=== PATIENT | female | born 1950 | race Caucasian/White ===

== ENCOUNTER 2017-02-20 12:45 | Inpatient (IN) | payer MEDICARE, MEDICAID ==
--- NOTE | 2017-02-20 12:58 | ED Physician Chart ---
ED Chief Complaint/HPI - Patient Information Date Seen:: 02/20/17 Time Seen:: 12:45 Chief Complaint:: Lethargy History of Present Illness:: onset x one day of lethargy, ALOC, AMS, and weakness; no report of trauma, H/As , S/T, neck pain, C/P, SOB, Abd. Pain, A/N/V/D/C, fever, chills, or urinary s/s Historian:: Patient, EMS Review:: Nurse's Note Reviewed, Old Chart Reviewed, EMS run form Reviewed ED Review of Systems - Review of Systems General/Constitutional: No fever, No chills, No weight loss, No weakness, No diaphoresis, No edema, No loss of appetite Skin: No skin lesions, No rash, No bruising Head: No headache, No light-headedness Eyes: No loss of vision, No pain, No diplopia ENT: No earache, No nasal drainage, No sore throat, No tinnitus Neck: No neck pain, No swelling, No thyromegaly, No stiffness, No mass noted Cardio Vascular: No chest pain, No palpitations, No PND, No orthopnea, No edema Pulmonary: No SOB, No cough, No sputum, No wheezing GI: No nausea, No vomiting, No diarrhea, No pain, No melena, No hematochezia, No constipation, No hematemesis G/U: No dysuria, No frequency, No hematuria, No nacturia Community Advocate: No vaginal discharge, No abnormal vaginal bleed, No contraction Musculoskeletal: No bone or joint pain, No back pain, No muscle pain Endocrine: No polyuria, No polydipsia Psychiatric: No prior psych history, No depression, No anxiety, No suicidal ideation, No homicidal ideation, No auditory hallucination, No visual hallucination Hematopoietic: No bruising, No lymphadenopathy Allergic/Immuno: No urticaria, No angioedema Neurological: No syncope, No focal symptoms, Weakness, No paresthesia, No headache, No seizure, No dizziness, Confusion, No vertigo ED Past Medical History - Past Medical History Obtainable: Yes Past Medical History: HTN, Dementia Family History: Diabetes Melitus, HTN Social History: Non Smoker, No Alcohol, No Drug Use, Single, Care Facility Surgical History: None Psychiatricy History: Dementia Medication: Reviewed ED Physical Exam - Physical Examination General/Constitutional: Awake, Well-developed, well-nourished, Alert, No distress, GCS 15, Non-toxic appearing, Ambulatory Head: Atraumatic Eyes: Lids, conjuctiva normal, PERRL, EOMI Skin: Nl inspection, No rash, No skin lesions, No ecchymosis, Well hydrated, No lymphadenopathy ENMT: External ears, nose nl, TM canals nl, Nasal exam nl, Lips, teeth, gums nl , Oropharynx nl, Tonsils nl Neck: Nontender, Full ROM w/o pain, No JVD, No nuchal rigidity, No bruit, No mass, No stridor Respiratory: Nl effort/Exclusion, Clear to Auscultation, No Wheeze/Rhonchi/Rales Cardio Vascular: RRR, No murmur, gallop, rubs, NL S1 S2, Carotid/Femoral/Distal pulses equal bilaterally GI: No tenderness/rebounding/guarding, No organomegaly, No hernia, Normal BS's, Nondistended, No mass/bruits, No McBurney tenderness : No CVA tenderness Extremities: No tenderness or effusion, Full ROM, normal strength in all extremities, No edema, Normal digits & nails Neuro/Psych: DTR's symmetric, Normal sensory exam, Normal motor strength, Judgement/insight normal, Mood normal, Normal gait, No focal deficits Other Neuro/Psych comments:: Disoriented and Confused Misc: Normal back, No paraspinal tenderness ED Labs/Radiology/EKG Results - Lab Results Comments:: WBC: 4.0; H/H: 11.5/34.9 - Radiology Results Comments:: NAD - EKG Interpretations EKG Time:: 15:13 Rate & Rhythm: 54; SB Comments:: old ASMI; [address]-T Elevation in Inferior Leads; T-Wave Inversion in V1 and V2 ED Septic Shock - . Is Septic Shock (SBP<90, OR Lactate>4 mmol\L) present?: No ED Reassessment (Disposition) - Reassessment Reassessment Condition:: Improved - Diagnosis Diagnosis:: Dx: Leukopenia; Anemia; ALOC; Sepsis; Myocardial Ischemia; R/O RI; Hypothermia - Aftercare/Follow up Instructions Aftercare/Follow-Up Instructions:: Counseled pt regarding lab results/diagnosis & need follow up, Counseled pt & family regarding lab results/diagnosis & need follow up - Patient Disposition Discharge/Transfer:: Acute Care w/in this hosp Accepting Physician:: Dr. Knight Time Called:: 1420 Time Responded:: 14:20 Admitted to:: ICU Spoke to:: Dr. Knight Admitting Medical Physician:: Dr. Knight Condition at Disposition:: Critical, Improved
[2017-02-20 13:33] LABS: URINE MICROSCOPIC INDICATED? YES; URINE SOURCE MIDSTREAM
[2017-02-20 13:35] LABS: % BASOPHILS 0.2 % (0.0-2.0); % EOSINOPHILS 0.8 % (0.0-5.0); % LYMPHOCYTES 25.2 % (20.0-50.0); % MONOCYTES 6.9 % (2.0-10.0); % NEUTROPHILS 66.9 % (40.0-80.0); HEMATOCRIT 34.9 % (41.0-60); HEMOGLOBIN 11.5 gm/dL (12-16); MEAN CELL VOLUME 91.1 fl (81-100); MEAN CORPUSCULAR HGB CONC 32.9 pg (28.0-36.0); MEAN PLATELET VOLUME 7.8 fl; MONOCYTE ABSOLUTE 0.3 Th/cmm (0.3-1.0); NEUTROPHILE ABSOLUTE 2.7 Th/cmm (1.8-8.0); PLATELET COUNT 202 Th/cmm (150-400); RED BLOOD COUNT 3.83 Mil/cmm (3.80-5.20); RED CELL DISTRIBUTION WIDTH 14.7 % (11.5-20.0)
[2017-02-20 13:42] LABS: URINE BILIRUBIN NEGATIVE (NEGATIVE); URINE BLOOD NEGATIVE (NEGATIVE); URINE GLUCOSE (UA) NEGATIVE (NEGATIVE); URINE KETONE NEGATIVE (NEGATIVE); URINE LEUKOCYTE ESTERASE NEGATIVE (NEGATIVE); URINE NITRATE NEGATIVE (NEGATIVE); URINE PROTEIN TRACE mg/dL (NEGATIVE); URINE UROBILINOGEN 0.2 E.U./dL (0.2 - 1.0)
[2017-02-20 13:45] VITALS: BP 102/61
[2017-02-20 13:47] LABS: URINE CLARITY HAZY (CLEAR); URINE COLOR YELLOW
[2017-02-20 13:47] LABS: ALB/GLOB RATIO 1.2 (1.0-1.8); ALBUMIN 3.4 gm/dL (3.7-5.3); ALKALINE PHOSPHATASE 318 U/L (34-104); ANION GAP 6.7 (7.0-16.0); BILIRUBIN,TOTAL 0.3 mg/dL (0.3-1.0); BUN - UREA NITROGEN 24 mg/dL (7-25); CALCIUM SERUM 9.4 mg/dL (8.6-10.3); CARBON DIOXIDE 32.1 mEq/L (21.0-31.0); CHLORIDE 105 mEq/L (98-107); CHOLESTEROL 216 mg/dL (<200); CREATININE - SERUM 0.7 mg/dL (0.6-1.2); CREATININE KINASE 249 U/L (30-223); GFR AFRICAN-AMERICAN > 60.0 ml/min (>90); GFR NON AFRICAN-AMERICAN > 60.0 ml/min; GLUCOSE 96 mg/dL (70-105); HDL -HIGH DENSITY LIPOPROTEIN 122 mg/dL (23-92); POTASSIUM SERUM 3.8 mEq/L (3.5-5.1); SGOT 117 U/L (13-39); SGPT/ALT 159 U/L (7-52); SODIUM SERUM 140 mEq/L (136-145); TOTAL PROTEIN,SERUM 6.3 gm/dL (6.0-8.3); TRIGLYCERIDES 74 mg/dL (<150)
[2017-02-20 13:57] LABS: PROTHROMBIN TIME (TEST) 10.4 SECONDS (9.5-11.5)
[2017-02-20 13:59] LABS: URINE BACTERIA OCCASIONAL /hpf (NONE SEEN); URINE EPITHELIAL CELLS FEW /lpf (FEW); URINE RBC 0-2 /hpf (0-5)
--- NOTE | 2017-02-20 14:01 | Diagnostic Imaging Report ---
CT scan of the brain without intravenous contrast HISTORY: Stroke, CVA Total DLP equals 775 CTDI equals 40.9 Axial sections were obtained from the base of the skull to the vertex. There is enlargement of the ventricular system along with enlargement of cerebral sulci and subarachnoid cisterns reflecting atrophy. No acute parenchymal abnormalities. No intracerebral hemorrhage. No mass effect or shift of midline structures. No extra-axial masses or abnormal fluid collections. IMPRESSION: 1. No acute abnormalities 2. Cerebral atrophy
--- NOTE | 2017-02-20 14:12 | Diagnostic Imaging Report ---
Portable chest x-ray HISTORY: Pain The overall heart size is difficult to assess with portable technique and a poor inspiration. Atherosclerotic calcification seen in the aorta. No acute focal pulmonary processes. Degenerative changes noted within the spine. IMPRESSION: 1. No acute abnormalities 2. Atherosclerotic vascular changes
[2017-02-20] MEDS ORDERED: Sodium Chloride 0.9% 500 ML IV ONE ×2 (14:40→16:12)
[2017-02-20] MEDS ORDERED: Piperacillin Sodium/Tazobact 3.375 gm Vial IV ONE ×2 (15:09→21:35)
[2017-02-20] MEDS ORDERED: Sodium Chloride 0.9% 1,000 ML IV ONE (16:12)
[2017-02-20] MEDS ORDERED: DOPamine 400 MG/250 ML BAG IV ONE (16:45)
[2017-02-20] MEDS ORDERED: DOPamine 400 MG/250 ML BAG IV PRN (21:20)
[2017-02-20] MEDS: Sodium Chloride 0.9% 1,000 ML IV SCH (21:22)
--- NOTE | 2017-02-21 03:59 | Consultation ---
DATE OF CONSULTATION: 02/20/2017 INFECTIOUS DISEASE CONSULTATION REFERRING PHYSICIAN: Cynthia Martinez MD. REASON FOR CONSULTATION: Sepsis. HISTORY OF PRESENT ILLNESS: The patient is a 66-year-old female with a past medical history of hypertension, dementia, brought in from the nursing facility for lethargy and altered mental status associated with weakness. On initial evaluation, the patient's temperature was 88 degrees Fahrenheit and WBC count was 4000. The patient was hypotensive on presentation with blood pressure of 102/61, it dropped to 70/39. Sepsis was suspected. Lactic acid was within normal limits. The patient was started on vancomycin and Zosyn. Infectious Disease consultation was called for further antibiotic management. PAST MEDICAL HISTORY: Include dementia and hypertension. ALLERGIES: NKDA. MEDICATIONS: See medication reconciliation sheet. Antibiotic rothman, the patient is receiving vancomycin IV in the ER and Zosyn. SOCIAL HISTORY: The patient lives in a nursing facility. FAMILY HISTORY: Not available. REVIEW OF SYSTEMS: The patient is not communicating at this time, unable to obtain any history from the patient, history is taken from the chart. The patient is hypothermic and hypotensive at the presentation. PHYSICAL EXAMINATION: VITAL SIGNS: Current vital signs shows temperature is 97.7 degrees Fahrenheit, pulse 91, respirations 22, and blood pressure 119/51. GENERAL: The patient is comfortable, lying in the bed, not in acute distress. HEENT: Head is normocephalic and atraumatic. Oral cavity moist, pink tongue. Eyes: Pallor is present, no icterus. Pupils are PERRLA, EOMI. NECK: Supple. No JVD. Trachea is midline. CHEST: Bilateral breath sounds. No crackles or wheezing. HEART: S1, S2 within normal limits. Regular rhythm. No murmur. No gallop. ABDOMEN: Soft, nontender, and nondistended. Bowel sounds present. EXTREMITIES: No cyanosis, no clubbing, and no edema. NEUROLOGIC: Unresponsive. Barely opens her eyes. LABORATORY DATA: Current lab shows WBC count is 4000, hemoglobin 11.5, hematocrit 34.9, platelets are 202,000, and neutrophils 67%. INR 1.0. Sodium is 140, potassium 3.8, chloride 105, bicarbonate is 32, BUN is 24, creatinine 0.7, and glucose is 96. AST 170, ALT is 159, and alkaline phosphatase is 318. CPK is 249. CPK-MB 40.8. BNP 81. Urinalysis shows negative nitrite and negative leukoesterase. DIAGNOSTIC DATA: CT scan of the head showed cerebral atrophy; otherwise, not in acute. Chest x-ray revealed no acute abnormality. IMPRESSION: 1. Hypothermia, hypotension, WBC count is 4000, sepsis or systemic inflammatory response syndrome. 2. Dementia. 3. Hypertension. 4. Elevated liver enzymes, rule out hepatitis. RECOMMENDATIONS: Meanwhile, we will do the ultrasound of the abdomen and pelvis Continue vanco MARINA and Perla. Thank you, Dr. Knight, for involving me in taking care of this patient. JOB# [id number] DERRICK
[2017-02-21] MEDS ORDERED: Piperacillin Sodium/Tazobact 3.375 gm Vial IV ONE (04:37)
[2017-02-21 06:26] LABS: % BASOPHILS 0.3 % (0.0-2.0); % EOSINOPHILS 0.4 % (0.0-5.0); % LYMPHOCYTES 14.9 % (20.0-50.0); % MONOCYTES 7.4 % (2.0-10.0); HEMATOCRIT 34.7 % (41.0-60); HEMOGLOBIN 11.7 gm/dL (12-16); LYMPHOCYTE ABSOLUTE 0.9 Th/cmm (1.5-3.0); MEAN CELL VOLUME 90.2 fl (81-100); MEAN CORPUSCULAR HEMOGLOBIN 30.5 pg (27.0-31.0); MEAN CORPUSCULAR HGB CONC 33.8 pg (28.0-36.0); MEAN PLATELET VOLUME 7.8 fl; MONOCYTE ABSOLUTE 0.4 Th/cmm (0.3-1.0); NEUTROPHILE ABSOLUTE 4.7 Th/cmm (1.8-8.0); PLATELET COUNT 205 Th/cmm (150-400); RED BLOOD COUNT 3.85 Mil/cmm (3.80-5.20); RED CELL DISTRIBUTION WIDTH 14.4 % (11.5-20.0)
[2017-02-21 06:50] LABS: ALBUMIN 3.1 gm/dL (3.7-5.3); ALKALINE PHOSPHATASE 308 U/L (34-104); BILIRUBIN,TOTAL 0.4 mg/dL (0.3-1.0); BUN - UREA NITROGEN 13 mg/dL (7-25); CALCIUM SERUM 7.9 mg/dL (8.6-10.3); CARBON DIOXIDE 27.2 mEq/L (21.0-31.0); CHLORIDE 111 mEq/L (98-107); CREATININE - SERUM 0.9 mg/dL (0.6-1.2); GFR AFRICAN-AMERICAN > 60.0 ml/min (>90); GFR NON AFRICAN-AMERICAN > 60.0 ml/min; GLUCOSE 92 mg/dL (70-105); POTASSIUM SERUM 4.2 mEq/L (3.5-5.1); SGOT 92 U/L (13-39); SGPT/ALT 138 U/L (7-52); SODIUM SERUM 141 mEq/L (136-145); TOTAL PROTEIN,SERUM 6.1 gm/dL (6.0-8.3)
[2017-02-21] MEDS ORDERED: Albuterol/Ipratropium Neb 3 ML AERS HHN PRN (08:35)
[2017-02-21] MEDS ORDERED: Guaifenesin DM 10 ML UDC PO PRN (08:35)
[2017-02-21] MEDS ORDERED: AMLODIPINE PO SCH (09:00)
[2017-02-21] MEDS ORDERED: ATORVASTATIN PO SCH (09:00)
[2017-02-21] MEDS ORDERED: Atorvastatin Calcium 10 MG TAB PO SCH (09:05)
--- NOTE | 2017-02-21 10:41 | History & Physical ---
ADMIT DATE: CHIEF COMPLAINT: AMS, lethargy, hypotension and hypothermia as well as bradycardia. HISTORY OF PRESENT ILLNESS: A 66-year-old female with history of hypertension, dementia, who presented to the ER with 1 day history of lethargy, altered mental status, generalized weakness, but no mention of chest pain, nausea, vomiting, fever, chills or urinary symptomatology. At the ER, pertinent findings include a temperature of 88.2, a pulse of 49, a blood pressure of 70/39 as far as labs transaminitis with and elevated CPK at 249. The patient underwent a CT of the head showing generalized atrophy, but no acute events and a chest x-ray was essentially within normal limits per radiologist's reading. The patient has been admitted to the ICU for further management and care. At this time, the patient is asleep and unable to provide me any significant history. As noted above, she does have a history of dementia. PAST MEDICAL HISTORY: Hypertension and dementia with psych overtones. PAST SURGICAL HISTORY: None listed. SOCIAL HISTORY: No tobacco, ETOH or illicit drug usage. She lives at care facility. OUTPATIENT MEDICATIONS: Tylenol 325 q.4 p.r.n. for fever or pain, alprazolam 0.5 t.i.d., amlodipine with atorvastatin 2.5/10 every day, vitamin C 500 mg daily, aspirin 81 daily, vitamin D 3000 international units every day, diphenhydramine 25 every day, Aricept 5 at bedtime, Tussin 10 mL q.6 hours p.r.n., DuoNeb q.6 hours p.r.n. for shortness of breath, magnesium 250 every day, and Risperdal is 0.5 at bedtime. REVIEW OF SYSTEMS: A good review of systems was not able to be done given patient's condition, but per ER notes, no fever or chills noted. No abdominal pain. There is no report of chest pain or shortness of breath. There are no reports of syncopal episodes. ALLERGIES: NKDA. PHYSICAL EXAMINATION: VITAL SIGNS: Current temperature is 97.6, pulse 68-73, blood pressure 116/56, respirations 18, satting 96% on 4 liters nasal cannula. GENERAL: She is a well-developed, well-nourished female, currently lying in bed, in no distress. HEENT: There is no evidence of trauma, although she does have some ecchymosis around her right forehead. NECK: There is no JVD or LAD. CARDIOVASCULAR: Regular rate and rhythm with distant sounds. LUNGS: Decreased at the bases. ABDOMEN: Soft, supple, nontender, nondistended, normoactive bowel sounds. EXTREMITIES: Lower extremity, there is no edema. NEUROLOGIC: Cannot be eval given current patient's condition. LABORATORY DATA: White count 4.0, H and H 11/34 with a platelet count of 202. INR 1.0, CO2 of 32, anion gap 6.7. Otherwise, chemistry was essentially within normal limits. Lactic acid 1.3, AST 117, ALT 159, alkaline phosphatase 318. CPK 249. BNP 80, LDL 80, HDL 122, general cholesterol 216. UA was essentially within normal limits. DIAGNOSTICS: As per to the HPI. IMPRESSION: 1. Altered mental status/lethargy. 2. Hypothermia, rule out sepsis. 3. Hypotension. Again, be concern is for sepsis vs. cardiogenic shock. 4. Bradycardia. 5. Transaminitis. 6. Elevated CPK level consistent with mild rhabdomyolysis. 7. History of essential hypertension. 8. History of dementia. PLAN: The patient has been admitted to the ICU yin where she has been placed on warm blankets and has been started on IV antibiotics namely vancomycin and Zosyn and also has dopamine drip. She will be kept on her other medications schedule. She also has been kept on IV fluids, which she received in the ER. She is currently on NS at 100 mL per hour. We will continue to follow cultures and sensitivities. CPK levels and will ask for hep serologies. A cardiac as well as an ID consults have been asked for management and care. JOB# [id number] DERRICK
[2017-02-21] MEDS: Aspirin 81mg Chewable Tab PO SCH (11:39)
[2017-02-21] MEDS: Sodium Chloride 0.9% 1,000 ML IV SCH ×2 (11:41→20:47)
--- NOTE | 2017-02-21 12:26 | Diagnostic Imaging Report ---
Ultrasound abdomen HISTORY: Elevated liver function tests COMPARISON: None Technique: Sonography of the abdomen was performed in multiple planes. FINDINGS: Exam is limited due to patient's medical condition and bowel gas. The visualized portions of the abdominal aorta within normal limits in size. The liver demonstrates normal echogenicity. The liver margins were not well-defined however no evidence of focal lesions. The liver measures 14.7 cm. The gallbladder is mildly distended. No discrete gallstones identified. The gallbladder wall measures 2 mm. The common bile duct measures 5 mm. Evaluation of the pancreas is limited due to bowel gas. The right kidney measures 9.7 x 4.4 cm. The left kidney measures 9.6 x 4.4 cm. The renal margins were not well-defined however no obvious focal lesions or evidence of hydronephrosis. The spleen was not well-visualized. IMPRESSION: Markedly limited exam due to bowel gas and body habitus. No evidence of hepatomegaly or other focal liver abnormalities. Mildly distended gallbladder. Note discrete gallstones identified. The common bile duct within normal limits in size measuring 5 mm The spleen was not visualized.
--- NOTE | 2017-02-21 20:46 | Consultation ---
DATE OF CONSULTATION: 02/21/[address] Knight. HISTORY AND PHYSICAL: This is a 66-year-old oriental female patient who was at the care home. The patient became weak, lethargic, altered level at this time. The patient was brought to the Emergency Room where the patient was hypotensive with bradycardia. The patient was admitted to ICU and cardiac consult is requested. The patient on dopamine. PAST MEDICAL HISTORY: Dementia, rhabdomyolysis, iron-deficiency anemia, osteoporosis, mild dementia. FAMILY HISTORY: Unremarkable. SOCIAL HISTORY: No history of smoking, alcohol abuse. ALLERGIES: No known allergies. PHYSICAL EXAMINATION: VITAL SIGNS: Blood pressure 90 systolic, on dopamine. Respirations 28. HEAD: Normocephalic. No lumps or bumps. EYES: Pupils equal, reactive to light. Fundi show AV nicking, sclerae white, conjunctivae pink. NECK: Carotid 2+. Normal upstroke. JVD flat. Thyroid not palpable. Lymph nodes not palpable. CHEST: Shows increased AP diameter. No kyphosis, scoliosis. LUNGS: Bilateral bronchovesicular breath sounds. HEART: PMI fifth intercostal space with lateral to midclavicular line. S1, S2. No S3, S4, soft systolic murmur. ABDOMEN: Soft. Liver, spleen not palpable. No organomegaly. Bowel sounds active. NEUROLOGIC: Unremarkable. EXTREMITIES: Peripheral pulses 2+. No pedal edema. CLINICAL IMPRESSION: Hypotension, etiology unknown, on dopamine; severe bradycardia, resolved with dopamine; history of hypertension; dementia. The patient was hypothermic with a temperature of 88 on admission; rhabdomyolysis, stating hepatitis, iron-deficiency anemia. PLAN: The patient to stop statin in view of hepatitis. Stop ____ in view of hypotension. The patient to continue on IV antibiotics and dopamine and monitor the patient closely and try to wean off dopamine and also get an echocardiogram for left ventricular function. [facility]# [id number]
[2017-02-21] MEDS: D5-0.45NS 1,000 ML IV SCH (21:10)
[2017-02-22 09:17] LABS: % BASOPHILS 0.6 % (0.0-2.0); % EOSINOPHILS 0.7 % (0.0-5.0); % LYMPHOCYTES 21.3 % (20.0-50.0); % MONOCYTES 12.5 % (2.0-10.0); % NEUTROPHILS 64.9 % (40.0-80.0); HEMOGLOBIN 10.4 gm/dL (12-16); LYMPHOCYTE ABSOLUTE 1.1 Th/cmm (1.5-3.0); MEAN CELL VOLUME 91.1 fl (81-100); MEAN CORPUSCULAR HEMOGLOBIN 29.5 pg (27.0-31.0); MEAN CORPUSCULAR HGB CONC 32.4 pg (28.0-36.0); MEAN PLATELET VOLUME 8.4 fl; MONOCYTE ABSOLUTE 0.6 Th/cmm (0.3-1.0); NEUTROPHILE ABSOLUTE 3.4 Th/cmm (1.8-8.0); RED BLOOD COUNT 3.52 Mil/cmm (3.80-5.20); RED CELL DISTRIBUTION WIDTH 14.4 % (11.5-20.0); WHITE BLOOD COUNT 5.1 Th/cmm (4.8-10.8)
[2017-02-22 09:18] LABS: PLATELET COUNT 163 Th/cmm (150-400)
[2017-02-22 09:35] LABS: ANION GAP 5.9 (7.0-16.0); CALCIUM SERUM 7.9 mg/dL (8.6-10.3); CARBON DIOXIDE 27.8 mEq/L (21.0-31.0); CREATININE - SERUM 1.2 mg/dL (0.6-1.2); GFR AFRICAN-AMERICAN 57.6 ml/min (>90); GFR NON AFRICAN-AMERICAN 47.6 ml/min; POTASSIUM SERUM 3.7 mEq/L (3.5-5.1)
[2017-02-22] MEDS: Aspirin 81mg Chewable Tab PO SCH (10:25)
[2017-02-22] MEDS: D5-0.45NS 1,000 ML IV SCH (13:02)
[2017-02-22 13:14] LABS: HEP A AB IGM Negative (Negative); HEP B CORE IGM Negative (Negative); HEP B SURFACE AG QL Negative (Negative); HEP C ANTIBODY 0.2 s/co ratio (0.0-0.9)
[2017-02-22 13:40] LABS: INF A SCREEN NEG FOR INF A; INF B SCREEN NEG FOR INF B
--- NOTE | 2017-02-22 16:14 | Cardiology ---
02/21/2017 PATIENT OF: Dr. Knight. M-MODE ECHOCARDIOGRAM: Mitral valve, anterior leaflet of mitral valve shows normal excursion, EF velocity. Posterior leaflet of mitral valve shows normal excursion. Left ventricular posterior wall shows increased thickness, normal excursion. Interventricular septum shows increased thickness, normal excursion, hypertrophy of the left ventricle, ejection fraction 55%. Left atrium normal. Aortic root shows normal dimension, normal excursion of aortic leaflets. CONCLUSION: Hypertrophy of the left ventricle, ejection fraction 55%. 2D ECHO: Long axis view showed normal sized left ventricle with hypertrophy of the left ventricle. Left atrium normal. Aortic root shows normal dimension, normal excursion of aortic leaflets. Short axis view of mitral valve normal. Short axis view of aortic valve normal. Apical four chamber view showed normal sized left ventricle with hypertrophy of the left ventricle. Left atrium, normal. Right ventricular cavity, right atrium normal, no pericardial effusion. CONCLUSION: Hypertrophy of the left ventricle, ejection fraction 55%. Doppler study shows mild to moderate mitral regurgitation, [id number] tricuspid regurgitation, [id number] aortic regurgitation. Right ventricular systolic pressure of 27 mmHg. JOB# [id number]
--- NOTE | 2017-02-22 23:52 | Infectious Disease Prog Note ---
Infectious Disease Subjective - Review of Systems Service Date: 02/22/17 Subjective: No fever. Infectious Disease Objective - Results Result Diagrams: 02/22/17 08:50 02/23/17 08:00 Recent Labs: Laboratory Last Values WBC 5.1 Th/cmm (4.8-10.8) 02/22/17 08:50 RBC 3.52 Mil/cmm (3.80-5.20) L 02/22/17 08:50 Hgb 10.4 gm/dL (12-16) L 02/22/17 08:50 Hct 32.0 % (41.0-60) L 02/22/17 08:50 MCV 91.1 fl (81-100) 02/22/17 08:50 MCH 29.5 pg (27.0-31.0) 02/22/17 08:50 MCHC Differential 32.4 pg (28.0-36.0) 02/22/17 08:50 RDW 14.4 % (11.5-20.0) 02/22/17 08:50 Plt Count 163 Th/cmm (150-400) D 02/22/17 08:50 MPV 8.4 fl 02/22/17 08:50 Neutrophils % 64.9 % (40.0-80.0) 02/22/17 08:50 Lymphocytes % 21.3 % (20.0-50.0) 02/22/17 08:50 Monocytes % 12.5 % (2.0-10.0) H 02/22/17 08:50 Eosinophils % 0.7 % (0.0-5.0) 02/22/17 08:50 Basophils % 0.6 % (0.0-2.0) 02/22/17 08:50 PT 10.4 SECONDS (9.5-11.5) 02/20/17 13:18 INR 1.00 (0.5-1.4) 02/20/17 13:18 PTT (Actin FS) 27.6 SECONDS (26.0-38.0) 02/20/17 13:18 Sodium 142 mEq/L (136-145) 02/22/17 08:50 Potassium 3.7 mEq/L (3.5-5.1) 02/22/17 08:50 Chloride 112 mEq/L (98-107) H 02/22/17 08:50 Carbon Dioxide 27.8 mEq/L (21.0-31.0) 02/22/17 08:50 Anion Gap 5.9 (7.0-16.0) L 02/22/17 08:50 BUN 17 mg/dL (7-25) 02/22/17 08:50 Creatinine 1.2 mg/dL (0.6-1.2) 02/22/17 08:50 Est GFR ( Amer) 57.6 ml/min (>90) 02/22/17 08:50 Est GFR (Non-Af Amer) 47.6 ml/min 02/22/17 08:50 BUN/Creatinine Ratio 14.2 02/22/17 08:50 Glucose 112 mg/dL (70-105) H 02/22/17 08:50 POC Glucose 98 MG/DL (70 - 105) 02/20/17 12:57 Whole Bld Lactic Acid 1.32 mmol/L (0.60-1.99) 02/20/17 13:18 Calcium 7.9 mg/dL (8.6-10.3) L 02/22/17 08:50 Magnesium 2.0 mg/dL (1.9-2.7) 02/21/17 06:10 Total Bilirubin 0.4 mg/dL (0.3-1.0) 02/21/17 06:10 AST 92 U/L (13-39) H 02/21/17 06:10 ALT 138 U/L (7-52) H 02/21/17 06:10 Alkaline Phosphatase 308 U/L (34-104) H 02/21/17 06:10 Ammonia 75 umol/L (16-53) H 02/22/17 08:50 Creatine Kinase 246 U/L (30-223) H 02/22/17 08:50 CK-MB (CK-2) 9.3 ng/mL (0.6-6.3) H 02/22/17 08:50 Troponin I 0.02 ng/mL (0.01-0.05) 02/20/17 21:38 B-Natriuretic Peptide 263.0 pg/mL (5.0-100.0) H 02/22/17 08:50 Total Protein 6.1 gm/dL (6.0-8.3) 02/21/17 06:10 Albumin 3.1 gm/dL (3.7-5.3) L 02/21/17 06:10 Globulin 3.0 gm/dL 02/21/17 06:10 Albumin/Globulin Ratio 1.0 (1.0-1.8) 02/21/17 06:10 Triglycerides 74 mg/dL (<150) 02/20/17 13:18 Cholesterol 216 mg/dL (<200) H 02/20/17 13:18 LDL Cholesterol Direct 80 mg/dL (75-193) 02/20/17 13:18 HDL Cholesterol 122 mg/dL (23-92) H 02/20/17 13:18 Urine Source MIDSTREAM 02/20/17 13:00 Urine Color YELLOW 02/20/17 13:00 Urine Clarity HAZY (CLEAR) 02/20/17 13:00 Urine pH 6.0 (4.6 - 8.0) 02/20/17 13:00 Ur Specific [place] 1.025 (1.005-1.030) 02/20/17 13:00 Urine Protein TRACE mg/dL (NEGATIVE) 02/20/17 13:00 Urine Glucose (UA) NEGATIVE mg/dL (NEGATIVE) 02/20/17 13:00 Urine Ketones NEGATIVE mg/dL (NEGATIVE) 02/20/17 13:00 Urine Blood NEGATIVE (NEGATIVE) 02/20/17 13:00 Urine Nitrate NEGATIVE (NEGATIVE) 02/20/17 13:00 Urine Bilirubin NEGATIVE (NEGATIVE) 02/20/17 13:00 Urine Urobilinogen 0.2 E.U./dL (0.2 - 1.0) 02/20/17 13:00 Ur Leukocyte Esterase NEGATIVE (NEGATIVE) 02/20/17 13:00 Urine RBC 0-2 /hpf (0-5) 02/20/17 13:00 Urine WBC 2-5 /hpf (0-5) 02/20/17 13:00 Ur Epithelial Cells FEW /lpf (FEW) 02/20/17 13:00 Urine Bacteria OCCASIONAL /hpf (NONE SEEN) 02/20/17 13:00 Hepatitis A IgM Ab Negative (Negative) 02/21/17 06:10 Hep Bs Antigen Negative (Negative) 02/21/17 06:10 Hep B Core IgM Ab Negative (Negative) 02/21/17 06:10 Hepatitis C Antibody 0.2 s/co ratio (0.0-0.9) 02/21/17 06:10 Influenza A (Rapid) NEG FOR INF A 02/22/17 12:20 Influenza B (Rapid) NEG FOR INF B 02/22/17 12:20 - Physical Exam Vitals and I&O: Vital Signs Temp 96.4 F 02/22/17 16:00 Pulse 66 02/22/17 19:31 Resp 18 02/22/17 19:31 BP 135/88 02/22/17 18:00 Pulse Ox 98 02/22/17 22:00 Intake & Output 02/22/17 02/22/17 02/23/17 06:59 18:59 06:59 Intake Total 1922.5 387.5 Output Total 500 Balance 1422.5 387.5 Weight (lbs) 58.513 kg Intake: Intake, IV Amount 1922.5 387.5 D5-0.45NS 1,000 ml @ 75 662.5 337.5 mls/hr IV .[id number] [facility] Rx #:[id number] Piperacillin Sodium/ 100 50 Tazobact 3.375 gm In Sodium Chloride 0.9% 50 ml @ 100 mls/hr IV Q8HR [facility] Rx#:[id number] Sodium Chloride 0.9% 1, 910 000 ml @ 100 mls/hr IV . Q10H [facility] Rx#:[id number] Vancomycin HCl 1 gm In 250 Sodium Chloride 0.9% 250 ml @ 165 mls/hr IV Q24HR@ 0900 [facility] Rx#:[id number] Oral 0 Output: Urine 500 Other: # Bowel Movements 0 Stool Characteristics Soft Liquid Brown Active Medications: Current Medications Acetaminophen (Tylenol) 650 mg PO Q4H PRN PRN Reason: fever/pain Stop: 04/22/17 08:34 Albuterol/Ipratropium (Duoneb Neb) 3 ml HHN Q6HRT PRN PRN Reason: Shortness of Breath Stop: 04/22/17 08:34 Alprazolam (Xanax) 0.5 mg PO TID PRN; Protocol PRN Reason: Agitation Stop: 04/22/17 08:34 Amlodipine Besylate (Norvasc) 2.5 mg PO DAILY [facility] Stop: 04/22/17 09:04 Last Admin: 02/22/17 10:25 Dose: Not Given Ascorbic Acid (Vitamin C) 500 mg PO DAILY [facility] Stop: 04/22/17 08:59 Last Admin: 02/22/17 10:25 Dose: Not Given Aspirin (Aspirin Chewable) 81 mg PO DAILY [facility] Stop: 04/22/17 08:59 Last Admin: 02/22/17 10:25 Dose: Not Given Cholecalciferol (Vitamin D3) 1,000 iu PO DAILY [facility] Stop: 04/22/17 09:04 Last Admin: 02/22/17 10:25 Dose: Not Given Diphenhydramine HCl (Benadryl) 25 mg PO DAILY PRN PRN Reason: Itching Donepezil HCl (Aricept) 5 mg PO HS [facility] Stop: 04/22/17 20:59 Last Admin: 02/22/17 22:22 Dose: 5 mg Guaifenesin/Dextromethorphan (Robitussin Dm) 10 ml PO Q6H PRN PRN Reason: Cough Stop: 04/22/17 08:34 Piperacillin Sod/Tazobactam (Sod 3.375 gm/ Sodium Chloride) 50 mls @ 100 mls/ hr IV Q8HR [facility] Stop: 04/21/17 20:59 Last Admin: 02/22/17 22:22 Dose: 100 mls/hr Dopamine HCl/Dextrose (Dopamine) 400 mg in 250 mls @ 11.056 mls/hr IV TITR PRN ; Protocol; 5 MCG/KG/MIN PRN Reason: BP MAINTENANCE (PER PROTOCOL) Stop: 04/21/17 21:19 Last Titration: 02/21/17 09:00 Dose: 0 mcg/kg/min, 0 mls/hr Dextrose/Sodium Chloride (D5-0.45ns) 1,000 mls @ 75 mls/hr IV .[id number] [facility] Stop: 04/22/17 21:14 Last Admin: 02/22/17 13:02 Dose: 75 mls/hr Levothyroxine Sodium (Synthroid) 0.1 mg PO QDAC [facility] Stop: 04/24/17 07:29 Magnesium Oxide (Mag-Oxide) 400 mg PO DAILY [facility] Stop: 04/22/17 09:59 Last Admin: 02/22/17 10:25 Dose: Not Given General: no acute distress, well developed, well nourished HEENT: atraumatic, normocephalic, PERRLA, EOMI Neck: supple, no thyromegaly, no lymphadenopathy Cardiovascular: S1S2, regular Lungs: clear to auscultation bilaterally, clear to percussion Abdomen: soft, no tender, no distended Extremities: no cyanosis, no clubbing, no edema Neurological: awake, alert Skin: intact Infectious Disease Assmt/Plan - Assessment Assessment: IMPRESSION: 1. Hypothermia, hypotension, WBC count is 4000, sepsis or systemic inflammatory response syndrome. 2. Dementia. 3. Hypertension. 4. Elevated liver enzymes, rule out hepatitis. RECOMMENDATIONS: Continue Zosyn. DC vanco IV. Nutritional Asmnt/Malnutr-PDOC - Dietary Evaluation Malnutrition Findings (Please click <Entered> for more info): Nutritional Asmnt/Malnutrition Start: 02/21/17 14: 45 Text: Status: Complete Freq: Document 02/21/17 14:45 HEN (Rec: 02/21/17 14:57 LCHENG [email or web address]) Nutritional Asmnt/Malnutrition Patient General Information Nutritional Screening High Risk Consult Diagnosis hypotension, rule out sepsis vs acute cornary Pertinent Medical Hx/Surgical Hx HTN, dementia Subjective Information Consult received for Nasir William . Pt seen resting in bed at the time of visit, on [employer] machine. Per notes, pt had swallow eval today and failed. ST recommended strict NPO. Current Diet Order/ Nutrition Support NPO status Pertinent Medications vitamin c, vitamin D3, dopamine, mg, piperacillin, nacl 0.9% Pertinent Labs 02/21 Na 141, K 4.2, Cl 111, BUN 13, Cr 0.9, Ca 7.9, AST 92, ALT 138, Alb 3.1 Nutritional Hx/Data Height 1.55 m Height (Calculated Centimeters) 154.9 Current Weight (lbs) 58.695 kg Weight (Calculated Kilograms) 58.7 Weight (Calculated Grams) 69054.9 [place] Body Weight 105 % [place] Body Weight 123 Body Mass Index (BMI) 24.4 Weight Status Approriate GI Symptoms GI Symptoms None Skin Integrity/Comment: nasir William, dry, elastic Estimated Nutritional Goals BEE in Kcals: Using Current wt Calories/Kcals/Kg 25-30 Kcals Calculated 3634-3517 Protein: Using Current wt Protein g/k-1.2 Protein Calculated 59-71 Fluid: ml 1770ml (30ml/kg) Nutritional Problem 1. Problem Problem swallow difficulty Etiology mental status Signs/Symptoms: pt failed swallow eval and need for alternative nutrition route Malnutrition Alert Protein-Calorie Malnutrition N/A Is there a minimum of two criteria No selected? Query Text:Check all the applicable criteria. A minimum of two criteria are recommended for diagnosis of either severe or non-severe malnutrition. Intervention/Recommendation Comments 1. Monitor NPO status 2. If nutrition support needed , recommend start tube feeding Fibersource HN at 20ml/hr continuous, increase 10ml/hr q6hr to goal rate of 50ml/hr continuous. This will provide 1440kcal, 65g protein, 972ml water. 3. Monitor wt, labs and skin integrity. 4. F/U as high risk in 2-3 days, 1/5-1/6 Expected Outcomes/Goals Expected Outcomes/Goals 1. Pt to meet at least 75% of nutritional needs via alternative nutrition route in 2-3 days. 2. Wt stability, skin to remain intact, labs to approach WNL.
[2017-02-23] MEDS: D5-0.45NS 1,000 ML IV SCH ×2 (03:49→21:27)
--- NOTE | 2017-02-23 08:05 | Diagnostic Imaging Report ---
CHEST X-RAY: AP view INDICATION: Shortness of breath, sepsis COMPARISON: 02/20/2017 FINDINGS: Increased interstitial lung markings are noted. No focal consolidation identified. There may be a small right effusion. Heart size is normal. Atherosclerosis is noted. IMPRESSION: Increased interstitial lung markings. Underlying faint interstitial infiltrates or a marginal degree of congestion cannot be excluded. No focal consolidation identified. Atherosclerotic vascular disease.
[2017-02-23] MEDS: Levothyroxine 0.1 Mg Tab PO SCH (08:21)
[2017-02-23 10:06] LABS: ALBUMIN 2.9 gm/dL (3.7-5.3); ALKALINE PHOSPHATASE 424 U/L (34-104); ANION GAP 8.5 (7.0-16.0); BILIRUBIN,TOTAL 0.7 mg/dL (0.3-1.0); BUN - UREA NITROGEN 12 mg/dL (7-25); CALCIUM SERUM 8.4 mg/dL (8.6-10.3); CARBON DIOXIDE 28.8 mEq/L (21.0-31.0); CHLORIDE 108 mEq/L (98-107); CREATININE - SERUM 1.1 mg/dL (0.6-1.2); GFR AFRICAN-AMERICAN > 60.0 ml/min (>90); GFR NON AFRICAN-AMERICAN 52.7 ml/min; GLUCOSE 107 mg/dL (70-105); POTASSIUM SERUM 3.3 mEq/L (3.5-5.1); SGOT 158 U/L (13-39); SGPT/ALT 151 U/L (7-52); SODIUM SERUM 142 mEq/L (136-145); TOTAL PROTEIN,SERUM 5.8 gm/dL (6.0-8.3)
[2017-02-23] MEDS: Aspirin 81mg Chewable Tab PO SCH (10:36)
[2017-02-23] MEDS ORDERED: Potassium Chloride 20 mEq ER Tab PO ONE ×2 (12:00→13:00)
[2017-02-23] MEDS: Lactulose 10 Gm/15 mL 30mL UDC PO SCH ×3 (12:07→21:29)
--- NOTE | 2017-02-23 14:59 | Infectious Disease Prog Note ---
Infectious Disease Subjective - Review of Systems Service Date: 02/23/17 Subjective: No fever. Infectious Disease Objective - Results Result Diagrams: 02/22/17 08:50 02/23/17 08:00 Recent Labs: Laboratory Last Values WBC 5.1 Th/cmm (4.8-10.8) 02/22/17 08:50 RBC 3.52 Mil/cmm (3.80-5.20) L 02/22/17 08:50 Hgb 10.4 gm/dL (12-16) L 02/22/17 08:50 Hct 32.0 % (41.0-60) L 02/22/17 08:50 MCV 91.1 fl (81-100) 02/22/17 08:50 MCH 29.5 pg (27.0-31.0) 02/22/17 08:50 MCHC Differential 32.4 pg (28.0-36.0) 02/22/17 08:50 RDW 14.4 % (11.5-20.0) 02/22/17 08:50 Plt Count 163 Th/cmm (150-400) D 02/22/17 08:50 MPV 8.4 fl 02/22/17 08:50 Neutrophils % 64.9 % (40.0-80.0) 02/22/17 08:50 Lymphocytes % 21.3 % (20.0-50.0) 02/22/17 08:50 Monocytes % 12.5 % (2.0-10.0) H 02/22/17 08:50 Eosinophils % 0.7 % (0.0-5.0) 02/22/17 08:50 Basophils % 0.6 % (0.0-2.0) 02/22/17 08:50 PT 10.4 SECONDS (9.5-11.5) 02/20/17 13:18 INR 1.00 (0.5-1.4) 02/20/17 13:18 PTT (Actin FS) 27.6 SECONDS (26.0-38.0) 02/20/17 13:18 Sodium 142 mEq/L (136-145) 02/23/17 08:00 Potassium 3.3 mEq/L (3.5-5.1) L 02/23/17 08:00 Chloride 108 mEq/L (98-107) H 02/23/17 08:00 Carbon Dioxide 28.8 mEq/L (21.0-31.0) 02/23/17 08:00 Anion Gap 8.5 (7.0-16.0) 02/23/17 08:00 BUN 12 mg/dL (7-25) 02/23/17 08:00 Creatinine 1.1 mg/dL (0.6-1.2) 02/23/17 08:00 Est GFR ( Amer) > 60.0 ml/min (>90) 02/23/17 08:00 Est GFR (Non-Af Amer) 52.7 ml/min 02/23/17 08:00 BUN/Creatinine Ratio 10.9 02/23/17 08:00 Glucose 107 mg/dL (70-105) H 02/23/17 08:00 POC Glucose 98 MG/DL (70 - 105) 02/20/17 12:57 Whole Bld Lactic Acid 1.32 mmol/L (0.60-1.99) 02/20/17 13:18 Calcium 8.4 mg/dL (8.6-10.3) L 02/23/17 08:00 Magnesium 1.9 mg/dL (1.9-2.7) 02/23/17 08:00 Total Bilirubin 0.7 mg/dL (0.3-1.0) 02/23/17 08:00 AST 158 U/L (13-39) H 02/23/17 08:00 ALT 151 U/L (7-52) H 02/23/17 08:00 Alkaline Phosphatase 424 U/L (34-104) H 02/23/17 08:00 Ammonia 75 umol/L (16-53) H 02/22/17 08:50 Creatine Kinase 246 U/L (30-223) H 02/22/17 08:50 CK-MB (CK-2) 9.3 ng/mL (0.6-6.3) H 02/22/17 08:50 Troponin I 0.02 ng/mL (0.01-0.05) 02/20/17 21:38 B-Natriuretic Peptide 263.0 pg/mL (5.0-100.0) H 02/22/17 08:50 Total Protein 5.8 gm/dL (6.0-8.3) L 02/23/17 08:00 Albumin 2.9 gm/dL (3.7-5.3) L 02/23/17 08:00 Globulin 2.9 gm/dL 02/23/17 08:00 Albumin/Globulin Ratio 1.0 (1.0-1.8) 02/23/17 08:00 Triglycerides 74 mg/dL (<150) 02/20/17 13:18 Cholesterol 216 mg/dL (<200) H 02/20/17 13:18 LDL Cholesterol Direct 80 mg/dL (75-193) 02/20/17 13:18 HDL Cholesterol 122 mg/dL (23-92) H 02/20/17 13:18 Urine Source MIDSTREAM 02/20/17 13:00 Urine Color YELLOW 02/20/17 13:00 Urine Clarity HAZY (CLEAR) 02/20/17 13:00 Urine pH 6.0 (4.6 - 8.0) 02/20/17 13:00 Ur Specific [place] 1.025 (1.005-1.030) 02/20/17 13:00 Urine Protein TRACE mg/dL (NEGATIVE) 02/20/17 13:00 Urine Glucose (UA) NEGATIVE mg/dL (NEGATIVE) 02/20/17 13:00 Urine Ketones NEGATIVE mg/dL (NEGATIVE) 02/20/17 13:00 Urine Blood NEGATIVE (NEGATIVE) 02/20/17 13:00 Urine Nitrate NEGATIVE (NEGATIVE) 02/20/17 13:00 Urine Bilirubin NEGATIVE (NEGATIVE) 02/20/17 13:00 Urine Urobilinogen 0.2 E.U./dL (0.2 - 1.0) 02/20/17 13:00 Ur Leukocyte Esterase NEGATIVE (NEGATIVE) 02/20/17 13:00 Urine RBC 0-2 /hpf (0-5) 02/20/17 13:00 Urine WBC 2-5 /hpf (0-5) 02/20/17 13:00 Ur Epithelial Cells FEW /lpf (FEW) 02/20/17 13:00 Urine Bacteria OCCASIONAL /hpf (NONE SEEN) 02/20/17 13:00 Vancomycin Trough 9.3 ug/mL (10-20) L 02/23/17 08:10 Hepatitis A IgM Ab Negative (Negative) 02/21/17 06:10 Hep Bs Antigen Negative (Negative) 02/21/17 06:10 Hep B Core IgM Ab Negative (Negative) 02/21/17 06:10 Hepatitis C Antibody 0.2 s/co ratio (0.0-0.9) 02/21/17 06:10 Influenza A (Rapid) NEG FOR INF A 02/22/17 12:20 Influenza B (Rapid) NEG FOR INF B 02/22/17 12:20 - Physical Exam Vitals and I&O: Vital Signs Temp 97.2 F 02/23/17 12:00 Pulse 53 02/23/17 12:00 Resp 16 02/23/17 12:00 BP 131/61 02/23/17 12:00 Pulse Ox 95 02/23/17 14:00 Intake & Output 02/22/17 02/23/17 02/23/17 18:59 06:59 18:59 Intake Total 387.5 1220 50 Output Total 800 Balance 387.5 420 50 Weight (lbs) 58.513 kg Intake: Intake, IV Amount 387.5 1100 50 D5-0.45NS 1,000 ml @ 75 337.5 1000 mls/hr IV .[id number] [facility] Rx #:[id number] Piperacillin Sodium/ 50 100 50 Tazobact 3.375 gm In Sodium Chloride 0.9% 50 ml @ 100 mls/hr IV Q8HR [facility] Rx#:[id number] Oral 120 Output: Urine 800 Other: # Bowel Movements 3 Stool Characteristics Soft Soft Liquid Liquid Brown Brown Active Medications: Current Medications Acetaminophen (Tylenol) 650 mg PO Q4H PRN PRN Reason: fever/pain Stop: 04/22/17 08:34 Albuterol/Ipratropium (Duoneb Neb) 3 ml HHN Q6HRT PRN PRN Reason: Shortness of Breath Stop: 04/22/17 08:34 Alprazolam (Xanax) 0.5 mg PO TID PRN; Protocol PRN Reason: Agitation Stop: 04/22/17 08:34 Amlodipine Besylate (Norvasc) 2.5 mg PO DAILY [facility] Stop: 04/22/17 09:04 Last Admin: 02/23/17 10:36 Dose: Not Given Ascorbic Acid (Vitamin C) 500 mg PO DAILY [facility] Stop: 04/22/17 08:59 Last Admin: 02/23/17 10:35 Dose: 500 mg Aspirin (Aspirin Chewable) 81 mg PO DAILY [facility] Stop: 04/22/17 08:59 Last Admin: 02/23/17 10:36 Dose: 81 mg Cholecalciferol (Vitamin D3) 1,000 iu PO DAILY [facility] Stop: 04/22/17 09:04 Last Admin: 02/23/17 10:36 Dose: 1,000 iu Diphenhydramine HCl (Benadryl) 25 mg PO DAILY PRN PRN Reason: Itching Donepezil HCl (Aricept) 5 mg PO HS [facility] Stop: 04/22/17 20:59 Last Admin: 02/22/17 22:22 Dose: 5 mg Guaifenesin/Dextromethorphan (Robitussin Dm) 10 ml PO Q6H PRN PRN Reason: Cough Stop: 04/22/17 08:34 Piperacillin Sod/Tazobactam (Sod 3.375 gm/ Sodium Chloride) 50 mls @ 100 mls/ hr IV Q8HR [facility] Stop: 04/21/17 20:59 Last Infusion: 02/23/17 13:00 Dose: Infused Dopamine HCl/Dextrose (Dopamine) 400 mg in 250 mls @ 11.056 mls/hr IV TITR PRN ; Protocol; 5 MCG/KG/MIN PRN Reason: BP MAINTENANCE (PER PROTOCOL) Stop: 04/21/17 21:19 Last Titration: 02/21/17 09:00 Dose: 0 mcg/kg/min, 0 mls/hr Dextrose/Sodium Chloride (D5-0.45ns) 1,000 mls @ 75 mls/hr IV .[id number] [facility] Stop: 04/22/17 21:14 Last Admin: 02/23/17 03:49 Dose: 75 mls/hr Lactulose (Cephulac) 30 gm PO TID [facility] Stop: 04/24/17 09:59 Last Admin: 02/23/17 12:07 Dose: 30 gm Levothyroxine Sodium (Synthroid) 0.1 mg PO QDAC [facility] Stop: 04/24/17 07:29 Last Admin: 02/23/17 08:21 Dose: Not Given Magnesium Oxide (Mag-Oxide) 400 mg PO DAILY [facility] Stop: 04/22/17 09:59 Last Admin: 02/23/17 10:36 Dose: 400 mg General: no acute distress, well developed, well nourished HEENT: atraumatic, normocephalic, PERRLA, EOMI, moist mucous membrane Neck: supple, no thyromegaly Cardiovascular: S1S2, regular Lungs: clear to auscultation bilaterally, clear to percussion Abdomen: soft, no tender, no distended Extremities: no cyanosis, no clubbing, no edema Neurological: awake, alert Infectious Disease Assmt/Plan - Assessment Assessment: IMPRESSION: 1. Hypothermia, hypotension, WBC count is 4000, sepsis or systemic inflammatory response syndrome. 2. Pneumonia. 3. Hypertension. 4. Elevated liver enzymes, rule out hepatitis. 5. Dementia. RECOMMENDATIONS: Continue Zosyn. Nutritional Asmnt/Malnutr-PDOC - Dietary Evaluation Malnutrition Findings (Please click <Entered> for more info): Nutritional Asmnt/Malnutrition Start: 02/21/17 14: 45 Text: Status: Complete Freq: Document 02/21/17 14:45 [facility] (Rec: 02/21/17 14:57 LCHEN [email or web address]) Nutritional Asmnt/Malnutrition Patient General Information Nutritional Screening High Risk Consult Diagnosis hypotension, rule out sepsis vs acute cornary Pertinent Medical Hx/Surgical Hx HTN, dementia Subjective Information Consult received for Nasir William . Pt seen resting in bed at the time of visit, on [employer] machine. Per notes, pt had swallow eval today and failed. ST recommended strict NPO. Current Diet Order/ Nutrition Support NPO status Pertinent Medications vitamin c, vitamin D3, dopamine, mg, piperacillin, nacl 0.9% Pertinent Labs 02/21 Na 141, K 4.2, Cl 111, BUN 13, Cr 0.9, Ca 7.9, AST 92, ALT 138, Alb 3.1 Nutritional Hx/Data Height 1.55 m Height (Calculated Centimeters) 154.9 Current Weight (lbs) 58.695 kg Weight (Calculated Kilograms) 58.7 Weight (Calculated Grams) 17012.9 [place] Body Weight 105 % [place] Body Weight 123 Body Mass Index (BMI) 24.4 Weight Status Approriate GI Symptoms GI Symptoms None Skin Integrity/Comment: nasir William, dry, elastic Estimated Nutritional Goals BEE in Kcals: Using Current wt Calories/Kcals/Kg 25-30 Kcals Calculated 9785-7751 Protein: Using Current wt Protein g/k-1.2 Protein Calculated 59-71 Fluid: ml 1770ml (30ml/kg) Nutritional Problem 1. Problem Problem swallow difficulty Etiology mental status Signs/Symptoms: pt failed swallow eval and need for alternative nutrition route Malnutrition Alert Protein-Calorie Malnutrition N/A Is there a minimum of two criteria No selected? Query Text:Check all the applicable criteria. A minimum of two criteria are recommended for diagnosis of either severe or non-severe malnutrition. Intervention/Recommendation Comments 1. Monitor NPO status 2. If nutrition support needed , recommend start tube feeding Fibersource HN at 20ml/hr continuous, increase 10ml/hr q6hr to goal rate of 50ml/hr continuous. This will provide 1440kcal, 65g protein, 972ml water. 3. Monitor wt, labs and skin integrity. 4. F/U as high risk in 2-3 days, 1/5-1/6 Expected Outcomes/Goals Expected Outcomes/Goals 1. Pt to meet at least 75% of nutritional needs via alternative nutrition route in 2-3 days. 2. Wt stability, skin to remain intact, labs to approach WNL.
[2017-02-24 06:16] LABS: % BASOPHILS 0.4 % (0.0-2.0); % EOSINOPHILS 2.3 % (0.0-5.0); % LYMPHOCYTES 24.7 % (20.0-50.0); % MONOCYTES 12.7 % (2.0-10.0); % NEUTROPHILS 59.9 % (40.0-80.0); EOSINOPHILE ABSOLUTE 0.1 Th/cmm (0.1-0.4); HEMATOCRIT 31.8 % (41.0-60); HEMOGLOBIN 10.6 gm/dL (12-16); LYMPHOCYTE ABSOLUTE 1.3 Th/cmm (1.5-3.0); MEAN CELL VOLUME 91.5 fl (81-100); MEAN CORPUSCULAR HEMOGLOBIN 30.6 pg (27.0-31.0); MEAN CORPUSCULAR HGB CONC 33.4 pg (28.0-36.0); MEAN PLATELET VOLUME 8.4 fl; MONOCYTE ABSOLUTE 0.7 Th/cmm (0.3-1.0); NEUTROPHILE ABSOLUTE 3.2 Th/cmm (1.8-8.0); PLATELET COUNT 150 Th/cmm (150-400); RED BLOOD COUNT 3.48 Mil/cmm (3.80-5.20); RED CELL DISTRIBUTION WIDTH 14.2 % (11.5-20.0); WHITE BLOOD COUNT 5.3 Th/cmm (4.8-10.8)
[2017-02-24 06:48] LABS: ANION GAP 8.6 (7.0-16.0); BUN - UREA NITROGEN 11 mg/dL (7-25); CALCIUM SERUM 8.5 mg/dL (8.6-10.3); CHLORIDE 109 mEq/L (98-107); CREATININE - SERUM 1.1 mg/dL (0.6-1.2); GFR AFRICAN-AMERICAN > 60.0 ml/min (>90); GFR NON AFRICAN-AMERICAN 52.7 ml/min; GLUCOSE 94 mg/dL (70-105); POTASSIUM SERUM 3.6 mEq/L (3.5-5.1); SODIUM SERUM 144 mEq/L (136-145)
[2017-02-24] MEDS: Levothyroxine 0.1 Mg Tab PO SCH (06:49)
[2017-02-24] MEDS: Aspirin 81mg Chewable Tab PO SCH (09:43)
[2017-02-24] MEDS: Lactulose 10 Gm/15 mL 30mL UDC PO SCH ×3 (09:44→21:01)
[2017-02-24] MEDS: D5-0.45NS 1,000 ML IV SCH (13:38)
--- NOTE | 2017-02-24 17:20 | Infectious Disease Prog Note ---
Infectious Disease Subjective - Review of Systems Service Date: 02/24/17 Subjective: No fever. Infectious Disease Objective - Results Result Diagrams: 02/24/17 05:56 02/24/17 05:56 Recent Labs: Laboratory Last Values WBC 5.3 Th/cmm (4.8-10.8) 02/24/17 05:56 RBC 3.48 Mil/cmm (3.80-5.20) L 02/24/17 05:56 Hgb 10.6 gm/dL (12-16) L 02/24/17 05:56 Hct 31.8 % (41.0-60) L 02/24/17 05:56 MCV 91.5 fl (81-100) 02/24/17 05:56 MCH 30.6 pg (27.0-31.0) 02/24/17 05:56 MCHC Differential 33.4 pg (28.0-36.0) 02/24/17 05:56 RDW 14.2 % (11.5-20.0) 02/24/17 05:56 Plt Count 150 Th/cmm (150-400) 02/24/17 05:56 MPV 8.4 fl 02/24/17 05:56 Neutrophils % 59.9 % (40.0-80.0) 02/24/17 05:56 Lymphocytes % 24.7 % (20.0-50.0) 02/24/17 05:56 Monocytes % 12.7 % (2.0-10.0) H 02/24/17 05:56 Eosinophils % 2.3 % (0.0-5.0) 02/24/17 05:56 Basophils % 0.4 % (0.0-2.0) 02/24/17 05:56 PT 10.4 SECONDS (9.5-11.5) 02/20/17 13:18 INR 1.00 (0.5-1.4) 02/20/17 13:18 PTT (Actin FS) 27.6 SECONDS (26.0-38.0) 02/20/17 13:18 Sodium 144 mEq/L (136-145) 02/24/17 05:56 Potassium 3.6 mEq/L (3.5-5.1) 02/24/17 05:56 Chloride 109 mEq/L (98-107) H 02/24/17 05:56 Carbon Dioxide 30.0 mEq/L (21.0-31.0) 02/24/17 05:56 Anion Gap 8.6 (7.0-16.0) 02/24/17 05:56 BUN 11 mg/dL (7-25) 02/24/17 05:56 Creatinine 1.1 mg/dL (0.6-1.2) 02/24/17 05:56 Est GFR ( Amer) > 60.0 ml/min (>90) 02/24/17 05:56 Est GFR (Non-Af Amer) 52.7 ml/min 02/24/17 05:56 BUN/Creatinine Ratio 10.0 02/24/17 05:56 Glucose 94 mg/dL (70-105) 02/24/17 05:56 POC Glucose 98 MG/DL (70 - 105) 02/20/17 12:57 Whole Bld Lactic Acid 1.32 mmol/L (0.60-1.99) 02/20/17 13:18 Calcium 8.5 mg/dL (8.6-10.3) L 02/24/17 05:56 Magnesium 2.0 mg/dL (1.9-2.7) 02/24/17 05:56 Total Bilirubin 0.7 mg/dL (0.3-1.0) 02/23/17 08:00 AST 158 U/L (13-39) H 02/23/17 08:00 ALT 151 U/L (7-52) H 02/23/17 08:00 Alkaline Phosphatase 424 U/L (34-104) H 02/23/17 08:00 Ammonia 56 umol/L (16-53) H 02/24/17 05:56 Creatine Kinase 246 U/L (30-223) H 02/22/17 08:50 CK-MB (CK-2) 9.3 ng/mL (0.6-6.3) H 02/22/17 08:50 Troponin I 0.02 ng/mL (0.01-0.05) 02/20/17 21:38 B-Natriuretic Peptide 263.0 pg/mL (5.0-100.0) H 02/22/17 08:50 Total Protein 5.8 gm/dL (6.0-8.3) L 02/23/17 08:00 Albumin 2.9 gm/dL (3.7-5.3) L 02/23/17 08:00 Globulin 2.9 gm/dL 02/23/17 08:00 Albumin/Globulin Ratio 1.0 (1.0-1.8) 02/23/17 08:00 Triglycerides 74 mg/dL (<150) 02/20/17 13:18 Cholesterol 216 mg/dL (<200) H 02/20/17 13:18 LDL Cholesterol Direct 80 mg/dL (75-193) 02/20/17 13:18 HDL Cholesterol 122 mg/dL (23-92) H 02/20/17 13:18 Urine Source MIDSTREAM 02/20/17 13:00 Urine Color YELLOW 02/20/17 13:00 Urine Clarity HAZY (CLEAR) 02/20/17 13:00 Urine pH 6.0 (4.6 - 8.0) 02/20/17 13:00 Ur Specific [place] 1.025 (1.005-1.030) 02/20/17 13:00 Urine Protein TRACE mg/dL (NEGATIVE) 02/20/17 13:00 Urine Glucose (UA) NEGATIVE mg/dL (NEGATIVE) 02/20/17 13:00 Urine Ketones NEGATIVE mg/dL (NEGATIVE) 02/20/17 13:00 Urine Blood NEGATIVE (NEGATIVE) 02/20/17 13:00 Urine Nitrate NEGATIVE (NEGATIVE) 02/20/17 13:00 Urine Bilirubin NEGATIVE (NEGATIVE) 02/20/17 13:00 Urine Urobilinogen 0.2 E.U./dL (0.2 - 1.0) 02/20/17 13:00 Ur Leukocyte Esterase NEGATIVE (NEGATIVE) 02/20/17 13:00 Urine RBC 0-2 /hpf (0-5) 02/20/17 13:00 Urine WBC 2-5 /hpf (0-5) 02/20/17 13:00 Ur Epithelial Cells FEW /lpf (FEW) 02/20/17 13:00 Urine Bacteria OCCASIONAL /hpf (NONE SEEN) 02/20/17 13:00 Vancomycin Trough 9.3 ug/mL (10-20) L 02/23/17 08:10 Hepatitis A IgM Ab Negative (Negative) 02/21/17 06:10 Hep Bs Antigen Negative (Negative) 02/21/17 06:10 Hep B Core IgM Ab Negative (Negative) 02/21/17 06:10 Hepatitis C Antibody 0.2 s/co ratio (0.0-0.9) 02/21/17 06:10 Influenza A (Rapid) NEG FOR INF A 02/22/17 12:20 Influenza B (Rapid) NEG FOR INF B 02/22/17 12:20 - Physical Exam Vitals and I&O: Vital Signs Temp 98.2 F 02/24/17 15:50 Pulse 57 02/24/17 15:50 Resp 18 02/24/17 15:50 BP 152/81 02/24/17 15:50 Pulse Ox 95 02/24/17 15:50 Intake & Output 02/23/17 02/24/17 02/24/17 18:59 06:59 18:59 Intake Total 2443 908 4088 Output Total 1200 1000 Balance 50 -900 1050 Weight (lbs) 58.513 kg 58.967 kg Intake: Intake, IV Amount 9669 482 1619 D5-0.45NS 1,000 ml @ 75 1000 1000 mls/hr IV .[id number] [facility] Rx #:[id number] Piperacillin Sodium/ 50 100 50 Tazobact 3.375 gm In Sodium Chloride 0.9% 50 ml @ 100 mls/hr IV Q8HR [facility] Rx#:[id number] Oral 200 Output: Urine 1200 1000 Other: # Bowel Movements 0 1 Active Medications: Current Medications Acetaminophen (Tylenol) 650 mg PO Q4H PRN PRN Reason: fever/pain Stop: 04/22/17 08:34 Albuterol/Ipratropium (Duoneb Neb) 3 ml HHN Q6HRT PRN PRN Reason: Shortness of Breath Stop: 04/22/17 08:34 Alprazolam (Xanax) 0.5 mg PO TID PRN; Protocol PRN Reason: Agitation Stop: 04/22/17 08:34 Amlodipine Besylate (Norvasc) 2.5 mg PO DAILY [facility] Stop: 04/22/17 09:04 Last Admin: 02/24/17 09:44 Dose: 2.5 mg Ascorbic Acid (Vitamin C) 500 mg PO DAILY [facility] Stop: 04/22/17 08:59 Last Admin: 02/24/17 09:44 Dose: 500 mg Aspirin (Aspirin Chewable) 81 mg PO DAILY [facility] Stop: 04/22/17 08:59 Last Admin: 02/24/17 09:43 Dose: 81 mg Cholecalciferol (Vitamin D3) 1,000 iu PO DAILY [facility] Stop: 04/22/17 09:04 Last Admin: 02/24/17 09:44 Dose: 1,000 iu Diphenhydramine HCl (Benadryl) 25 mg PO DAILY PRN PRN Reason: Itching Donepezil HCl (Aricept) 5 mg PO HS [facility] Stop: 04/22/17 20:59 Last Admin: 02/23/17 21:29 Dose: 5 mg Guaifenesin/Dextromethorphan (Robitussin Dm) 10 ml PO Q6H PRN PRN Reason: Cough Stop: 04/22/17 08:34 Piperacillin Sod/Tazobactam (Sod 3.375 gm/ Sodium Chloride) 50 mls @ 100 mls/ hr IV Q8HR [facility] Stop: 04/21/17 20:59 Last Infusion: 02/24/17 14:29 Dose: Infused Dopamine HCl/Dextrose (Dopamine) 400 mg in 250 mls @ 11.056 mls/hr IV TITR PRN ; Protocol; 5 MCG/KG/MIN PRN Reason: BP MAINTENANCE (PER PROTOCOL) Stop: 04/21/17 21:19 Last Titration: 02/21/17 09:00 Dose: 0 mcg/kg/min, 0 mls/hr Dextrose/Sodium Chloride (D5-0.45ns) 1,000 mls @ 75 mls/hr IV .[id number] [facility] Stop: 04/22/17 21:14 Last Admin: 02/24/17 13:38 Dose: 75 mls/hr Lactulose (Cephulac) 30 gm PO TID [facility] Stop: 04/24/17 09:59 Last Admin: 02/24/17 14:28 Dose: 30 gm Levothyroxine Sodium (Synthroid) 0.1 mg PO QDAC [facility] Stop: 04/24/17 07:29 Last Admin: 02/24/17 06:49 Dose: 0.1 mg Magnesium Oxide (Mag-Oxide) 400 mg PO DAILY [facility] Stop: 04/22/17 09:59 Last Admin: 02/24/17 09:43 Dose: 400 mg General: no acute distress, well developed, well nourished HEENT: atraumatic, normocephalic, EOMI Neck: supple, no thyromegaly, no lymphadenopathy Cardiovascular: S1S2, regular Lungs: clear to auscultation bilaterally, clear to percussion Abdomen: soft, no tender, no distended, no hepatomegaly Extremities: no cyanosis, no clubbing, no edema Neurological: awake, alert, oriented Skin: intact Infectious Disease Assmt/Plan - Assessment Assessment: IMPRESSION: 1. Hypothermia, hypotension, WBC count is 4000, sepsis or systemic inflammatory response syndrome. Improved. 2. Pneumonia. 3. Hypertension. 4. Elevated liver enzymes, rule out hepatitis. 5. Dementia. RECOMMENDATIONS: Continue Zosyn. Nutritional Asmnt/Malnutr-PDOC - Dietary Evaluation Malnutrition Findings (Please click <Entered> for more info): Nutritional Asmnt/Malnutrition Start: 02/21/17 14: 45 Text: Status: Complete Freq: Document 02/21/17 14:45 [facility] (Rec: 02/21/17 14:57 [facility] Nutritional Asmnt/Malnutrition Patient General Information Nutritional Screening High Risk Consult Diagnosis hypotension, rule out sepsis vs acute cornary Pertinent Medical Hx/Surgical Hx HTN, dementia Subjective Information Consult received for Nasir William . Pt seen resting in bed at the time of visit, on bear [employer] machine. Per notes, pt had swallow eval today and failed. ST recommended strict NPO. Current Diet Order/ Nutrition Support NPO status Pertinent Medications vitamin c, vitamin D3, dopamine, mg, piperacillin, nacl 0.9% Pertinent Labs 02/21 Na 141, K 4.2, Cl 111, BUN 13, Cr 0.9, Ca 7.9, AST 92, ALT 138, Alb 3.1 Nutritional Hx/Data Height 1.55 m Height (Calculated Centimeters) 154.9 Current Weight (lbs) 58.695 kg Weight (Calculated Kilograms) 58.7 Weight (Calculated Grams) 22870.9 [place] Body Weight 105 % [place] Body Weight 123 Body Mass Index (BMI) 24.4 Weight Status Approriate GI Symptoms GI Symptoms None Skin Integrity/Comment: nasir William, dry, elastic Estimated Nutritional Goals BEE in Kcals: Using Current wt Calories/Kcals/Kg 25-30 Kcals Calculated 2695-7851 Protein: Using Current wt Protein g/k-1.2 Protein Calculated 59-71 Fluid: ml 1770ml (30ml/kg) Nutritional Problem 1. Problem Problem swallow difficulty Etiology mental status Signs/Symptoms: pt failed swallow eval and need for alternative nutrition route Malnutrition Alert Protein-Calorie Malnutrition N/A Is there a minimum of two criteria No selected? Query Text:Check all the applicable criteria. A minimum of two criteria are recommended for diagnosis of either severe or non-severe malnutrition. Intervention/Recommendation Comments 1. Monitor NPO status 2. If nutrition support needed , recommend start tube feeding Fibersource HN at 20ml/hr continuous, increase 10ml/hr q6hr to goal rate of 50ml/hr continuous. This will provide 1440kcal, 65g protein, 972ml water. 3. Monitor wt, labs and skin integrity. 4. F/U as high risk in 2-3 days, /5-/ Expected Outcomes/Goals Expected Outcomes/Goals 1. Pt to meet at least 75% of nutritional needs via alternative nutrition route in 2-3 days. 2. Wt stability, skin to remain intact, labs to approach WNL.
[2017-02-25] MEDS: D5-0.45NS 1,000 ML IV SCH ×2 (05:53→23:20)
[2017-02-25 06:14] LABS: % BASOPHILS 0.3 % (0.0-2.0); % EOSINOPHILS 1.9 % (0.0-5.0); % LYMPHOCYTES 21.8 % (20.0-50.0); % MONOCYTES 9.9 % (2.0-10.0); % NEUTROPHILS 66.1 % (40.0-80.0); EOSINOPHILE ABSOLUTE 0.1 Th/cmm (0.1-0.4); HEMATOCRIT 32.7 % (41.0-60); LYMPHOCYTE ABSOLUTE 1.4 Th/cmm (1.5-3.0); MEAN CELL VOLUME 90.3 fl (81-100); MEAN CORPUSCULAR HEMOGLOBIN 30.3 pg (27.0-31.0); MEAN CORPUSCULAR HGB CONC 33.6 pg (28.0-36.0); MEAN PLATELET VOLUME 8.2 fl; MONOCYTE ABSOLUTE 0.6 Th/cmm (0.3-1.0); NEUTROPHILE ABSOLUTE 4.2 Th/cmm (1.8-8.0); PLATELET COUNT 158 Th/cmm (150-400); RED BLOOD COUNT 3.63 Mil/cmm (3.80-5.20); RED CELL DISTRIBUTION WIDTH 14.1 % (11.5-20.0); WHITE BLOOD COUNT 6.3 Th/cmm (4.8-10.8)
[2017-02-25 06:54] LABS: MAGNESIUM 2.1 mg/dL (1.9-2.7)
[2017-02-25] MEDS: Levothyroxine 0.1 Mg Tab PO SCH (07:12)
[2017-02-25] MEDS: Lactulose 10 Gm/15 mL 30mL UDC PO SCH ×4 (10:11→20:32)
[2017-02-25] MEDS: Aspirin 81mg Chewable Tab PO SCH (10:12)
[2017-02-26 06:01] LABS: % BASOPHILS 0.1 % (0.0-2.0); % EOSINOPHILS 3.4 % (0.0-5.0); % MONOCYTES 12.5 % (2.0-10.0); EOSINOPHILE ABSOLUTE 0.1 Th/cmm (0.1-0.4); HEMATOCRIT 31.7 % (41.0-60); HEMOGLOBIN 10.5 gm/dL (12-16); LYMPHOCYTE ABSOLUTE 0.8 Th/cmm (1.5-3.0); MEAN CELL VOLUME 90.5 fl (81-100); MEAN CORPUSCULAR HEMOGLOBIN 29.9 pg (27.0-31.0); MEAN PLATELET VOLUME 8.4 fl; MONOCYTE ABSOLUTE 0.5 Th/cmm (0.3-1.0); NEUTROPHILE ABSOLUTE 2.9 Th/cmm (1.8-8.0); PLATELET COUNT 185 Th/cmm (150-400); RED CELL DISTRIBUTION WIDTH 14.5 % (11.5-20.0)
[2017-02-26 06:02] LABS: WHITE BLOOD COUNT 4.3 Th/cmm (4.8-10.8)
[2017-02-26 06:14] LABS: ANION GAP 8.9 (7.0-16.0); BUN - UREA NITROGEN 10 mg/dL (7-25); CALCIUM SERUM 8.3 mg/dL (8.6-10.3); CARBON DIOXIDE 29.9 mEq/L (21.0-31.0); CHLORIDE 107 mEq/L (98-107); GFR AFRICAN-AMERICAN > 60.0 ml/min (>90); GFR NON AFRICAN-AMERICAN 58.8 ml/min; GLUCOSE 103 mg/dL (70-105); MAGNESIUM 2.1 mg/dL (1.9-2.7); SODIUM SERUM 143 mEq/L (136-145)
[2017-02-26 06:18] LABS: POTASSIUM SERUM 2.8 mEq/L (3.5-5.1)
[2017-02-26] MEDS: Levothyroxine 0.1 Mg Tab PO SCH (07:00)
[2017-02-26] MEDS ORDERED: Potassium Chloride 20 mEq ER Tab PO ONE (07:59)
--- NOTE | 2017-02-26 08:32 | Diagnostic Imaging Report ---
Portable chest x-ray HISTORY: Cough Heart size difficult to assess with portable technique in a poor inspiration. Atherosclerotic calcination seen within the aortic arch. No acute focal pulmonary processes. IMPRESSION: 1. No acute focal pulmonary processes
[2017-02-26] MEDS ORDERED: Potassium Chloride 40 MEQ, Lidocaine 1% 20mL Vial 25 MG in Sodium Chloride 0.9% 250 ML IV ONE (09:00)
[2017-02-26] MEDS: Lactulose 10 Gm/15 mL 30mL UDC PO SCH ×4 (09:37→21:35)
[2017-02-26] MEDS: Aspirin 81mg Chewable Tab PO SCH (09:37)
--- NOTE | 2017-02-26 11:29 | Infectious Disease Prog Note ---
Infectious Disease Subjective - Review of Systems Service Date: 02/26/17 Subjective: No fever. Infectious Disease Objective - Results Result Diagrams: 02/26/17 05:35 02/26/17 05:35 Recent Labs: Laboratory Last Values WBC 4.3 Th/cmm (4.8-10.8) L D 02/26/17 05:35 RBC 3.50 Mil/cmm (3.80-5.20) L 02/26/17 05:35 Hgb 10.5 gm/dL (12-16) L 02/26/17 05:35 Hct 31.7 % (41.0-60) L 02/26/17 05:35 MCV 90.5 fl (81-100) 02/26/17 05:35 MCH 29.9 pg (27.0-31.0) 02/26/17 05:35 MCHC Differential 33.0 pg (28.0-36.0) 02/26/17 05:35 RDW 14.5 % (11.5-20.0) 02/26/17 05:35 Plt Count 185 Th/cmm (150-400) 02/26/17 05:35 MPV 8.4 fl 02/26/17 05:35 Neutrophils % 66.0 % (40.0-80.0) 02/26/17 05:35 Lymphocytes % 18.0 % (20.0-50.0) L 02/26/17 05:35 Monocytes % 12.5 % (2.0-10.0) H 02/26/17 05:35 Eosinophils % 3.4 % (0.0-5.0) 02/26/17 05:35 Basophils % 0.1 % (0.0-2.0) 02/26/17 05:35 PT 10.4 SECONDS (9.5-11.5) 02/20/17 13:18 INR 1.00 (0.5-1.4) 02/20/17 13:18 PTT (Actin FS) 27.6 SECONDS (26.0-38.0) 02/20/17 13:18 Sodium 143 mEq/L (136-145) 02/26/17 05:35 Potassium 2.8 mEq/L (3.5-5.1) L* 02/26/17 05:35 Chloride 107 mEq/L (98-107) 02/26/17 05:35 Carbon Dioxide 29.9 mEq/L (21.0-31.0) 02/26/17 05:35 Anion Gap 8.9 (7.0-16.0) 02/26/17 05:35 BUN 10 mg/dL (7-25) 02/26/17 05:35 Creatinine 1.0 mg/dL (0.6-1.2) 02/26/17 05:35 Est GFR ( Amer) > 60.0 ml/min (>90) 02/26/17 05:35 Est GFR (Non-Af Amer) 58.8 ml/min 02/26/17 05:35 BUN/Creatinine Ratio 10.0 02/26/17 05:35 Glucose 103 mg/dL (70-105) 02/26/17 05:35 POC Glucose 98 MG/DL (70 - 105) 02/20/17 12:57 Whole Bld Lactic Acid 1.32 mmol/L (0.60-1.99) 02/20/17 13:18 Calcium 8.3 mg/dL (8.6-10.3) L 02/26/17 05:35 Magnesium 2.1 mg/dL (1.9-2.7) 02/26/17 05:35 Total Bilirubin 0.7 mg/dL (0.3-1.0) 02/23/17 08:00 AST 158 U/L (13-39) H 02/23/17 08:00 ALT 151 U/L (7-52) H 02/23/17 08:00 Alkaline Phosphatase 424 U/L (34-104) H 02/23/17 08:00 Ammonia 69 umol/L (16-53) H 02/26/17 05:35 Creatine Kinase 104 U/L (30-223) 02/25/17 05:10 CK-MB (CK-2) 9.3 ng/mL (0.6-6.3) H 02/22/17 08:50 Troponin I 0.02 ng/mL (0.01-0.05) 02/20/17 21:38 B-Natriuretic Peptide 263.0 pg/mL (5.0-100.0) H 02/22/17 08:50 Total Protein 5.8 gm/dL (6.0-8.3) L 02/23/17 08:00 Albumin 2.9 gm/dL (3.7-5.3) L 02/23/17 08:00 Globulin 2.9 gm/dL 02/23/17 08:00 Albumin/Globulin Ratio 1.0 (1.0-1.8) 02/23/17 08:00 Triglycerides 74 mg/dL (<150) 02/20/17 13:18 Cholesterol 216 mg/dL (<200) H 02/20/17 13:18 LDL Cholesterol Direct 80 mg/dL (75-193) 02/20/17 13:18 HDL Cholesterol 122 mg/dL (23-92) H 02/20/17 13:18 TSH 1.29 uIU/ml (0.34-5.60) 02/26/17 05:35 Urine Source MIDSTREAM 02/20/17 13:00 Urine Color YELLOW 02/20/17 13:00 Urine Clarity HAZY (CLEAR) 02/20/17 13:00 Urine pH 6.0 (4.6 - 8.0) 02/20/17 13:00 Ur Specific [place] 1.025 (1.005-1.030) 02/20/17 13:00 Urine Protein TRACE mg/dL (NEGATIVE) 02/20/17 13:00 Urine Glucose (UA) NEGATIVE mg/dL (NEGATIVE) 02/20/17 13:00 Urine Ketones NEGATIVE mg/dL (NEGATIVE) 02/20/17 13:00 Urine Blood NEGATIVE (NEGATIVE) 02/20/17 13:00 Urine Nitrate NEGATIVE (NEGATIVE) 02/20/17 13:00 Urine Bilirubin NEGATIVE (NEGATIVE) 02/20/17 13:00 Urine Urobilinogen 0.2 E.U./dL (0.2 - 1.0) 02/20/17 13:00 Ur Leukocyte Esterase NEGATIVE (NEGATIVE) 02/20/17 13:00 Urine RBC 0-2 /hpf (0-5) 02/20/17 13:00 Urine WBC 2-5 /hpf (0-5) 02/20/17 13:00 Ur Epithelial Cells FEW /lpf (FEW) 02/20/17 13:00 Urine Bacteria OCCASIONAL /hpf (NONE SEEN) 02/20/17 13:00 Vancomycin Trough 9.3 ug/mL (10-20) L 02/23/17 08:10 Hepatitis A IgM Ab Negative (Negative) 02/21/17 06:10 Hep Bs Antigen Negative (Negative) 02/21/17 06:10 Hep B Core IgM Ab Negative (Negative) 02/21/17 06:10 Hepatitis C Antibody 0.2 s/co ratio (0.0-0.9) 02/21/17 06:10 Influenza A (Rapid) NEG FOR INF A 02/22/17 12:20 Influenza B (Rapid) NEG FOR INF B 02/22/17 12:20 - Physical Exam Vitals and I&O: Vital Signs Temp 97.2 F 02/26/17 04:00 Pulse 46 02/26/17 09:38 Resp 19 02/26/17 04:00 BP 108/40 02/26/17 09:38 Pulse Ox 97 02/26/17 04:00 Intake & Output 02/25/17 02/26/17 02/26/17 18:59 06:59 18:59 Intake Total 1070 1050 150 Output Total 400 Balance 1070 650 150 Weight (lbs) 58.967 kg 61.008 kg 61.008 kg Intake: Intake, IV Amount 50 1050 50 D5-0.45NS 1,000 ml @ 75 1000 mls/hr IV .[id number] [facility] Rx #:[id number] Piperacillin Sodium/ 50 50 50 Tazobact 3.375 gm In Sodium Chloride 0.9% 50 ml @ 100 mls/hr IV Q8HR [facility] Rx#:[id number] Oral 1020 100 Output: Urine 400 Other: # Voids 3 # Bowel Movements 2 2 Active Medications: Current Medications Acetaminophen (Tylenol) 650 mg PO Q4H PRN PRN Reason: fever/pain Stop: 04/22/17 08:34 Albuterol/Ipratropium (Duoneb Neb) 3 ml HHN Q6HRT PRN PRN Reason: Shortness of Breath Stop: 04/22/17 08:34 Alprazolam (Xanax) 0.5 mg PO TID PRN; Protocol PRN Reason: Agitation Stop: 04/22/17 08:34 Last Admin: 02/25/17 20:32 Dose: 0.5 mg Amlodipine Besylate (Norvasc) 2.5 mg PO DAILY [facility] Stop: 04/22/17 09:04 Last Admin: 02/26/17 09:38 Dose: Not Given Ascorbic Acid (Vitamin C) 500 mg PO DAILY [facility] Stop: 04/22/17 08:59 Last Admin: 02/26/17 09:38 Dose: 500 mg Aspirin (Aspirin Chewable) 81 mg PO DAILY [facility] Stop: 04/22/17 08:59 Last Admin: 02/26/17 09:37 Dose: 81 mg Cholecalciferol (Vitamin D3) 1,000 iu PO DAILY [facility] Stop: 04/22/17 09:04 Last Admin: 02/26/17 09:38 Dose: 1,000 iu Diphenhydramine HCl (Benadryl) 25 mg PO DAILY PRN PRN Reason: Itching Donepezil HCl (Aricept) 5 mg PO HS [facility] Stop: 04/22/17 20:59 Last Admin: 02/25/17 20:32 Dose: 5 mg Guaifenesin/Dextromethorphan (Robitussin Dm) 10 ml PO Q6H PRN PRN Reason: Cough Stop: 04/22/17 08:34 Piperacillin Sod/Tazobactam (Sod 3.375 gm/ Sodium Chloride) 50 mls @ 100 mls/ hr IV Q8HR [facility] Stop: 04/21/17 20:59 Last Infusion: 02/26/17 09:39 Dose: Infused Dopamine HCl/Dextrose (Dopamine) 400 mg in 250 mls @ 11.056 mls/hr IV TITR PRN ; Protocol; 5 MCG/KG/MIN PRN Reason: BP MAINTENANCE (PER PROTOCOL) Stop: 04/21/17 21:19 Last Titration: 02/21/17 09:00 Dose: 0 mcg/kg/min, 0 mls/hr Potassium Chloride 40 meq/Lidocaine HCl 25 mg/ Sodium Chloride 272.5 mls @ 68 mls/hr IV X1 ONE Stop: 02/26/17 13:00 Last Admin: 02/26/17 09:36 Dose: 68 mls/hr Lactulose (Cephulac) 30 gm PO QID [facility] Stop: 04/26/17 12:59 Last Admin: 02/26/17 09:37 Dose: 30 gm Levothyroxine Sodium (Synthroid) 0.1 mg PO QDAC [facility] Stop: 04/24/17 07:29 Last Admin: 02/26/17 07:00 Dose: 0.1 mg Magnesium Oxide (Mag-Oxide) 400 mg PO DAILY [facility] Stop: 04/22/17 09:59 Last Admin: 02/26/17 09:39 Dose: 400 mg General: no acute distress, well developed, well nourished HEENT: atraumatic, normocephalic Neck: supple, no thyromegaly Cardiovascular: S1S2, regular Lungs: clear to auscultation bilaterally, clear to percussion Abdomen: soft, no tender, no distended, no mass Extremities: no cyanosis, no clubbing, no edema Neurological: awake Skin: intact Infectious Disease Assmt/Plan - Assessment Assessment: IMPRESSION: 1. Hypothermia, hypotension, WBC count is 4000, sepsis or systemic inflammatory response syndrome. Improved. 2. Pneumonia. 3. Hypertension. 4. Elevated liver enzymes, rule out hepatitis. 5. Dementia. RECOMMENDATIONS: DC Zosyn as there is sepsis w/u came negative. Nutritional Asmnt/Malnutr-PDOC - Dietary Evaluation Malnutrition Findings (Please click <Entered> for more info): Nutritional Asmnt/Malnutrition Start: 02/21/17 14: 45 Text: Status: Complete Freq: Document 02/21/17 14:45 [facility] (Rec: 02/21/17 14:57 [email or web address]) Nutritional Asmnt/Malnutrition Patient General Information Nutritional Screening High Risk Consult Diagnosis hypotension, rule out sepsis vs acute cornary Pertinent Medical Hx/Surgical Hx HTN, dementia Subjective Information Consult received for Nasir William . Pt seen resting in bed at the time of visit, on bear [employer] machine. Per notes, pt had swallow eval today and failed. ST recommended strict NPO. Current Diet Order/ Nutrition Support NPO status Pertinent Medications vitamin c, vitamin D3, dopamine, mg, piperacillin, nacl 0.9% Pertinent Labs 02/21 Na 141, K 4.2, Cl 111, BUN 13, Cr 0.9, Ca 7.9, AST 92, ALT 138, Alb 3.1 Nutritional Hx/Data Height 1.55 m Height (Calculated Centimeters) 154.9 Current Weight (lbs) 58.695 kg Weight (Calculated Kilograms) 58.7 Weight (Calculated Grams) 34639.9 [place] Body Weight 105 % [place] Body Weight 123 Body Mass Index (BMI) 24.4 Weight Status Approriate GI Symptoms GI Symptoms None Skin Integrity/Comment: nasir 12, dry, elastic Estimated Nutritional Goals BEE in Kcals: Using Current wt Calories/Kcals/Kg 25-30 Kcals Calculated 1879-3001 Protein: Using Current wt Protein g/k-1.2 Protein Calculated 59-71 Fluid: ml 1770ml (30ml/kg) Nutritional Problem 1. Problem Problem swallow difficulty Etiology mental status Signs/Symptoms: pt failed swallow eval and need for alternative nutrition route Malnutrition Alert Protein-Calorie Malnutrition N/A Is there a minimum of two criteria No selected? Query Text:Check all the applicable criteria. A minimum of two criteria are recommended for diagnosis of either severe or non-severe malnutrition. Intervention/Recommendation Comments 1. Monitor NPO status 2. If nutrition support needed , recommend start tube feeding Fibersource HN at 20ml/hr continuous, increase 10ml/hr q6hr to goal rate of 50ml/hr continuous. This will provide 1440kcal, 65g protein, 972ml water. 3. Monitor wt, labs and skin integrity. 4. F/U as high risk in 2-3 days, /5-1/ Expected Outcomes/Goals Expected Outcomes/Goals 1. Pt to meet at least 75% of nutritional needs via alternative nutrition route in 2-3 days. 2. Wt stability, skin to remain intact, labs to approach WNL.
--- NOTE | 2017-02-26 13:13 | General Progress Note ---
Subjective - Review of Systems Service Date: 02/26/17 Events since last encounter: heart rate in 30s seen by Sourcing Analyst, wants pacemaker inserted talked to brother who agrees to procedure Objective - Results Result Diagrams: 02/26/17 05:35 02/26/17 05:35 Recent Labs: Laboratory Last Values WBC 4.3 Th/cmm (4.8-10.8) L D 02/26/17 05:35 RBC 3.50 Mil/cmm (3.80-5.20) L 02/26/17 05:35 Hgb 10.5 gm/dL (12-16) L 02/26/17 05:35 Hct 31.7 % (41.0-60) L 02/26/17 05:35 MCV 90.5 fl (81-100) 02/26/17 05:35 MCH 29.9 pg (27.0-31.0) 02/26/17 05:35 MCHC Differential 33.0 pg (28.0-36.0) 02/26/17 05:35 RDW 14.5 % (11.5-20.0) 02/26/17 05:35 Plt Count 185 Th/cmm (150-400) 02/26/17 05:35 MPV 8.4 fl 02/26/17 05:35 Neutrophils % 66.0 % (40.0-80.0) 02/26/17 05:35 Lymphocytes % 18.0 % (20.0-50.0) L 02/26/17 05:35 Monocytes % 12.5 % (2.0-10.0) H 02/26/17 05:35 Eosinophils % 3.4 % (0.0-5.0) 02/26/17 05:35 Basophils % 0.1 % (0.0-2.0) 02/26/17 05:35 PT 10.4 SECONDS (9.5-11.5) 02/20/17 13:18 INR 1.00 (0.5-1.4) 02/20/17 13:18 PTT (Actin FS) 27.6 SECONDS (26.0-38.0) 02/20/17 13:18 Sodium 143 mEq/L (136-145) 02/26/17 05:35 Potassium 2.8 mEq/L (3.5-5.1) L* 02/26/17 05:35 Chloride 107 mEq/L (98-107) 02/26/17 05:35 Carbon Dioxide 29.9 mEq/L (21.0-31.0) 02/26/17 05:35 Anion Gap 8.9 (7.0-16.0) 02/26/17 05:35 BUN 10 mg/dL (7-25) 02/26/17 05:35 Creatinine 1.0 mg/dL (0.6-1.2) 02/26/17 05:35 Est GFR ( Amer) > 60.0 ml/min (>90) 02/26/17 05:35 Est GFR (Non-Af Amer) 58.8 ml/min 02/26/17 05:35 BUN/Creatinine Ratio 10.0 02/26/17 05:35 Glucose 103 mg/dL (70-105) 02/26/17 05:35 POC Glucose 98 MG/DL (70 - 105) 02/20/17 12:57 Whole Bld Lactic Acid 1.32 mmol/L (0.60-1.99) 02/20/17 13:18 Calcium 8.3 mg/dL (8.6-10.3) L 02/26/17 05:35 Magnesium 2.1 mg/dL (1.9-2.7) 02/26/17 05:35 Total Bilirubin 0.7 mg/dL (0.3-1.0) 02/23/17 08:00 AST 158 U/L (13-39) H 02/23/17 08:00 ALT 151 U/L (7-52) H 02/23/17 08:00 Alkaline Phosphatase 424 U/L (34-104) H 02/23/17 08:00 Ammonia 69 umol/L (16-53) H 02/26/17 05:35 Creatine Kinase 104 U/L (30-223) 02/25/17 05:10 CK-MB (CK-2) 9.3 ng/mL (0.6-6.3) H 02/22/17 08:50 Troponin I 0.02 ng/mL (0.01-0.05) 02/20/17 21:38 B-Natriuretic Peptide 263.0 pg/mL (5.0-100.0) H 02/22/17 08:50 Total Protein 5.8 gm/dL (6.0-8.3) L 02/23/17 08:00 Albumin 2.9 gm/dL (3.7-5.3) L 02/23/17 08:00 Globulin 2.9 gm/dL 02/23/17 08:00 Albumin/Globulin Ratio 1.0 (1.0-1.8) 02/23/17 08:00 Triglycerides 74 mg/dL (<150) 02/20/17 13:18 Cholesterol 216 mg/dL (<200) H 02/20/17 13:18 LDL Cholesterol Direct 80 mg/dL (75-193) 02/20/17 13:18 HDL Cholesterol 122 mg/dL (23-92) H 02/20/17 13:18 TSH 1.29 uIU/ml (0.34-5.60) 02/26/17 05:35 Urine Source MIDSTREAM 02/20/17 13:00 Urine Color YELLOW 02/20/17 13:00 Urine Clarity HAZY (CLEAR) 02/20/17 13:00 Urine pH 6.0 (4.6 - 8.0) 02/20/17 13:00 Ur Specific [place] 1.025 (1.005-1.030) 02/20/17 13:00 Urine Protein TRACE mg/dL (NEGATIVE) 02/20/17 13:00 Urine Glucose (UA) NEGATIVE mg/dL (NEGATIVE) 02/20/17 13:00 Urine Ketones NEGATIVE mg/dL (NEGATIVE) 02/20/17 13:00 Urine Blood NEGATIVE (NEGATIVE) 02/20/17 13:00 Urine Nitrate NEGATIVE (NEGATIVE) 02/20/17 13:00 Urine Bilirubin NEGATIVE (NEGATIVE) 02/20/17 13:00 Urine Urobilinogen 0.2 E.U./dL (0.2 - 1.0) 02/20/17 13:00 Ur Leukocyte Esterase NEGATIVE (NEGATIVE) 02/20/17 13:00 Urine RBC 0-2 /hpf (0-5) 02/20/17 13:00 Urine WBC 2-5 /hpf (0-5) 02/20/17 13:00 Ur Epithelial Cells FEW /lpf (FEW) 02/20/17 13:00 Urine Bacteria OCCASIONAL /hpf (NONE SEEN) 02/20/17 13:00 Vancomycin Trough 9.3 ug/mL (10-20) L 02/23/17 08:10 Hepatitis A IgM Ab Negative (Negative) 02/21/17 06:10 Hep Bs Antigen Negative (Negative) 02/21/17 06:10 Hep B Core IgM Ab Negative (Negative) 02/21/17 06:10 Hepatitis C Antibody 0.2 s/co ratio (0.0-0.9) 02/21/17 06:10 Influenza A (Rapid) NEG FOR INF A 02/22/17 12:20 Influenza B (Rapid) NEG FOR INF B 02/22/17 12:20 - Physical Exam Vitals and I&O: Vital Signs Temp 97.2 F 02/26/17 04:00 Pulse 46 02/26/17 09:38 Resp 18 02/26/17 08:00 BP 108/40 02/26/17 09:38 Pulse Ox 97 02/26/17 04:00 Intake & Output 02/25/17 02/26/17 02/26/17 18:59 06:59 18:59 Intake Total 1070 1050 150 Output Total 400 Balance 1070 650 150 Weight (lbs) 58.967 kg 61.008 kg 61.008 kg Intake: Intake, IV Amount 50 1050 50 D5-0.45NS 1,000 ml @ 75 1000 mls/hr IV .[id number] [facility] Rx #:[id number] Piperacillin Sodium/ 50 50 50 Tazobact 3.375 gm In Sodium Chloride 0.9% 50 ml @ 100 mls/hr IV Q8HR [facility] Rx#:[id number] Oral 1020 100 Output: Urine 400 Other: # Voids 3 # Bowel Movements 2 2 Active Medications: Current Medications Acetaminophen (Tylenol) 650 mg PO Q4H PRN PRN Reason: fever/pain Stop: 04/22/17 08:34 Albuterol/Ipratropium (Duoneb Neb) 3 ml HHN Q6HRT PRN PRN Reason: Shortness of Breath Stop: 04/22/17 08:34 Alprazolam (Xanax) 0.5 mg PO TID PRN; Protocol PRN Reason: Agitation Stop: 04/22/17 08:34 Last Admin: 02/25/17 20:32 Dose: 0.5 mg Amlodipine Besylate (Norvasc) 2.5 mg PO DAILY [facility] Stop: 04/22/17 09:04 Last Admin: 02/26/17 09:38 Dose: Not Given Ascorbic Acid (Vitamin C) 500 mg PO DAILY [facility] Stop: 04/22/17 08:59 Last Admin: 02/26/17 09:38 Dose: 500 mg Aspirin (Aspirin Chewable) 81 mg PO DAILY [facility] Stop: 04/22/17 08:59 Last Admin: 02/26/17 09:37 Dose: 81 mg Cholecalciferol (Vitamin D3) 1,000 iu PO DAILY [facility] Stop: 04/22/17 09:04 Last Admin: 02/26/17 09:38 Dose: 1,000 iu Diphenhydramine HCl (Benadryl) 25 mg PO DAILY PRN PRN Reason: Itching Donepezil HCl (Aricept) 5 mg PO HS [facility] Stop: 04/22/17 20:59 Last Admin: 02/25/17 20:32 Dose: 5 mg Guaifenesin/Dextromethorphan (Robitussin Dm) 10 ml PO Q6H PRN PRN Reason: Cough Stop: 04/22/17 08:34 Dopamine HCl/Dextrose (Dopamine) 400 mg in 250 mls @ 11.056 mls/hr IV TITR PRN ; Protocol; 5 MCG/KG/MIN PRN Reason: BP MAINTENANCE (PER PROTOCOL) Stop: 04/21/17 21:19 Last Titration: 02/21/17 09:00 Dose: 0 mcg/kg/min, 0 mls/hr Lactulose (Cephulac) 30 gm PO QID [facility] Stop: 04/26/17 12:59 Last Admin: 02/26/17 09:37 Dose: 30 gm Levothyroxine Sodium (Synthroid) 0.1 mg PO QDAC [facility] Stop: 04/24/17 07:29 Last Admin: 02/26/17 07:00 Dose: 0.1 mg Magnesium Oxide (Mag-Oxide) 400 mg PO DAILY [facility] Stop: 04/22/17 09:59 Last Admin: 02/26/17 09:39 Dose: 400 mg Nutritional Asmnt/Malnutr-PDOC - Dietary Evaluation Malnutrition Findings (Please click <Entered> for more info): Nutritional Asmnt/Malnutrition Start: 02/21/17 14: 45 Text: Status: Complete Freq: Document 02/21/17 14:45 [facility] (Rec: 02/21/17 14:57 [facility] [id number]) Nutritional Asmnt/Malnutrition Patient General Information Nutritional Screening High Risk Consult Diagnosis hypotension, rule out sepsis vs acute cornary Pertinent Medical Hx/Surgical Hx HTN, dementia Subjective Information Consult received for Nasir William . Pt seen resting in bed at the time of visit, on [employer] machine. Per notes, pt had swallow eval today and failed. ST recommended strict NPO. Current Diet Order/ Nutrition Support NPO status Pertinent Medications vitamin c, vitamin D3, dopamine, mg, piperacillin, nacl 0.9% Pertinent Labs 02/21 Na 141, K 4.2, Cl 111, BUN 13, Cr 0.9, Ca 7.9, AST 92, ALT 138, Alb 3.1 Nutritional Hx/Data Height 1.55 m Height (Calculated Centimeters) 154.9 Current Weight (lbs) 58.695 kg Weight (Calculated Kilograms) 58.7 Weight (Calculated Grams) 11781.9 [place] Body Weight 105 % [place] Body Weight 123 Body Mass Index (BMI) 24.4 Weight Status Approriate GI Symptoms GI Symptoms None Skin Integrity/Comment: nasir William, dry, elastic Estimated Nutritional Goals BEE in Kcals: Using Current wt Calories/Kcals/Kg 25-30 Kcals Calculated 1325-1841 Protein: Using Current wt Protein g/k-1.2 Protein Calculated 59-71 Fluid: ml 1770ml (30ml/kg) Nutritional Problem 1. Problem Problem swallow difficulty Etiology mental status Signs/Symptoms: pt failed swallow eval and need for alternative nutrition route Malnutrition Alert Protein-Calorie Malnutrition N/A Is there a minimum of two criteria No selected? Query Text:Check all the applicable criteria. A minimum of two criteria are recommended for diagnosis of either severe or non-severe malnutrition. Intervention/Recommendation Comments 1. Monitor NPO status 2. If nutrition support needed , recommend start tube feeding Fibersource HN at 20ml/hr continuous, increase 10ml/hr q6hr to goal rate of 50ml/hr continuous. This will provide 1440kcal, 65g protein, 972ml water. 3. Monitor wt, labs and skin integrity. 4. F/U as high risk in 2-3 days, 1/5-1/6 Expected Outcomes/Goals Expected Outcomes/Goals 1. Pt to meet at least 75% of nutritional needs via alternative nutrition route in 2-3 days. 2. Wt stability, skin to remain intact, labs to approach WNL.
[2017-02-27 06:35] LABS: % BASOPHILS 0.3 % (0.0-2.0); % EOSINOPHILS 1.7 % (0.0-5.0); % LYMPHOCYTES 11.9 % (20.0-50.0); % MONOCYTES 8.7 % (2.0-10.0); % NEUTROPHILS 77.4 % (40.0-80.0); EOSINOPHILE ABSOLUTE 0.1 Th/cmm (0.1-0.4); HEMOGLOBIN 11.9 gm/dL (12-16); LYMPHOCYTE ABSOLUTE 0.8 Th/cmm (1.5-3.0); MEAN CORPUSCULAR HEMOGLOBIN 30.1 pg (27.0-31.0); MEAN CORPUSCULAR HGB CONC 33.1 pg (28.0-36.0); MEAN PLATELET VOLUME 8.7 fl; MONOCYTE ABSOLUTE 0.6 Th/cmm (0.3-1.0); NEUTROPHILE ABSOLUTE 5.5 Th/cmm (1.8-8.0); RED BLOOD COUNT 3.94 Mil/cmm (3.80-5.20); RED CELL DISTRIBUTION WIDTH 14.3 % (11.5-20.0)
[2017-02-27] MEDS: Levothyroxine 0.1 Mg Tab PO SCH (06:36)
[2017-02-27 06:38] LABS: HEMATOCRIT 35.8 % (41.0-60); PLATELET COUNT 229 Th/cmm (150-400)
[2017-02-27 06:46] LABS: INR 0.91 (0.5-1.4); PROTHROMBIN TIME (TEST) 9.5 SECONDS (9.5-11.5)
[2017-02-27 06:59] LABS: ANION GAP 9.7 (7.0-16.0); BUN - UREA NITROGEN 10 mg/dL (7-25); CALCIUM SERUM 9.3 mg/dL (8.6-10.3); CARBON DIOXIDE 28.9 mEq/L (21.0-31.0); CHLORIDE 113 mEq/L (98-107); CREATININE - SERUM 0.9 mg/dL (0.6-1.2); GFR AFRICAN-AMERICAN > 60.0 ml/min (>90); GFR NON AFRICAN-AMERICAN > 60.0 ml/min; GLUCOSE 83 mg/dL (70-105); MAGNESIUM 2.3 mg/dL (1.9-2.7); POTASSIUM SERUM 3.6 mEq/L (3.5-5.1); SODIUM SERUM 148 mEq/L (136-145)
[2017-02-27] MEDS: Lactulose 10 Gm/15 mL 30mL UDC PO SCH ×4 (09:11→23:40)
[2017-02-27] MEDS: Aspirin 81mg Chewable Tab PO SCH (09:11)
--- NOTE | 2017-02-27 12:06 | Consultation ---
DATE OF CONSULTATION: 02/26/2017 REFERRING PHYSICIAN: Dr. Dominic Justice/Dr. Knight. REASON FOR CONSULTATION: Bradycardia. Thank you for referring this patient to me. HISTORY OF PRESENT ILLNESS: This 66-year-old female admitted through ER because of altered level of consciousness. She underwent head CT scan, which did not show any acute abnormality. In the telemetry unit, the patient was observed to have heart rates in the 30s and Cardiology evaluation was done by Dr. Grisel Justice who requested placement of permanent pacemaker. LABORATORY STUDIES: The CBC is normal. Glucose was 107, BUN and creatinine are normal, potassium slightly low at 2.8. This is being replaced. PHYSICAL EXAMINATION: The patient unable to give consent because of poor mentation and dementia. The brother was called over the phone and informed him about the need for placement of a pacemaker in view of the slow heart rate. He is on his way to see the patient and has agreed to proceed with a pacemaker placement tomorrow understanding the possible complications. PSYCH[facility]ATRIC# [id number]
--- NOTE | 2017-02-27 13:17 | Diagnostic Imaging Report ---
Fluoroscopy was utilized for facilitation of pacemaker insertion. Please refer to procedural report for complete details. The total fluoroscopic time the exam was 2 minutes and 26 seconds.
--- NOTE | 2017-02-27 14:04 | Diagnostic Imaging Report ---
CHEST X-RAY: AP view INDICATION: Pacemaker placement COMPARISON: Chest x-ray on 02/26/2017 FINDINGS: New left chest wall pacer is in place with tip in the right atrium and right ventricle. Bibasal atelectatic changes are seen with no focal consolidation identified. No evidence of pneumothorax. Heart size is borderline prominent. IMPRESSION: Interval left chest wall pacemaker apparatus with leads in the region of the right atrium and right ventricle. No focal consolidation identified. Bibasal atelectatic changes. No evidence of pneumothorax.
[2017-02-28 05:06] LABS: % EOSINOPHILS 0.2 % (0.0-5.0); RED CELL DISTRIBUTION WIDTH 14.3 % (11.5-20.0)
[2017-02-28 05:08] LABS: % BASOPHILS 0.2 % (0.0-2.0); % MONOCYTES 8.3 % (2.0-10.0); % NEUTROPHILS 79.3 % (40.0-80.0); HEMATOCRIT 34.7 % (41.0-60); HEMOGLOBIN 11.9 gm/dL (12-16); LYMPHOCYTE ABSOLUTE 0.9 Th/cmm (1.5-3.0); MEAN CELL VOLUME 89.5 fl (81-100); MEAN CORPUSCULAR HEMOGLOBIN 30.7 pg (27.0-31.0); MEAN CORPUSCULAR HGB CONC 34.3 pg (28.0-36.0); MEAN PLATELET VOLUME 7.9 fl; MONOCYTE ABSOLUTE 0.6 Th/cmm (0.3-1.0); NEUTROPHILE ABSOLUTE 5.9 Th/cmm (1.8-8.0); PLATELET COUNT 273 Th/cmm (150-400); RED BLOOD COUNT 3.88 Mil/cmm (3.80-5.20); WHITE BLOOD COUNT 7.4 Th/cmm (4.8-10.8)
[2017-02-28 05:26] LABS: ANION GAP 10.9 (7.0-16.0); BUN - UREA NITROGEN 17 mg/dL (7-25); CALCIUM SERUM 9.7 mg/dL (8.6-10.3); CARBON DIOXIDE 29.3 mEq/L (21.0-31.0); CHLORIDE 115 mEq/L (98-107); CREATININE - SERUM 1.1 mg/dL (0.6-1.2); GFR AFRICAN-AMERICAN > 60.0 ml/min (>90); GFR NON AFRICAN-AMERICAN 52.7 ml/min; GLUCOSE 112 mg/dL (70-105); POTASSIUM SERUM 4.2 mEq/L (3.5-5.1); SODIUM SERUM 151 mEq/L (136-145)
[2017-02-28] MEDS: Levothyroxine 0.1 Mg Tab PO SCH (06:43)
--- NOTE | 2017-02-28 09:23 | Diagnostic Imaging Report ---
CHEST X-RAY: AP view INDICATION: Pacemaker placement COMPARISON: 02/27/2017 FINDINGS: Left chest wall pacemaker is stable. No focal consolidation or effusions. No pneumothorax. Heart size is within normal limits. Atherosclerosis is noted. IMPRESSION: No focal airspace consolidation identified. Stable pacemaker with leads in the region of the right atrium and right ventricle. No evidence of pneumothorax.
[2017-02-28] MEDS: Aspirin 81mg Chewable Tab PO SCH (09:47)
[2017-02-28] MEDS: Lactulose 10 Gm/15 mL 30mL UDC PO SCH ×3 (09:48→14:53)
--- NOTE | 2017-02-28 14:26 | General Progress Note ---
Subjective - Review of Systems Service Date: 02/28/17 Events since last encounter: not pacing much, sinus rhythm incision clean Objective - Results Result Diagrams: 02/28/17 04:55 02/28/17 04:55 Recent Labs: Laboratory Last Values WBC 7.4 Th/cmm (4.8-10.8) 02/28/17 04:55 RBC 3.88 Mil/cmm (3.80-5.20) 02/28/17 04:55 Hgb 11.9 gm/dL (12-16) L 02/28/17 04:55 Hct 34.7 % (41.0-60) L 02/28/17 04:55 MCV 89.5 fl (81-100) 02/28/17 04:55 MCH 30.7 pg (27.0-31.0) 02/28/17 04:55 MCHC Differential 34.3 pg (28.0-36.0) 02/28/17 04:55 RDW 14.3 % (11.5-20.0) 02/28/17 04:55 Plt Count 273 Th/cmm (150-400) 02/28/17 04:55 MPV 7.9 fl 02/28/17 04:55 Neutrophils % 79.3 % (40.0-80.0) 02/28/17 04:55 Lymphocytes % 12.0 % (20.0-50.0) L 02/28/17 04:55 Monocytes % 8.3 % (2.0-10.0) 02/28/17 04:55 Eosinophils % 0.2 % (0.0-5.0) 02/28/17 04:55 Basophils % 0.2 % (0.0-2.0) 02/28/17 04:55 PT 9.5 SECONDS (9.5-11.5) 02/27/17 05:35 INR 0.91 (0.5-1.4) 02/27/17 05:35 PTT (Actin FS) 25.5 SECONDS (26.0-38.0) L 02/27/17 05:35 Sodium 151 mEq/L (136-145) H 02/28/17 04:55 Potassium 4.2 mEq/L (3.5-5.1) 02/28/17 04:55 Chloride 115 mEq/L (98-107) H 02/28/17 04:55 Carbon Dioxide 29.3 mEq/L (21.0-31.0) 02/28/17 04:55 Anion Gap 10.9 (7.0-16.0) 02/28/17 04:55 BUN 17 mg/dL (7-25) 02/28/17 04:55 Creatinine 1.1 mg/dL (0.6-1.2) 02/28/17 04:55 Est GFR ( Amer) > 60.0 ml/min (>90) 02/28/17 04:55 Est GFR (Non-Af Amer) 52.7 ml/min 02/28/17 04:55 BUN/Creatinine Ratio 15.5 02/28/17 04:55 Glucose 112 mg/dL (70-105) H 02/28/17 04:55 POC Glucose 98 MG/DL (70 - 105) 02/20/17 12:57 Whole Bld Lactic Acid 1.32 mmol/L (0.60-1.99) 02/20/17 13:18 Calcium 9.7 mg/dL (8.6-10.3) 02/28/17 04:55 Magnesium 2.4 mg/dL (1.9-2.7) 02/28/17 04:55 Total Bilirubin 0.7 mg/dL (0.3-1.0) 02/23/17 08:00 AST 158 U/L (13-39) H 02/23/17 08:00 ALT 151 U/L (7-52) H 02/23/17 08:00 Alkaline Phosphatase 424 U/L (34-104) H 02/23/17 08:00 Ammonia 45 umol/L (16-53) 02/28/17 04:55 Creatine Kinase 104 U/L (30-223) 02/25/17 05:10 CK-MB (CK-2) 9.3 ng/mL (0.6-6.3) H 02/22/17 08:50 Troponin I 0.02 ng/mL (0.01-0.05) 02/20/17 21:38 B-Natriuretic Peptide 263.0 pg/mL (5.0-100.0) H 02/22/17 08:50 Total Protein 5.8 gm/dL (6.0-8.3) L 02/23/17 08:00 Albumin 2.9 gm/dL (3.7-5.3) L 02/23/17 08:00 Globulin 2.9 gm/dL 02/23/17 08:00 Albumin/Globulin Ratio 1.0 (1.0-1.8) 02/23/17 08:00 Triglycerides 74 mg/dL (<150) 02/20/17 13:18 Cholesterol 216 mg/dL (<200) H 02/20/17 13:18 LDL Cholesterol Direct 80 mg/dL (75-193) 02/20/17 13:18 HDL Cholesterol 122 mg/dL (23-92) H 02/20/17 13:18 Thyroxine (T4) 12.1 ug/dL (4.5-12.0) H 02/26/17 05:35 TSH 1.29 uIU/ml (0.34-5.60) 02/26/17 05:35 Urine Source MIDSTREAM 02/20/17 13:00 Urine Color YELLOW 02/20/17 13:00 Urine Clarity HAZY (CLEAR) 02/20/17 13:00 Urine pH 6.0 (4.6 - 8.0) 02/20/17 13:00 Ur Specific [place] 1.025 (1.005-1.030) 02/20/17 13:00 Urine Protein TRACE mg/dL (NEGATIVE) 02/20/17 13:00 Urine Glucose (UA) NEGATIVE mg/dL (NEGATIVE) 02/20/17 13:00 Urine Ketones NEGATIVE mg/dL (NEGATIVE) 02/20/17 13:00 Urine Blood NEGATIVE (NEGATIVE) 02/20/17 13:00 Urine Nitrate NEGATIVE (NEGATIVE) 02/20/17 13:00 Urine Bilirubin NEGATIVE (NEGATIVE) 02/20/17 13:00 Urine Urobilinogen 0.2 E.U./dL (0.2 - 1.0) 02/20/17 13:00 Ur Leukocyte Esterase NEGATIVE (NEGATIVE) 02/20/17 13:00 Urine RBC 0-2 /hpf (0-5) 02/20/17 13:00 Urine WBC 2-5 /hpf (0-5) 02/20/17 13:00 Ur Epithelial Cells FEW /lpf (FEW) 02/20/17 13:00 Urine Bacteria OCCASIONAL /hpf (NONE SEEN) 02/20/17 13:00 Vancomycin Trough 9.3 ug/mL (10-20) L 02/23/17 08:10 Hepatitis A IgM Ab Negative (Negative) 02/21/17 06:10 Hep Bs Antigen Negative (Negative) 02/21/17 06:10 Hep B Core IgM Ab Negative (Negative) 02/21/17 06:10 Hepatitis C Antibody 0.2 s/co ratio (0.0-0.9) 02/21/17 06:10 Influenza A (Rapid) NEG FOR INF A 02/22/17 12:20 Influenza B (Rapid) NEG FOR INF B 02/22/17 12:20 - Physical Exam Vitals and I&O: Vital Signs Temp 98.2 F 02/28/17 13:56 Pulse 72 02/28/17 13:56 Resp 17 02/28/17 13:56 BP 123/52 02/28/17 13:56 Pulse Ox 94 02/28/17 13:56 Intake & Output 02/27/17 02/28/17 02/28/17 18:59 06:59 18:59 Intake Total 200 250 150 Output Total 300 500 Balance -100 -250 150 Weight (lbs) 72.03 kg 58.967 kg 58.967 kg Intake: Oral 200 250 150 Output: Urine 300 500 Other: # Bowel Movements 0 Stool Characteristics Liquid Soft Brown Liquid Active Medications: Current Medications Acetaminophen (Tylenol) 650 mg PO Q4H PRN PRN Reason: fever/pain Stop: 04/22/17 08:34 Albuterol/Ipratropium (Duoneb Neb) 3 ml HHN Q6HRT PRN PRN Reason: Shortness of Breath Stop: 04/22/17 08:34 Alprazolam (Xanax) 0.5 mg PO TID PRN; Protocol PRN Reason: Agitation Stop: 04/22/17 08:34 Last Admin: 02/26/17 13:31 Dose: 0.5 mg Amlodipine Besylate (Norvasc) 2.5 mg PO DAILY [facility] Stop: 04/22/17 09:04 Last Admin: 02/28/17 09:46 Dose: 2.5 mg Ascorbic Acid (Vitamin C) 500 mg PO DAILY [facility] Stop: 04/22/17 08:59 Last Admin: 02/28/17 09:47 Dose: 500 mg Aspirin (Aspirin Chewable) 81 mg PO DAILY [facility] Stop: 04/22/17 08:59 Last Admin: 02/28/17 09:47 Dose: 81 mg Cholecalciferol (Vitamin D3) 1,000 iu PO DAILY [facility] Stop: 04/22/17 09:04 Last Admin: 02/28/17 09:47 Dose: 1,000 iu Diphenhydramine HCl (Benadryl) 25 mg PO DAILY PRN PRN Reason: Itching Donepezil HCl (Aricept) 5 mg PO HS [facility] Stop: 04/22/17 20:59 Last Admin: 02/27/17 23:39 Dose: 5 mg Guaifenesin/Dextromethorphan (Robitussin Dm) 10 ml PO Q6H PRN PRN Reason: Cough Stop: 04/22/17 08:34 Dopamine HCl/Dextrose (Dopamine) 400 mg in 250 mls @ 11.056 mls/hr IV TITR PRN ; Protocol; 5 MCG/KG/MIN PRN Reason: BP MAINTENANCE (PER PROTOCOL) Stop: 04/21/17 21:19 Last Titration: 02/21/17 09:00 Dose: 0 mcg/kg/min, 0 mls/hr Lactulose (Cephulac) 30 gm PO QID [facility] Stop: 04/26/17 12:59 Last Admin: 02/28/17 14:23 Dose: Not Given Levothyroxine Sodium (Synthroid) 0.1 mg PO QDAC [facility] Stop: 04/24/17 07:29 Last Admin: 02/28/17 06:43 Dose: 0.1 mg Magnesium Oxide (Mag-Oxide) 400 mg PO DAILY [facility] Stop: 04/22/17 09:59 Last Admin: 02/28/17 09:47 Dose: 400 mg Nutritional Asmnt/Malnutr-PDOC - Dietary Evaluation Malnutrition Findings (Please click <Entered> for more info): Nutritional Asmnt/Malnutrition Start: 02/21/17 14: 45 Text: Status: Complete Freq: Document 02/21/17 14:45 [facility] (Rec: 02/21/17 14:57 [facility] [email or web address]) Nutritional Asmnt/Malnutrition Patient General Information Nutritional Screening High Risk Consult Diagnosis hypotension, rule out sepsis vs acute cornary Pertinent Medical Hx/Surgical Hx HTN, dementia Subjective Information Consult received for Lai William . Pt seen resting in bed at the time of visit, on [employer] machine. Per notes, pt had swallow eval today and failed. ST recommended strict NPO. Current Diet Order/ Nutrition Support NPO status Pertinent Medications vitamin c, vitamin D3, dopamine, mg, piperacillin, nacl 0.9% Pertinent Labs 02/21 Na 141, K 4.2, Cl 111, BUN 13, Cr 0.9, Ca 7.9, AST 92, ALT 138, Alb 3.1 Nutritional Hx/Data Height 1.55 m Height (Calculated Centimeters) 154.9 Current Weight (lbs) 58.695 kg Weight (Calculated Kilograms) 58.7 Weight (Calculated Grams) 91433.9 [place] Body Weight 105 % [place] Body Weight 123 Body Mass Index (BMI) 24.4 Weight Status Approriate GI Symptoms GI Symptoms None Skin Integrity/Comment: lai 12, dry, elastic Estimated Nutritional Goals BEE in Kcals: Using Current wt Calories/Kcals/Kg 25-30 Kcals Calculated 9481-8090 Protein: Using Current wt Protein g/k-1.2 Protein Calculated 59-71 Fluid: ml 1770ml (30ml/kg) Nutritional Problem 1. Problem Problem swallow difficulty Etiology mental status Signs/Symptoms: pt failed swallow eval and need for alternative nutrition route Malnutrition Alert Protein-Calorie Malnutrition N/A Is there a minimum of two criteria No selected? Query Text:Check all the applicable criteria. A minimum of two criteria are recommended for diagnosis of either severe or non-severe malnutrition. Intervention/Recommendation Comments 1. Monitor NPO status 2. If nutrition support needed , recommend start tube feeding Fibersource HN at 20ml/hr continuous, increase 10ml/hr q6hr to goal rate of 50ml/hr continuous. This will provide 1440kcal, 65g protein, 972ml water. 3. Monitor wt, labs and skin integrity. 4. F/U as high risk in 2-3 days, 1/5-1/6 Expected Outcomes/Goals Expected Outcomes/Goals 1. Pt to meet at least 75% of nutritional needs via alternative nutrition route in 2-3 days. 2. Wt stability, skin to remain intact, labs to approach WNL.
--- NOTE | 2017-02-28 14:56 | Operative Report ---
DATE OF SURGERY: 02/27/2017 PREOPERATIVE DIAGNOSES: 1. Severe bradycardia. 2. Hypertension. 3. Dementia. POSTOPERATIVE DIAGNOSES: 1. Severe bradycardia. 2. Hypertension. 3. Dementia. OPERATION DONE: Insertion of DDD pacemaker. SURGEON: Dr. Diamond Roman. ANESTHESIA: MAC. ANESTHESIOLOGIST: Dr. Barber. ESTIMATED BLOOD LOSS: 10 mL. OPERATIVE FINDINGS: The following values were obtained. DICTATION ENDS HERE. [facility]# [id number]
--- NOTE | 2017-02-28 15:05 | Operative Report ---
DATE OF SURGERY: 02/27/2017 PREOPERATIVE DIAGNOSES: 1. Severe bradycardia. 2. Hypertension. 3. Question of cerebrovascular accident. POSTOPERATIVE DIAGNOSES: 1. Severe bradycardia. 2. Hypertension. 3. Question of cerebrovascular accident. OPERATION DONE: Insertion of DDD pacemaker. SURGEON: Jessie Fields M.D. ANESTHESIA: MAC. ANESTHESIOLOGIST: Dr. Barber. INDICATIONS FOR SURGERY: Heart rate in the 20s and 30s and licensing director has determine the patient will need a pacemaker. The following thresholds were obtained. The right ventricular threshold is at 0.4 milliseconds. The R-wave at 8.6 and the impedance 721 ohms. Right atrial lead threshold of 1.6 volts at 0.4 milliseconds. The resistance is a 760 ohms. A Biotronik lead Solia S45 for atrial serial #[id number]. The ventricular lead, 53 cm, serial #[id number] and the pacemaker generator is an Eluna 8 DR-T, serial #[id number]. ESTIMATED BLOOD LOSS: 10 mL. PROCEDURE: The patient was given IV sedation. The left chest was prepped with ChloraPrep and draped in appropriate manner. Ultrasound was used to locate the subclavian vessels. Several attempts were made on the left subclavian and the right subclavian until finally on the left subclavian the guidewire finally went into the superior vena cava. This was under fluoroscopy. This was done with a direct stick as the cephalic vein was too small. The ventricular lead was introduced. Following placement of the introducer over the guidewire and the lead tip was placed in suitable location in the right ventricular apex. Measurements were satisfactory and the screw was deployed. The retained guidewire was used for the introduction of the atrial sheath and through this the atrial lead was introduced under fluoroscopy. A suitable location was found and the screw was deployed. Both leads were sutured to the chest wall utilizing 2-0 silk. Leads were connected to the generator and placed in the subcutaneous pocket. The incision was closed with running suture of 3-0 Vicryl subcutaneously and the skin was closed with subcuticular suture of 4-0 Vicryl. The patient tolerated the procedure well. JOB# [id number]
--- NOTE | 2017-03-02 12:41 | Operative Report ---
DATE OF SURGERY: 02/20/2017 PREOPERATIVE DIAGNOSIS: Sick sinus syndrome. POSTOPERATIVE DIAGNOSIS: Sick sinus syndrome. OPERATION DONE: Insertion of DDD pacemaker under ultrasound and fluoroscopy. SURGEON: Jessie Fields M.D. ANESTHESIA: MAC. ANESTHESIOLOGIST: Dr. Barber. ESTIMATED BLOOD LOSS: 10 mL. OPERATIVE FINDINGS: The thresholds on the atrial sensing at 4.1 millivolts, threshold is 0.6 at 0.4 milliseconds, impedance 702. The ventricular lead threshold is 10.3 millivolts at threshold of 0.4 volts, pulse width of 0.4 milliseconds, impedance 663 ohms. Biotronik leads were used. The atrial lead 45 cm Solia S45, serial #[id number]. The ventricular lead Solia S53, serial #[id number]. The pacemaker generator is Eluna 8DR-T, serial #[id number]. DESCRIPTION OF PROCEDURE: The patient was given general anesthesia. The chest was prepped with ChloraPrep and draped in appropriate manner. An incision was made in the left deltopectoral groove and a search for suitable cephalic vein was done, none was found that was large enough to accommodate the lead insertion. Under ultrasound, a direct stick was made into the subclavian vein and under fluoroscopy, the guidewire was inserted into the superior vena cava to the inferior vena cava. The introducer was placed over the guidewire and the ventricular lead was inserted. The tip was located in the right ventricular apex and following satisfactory threshold measurements the screw was deployed. The retained guidewire was used to insert the atrial lead under fluoroscopy, a suitable location in the atrium was found with good thresholds and the screw was deployed. The leads were then sutured to the chest wall to prevent dislodgement. Generator was connected to the leads and placed in a subcutaneous pocket. The incision was closed with 3-0 Vicryl subcutaneously and the skin was closed with subcuticular suture of 4-0 Vicryl. The patient tolerated the procedure well and will be sent to ICU for further monitoring. JOB# [id number]
== END 2017-02-28 16:37 | DRG 871 ==
LOC: ER 12:45 → ICU 19:44 → TELE 02-23 14:00
PROVIDERS: ADMIT Internal Medicine; ATTEND Internal Medicine
PROC: 0JH606Z Insertion of Pacemaker, Dual Chamber into Chest Subcutaneous Tissue and Fascia, Open Approach (ICD-10-PCS; principal; 2017-02-27)
PROC: 02H63JZ Insertion of Pacemaker Lead into Right Atrium, Percutaneous Approach (ICD-10-PCS; 2017-02-27)
PROC: 02HK3JZ Insertion of Pacemaker Lead into Right Ventricle, Percutaneous Approach (ICD-10-PCS; 2017-02-27)
PROC: B2151ZZ Fluoroscopy of Left Heart using Low Osmolar Contrast (ICD-10-PCS; 2017-02-27)
DX: A41.9 Sepsis, unspecified organism (principal); J18.9 Pneumonia, unspecified organism; R65.21 Severe sepsis with septic shock; I95.9 Hypotension, unspecified; T68.XXXA Hypothermia, initial encounter; I49.5 Sick sinus syndrome; M62.82 Rhabdomyolysis; F03.90 Unspecified dementia, unspecified severity, without behavioral disturbance, psychotic disturbance, mood disturbance, and anxiety; K72.90 Hepatic failure, unspecified without coma; K75.9 Inflammatory liver disease, unspecified; I10 Essential (primary) hypertension; D50.9 Iron deficiency anemia, unspecified; M81.0 Age-related osteoporosis without current pathological fracture; Z83.3 Family history of diabetes mellitus; Z82.49 Family history of ischemic heart disease and other diseases of the circulatory system
CPT/HCPCS: 36415-UA; 70450-TC; 71010-TC; 76000-TC; 76700-TC; 80048-TC; 80053-TC; 80061-TC; 80074-90; 80202-TC; 81001-TC; 82140-TC; 82550-TC; 82553; 82948-90; 83605; 83735-TC; 83880-TC; 84436-90; 84443-TC; 84484-TC; 85025-TC; 85610-TC; 85730-TC; 87804-TC; 93005; 93307-TC; 94760; 97530; J1265; J2001; J2543; J3370; J3480; J7030; J7040; V2790; X3401; X3904; X4304; Z7610

== ENCOUNTER 2017-03-07 18:36 | Emergency (ER) | payer MEDICARE, MEDICAID ==
--- NOTE | 2017-03-07 19:31 | ED Physician Chart ---
ED Chief Complaint/HPI - Patient Information Date Seen:: 03/07/17 Time Seen:: 18:50 Chief Complaint:: Facial Abrasion History of Present Illness:: pt developed a facial abrasion after a witnessed accidental fall one hour [employer] at her SNF; no report of LOC, ALOC, AMS, syncope, near-syncope, N/V, decreased activity, visual or gait changes, neck pain, H/As, parresthesias, weakness, dizziness, vertigo, C/P, SOB, Abd. Pain, A/N/V/d/c, fever, chills, pelvic/hip pain, flank/back pain, or urinary s/s; pt's last tetanus shot: > 5 years Allergies:: Allergies Allergy/AdvReac Type Severity Reaction Status Date / Time No Known Allergies Allergy Verified 02/20/17 13:51 Vitals:: Vital Signs - 8 hr 03/07/17 18:50 Temp 97.7 F HR 86 RR 16 BP 102/67 Historian:: Patient, EMS Review:: Nurse's Note Reviewed, EMS run form Reviewed ED Review of Systems - Review of Systems General/Constitutional: No fever, No chills, No weight loss, No weakness, No diaphoresis, No edema, No loss of appetite Skin: No skin lesions, No rash, No bruising Head: No headache, No light-headedness Eyes: No loss of vision, No pain, No diplopia ENT: No earache, No nasal drainage, No sore throat, No tinnitus Neck: No neck pain, No swelling, No thyromegaly, No stiffness, No mass noted Cardio Vascular: No chest pain, No palpitations, No PND, No orthopnea, No edema Pulmonary: No SOB, No cough, No sputum, No wheezing GI: No nausea, No vomiting, No diarrhea, No pain, No melena, No hematochezia, No constipation, No hematemesis G/U: No dysuria, No frequency, No hematuria, No nacturia Talent Sourcing Specialist: No vaginal discharge, No abnormal vaginal bleed, No contraction Musculoskeletal: No bone or joint pain, No back pain, No muscle pain Endocrine: No polyuria, No polydipsia Psychiatric: No prior psych history, No depression, No anxiety, No suicidal ideation, No homicidal ideation, No auditory hallucination, No visual hallucination Hematopoietic: No bruising, No lymphadenopathy Allergic/Immuno: No urticaria, No angioedema Neurological: No syncope, No focal symptoms, No weakness, No paresthesia, No headache, No seizure, No dizziness, Confusion, No vertigo ED Past Medical History - Past Medical History Obtainable: Yes Past Medical History: HTN, Dyslipidemia, Arthritis, Dementia Family History: HTN Social History: Non Smoker, No Alcohol, No Drug Use, Single, Care Facility Surgical History: None Psychiatricy History: Dementia Medication: Reviewed Family Medical History - Family Member Mother History Unknown: Yes ED Physical Exam - Physical Examination General/Constitutional: Awake, Well-developed, well-nourished, Alert, No distress, GCS 15, Non-toxic appearing, Ambulatory Other Head comments:: Superficial right lower eyelid abrasion/wound; no cellulitis; no s/s of infection; no FBs; good motor and sensory functions; good NV functions Eyes: Lids, conjuctiva normal, PERRL, EOMI Other Eyes comments:: PERRLA; Fundi: benign; EOMs: WNL; LLL: WNL Skin: Nl inspection, No rash, No skin lesions, No ecchymosis, Well hydrated, No lymphadenopathy ENMT: External ears, nose nl, TM canals nl, Nasal exam nl, Lips, teeth, gums nl , Oropharynx nl, Tonsils nl Neck: Nontender, Full ROM w/o pain, No JVD, No nuchal rigidity, No bruit, No mass, No stridor Other Neck comments:: Supple; no meningeal signs; no cervical tenderness; no bruits Respiratory: Nl effort/Exclusion, Clear to Auscultation, No Wheeze/Rhonchi/Rales Cardio Vascular: RRR, No murmur, gallop, rubs, NL S1 S2, Carotid/Femoral/Distal pulses equal bilaterally GI: No tenderness/rebounding/guarding, No organomegaly, No hernia, Normal BS's, Nondistended, No mass/bruits, No McBurney tenderness Other GI comments:: no pulsatile masses : No CVA tenderness Extremities: No tenderness or effusion, Full ROM, normal strength in all extremities, No edema, Normal digits & nails Neuro/Psych: Alert/oriented, DTR's symmetric, Normal sensory exam, Normal motor strength, Judgement/insight normal, Mood normal, Normal gait, No focal deficits Misc: Normal back, No paraspinal tenderness ED Labs/Radiology/EKG Results - Radiology Results Comments:: No FXs/Dislocations; NAD ED Septic Shock - . Is Septic Shock (SBP<90, OR Lactate>4 mmol\L) present?: No - <6hrs of presentation: Vital Signs: Vital Signs - 8 hr 03/07/17 18:50 Temp 97.7 F HR 86 RR 16 BP 102/67 ED Reassessment (Disposition) - Reassessment Reassessment:: pt is asymptomatic upon discharge Reassessment Condition:: Improved - Diagnosis Diagnosis:: S/P Fall; Head Injury; Closed Head Injury; Facial Abrasion/Wound; Sprains and Strains; Contusions and Abrasions - Aftercare/Follow up Instructions Aftercare/Follow-Up Instructions:: Counseled pt regarding lab results/diagnosis & need follow up, Refer to Discharge Instructions, Counseled pt & family regarding lab results/diagnosis & need follow up - Patient Disposition Discharge/Transfer:: [facility] - SNF Condition at Disposition:: Stable, Improved (RTER prn if existing s/s reoccur and/or get worse and/or any other new s/s occur; X-Rays Instructions; Head Injury Care Instructions; ACIs given for all above Dx; Refer to Neurologist/ Drawing Checker/Crane Helper SERGIO; F/U with PMD in one day or prn; RTER prn if concerned)
--- NOTE | 2017-03-08 08:05 | Diagnostic Imaging Report ---
CT scan cervical spine History: Trauma Total DLP equals 422 CTDI equals 21.7 Axial sections were obtained through the cervical spine region. Additional sagittal and coronal reformatted images are provided. No focal bony lesions are seen. Specifically, no fractures are identified. There is limited visualization of the margins of the cervical spinal cord. No obvious extradural soft tissue abnormalities are seen. The prevertebral soft tissues appear normal. Degenerative osteophytic spurring and mild narrowing of the intravertebral disc space appreciated in lower cervical spine. No prevertebral soft tissue swelling is noted. There is no evidence of spondylolysis or spondylolisthesis. Facet joint arthropathy is noted in the lower cervical spine Impression: Degenerative or osteoarthritic changes otherwise unremarkable examination of the cervical spine.
--- NOTE | 2017-03-08 08:09 | Diagnostic Imaging Report ---
CT scan of the brain without intravenous contrast HISTORY: Trauma Total DLP equals 618 CTDI equals 33.5 Axial sections were obtained from the base of the skull to the vertex. There is prominence/enlargement of the ventricular system size. Associated enlargement of cerebral sulci and subarachnoid cisterns. Findings are consistent with changes of generalized cerebral atrophy. No acute parenchymal abnormalities. No acute cerebral hemorrhage. Hypodensity is seen within the supratentorial white matter regions without mass effect. The findings may be associated with chronic small vessel ischemic disease. No extra-axial masses or abnormal fluid collections. IMPRESSION: 1. No acute abnormalities.. 2. Cerebral atrophy 3. Supratentorial white matter changes that may reflect chronic small vessel ischemic disease
--- NOTE | 2017-03-08 08:09 | Diagnostic Imaging Report ---
Exam: CT Scan of the Facial Bones was performed. TECHNIQUE: Computerized coronal imaging through the facial bones was obtained at 3 mm intervals of 3 mm thickness. Total DLP equals 424 CTDI equals 19.4 FINDINGS: No fractures or other osseus abnormalities are noted. Nasal septum is in the midline. Nasal turbinates are normal in size. Ethmoid and sphenoid sinuses are normally area aerated. The right maxillary sinus is normally aerated. The frontal sinuses are intact. The zygomatic arches are normal. Bony structures demonstrate no evidence for lytic or blastic lesions. There is evidence of for left maxillary sinus mucous retention cyst versus a polyp. Small amount of air-fluid levels noted. CONCLUSION: 1. Negative examination of the facial bones. 2. Left maxillary sinus mucous retention cyst versus a polyp.
== END 2017-03-07 22:34 ==
LOC: ER 18:36
DX: S00.211A Abrasion of right eyelid and periocular area, initial encounter (principal); I10 Essential (primary) hypertension; E78.5 Hyperlipidemia, unspecified; G31.89 Other specified degenerative diseases of nervous system; W19.XXXA Unspecified fall, initial encounter; Y93.89 Activity, other specified; Y92.89 Other specified places as the place of occurrence of the external cause; Y99.8 Other external cause status
CPT/HCPCS: 70450-TC; 70486-TC; 72125-TC; Z7502

== ENCOUNTER 2017-05-17 12:11 | Inpatient (IN) | payer MEDICARE, MEDICAID ==
--- NOTE | 2017-05-17 12:37 | ED Physician Chart ---
ED Chief Complaint/HPI - Patient Information Date Seen:: 05/17/17 Time Seen:: 12:20 Chief Complaint:: increased agitation History of Present Illness:: Patient brought here from [facility] for increased agitation and confusion. She has reportedly been verbally abusive and had hallucinations. Allergies:: Allergies Allergy/AdvReac Type Severity Reaction Status Date / Time No Known Allergies Allergy Verified 02/20/17 13:51 Historian:: Patient, EMS Review:: Nurse's Note Reviewed, Transfer documents Reviewed ED Review of Systems - Review of Systems General/Constitutional: No fever, No chills, No weight loss, No weakness, No diaphoresis, No edema, No loss of appetite Skin: No skin lesions, No rash, No bruising Head: No headache, No light-headedness Eyes: No loss of vision, No pain, No diplopia ENT: No earache, No nasal drainage, No sore throat, No tinnitus Neck: No neck pain, No swelling, No thyromegaly, No stiffness, No mass noted Cardio Vascular: No chest pain, No palpitations, No PND, No orthopnea, No edema Pulmonary: No SOB, No cough, No sputum, No wheezing GI: No nausea, No vomiting, No diarrhea, No pain, No melena, No hematochezia, No constipation, No hematemesis G/U: No dysuria, No frequency, No hematuria Musculoskeletal: No bone or joint pain, No back pain, No muscle pain Endocrine: No polyuria, No polydipsia Psychiatric: Prior psych history Hematopoietic: No bruising, No lymphadenopathy Allergic/Immuno: No urticaria, No angioedema Neurological: No syncope, No focal symptoms, No weakness, No paresthesia, No headache, No seizure, No dizziness, No confusion, No vertigo ED Past Medical History - Past Medical History Past Medical History: Dementia, Other (status post urinary tract infection; legally blind; psychosis) Family History: Other (unavailable) Social History: Non Smoker, No Alcohol Surgical History: PEG/GTube Psychiatricy History: Dementia, Other (psychosis) Family Medical History - Family Member Mother History Unknown: Yes ED Physical Exam - Physical Examination General/Constitutional: Well-developed, well-nourished, Alert, No distress Other Gen/Cons comments:: Tremors of both upper extremities; confused; does not know the year Head: Atraumatic Eyes: Lids, conjuctiva normal, PERRL Other Eyes comments:: Arcus senilis Skin: Nl inspection, No rash ENMT: External ears, nose nl Other ENMT comments:: Edentulous Neck: No nuchal rigidity Respiratory: Nl effort/Exclusion Cardio Vascular: RRR, No murmur, gallop, rubs, NL S1 S2 GI: No tenderness/rebounding/guarding : No CVA tenderness Extremities: Normal digits & nails Neuro/Psych: No focal deficits ED Labs/Radiology/EKG Results - Lab Results Results: Laboratory Results - last 24 hr 05/17/17 05/17/17 05/17/17 12:46 12:46 12:46 WBC 6.1 RBC 3.41 L Hgb 10.8 L Hct 32.5 L MCV 95.5 MCH 31.6 H MCHC Differential 33.1 RDW 13.0 Plt Count 354 MPV 7.2 Neutrophils % 36.1 L Lymphocytes % 46.8 Monocytes % 10.1 H Eosinophils % 6.3 H Basophils % 0.7 Sodium 138 Potassium 4.2 Chloride 104 Carbon Dioxide 27.0 Anion Gap 11.2 BUN 20 Creatinine 0.9 Est GFR ( Amer) > 60.0 Est GFR (Non-Af Amer) > 60.0 BUN/Creatinine Ratio 22.2 Glucose 104 Calcium 9.5 Total Bilirubin 0.3 AST 36 ALT 33 Alkaline Phosphatase 192 H Total Protein 6.9 Albumin 3.5 L Globulin 3.4 Albumin/Globulin Ratio 1.0 Triglycerides 145 Cholesterol 170 LDL Cholesterol Direct 99 HDL Cholesterol 53 TSH 0.05 L - EKG Interpretations Rate & Rhythm: normal sinus rhythm with a rate is 72 [place]: normal Intervals: normal Comments:: Normal EKG ED Septic Shock - . Is Septic Shock (SBP<90, OR Lactate>4 mmol\L) present?: No ED Reassessment (Disposition) - Reassessment Reassessment Condition:: Unchanged - Diagnosis Diagnosis:: Dementia; psychosis; aggressive behavior; anemia - Patient Disposition Admitted to:: [facility] Admitting Medical Physician:: Hank Michele Admitting Psych Physician:: Robert Sepulveda Condition at Disposition:: Stable, Unchanged
[2017-05-17 12:56] LABS: % BASOPHILS 0.7 % (0.0-2.0); % EOSINOPHILS 6.3 % (0.0-5.0); % LYMPHOCYTES 46.8 % (20.0-50.0); % MONOCYTES 10.1 % (2.0-10.0); % NEUTROPHILS 36.1 % (40.0-80.0); EOSINOPHILE ABSOLUTE 0.4 Th/cmm (0.1-0.4); HEMATOCRIT 32.5 % (41.0-60); HEMOGLOBIN 10.8 gm/dL (12-16); LYMPHOCYTE ABSOLUTE 2.9 Th/cmm (1.5-3.0); MEAN CELL VOLUME 95.5 fl (81-100); MEAN CORPUSCULAR HEMOGLOBIN 31.6 pg (27.0-31.0); MEAN CORPUSCULAR HGB CONC 33.1 pg (28.0-36.0); MEAN PLATELET VOLUME 7.2 fl; MONOCYTE ABSOLUTE 0.6 Th/cmm (0.3-1.0); NEUTROPHILE ABSOLUTE 2.2 Th/cmm (1.8-8.0); PLATELET COUNT 354 Th/cmm (150-400); RED BLOOD COUNT 3.41 Mil/cmm (3.80-5.20); WHITE BLOOD COUNT 6.1 Th/cmm (4.8-10.8)
[2017-05-17 13:10] LABS: ALBUMIN 3.5 gm/dL (3.7-5.3); ALKALINE PHOSPHATASE 192 U/L (34-104); ANION GAP 11.2 (7.0-16.0); BILIRUBIN,TOTAL 0.3 mg/dL (0.3-1.0); BUN - UREA NITROGEN 20 mg/dL (7-25); CALCIUM SERUM 9.5 mg/dL (8.6-10.3); CHLORIDE 104 mEq/L (98-107); CHOLESTEROL 170 mg/dL (<200); CREATININE - SERUM 0.9 mg/dL (0.6-1.2); GFR AFRICAN-AMERICAN > 60.0 ml/min (>90); GFR NON AFRICAN-AMERICAN > 60.0 ml/min; GLUCOSE 104 mg/dL (70-105); HDL -HIGH DENSITY LIPOPROTEIN 53 mg/dL (23-92); POTASSIUM SERUM 4.2 mEq/L (3.5-5.1); SGOT 36 U/L (13-39); SGPT/ALT 33 U/L (7-52); SODIUM SERUM 138 mEq/L (136-145); TOTAL PROTEIN,SERUM 6.9 gm/dL (6.0-8.3); TRIGLYCERIDES 145 mg/dL (<150)
[2017-05-17 16:06] VITALS: BP 133/76
[2017-05-17] MEDS ORDERED: Magnesium Hydroxide (MOM) 30 mL UDC PO PRN (16:13)
[2017-05-17] MEDS ORDERED: Maalox 30 mL Cup PO PRN (16:13)
[2017-05-18] MEDS ORDERED: Albuterol/Ipratropium Neb 3 ML AERS HHN PRN (08:32)
--- NOTE | 2017-05-18 09:18 | History & Physical ---
ADMIT DATE: 05/17/2017 HISTORY AND PHYSICAL AND MEDICINE CONSULTATION CHIEF COMPLAINT: Worsening agitation, confusion and hallucinations. HISTORY OF PRESENT ILLNESS: The patient is a confused, 66-year-old female. She presents from [facility] for increased agitation and confusion. She was being verbally abusive to the staff and had hallucinations as well. She was also more altered than usual. PAST MEDICAL HISTORY: Significant for Alzheimer's dementia and asthma and anemia. SOCIAL HISTORY: No documented history of alcohol, tobacco, or drug abuse. FAMILY HISTORY: Noncontributory. ALLERGIES: No known drug allergies. SURGICAL HISTORY: Positive for history of a G-tube. MEDICATIONS: All medications reviewed and reconciled. REVIEW OF SYSTEMS: GENERAL: Positive recent fatigue and worsening confusion and decreased appetite and overall worsening lethargy. HEENT: No recent head trauma or change in hearing or smell. She does have history of decreased vision. NECK: No recent tracheal deviation. ABDOMEN: No recent pain or distension. SKIN: No recent rashes. RESPIRATORY: She has history of asthma. NEUROLOGIC: She has history of Alzheimer dementia. PSYCHIATRIC: Positive for worsening psychosis or hallucinations. EXTREMITIES: No recent edema. PHYSICAL EXAMINATION: VITAL SIGNS: Temperature 97 degrees, heart rate is 72, respiration is 18, blood pressure 121/74. Currently, no pain. GENERAL: No acute distress. She is awake, alert to name only. She is very confused. HEENT: She has a lateral gaze in the left eye. She has decreased vision. NECK: Trachea is midline. No JVD. CARDIOVASCULAR: Regular rate and rhythm. SKIN: No rashes. PSYCHIATRIC: She has labile mood. She is easily agitated. NEUROLOGIC: She has dementia and also she has a resting tremor, worse with intention of the upper extremities bilaterally. EXTREMITIES: No edema. SKIN: Poor turgor. MUSCULOSKELETAL: Decreased muscle strength in lower extremities. She also has decreased range of motion with degenerative changes of the joints in hands and feet as well. GENITOURINARY: No hematuria is noted. LABORATORY DATA: RPR is negative. White count is 6.1; hemoglobin is 10.8; platelet count is 354,000. Sodium is 138, potassium 4.2, chloride 104, bicarbonate 27, BUN 20, creatinine 0.9, alkaline phosphatase 192. TSH is 0.05. UA and chest x-ray are pending. ASSESSMENT AND PLAN: 1. Anemia of chronic illness. 2. Degenerative joint disease of the hands and hips. 3. Mild malnutrition. 4. Dementia, Alzheimer's type with exacerbation. 5. Asthma. 6. Parkinson disease. 7. Unsteady gait. PLAN: I have ordered a magnesium level and hemoglobin A1c as well. Follow up on the UA. She is on a pureed diet. Consider changing it to a regular consistency if she can tolerate it, I have started the patient on Sinemet. The patient will be started on low dose Sinemet. I will monitor closely for any changes. Monitor for any side effects, continue fall precautions. She will benefit from inpatient rehabilitation. Dr. Sepulveda is the psychiatrist on the case. JOB# [id number]
[2017-05-18] MEDS: Multivitamin Tab PO SCH (10:00)
[2017-05-18] MEDS: Aspirin 81mg Chewable Tab PO SCH (11:02)
[2017-05-18] MEDS: Carbidopa/Levodopa 10/100 mg Tab PO SCH ×2 (11:03→17:50)
--- NOTE | 2017-05-19 01:07 | Psychosocial Evaluation ---
DATE OF SERVICE: JUSTIFICATION FOR HOSPITALIZATION: Increased agitation, escalation of behaviors, trying to hit staff, also with hallucinations. CHIEF COMPLAINT: "I am at school right now." HISTORY OF PRESENT ILLNESS: A 66-year-old female, confused, disoriented, believing that she is at school, does not know the year, does not know the month, does not know the day of the week, has no idea where she is or what is going on, stating "I forget when I asked her most questions." She was apparently agitated at her alf facility, confused, combative, trying to hit staff. PAST PSYCHIATRIC HISTORY: The patient appears to be quite confused, likely diagnosis of dementia, although this needs to be further confirmed. SOCIAL HISTORY: The patient is residing in a alf facility. It is unclear how much family support she has. Apparently there is a brother involved. FAMILY HISTORY: Noncontributory, I am really not able to assess. MEDICATIONS: Noted. MENTAL STATUS EXAMINATION: Stated age. Some eye contact. Awake, alert, but disoriented, confused, no SI, no HI. No overt psychosis. The patient with poor impulse control. poor insight, poor understanding of her disease process, poor judgment, very poor memory, poorly oriented. PROVISIONAL DIAGNOSES: Dementia with behaviors; psychosis, unspecified; mood, unspecified; anxiety, unspecified. Medical: Please see full H and P. ESTIMATED LENGTH OF STAY: 7-10 days. ASSESSMENT: The patient requiring inpatient hospitalization, combative, agitated, and also with psychotic symptoms. PLAN: We will initiate Aricept as well as Namenda. TREATMENT PLAN: Includes group as well as milieu therapy. CONDITIONS FOR DISCHARGE: Improved mood. Improved affect. Better control of any psychotic symptoms and better control of any agitation. JOB# [id number]
--- NOTE | 2017-05-19 09:27 | General Progress Note ---
Subjective - Review of Systems Service Date: 05/19/17 Subjective: Pt seen and eval. Confused. Has been on Sinemet now. No fevers or chills. No cough. Reviewed labs. No side effects to Sinemet noted. Objective - Results Result Diagrams: 05/17/17 12:46 05/17/17 12:46 Recent Labs: Laboratory Last Values WBC 6.1 Th/cmm (4.8-10.8) 05/17/17 12:46 RBC 3.41 Mil/cmm (3.80-5.20) L 05/17/17 12:46 Hgb 10.8 gm/dL (12-16) L 05/17/17 12:46 Hct 32.5 % (41.0-60) L 05/17/17 12:46 MCV 95.5 fl (81-100) 05/17/17 12:46 MCH 31.6 pg (27.0-31.0) H 05/17/17 12:46 MCHC Differential 33.1 pg (28.0-36.0) 05/17/17 12:46 RDW 13.0 % (11.5-20.0) 05/17/17 12:46 Plt Count 354 Th/cmm (150-400) 05/17/17 12:46 MPV 7.2 fl 05/17/17 12:46 Neutrophils % 36.1 % (40.0-80.0) L 05/17/17 12:46 Lymphocytes % 46.8 % (20.0-50.0) 05/17/17 12:46 Monocytes % 10.1 % (2.0-10.0) H 05/17/17 12:46 Eosinophils % 6.3 % (0.0-5.0) H 05/17/17 12:46 Basophils % 0.7 % (0.0-2.0) 05/17/17 12:46 Sodium 138 mEq/L (136-145) 05/17/17 12:46 Potassium 4.2 mEq/L (3.5-5.1) 05/17/17 12:46 Chloride 104 mEq/L (98-107) 05/17/17 12:46 Carbon Dioxide 27.0 mEq/L (21.0-31.0) 05/17/17 12:46 Anion Gap 11.2 (7.0-16.0) 05/17/17 12:46 BUN 20 mg/dL (7-25) 05/17/17 12:46 Creatinine 0.9 mg/dL (0.6-1.2) 05/17/17 12:46 Est GFR ( Amer) > 60.0 ml/min (>90) 05/17/17 12:46 Est GFR (Non-Af Amer) > 60.0 ml/min 05/17/17 12:46 BUN/Creatinine Ratio 22.2 05/17/17 12:46 Glucose 104 mg/dL (70-105) 05/17/17 12:46 Hemoglobin A1c % 6.0 % (4.0-6.0) 05/17/17 12:46 Calcium 9.5 mg/dL (8.6-10.3) 05/17/17 12:46 Magnesium 2.5 mg/dL (1.9-2.7) 05/18/17 09:10 Total Bilirubin 0.3 mg/dL (0.3-1.0) 05/17/17 12:46 AST 36 U/L (13-39) 05/17/17 12:46 ALT 33 U/L (7-52) 05/17/17 12:46 Alkaline Phosphatase 192 U/L (34-104) H 05/17/17 12:46 Total Protein 6.9 gm/dL (6.0-8.3) 05/17/17 12:46 Albumin 3.5 gm/dL (3.7-5.3) L 05/17/17 12:46 Globulin 3.4 gm/dL 05/17/17 12:46 Albumin/Globulin Ratio 1.0 (1.0-1.8) 05/17/17 12:46 Triglycerides 145 mg/dL (<150) 05/17/17 12:46 Cholesterol 170 mg/dL (<200) 05/17/17 12:46 LDL Cholesterol Direct 99 mg/dL (75-193) 05/17/17 12:46 HDL Cholesterol 53 mg/dL (23-92) 05/17/17 12:46 TSH 0.05 uIU/ml (0.34-5.60) L 05/17/17 12:46 RPR NONREACTIVE (NONREACTIVE) 05/17/17 12:46 - Physical Exam Vitals and I&O: Vital Signs Temp 97.4 F 05/19/17 06:43 Pulse 77 05/19/17 06:43 Resp 18 05/19/17 06:43 BP 113/73 05/19/17 06:43 Pulse Ox 99 05/19/17 06:41 Intake & Output 05/18/17 05/19/17 05/19/17 18:59 06:59 18:59 Intake Total 900 Balance 900 Intake: Oral 900 Other: # Voids 3 # Bowel Movements 1 Active Medications: Current Medications Acetaminophen (Tylenol) 650 mg PO Q4HR PRN PRN Reason: Mild Pain / Temp above 100 Stop: 07/16/17 16:12 Al Hydrox/Mg Hydrox/Simethicone (Maalox) 30 ml PO Q4HR PRN PRN Reason: GI DISTRESS Stop: 07/16/17 16:12 Albuterol/Ipratropium (Duoneb Neb) 3 ml HHN Q6H PRN PRN Reason: Shortness of Breath Stop: 07/17/17 08:31 Aspirin (Aspirin Chewable) 81 mg PO DAILY NANDA Stop: 07/17/17 08:59 Last Admin: 05/18/17 11:02 Dose: Not Given Carbidopa/Levodopa (Sinemet 10 Mg-100 Mg) 1 tab PO BID NANDA Stop: 07/17/17 08:59 Last Admin: 05/18/17 17:50 Dose: 1 tab Donepezil HCl (Aricept) 5 mg PO HS NANDA Stop: 07/17/17 20:59 Last Admin: 05/18/17 21:43 Dose: 5 mg Lorazepam (Ativan) 0.5 mg PO Q4HR PRN; Protocol PRN Reason: Anxiety Stop: 06/16/17 16:12 Magnesium Hydroxide (Milk Of Magnesia) 30 ml PO HS PRN PRN Reason: Constipation Memantine (Namenda) 5 mg PO DAILY NANDA Stop: 07/18/17 08:59 Multivitamins/Vitamin C (Theragran) 1 tab PO DAILY NANDA Stop: 07/17/17 08:59 Last Admin: 05/18/17 10:00 Dose: 1 tab Zolpidem Tartrate (Ambien) 5 mg PO HS PRN PRN Reason: Insomnia Stop: 07/16/17 16:12 Last Admin: 05/18/17 21:43 Dose: 5 mg General: Cooperative HEENT: Atraumatic, PERRLA, EOMI Neck: Supple, no JVD, no Thyromegaly Cardiovascular: Regular rate, Normal S1 Lungs: Clear to auscultation - Procedures Procedures: Procedures Procedure Code Date FLUOROSCOPY OF LEFT HEART USING LOW OSMOLAR CONTRAST [id number] 02/20/17 INSERT PACE. DUAL LAKHWINDER IN CHEST SUBCU/FASCIA, OPEN [id number] 02/20/17 INSERTION OF PACEMAKER LEAD INTO R VENTRICLE, PERC APPROACH [id number] 02/20/17 INSERTION OF PACEMAKER LEAD INTO RIGHT ATRIUM, PERC APPROACH [id number] 02/20/17 INSRT HEART PM ATRIAL & VENT [id number] 02/20/17 Assessment/Plan - Assessment Assessment: Hyperthyroidism Parkinson's disease - Plan Plan: Pt is now on Sinemet. Did a check to ensure she's tolerating it ok Ordered T4, T3, and repeat TSH as TSH is o.05
[2017-05-19] MEDS: Aspirin 81mg Chewable Tab PO SCH (10:00)
[2017-05-19] MEDS: Carbidopa/Levodopa 10/100 mg Tab PO SCH ×2 (10:00→17:15)
[2017-05-19] MEDS: Multivitamin Tab PO SCH (10:00)
--- NOTE | 2017-05-20 01:29 | Progress Notes ---
DATE: 05/19/2017 SUBJECTIVE: This is a 66-year-old female, confused, disoriented, still believes as she is at school, does not know where she is or why she is here or why she is in the hospital. She is confused on exam, remains impulsive, unpredictable, sleeping with prompting. 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 ASSESSMENT: The patient is confused, disoriented, still unruly, impulsive, unpredictable, still in a Rupal chair, high risk for falls given her impulsivity. PLAN: We will continue to monitor. We will adjust and titrate medications. The patient is not safe for a lower level of care at this time. JOB# [id number]
[2017-05-20] MEDS: Aspirin 81mg Chewable Tab PO SCH (08:22)
[2017-05-20] MEDS: Carbidopa/Levodopa 10/100 mg Tab PO SCH ×2 (08:22→16:59)
[2017-05-20] MEDS: Multivitamin Tab PO SCH (08:22)
[2017-05-20 09:10] LABS: T3 FREE 2.7 pg/mL (2.0-4.4); T4 FREE 1.5 ng/dL (0.82-1.77)
--- NOTE | 2017-05-20 17:06 | Progress Notes ---
DATE: 05/20/2017 SUBJECTIVE: The patient was seen today, 05/20/2017. The patient remains fairly confused, disoriented, still needing a lot of supervision, in a Rupal chair, trying to go to the Rupal chair and does not know where she is or what is going on. She is pretty restless on exam, taking her medications. She is eating with prompting. Staff concerned due to ongoing behaviors, insomnia. ASSESSMENT: The patient remains confused, disoriented, highly restless, unruly at times. PLAN: We will continue to monitor. We will stop Ambien and start trazodone as needed. We will continue to make appropriate medication adjustments, given her ongoing symptoms of behaviors. She is not safe for discharge at this time. JOB# [id number]
[2017-05-21] MEDS: Carbidopa/Levodopa 10/100 mg Tab PO SCH ×2 (08:44→16:58)
[2017-05-21] MEDS: Aspirin 81mg Chewable Tab PO SCH (08:44)
[2017-05-21] MEDS: Multivitamin Tab PO SCH (08:44)
--- NOTE | 2017-05-21 20:28 | Progress Notes ---
DATE: The patient is currently in the hospital, symptomatic, unruly, agitated, still needing a lot of supervision, in a Rupal chair, highly impulsive and unpredictable behaviors. Sleeping on exam, it is the afternoon. Concerns for sedation. Staff noting she has been somewhat calm and cooperative today. There have been ongoing concerns also about insomnia. ASSESSMENT: The patient remains confused, disoriented, restless, still impulsive. PLAN: We will continue to monitor. I will decrease trazodone today to 25 mg due to concerns for over sedation. JOB# [id number]
[2017-05-22] MEDS: Multivitamin Tab PO SCH (08:30)
[2017-05-22] MEDS: Aspirin 81mg Chewable Tab PO SCH (08:31)
[2017-05-22] MEDS: Carbidopa/Levodopa 10/100 mg Tab PO SCH ×2 (08:31→16:52)
--- NOTE | 2017-05-22 20:14 | Progress Notes ---
DATE: 05/22/2017 SUBJECTIVE: The patient currently in bed, remains confused, forgetful, needing direction, cannot ambulate but tries to get up, highly impulsive, still a fall risk. The patient not saying much to me this morning. She remains very confused and disoriented. There were some behavioral disturbances at the treatment facility[facility] that is why she is here. The patient also had been screaming and yelling, but seems to be much calmer now, following no rules and directions. She is easily agitated per staff. ASSESSMENT: The patient remains symptomatic, still with agitation, poor impulse control, not safe for a lower level of care, but somewhat calmer. No violent behaviors. PLAN: We will continue to monitor, continue Aricept, continue Namenda, low dose trazodone. The patient is more awake today, seems less sedated. JOB# [id number]
--- NOTE | 2017-05-23 08:51 | Progress Notes ---
DATE: 05/23/2017 The patient seen, chart reviewed, discussed with staff. The patient remains unruly at times, forgetful, needing redirection. Did have concerns about over sedation, so I lowered her medications. She has been overall calmer since admission, but she has very poor impulse control, highly unpredictable behavior, still yelling and screaming at times. Eating fairly well. 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 ASSESSMENT: The patient remains symptomatic, highly confused, very poor impulse control, still with periods where she is unruly. PLAN: We will continue to monitor, continue Aricept, continue Namenda. The patient does seem to be calmer since admission. I am attempting to avoid the initiation of antipsychotic medications. [facility]# [id number]
[2017-05-23] MEDS: Aspirin 81mg Chewable Tab PO SCH (08:56)
[2017-05-23] MEDS: Multivitamin Tab PO SCH (08:56)
[2017-05-23] MEDS: Carbidopa/Levodopa 10/100 mg Tab PO SCH ×2 (08:56→17:15)
[2017-05-24] MEDS: Multivitamin Tab PO SCH (09:06)
[2017-05-24] MEDS: Carbidopa/Levodopa 10/100 mg Tab PO SCH ×2 (09:06→17:14)
[2017-05-24] MEDS: Aspirin 81mg Chewable Tab PO SCH (09:06)
--- NOTE | 2017-05-24 20:29 | Progress Notes ---
DATE: 05/24/2017 SUBJECTIVE: The patient was seen and evaluated. The patient's chart reviewed. Dr. Calvillo Covering for Dr. Sepulveda. IDENTIFYING DATA: She is a 66-year-old female who presented confused, disoriented, believing that she is at school and does not know the year she was in. HOSPITAL COURSE: The patient has been started on Aricept 5 mg a day, Namenda 5 mg a day, trazodone. Today on fwho-wg-crrs evaluation, the patient reported she is 14 years old, presents disorganized, confused, disoriented, neurocognitively impaired. MENTAL STATUS EXAMINATION: Severe neurocognitive impairment, disorganized for her dementia, needs a lot of ADL redirection, still very poor impulse control, highly unpredictable behavior, intermittently yelling and screaming. ASSESSMENT AND PLAN: The patient is a 66-year-old female, severely cognitively impaired, disorganized. We will continue with the recent addition of Namenda and Aricept. We are trying to avoid the use of antipsychotics to reduce the risk of associated with ____. We will continue monitoring very closely, working with her briefcase sewer for safe dispo in the near future. JOB# [id number]
[2017-05-25] MEDS: Multivitamin Tab PO SCH (09:28)
[2017-05-25] MEDS: Carbidopa/Levodopa 10/100 mg Tab PO SCH ×2 (09:29→16:48)
[2017-05-25] MEDS: Aspirin 81mg Chewable Tab PO SCH (09:29)
--- NOTE | 2017-05-25 10:34 | General Progress Note ---
Subjective - Review of Systems Service Date: 05/25/17 Events since last encounter: The patient is undergoing continued psychiatric treatment for her psychosis. She is unable to ambulate at this time and is a fall risk. A PT eval was ordered. Subjective: The patient is sitting comfortably in her chair. She does not appear to be in any pain or distress. Denies fevers or chills. Denies chest pain, sob, abd pain , dysuria or falls. Objective - Results Result Diagrams: 05/17/17 12:46 05/17/17 12:46 Recent Labs: Laboratory Last Values WBC 6.1 Th/cmm (4.8-10.8) 05/17/17 12:46 RBC 3.41 Mil/cmm (3.80-5.20) L 05/17/17 12:46 Hgb 10.8 gm/dL (12-16) L 05/17/17 12:46 Hct 32.5 % (41.0-60) L 05/17/17 12:46 MCV 95.5 fl (81-100) 05/17/17 12:46 MCH 31.6 pg (27.0-31.0) H 05/17/17 12:46 MCHC Differential 33.1 pg (28.0-36.0) 05/17/17 12:46 RDW 13.0 % (11.5-20.0) 05/17/17 12:46 Plt Count 354 Th/cmm (150-400) 05/17/17 12:46 MPV 7.2 fl 05/17/17 12:46 Neutrophils % 36.1 % (40.0-80.0) L 05/17/17 12:46 Lymphocytes % 46.8 % (20.0-50.0) 05/17/17 12:46 Monocytes % 10.1 % (2.0-10.0) H 05/17/17 12:46 Eosinophils % 6.3 % (0.0-5.0) H 05/17/17 12:46 Basophils % 0.7 % (0.0-2.0) 05/17/17 12:46 Sodium 138 mEq/L (136-145) 05/17/17 12:46 Potassium 4.2 mEq/L (3.5-5.1) 05/17/17 12:46 Chloride 104 mEq/L (98-107) 05/17/17 12:46 Carbon Dioxide 27.0 mEq/L (21.0-31.0) 05/17/17 12:46 Anion Gap 11.2 (7.0-16.0) 05/17/17 12:46 BUN 20 mg/dL (7-25) 05/17/17 12:46 Creatinine 0.9 mg/dL (0.6-1.2) 05/17/17 12:46 Est GFR ( Amer) > 60.0 ml/min (>90) 05/17/17 12:46 Est GFR (Non-Af Amer) > 60.0 ml/min 05/17/17 12:46 BUN/Creatinine Ratio 22.2 05/17/17 12:46 Glucose 104 mg/dL (70-105) 05/17/17 12:46 Hemoglobin A1c % 6.0 % (4.0-6.0) 05/17/17 12:46 Calcium 9.5 mg/dL (8.6-10.3) 05/17/17 12:46 Magnesium 2.5 mg/dL (1.9-2.7) 05/18/17 09:10 Total Bilirubin 0.3 mg/dL (0.3-1.0) 05/17/17 12:46 AST 36 U/L (13-39) 05/17/17 12:46 ALT 33 U/L (7-52) 05/17/17 12:46 Alkaline Phosphatase 192 U/L (34-104) H 05/17/17 12:46 Total Protein 6.9 gm/dL (6.0-8.3) 05/17/17 12:46 Albumin 3.5 gm/dL (3.7-5.3) L 05/17/17 12:46 Globulin 3.4 gm/dL 05/17/17 12:46 Albumin/Globulin Ratio 1.0 (1.0-1.8) 05/17/17 12:46 Triglycerides 145 mg/dL (<150) 05/17/17 12:46 Cholesterol 170 mg/dL (<200) 05/17/17 12:46 LDL Cholesterol Direct 99 mg/dL (75-193) 05/17/17 12:46 HDL Cholesterol 53 mg/dL (23-92) 05/17/17 12:46 Free T4 1.50 ng/dL (0.82-1.77) 05/19/17 10:39 Free T3 2.7 pg/mL (2.0-4.4) 05/19/17 10:39 TSH 0.08 uIU/ml (0.34-5.60) L 05/19/17 10:39 RPR NONREACTIVE (NONREACTIVE) 05/17/17 12:46 - Physical Exam Vitals and I&O: Vital Signs Temp 97.0 F 05/24/17 20:00 Pulse 80 05/25/17 08:00 Resp 18 05/25/17 08:00 BP 120/60 05/24/17 20:00 Pulse Ox 97 05/24/17 20:00 Intake & Output 05/24/17 05/25/17 05/25/17 18:59 06:59 18:59 Intake Total 120 Balance 120 Intake: Oral 120 Other: # Voids 2 Active Medications: Current Medications Acetaminophen (Tylenol) 650 mg PO Q4HR PRN PRN Reason: Mild Pain / Temp above 100 Stop: 07/16/17 16:12 Al Hydrox/Mg Hydrox/Simethicone (Maalox) 30 ml PO Q4HR PRN PRN Reason: GI DISTRESS Stop: 07/16/17 16:12 Albuterol/Ipratropium (Duoneb Neb) 3 ml HHN Q6H PRN PRN Reason: Shortness of Breath Stop: 07/17/17 08:31 Aspirin (Aspirin Chewable) 81 mg PO DAILY NANDA Stop: 07/17/17 08:59 Last Admin: 05/25/17 09:29 Dose: 81 mg Carbidopa/Levodopa (Sinemet 10 Mg-100 Mg) 1 tab PO BID NANDA Stop: 07/17/17 08:59 Last Admin: 05/25/17 09:29 Dose: 1 tab Donepezil HCl (Aricept) 5 mg PO HS NANDA Stop: 07/17/17 20:59 Last Admin: 05/24/17 20:15 Dose: 5 mg Lorazepam (Ativan) 0.5 mg PO Q4HR PRN; Protocol PRN Reason: Anxiety Stop: 06/16/17 16:12 Last Admin: 05/23/17 08:56 Dose: 0.5 mg Magnesium Hydroxide (Milk Of Magnesia) 30 ml PO HS PRN PRN Reason: Constipation Memantine (Namenda) 5 mg PO DAILY NANDA Stop: 07/18/17 08:59 Last Admin: 05/25/17 09:29 Dose: 5 mg Multivitamins/Vitamin C (Theragran) 1 tab PO DAILY NANDA Stop: 07/17/17 08:59 Last Admin: 05/25/17 09:28 Dose: 1 tab Trazodone HCl (Desyrel) 25 mg PO HS NANDA PRN Reason: Protocol Stop: 07/20/17 13:50 Last Admin: 05/24/17 20:15 Dose: 25 mg General: Cooperative HEENT: Atraumatic, PERRLA, EOMI Neck: Supple, no JVD, no Thyromegaly Cardiovascular: Regular rate, Normal S1 Lungs: Clear to auscultation Abdomen: Bowel sounds Neurological: Other (ms str 4/5, unsteady gait) Psych/Mental Status: Other (confused) - Procedures Procedures: Procedures Procedure Code Date FLUOROSCOPY OF LEFT HEART USING LOW OSMOLAR CONTRAST [id number] 02/20/17 INSERT PACE. DUAL LAKHWINDER IN CHEST SUBCU/FASCIA, OPEN [id number] 02/20/17 INSERTION OF PACEMAKER LEAD INTO R VENTRICLE, PERC APPROACH [id number] 02/20/17 INSERTION OF PACEMAKER LEAD INTO RIGHT ATRIUM, PERC APPROACH [id number] 02/20/17 INSRT HEART PM ATRIAL & VENT [id number] 02/20/17 Assessment/Plan - Assessment Assessment: Hyperthyroidism Parkinson's disease muscle weakness unsteady gait - Plan Plan: Continue sinemet. Psych is following. PT eval was ordered for muscle weakness and an unsteady gait. Monitor for falls. Fall precautions Nutritional Asmnt/Malnutr-PDOC - Dietary Evaluation Malnutrition Findings (Please click <Entered> for more info): Nutritional Asmnt/Malnutrition Start: 05/22/17 17: 01 Text: Status: Complete Freq: Document 05/22/17 17:01 BABS (Rec: 05/22/17 17:09 LCMADIG [email or web address]) Nutritional Asmnt/Malnutrition Patient General Information Nutritional Screening Moderate Risk Diagnosis psychosis Pertinent Medical Hx/Surgical Hx alzheimer's dementia, asthma, anemia, g-tiube Subjective Information Pt seen lying in bed having lunch at time of visit, very confused. Pt stated she did not like the lunch. Pt needs assistance with feeding noted. Per EMR, PO itnake 50-100%, avg 75%. POULTRY PINNER reported pt only had few bites of breakfast this morning. Current Diet Order/ Nutrition Support pureed Pertinent Medications theragran Pertinent Labs 05/17 alb 3.5 Nutritional Hx/Data Height 1.57 m Height (Calculated Centimeters) 157.5 Current Weight (lbs) 54.431 kg Weight (Calculated Kilograms) 54.4 Weight (Calculated Grams) 62852.1 [place] Body Weight 110 Body Mass Index (BMI) 21.9 Weight Status Approriate GI Symptoms GI Symptoms None Last BM / Difficult in: None Skin Integrity/Comment: rash to left abd, lower back, pressure area to buttocks Current %PO Good (75-100%) Estimated Nutritional Goals BEE in Kcals: Using Current wt Calories/Kcals/Kg 25-30 Kcals Calculated 9053-6487 Protein: Using Current wt Protein g/k Protein Calculated 55 Fluid: ml 1375-1650ml (1ml/kcal) Nutritional Problem 1. Problem Problem N/A Intervention/Recommendation Comments 1. Continue with current diet as ordered. Encourage oral intake. Assit pt with feeding. Pt needs cue to eat. 2. Monitor PO intake, wt, labs and skin integrity 3. F/U as moderate risk in 3-5 days, 05/25-05/27 Expected Outcomes/Goals Expected Outcomes/Goals 1. PO intake to meet at least 75% of nutritional needs. 2. Wt stability, skin to remain intact, labs to approach WNL.
--- NOTE | 2017-05-26 03:27 | Progress Notes ---
DATE: 05/25/2017 The patient was seen and evaluated. The patient's chart reviewed. Covering for Dr. Sepulveda. Today on spou-pv-sloz evaluation, the patient is in the Rupal chair, disorganized, disoriented, neurocognitively impaired, limited historian. MENTAL STATUS EXAMINATION: Severe neurocognitive impairment, continues to be disorganized, needs redirection for ADL with unpredictable and intermittent yelling behavior. ASSESSMENT AND PLAN: A 66-year-old female with severe neurocognitive impairment, disorganized. We will continue with the current medication regimen such as Namenda and Aricept, which are recently initiated to target the patient's severe unstable mood coming from her dementia. Medications continued to build therapeutic range and also concentration. Continue working very closely with mental child welfare caseworker for safe dispo in the near future. JOB# [id number]
[2017-05-26] MEDS: Multivitamin Tab PO SCH (08:56)
[2017-05-26] MEDS: Carbidopa/Levodopa 10/100 mg Tab PO SCH ×2 (08:56→16:41)
[2017-05-26] MEDS: Aspirin 81mg Chewable Tab PO SCH (08:56)
[2017-05-26] MEDS: Nystatin Cream 100,000 u/gm Cream 15 gm TP SCH (09:03)
--- NOTE | 2017-05-26 18:19 | Progress Notes ---
DATE: The patient was seen and evaluated. The patient's chart reviewed. Covering for Dr. Sepulveda. Overnight nursing staff reported the patient continues in a Rupal chair, disorganized, and disoriented. Today on [id number]-ld-ucpm evaluation, minimally interactive, does not engage in conversation. MENTAL STATUS EXAMINATION: Severely cognitively impaired, continues to be disorganized, needing a lot of redirection for simple ADLs and continued to be with unpredictable intermittent behavior. ASSESSMENT AND PLAN: A 66-year-old female with severe neurocognitive impairment. We will continue with the current medication regimen. She continues to be therapeutic stage. JOB# [id number]
[2017-05-27] MEDS: Multivitamin Tab PO SCH (08:58)
[2017-05-27] MEDS: Aspirin 81mg Chewable Tab PO SCH (08:58)
[2017-05-27] MEDS: Carbidopa/Levodopa 10/100 mg Tab PO SCH ×2 (08:58→17:33)
[2017-05-27] MEDS: Nystatin Cream 100,000 u/gm Cream 15 gm TP SCH (08:59)
--- NOTE | 2017-05-27 10:35 | Progress Notes ---
DATE: 05/27/2017 The patient was seen and evaluated. The patient's chart reviewed. Covering for Dr. Sepulveda. On xoil-ko-nhyd evaluation, the patient continues to ruminate, perseverate, needs lot of redirection for simple ADLs. ASSESSMENT AND PLAN: A 66-year-old female with severe neurocognitive and poor impairment with baseline disorganized thought process. We will continue with medication regimen as she starts to build therapeutic dosage and baseline for her dementia. Continue working very closely with mental special education case manager and treatment team. JOB# [id number]
[2017-05-28] MEDS: Multivitamin Tab PO SCH (10:14)
[2017-05-28] MEDS: Nystatin Cream 100,000 u/gm Cream 15 gm TP SCH (10:14)
[2017-05-28] MEDS: Carbidopa/Levodopa 10/100 mg Tab PO SCH ×2 (10:14→17:35)
[2017-05-28] MEDS: Aspirin 81mg Chewable Tab PO SCH (10:14)
--- NOTE | 2017-05-28 12:09 | Progress Notes ---
DATE: 05/28/2017 The patient remains confused, perseverative, ruminative, internally preoccupied, seemingly psychotic, however, she is calmer, agitation seems to be dissipating and decreasing, aggressive symptoms decreasing, a lot less yelling, a lot less screaming. She is still somewhat impulsive and unpredictable. She seems to be tolerating medications well, decreased and over sedation. ASSESSMENT: Improvement noted. She seems to be approaching her baseline per social media sr strategy manager note, she does have a bed hold at [place]. We will monitor for further 24 hours. JOB# [id number]
[2017-05-29] MEDS: Aspirin 81mg Chewable Tab PO SCH (09:32)
[2017-05-29] MEDS: Carbidopa/Levodopa 10/100 mg Tab PO SCH ×2 (09:32→17:34)
[2017-05-29] MEDS: Multivitamin Tab PO SCH (09:32)
--- NOTE | 2017-05-29 12:23 | Progress Notes ---
DATE: 05/29/2017 The patient remains somewhat perseverative and ruminative, but significantly calmer, less yelling episodes, likely approaching her baseline. Tolerant to medications. She remains fairly withdrawn and isolating but no longer combative. ASSESSMENT: Improvement noted, likely approaching her baseline. We will continue to monitor, monitor for further 24 hours to make sure the patient is devoid of any symptoms. [facility]# [id number]
[2017-05-29] MEDS: Nystatin Cream 100,000 u/gm Cream 15 gm TP SCH (17:33)
[2017-05-30] MEDS: Carbidopa/Levodopa 10/100 mg Tab PO SCH ×2 (15:34→16:46)
[2017-05-30] MEDS: Aspirin 81mg Chewable Tab PO SCH (15:34)
[2017-05-30] MEDS: Nystatin Cream 100,000 u/gm Cream 15 gm TP SCH (15:35)
[2017-05-30] MEDS: Multivitamin Tab PO SCH (15:35)
--- NOTE | 2017-05-30 16:55 | Discharge Summary ---
DATE OF DISCHARGE: 05/30/2017 DATE OF DISCHARGE: 05/30/2017. JUSTIFICATION FOR HOSPITALIZATION: Coming in from prison agitation, confusion, trying to hit staff. HISTORY OF PRESENT ILLNESS: A 66-year-old female, confused, disoriented worsening confusion and worsening orientation, trying to hit staff, combative, agitated, poor redirection. PAST PSYCHIATRIC HISTORY: Neurocognitive impairment, likely dementia. FAMILY HISTORY: Noncontributory. SOCIAL HISTORY: The patient requiring higher level of care living in a prison facility. MEDICATIONS: Noted. MENTAL STATUS EXAMINATION: Please see full psych eval for details. PROVISIONAL DIAGNOSIS: Dementia with behaviors. PSYCHIATRIC: Mood, unspecified anxiety, unspecified insomnia, unspecified. MEDICAL: Please see full H and P. HOSPITAL COURSE: After initial assessment, the patient's medications were adjusted, Namenda, Aricept, started on trazodone. Over the course of the hospitalization, she improved. She was less combative, less agitated, calmer, more cooperative, some over sedation noted. Trazodone decreased. Toward the latter end of her hospitalization she was asymptomatic and discharged back to prison. CONDITION UPON DISCHARGE: Improved, better ADLs, allowing ADLs, less agitation, still confused, disoriented, but calm. No SI, no HI, no psychosis. Better impulse control. PROVISIONAL DIAGNOSES: Dementia with behaviors, anxiety, unspecified; mood, unspecified. MEDICAL: Please see full H and P. PROGNOSIS: The patient follows up with outpatient mental services and remains compliant with treatment. Prognosis will improve, otherwise guarded. [facility]# [id number]
== END 2017-05-30 19:15 | DRG 885 ==
LOC: ER 12:11 → GERO 14:25
PROVIDERS: ADMIT Psychiatry & Neurology Psychiatry; ATTEND Psychiatry & Neurology Psychiatry
DX: F29 Unspecified psychosis not due to a substance or known physiological condition (principal); F02.81 Dementia in other diseases classified elsewhere, unspecified severity, with behavioral disturbance; Z93.1 Gastrostomy status; E44.1 Mild protein-calorie malnutrition; F39 Unspecified mood [affective] disorder; F41.9 Anxiety disorder, unspecified; M19.90 Unspecified osteoarthritis, unspecified site; G30.9 Alzheimer's disease, unspecified; J45.909 Unspecified asthma, uncomplicated; G20 Parkinson's disease; R26.81 Unsteadiness on feet; D63.8 Anemia in other chronic diseases classified elsewhere; M19.042 Primary osteoarthritis, left hand; M19.041 Primary osteoarthritis, right hand; M16.0 Bilateral primary osteoarthritis of hip; G47.00 Insomnia, unspecified; Z68.21 Body mass index [BMI] 21.0-21.9, adult
CPT/HCPCS: 36415-UA; 80053-TC; 80061-TC; 83036-90; 83735-TC; 84439-90; 84443-TC; 84479-90; 85025-TC; 86592-TC; 93005; 97530; X3904; Z7610

== ENCOUNTER 2017-08-20 23:30 | Inpatient (IN) | payer MEDICARE, MEDICAID ==
[2017-08-20 23:48] LABS: % BASOPHILS 0.5 % (0.0-2.0); % EOSINOPHILS 1.6 % (0.0-5.0); % MONOCYTES 9.3 % (2.0-10.0); % NEUTROPHILS 56.6 % (40.0-80.0); EOSINOPHILE ABSOLUTE 0.1 Th/cmm (0.1-0.4); HEMOGLOBIN 10.8 gm/dL (12-16); LYMPHOCYTE ABSOLUTE 2.5 Th/cmm (1.5-3.0); MEAN CELL VOLUME 93.4 fl (81-100); MEAN CORPUSCULAR HEMOGLOBIN 30.5 pg (27.0-31.0); MEAN CORPUSCULAR HGB CONC 32.6 pg (28.0-36.0); MEAN PLATELET VOLUME 6.8 fl; MONOCYTE ABSOLUTE 0.7 Th/cmm (0.3-1.0); NEUTROPHILE ABSOLUTE 4.6 Th/cmm (1.8-8.0); PLATELET COUNT 255 Th/cmm (150-400); RED BLOOD COUNT 3.53 Mil/cmm (3.80-5.20); RED CELL DISTRIBUTION WIDTH 12.8 % (11.5-20.0); WHITE BLOOD COUNT 7.9 Th/cmm (4.8-10.8)
[2017-08-21 00:03] LABS: INR 0.92 (0.5-1.4); PROTHROMBIN TIME (TEST) 9.6 SECONDS (9.5-11.5)
[2017-08-21 00:05] LABS: ALB/GLOB RATIO 1.3 (1.0-1.8); ALBUMIN 3.5 gm/dL (3.7-5.3); ALKALINE PHOSPHATASE 192 U/L (34-104); ANION GAP 7.7 (7.0-16.0); BILIRUBIN,TOTAL 0.3 mg/dL (0.3-1.0); BUN - UREA NITROGEN 23 mg/dL (7-25); CALCIUM SERUM 8.7 mg/dL (8.6-10.3); CHLORIDE 104 mEq/L (98-107); GFR AFRICAN-AMERICAN > 60.0 ml/min (>90); GFR NON AFRICAN-AMERICAN 58.6 ml/min; GLUCOSE 130 mg/dL (70-105); POTASSIUM SERUM 3.7 mEq/L (3.5-5.1); SGOT 32 U/L (13-39); SGPT/ALT 6 U/L (7-52); SODIUM SERUM 136 mEq/L (136-145); TOTAL PROTEIN,SERUM 6.3 gm/dL (6.0-8.3)
--- NOTE | 2017-08-21 00:17 | ED Physician Chart ---
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 Allergies:: Allergies Allergy/AdvReac Type Severity Reaction Status Date / Time No Known Allergies Allergy Verified 08/20/17 23:54 Vitals:: Vital Signs - 8 hr 08/20/17 23:55 Temp 98.0 F HR 73 RR 18 BP 126/66 O2 Sat % 97 Historian:: EMS, Medical Records Review:: Nurse's Note Reviewed, Old Chart Reviewed ED Review of Systems - Review of Systems General/Constitutional: No fever, No chills, No weight loss, No weakness, No diaphoresis, No edema, No loss of appetite Skin: No skin lesions, No rash, No bruising, Other (THIS PATIENT IS UNABLE TO GIVE A REVIEW.) Head: No headache, No light-headedness Eyes: No loss of vision, No pain, No diplopia ENT: No earache, No nasal drainage, No sore throat, No tinnitus Neck: No neck pain, No swelling, No thyromegaly, No stiffness, No mass noted Cardio Vascular: No chest pain, No palpitations, No PND, No orthopnea, No edema Pulmonary: No SOB, No cough, No sputum, No wheezing GI: No nausea, No vomiting, No diarrhea, No pain, No melena, No hematochezia, No constipation, No hematemesis G/U: No dysuria, No frequency, No hematuria Musculoskeletal: No bone or joint pain, No back pain, No muscle pain Endocrine: No polyuria, No polydipsia Psychiatric: No prior psych history, No depression, No anxiety, No suicidal ideation Hematopoietic: No bruising, No lymphadenopathy Allergic/Immuno: No urticaria, No angioedema Neurological: No syncope, No focal symptoms, No weakness, No paresthesia, No headache, No seizure, No dizziness, No confusion, No vertigo ED Past Medical History - Past Medical History Obtainable: Yes Past Medical History: CAD, CVA/TIA, Dyslipidemia, Arthritis, Dementia Family History: None Social History: Non Smoker, No Alcohol, No Drug Use, Care Facility Surgical History: Pacemaker, PEG/GTube Family Medical History - Family Member Mother History Unknown: Yes Ethnicity: Non- Living Status: ED Physical Exam - Physical Examination General/Constitutional: Awake, Well-developed, well-nourished, Alert, No distress, GCS 15, Non-toxic appearing, Ambulatory Other Gen/Cons comments:: CONFUSED AND WILL NOT STAY IN BED. Head: Atraumatic Eyes: Lids, conjuctiva normal, PERRL, EOMI Skin: Nl inspection, No rash, No skin lesions, No ecchymosis, Well hydrated, No lymphadenopathy ENMT: External ears, nose nl, Nasal exam nl, Lips, teeth, gums nl Neck: Nontender, Full ROM w/o pain, No JVD, No nuchal rigidity, No bruit, No mass, No stridor Respiratory: Nl effort/Exclusion, Clear to Auscultation, No Wheeze/Rhonchi/Rales Cardio Vascular: RRR, No murmur, gallop, rubs, NL S1 S2 GI: No tenderness/rebounding/guarding, No organomegaly, No hernia, Normal BS's, Nondistended, No mass/bruits, No McBurney tenderness : No CVA tenderness Extremities: No tenderness or effusion, Full ROM, normal strength in all extremities, No edema, Normal digits & nails Neuro/Psych: Alert/oriented, DTR's symmetric, Normal sensory exam, Normal motor strength, Judgement/insight normal, Mood normal, Normal gait, No focal deficits Misc: Normal back, No paraspinal tenderness ED Labs/Radiology/EKG Results - Lab Results Results: Laboratory Tests 08/20/17 08/20/17 08/20/17 23:35 23:35 23:35 WBC 7.9 RBC 3.53 L Hgb 10.8 L Hct 33.0 L MCV 93.4 MCH 30.5 MCHC Differential 32.6 RDW 12.8 Plt Count 255 MPV 6.8 Neutrophils % 56.6 Lymphocytes % 32.0 Monocytes % 9.3 Eosinophils % 1.6 Basophils % 0.5 PT 9.6 INR 0.92 PTT (Actin FS) 22.4 L Sodium 136 Potassium 3.7 Chloride 104 Carbon Dioxide 28.0 Anion Gap 7.7 BUN 23 Creatinine 1.0 Est GFR ( Amer) > 60.0 Est GFR (Non-Af Amer) 58.6 BUN/Creatinine Ratio 23.0 Glucose 130 H Calcium 8.7 Total Bilirubin 0.3 AST 32 ALT 6 L Alkaline Phosphatase 192 H Troponin I Total Protein 6.3 Albumin 3.5 L Globulin 2.8 Albumin/Globulin Ratio 1.3 08/20/17 23:35 WBC RBC Hgb Hct MCV MCH MCHC Differential RDW Plt Count MPV Neutrophils % Lymphocytes % Monocytes % Eosinophils % Basophils % PT INR PTT (Actin FS) Sodium Potassium Chloride Carbon Dioxide Anion Gap BUN Creatinine Est GFR ( Amer) Est GFR (Non-Af Amer) BUN/Creatinine Ratio Glucose Calcium Total Bilirubin AST ALT Alkaline Phosphatase Troponin I 0.01 Total Protein Albumin Globulin Albumin/Globulin Ratio ED Assessment - Assessment General Assessment: PSYCHOTIC ED Septic Shock - . Is Septic Shock (SBP<90, OR Lactate>4 mmol\L) present?: No - <6hrs of presentation: Vital Signs: Vital Signs - 8 hr 08/20/17 23:55 Temp 98.0 F HR 73 RR 18 BP 126/66 O2 Sat % 97 ED Reassessment (Disposition) - Diagnosis Diagnosis:: PSYCHOSIS - Patient Disposition Discharge/Transfer:: Acute Care w/in this hosp Admitting Medical Physician:: Pascual Luke Admitting Psych Physician:: Robert Sepulveda Condition at Disposition:: Unchanged ED Discharge Plan - Patient Disposition Admit/Discharge/Transfer: Acute Care w/in this hosp Condition at Disposition: Unchanged
[2017-08-21] MEDS ORDERED: Maalox 30 mL Cup PO PRN (01:15)
[2017-08-21] MEDS ORDERED: Magnesium Hydroxide (MOM) 30 mL UDC PO PRN (01:15)
[2017-08-21] MEDS ORDERED: Albuterol/Ipratropium Neb 3 ML AERS HHN PRN (01:20)
[2017-08-21] MEDS ORDERED: Guaifenesin DM 10 ML UDC PO PRN (02:21)
[2017-08-21 03:43] VITALS: BP 126/66
[2017-08-21] MEDS ORDERED: AMLODIPINE PO SCH (09:00)
[2017-08-21] MEDS ORDERED: [UNRECOGNIZED DRUG - OTHER] PO SCH (09:00)
[2017-08-21] MEDS ORDERED: ATORVASTATIN PO SCH (09:00)
[2017-08-21] MEDS: Carbidopa/Levodopa 10/100 mg Tab PO SCH ×2 (10:11→17:32)
[2017-08-21] MEDS: Atorvastatin Calcium 10 MG TAB PO SCH (10:11)
[2017-08-21] MEDS: Aspirin 81mg Chewable Tab PO SCH (10:11)
[2017-08-21] MEDS: Multivitamin Tab PO SCH (10:11)
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
[2017-08-22] MEDS: Atorvastatin Calcium 10 MG TAB PO SCH (09:03)
[2017-08-22] MEDS: Aspirin 81mg Chewable Tab PO SCH (09:04)
[2017-08-22] MEDS: Multivitamin Tab PO SCH (09:04)
[2017-08-22] MEDS: Carbidopa/Levodopa 10/100 mg Tab PO SCH ×2 (09:04→17:51)
--- NOTE | 2017-08-22 22:47 | Progress Notes ---
DATE: 08/22/2017 SUBJECTIVE: The patient is currently in the hospital. I saw her yesterday. She remains confused, disoriented in a Rupal chair, sometimes unruly, coming from [facility]. She apparently was psychotic and unruly. She remains confused. She does not know why she is here, what is going on. Staff noting that she has slept fairly well last night, AO to name only, not answering a lot of questions, sometimes trying to hug other patients, childlike behaviors at times, going to other patients' rooms, "looking for my things," generally confused and disoriented. Medications were noted including dosages and frequencies. ASSESSMENT: The patient remains symptomatic, still with behaviors, going into other patients' rooms, trying to hug other patient's, highly impulsive and unpredictable. PLAN: We will continue to monitor. Given her ongoing symptoms, she is not currently safe for a lower level of care. JOB# [id number]
[2017-08-23] MEDS ORDERED: Haloperidol Lactate 5 mg/mL 1mL Vial ONE (09:46)
[2017-08-23] MEDS ORDERED: Haloperidol Lactate 5 mg/mL 1mL Vial IM ONE (10:30)
[2017-08-23] MEDS: Atorvastatin Calcium 10 MG TAB PO SCH (12:54)
[2017-08-23] MEDS: Aspirin 81mg Chewable Tab PO SCH (12:54)
[2017-08-23] MEDS: Carbidopa/Levodopa 10/100 mg Tab PO SCH ×2 (12:54→17:35)
[2017-08-23] MEDS: Nystatin Cream 100,000 u/gm Cream 15 gm TP SCH (12:55)
[2017-08-23] MEDS: Multivitamin Tab PO SCH (12:55)
--- NOTE | 2017-08-23 22:52 | Progress Notes ---
DATE: 08/23/2017 The patient in the hospital, remains confused, disoriented, was trying to kiss others, biting others, spitting at others, hitting others. The patient is currently in the isolation room, unstable, labile, requiring emergency medications this morning. ASSESSMENT: The patient remains symptomatic, impulsive, unpredictable, bizarre, agitated behaviors, requiring emergency medications over the past 24 hours. Specifically, this morning, confused. PLAN: We will continue to monitor. We will adjust and titrate medications. Given her ongoing symptoms, JOB# [id number]
--- NOTE | 2017-08-24 07:59 | Progress Notes ---
DATE: 08/23/2017 IDENTIFICATION: A 67-year-old female. SUBJECTIVE: The patient seen and examined. The patient is extremely agitated. The patient needed to have seclusion. The patient does not provide a meaningful history. PHYSICAL EXAMINATION: VITAL SIGNS: Temperature 97.2, pulse 96, respiratory rate is 18, blood pressure is 150/90. HEENT: No facial asymmetry. Upper and lower dentition noted. NECK: Supple, no JVD. HEART: Regular. CHEST AND LUNGS: Equal in expansion, no expiratory wheezing. ABDOMEN: Soft, no guarding or rigidity. Bowel sounds are present. No palpable mass. EXTREMITIES: No edema. CLINICAL IMPRESSION: 1. Exacerbation of psychotic disorder. 2. Dementia. 3. Parkinson's. 4. Degenerative joint disease. 5. Asthma. 6. High risk for fall. PLAN: 1. Psychotic evaluation and management deferred to psychiatrist. 2. Continue to provide P.r.n. inhalation therapy. Antihypertensive medications. Statin and Sinemet for now. The patient will be followed by us during her stay in the hospital. JOB# [id number]
[2017-08-24] MEDS: Multivitamin Tab PO SCH (08:41)
[2017-08-24] MEDS: Atorvastatin Calcium 10 MG TAB PO SCH (08:41)
[2017-08-24] MEDS: Aspirin 81mg Chewable Tab PO SCH (08:41)
[2017-08-24] MEDS: Carbidopa/Levodopa 10/100 mg Tab PO SCH ×2 (08:41→17:46)
--- NOTE | 2017-08-24 09:33 | Internal Medicine Prog Note ---
Internal Medicine Subjective - Subjective Service Date: 08/24/17 Patient seen and examined:: with staff Patient is:: awake, interactive, agitated Per staff patient has:: no adverse event Internal Medicine Objective - Results Result Diagrams: 08/20/17 23:35 08/20/17 23:35 Recent Labs: Laboratory Last Values WBC 7.9 Th/cmm (4.8-10.8) 08/20/17 23:35 RBC 3.53 Mil/cmm (3.80-5.20) L 08/20/17 23:35 Hgb 10.8 gm/dL (12-16) L 08/20/17 23:35 Hct 33.0 % (41.0-60) L 08/20/17 23:35 MCV 93.4 fl (81-100) 08/20/17 23:35 MCH 30.5 pg (27.0-31.0) 08/20/17 23:35 MCHC Differential 32.6 pg (28.0-36.0) 08/20/17 23:35 RDW 12.8 % (11.5-20.0) 08/20/17 23:35 Plt Count 255 Th/cmm (150-400) 08/20/17 23:35 MPV 6.8 fl 08/20/17 23:35 Neutrophils % 56.6 % (40.0-80.0) 08/20/17 23:35 Lymphocytes % 32.0 % (20.0-50.0) 08/20/17 23:35 Monocytes % 9.3 % (2.0-10.0) 08/20/17 23:35 Eosinophils % 1.6 % (0.0-5.0) 08/20/17 23:35 Basophils % 0.5 % (0.0-2.0) 08/20/17 23:35 PT 9.6 SECONDS (9.5-11.5) 08/20/17 23:35 INR 0.92 (0.5-1.4) 08/20/17 23:35 PTT (Actin FS) 22.4 SECONDS (26.0-38.0) L 08/20/17 23:35 Sodium 136 mEq/L (136-145) 08/20/17 23:35 Potassium 3.7 mEq/L (3.5-5.1) 08/20/17 23:35 Chloride 104 mEq/L (98-107) 08/20/17 23:35 Carbon Dioxide 28.0 mEq/L (21.0-31.0) 08/20/17 23:35 Anion Gap 7.7 (7.0-16.0) 08/20/17 23:35 BUN 23 mg/dL (7-25) 08/20/17 23:35 Creatinine 1.0 mg/dL (0.6-1.2) 08/20/17 23:35 Est GFR ( Amer) > 60.0 ml/min (>90) 08/20/17 23:35 Est GFR (Non-Af Amer) 58.6 ml/min 08/20/17 23:35 BUN/Creatinine Ratio 23.0 08/20/17 23:35 Glucose 130 mg/dL (70-105) H 08/20/17 23:35 Calcium 8.7 mg/dL (8.6-10.3) 08/20/17 23:35 Total Bilirubin 0.3 mg/dL (0.3-1.0) 08/20/17 23:35 AST 32 U/L (13-39) 08/20/17 23:35 ALT 6 U/L (7-52) L 08/20/17 23:35 Alkaline Phosphatase 192 U/L (34-104) H 08/20/17 23:35 Troponin I 0.01 ng/mL (0.01-0.05) 08/20/17 23:35 Total Protein 6.3 gm/dL (6.0-8.3) 08/20/17 23:35 Albumin 3.5 gm/dL (3.7-5.3) L 08/20/17 23:35 Globulin 2.8 gm/dL 08/20/17 23:35 Albumin/Globulin Ratio 1.3 (1.0-1.8) 08/20/17 23:35 - Physical Exam Vitals and I&O: Vital Signs Temp 98.2 F 08/23/17 15:52 Pulse 81 08/24/17 08:41 Resp 18 08/24/17 05:32 BP 131/66 08/24/17 08:41 Pulse Ox 94 08/23/17 19:28 Intake & Output 08/23/17 08/24/17 08/24/17 18:59 06:59 18:59 Intake Total 1200 Balance 1200 Intake: Oral 1200 Other: # Voids 3 Active Medications: Current Medications Acetaminophen (Tylenol) 650 mg PO Q4H PRN PRN Reason: Mild Pain / Temp above 100 Stop: 10/20/17 01:14 Al Hydrox/Mg Hydrox/Simethicone (Maalox) 30 ml PO Q4H PRN PRN Reason: GI DISTRESS Stop: 10/20/17 01:14 Albuterol/Ipratropium (Duoneb Neb) 3 ml HHN Q6HRT PRN PRN Reason: Shortness of Breath Stop: 10/20/17 01:19 Alprazolam (Xanax) 0.5 mg PO TID PRN; Protocol PRN Reason: Agitation/psychosis Stop: 10/20/17 01:19 Last Admin: 08/24/17 08:41 Dose: 0.5 mg Amlodipine Besylate (Norvasc) 2.5 mg PO DAILY NANDA Stop: 10/20/17 08:59 Last Admin: 08/24/17 08:41 Dose: 2.5 mg Ascorbic Acid (Vitamin C) 500 mg PO DAILY NANDA Stop: 10/20/17 08:59 Last Admin: 08/24/17 08:41 Dose: 500 mg Aspirin (Aspirin Chewable) 81 mg PO DAILY NANDA Stop: 10/20/17 08:59 Last Admin: 08/24/17 08:41 Dose: 81 mg Atorvastatin Calcium (Lipitor) 10 mg PO DAILY NANDA Stop: 10/20/17 08:59 Last Admin: 08/24/17 08:41 Dose: 10 mg Carbidopa/Levodopa (Sinemet 10 Mg-100 Mg) 1 tab PO BID NANDA Stop: 10/20/17 08:59 Last Admin: 08/24/17 08:41 Dose: 1 tab Cholecalciferol (Vitamin D3) 1,000 iu PO DAILY NANDA Stop: 10/20/17 08:59 Last Admin: 08/24/17 08:41 Dose: 1,000 iu Diphenhydramine HCl (Benadryl) 25 mg PO DAILY PRN PRN Reason: Itching Stop: 10/20/17 02:18 Donepezil HCl (Aricept) 5 mg PO HS [facility] Stop: 10/20/17 20:59 Last Admin: 08/23/17 21:32 Dose: 5 mg Guaifenesin/Dextromethorphan (Robitussin Dm) 10 ml PO Q6H PRN PRN Reason: Cough Stop: 10/20/17 02:20 Loratadine (Claritin) 10 mg PO DAILY PRN PRN Reason: Allergy Symptoms Stop: 10/20/17 01:19 Lorazepam (Ativan) 0.5 mg PO Q4H PRN; Protocol PRN Reason: Anxiety/agitation Stop: 10/20/17 01:14 Last Admin: 08/22/17 17:51 Dose: 0.5 mg Magnesium Hydroxide (Milk Of Magnesia) 30 ml PO HS PRN PRN Reason: Constipation Magnesium Oxide (Mag-Oxide) 400 mg PO DAILY NANDA Stop: 10/22/17 08:59 Last Admin: 08/24/17 08:41 Dose: 400 mg Memantine (Namenda) 5 mg PO DAILY NANDA Stop: 10/20/17 08:59 Last Admin: 08/24/17 08:41 Dose: 5 mg Multivitamins/Vitamin C (Theragran) 1 tab PO DAILY NANDA Stop: 10/20/17 08:59 Last Admin: 08/24/17 08:41 Dose: 1 tab Nystatin (Mycostatin Cream) 1 appl TP DAILY NANDA Stop: 10/22/17 08:59 Last Admin: 08/23/17 12:55 Dose: Not Given Trazodone HCl (Desyrel) 25 mg PO HS NANDA; Protocol Stop: 10/20/17 20:59 Last Admin: 08/23/17 21:32 Dose: 25 mg Zolpidem Tartrate (Ambien) 5 mg PO HS PRN PRN Reason: Insomnia Stop: 10/20/17 01:14 Last Admin: 08/23/17 21:33 Dose: 5 mg General: alert, demented, thin HEENT: NC/AT, PERRLA, EOMI, other (Absent teeth) Neck: Supple, No JVD Lungs: CTAB Cardiovascular: RRR, Normal S1, with murmur, other (Palpable pacemaker present.) Abdomen: soft, non-tender, positive bowel sound Extremities: clear Neurological: alert, unsteady - Procedures Procedures: Procedures Procedure Code Date FLUOROSCOPY OF LEFT HEART USING LOW OSMOLAR CONTRAST [id number] 02/20/17 INSERT PACE. DUAL LAKHWINDER IN CHEST SUBCU/FASCIA, OPEN [id number] 02/20/17 INSERTION OF PACEMAKER LEAD INTO R VENTRICLE, PERC APPROACH [id number] 02/20/17 INSERTION OF PACEMAKER LEAD INTO RIGHT ATRIUM, PERC APPROACH [id number] 02/20/17 INSRT HEART PM ATRIAL & VENT [id number] 02/20/17 Internal Medicine Assmt/Plan - Assessment Assessment: Parkinson's disease. DJD. Alzheimer's dementia. Osteoporosis. Status post pacemaker placement. High risk for fall. Cardiac arrhythmia. Asthma. - Plan Plan: Psychiatric treatment as per psychiatrist. Monitor vital sign. Nutritional support. General nursing care. Symptoms management. Medication management. We will continue to follow this patient during the stay in the hospital. Fall precautions. Care plan reviewed and discussed with staff.
[2017-08-24] MEDS: Nystatin Cream 100,000 u/gm Cream 15 gm TP SCH (17:51)
--- NOTE | 2017-08-24 21:07 | Progress Notes ---
DATE: 08/24/2017 SUBJECTIVE: The patient seen, chart reviewed, discussed with staff. The patient is currently in the hospital, agitated, becomes unruly. The patient requiring emergency medications over the past 24 hours, ___agitated__, fighting. The patient remains responding to internal stimuli, mumbling to self, mostly isolative, withdrawn, still highly impulsive and unpredictable. Sleeping fairly well ___with__ her medications, remains unruly, can be quite dangerous. ASSESSMENT: The patient remains symptomatic, requiring emergency medications over the past 24 hours for agitation and violent behaviors. PLAN: We will continue to monitor and titrate and adjust medications. Given ongoing symptoms, she is not safe for discharge at this time. [facility]# [id number] DERRICK
[2017-08-25] MEDS: Multivitamin Tab PO SCH (08:16)
[2017-08-25] MEDS: Atorvastatin Calcium 10 MG TAB PO SCH (08:16)
[2017-08-25] MEDS: Carbidopa/Levodopa 10/100 mg Tab PO SCH ×2 (08:17→17:40)
[2017-08-25] MEDS: Aspirin 81mg Chewable Tab PO SCH (08:17)
[2017-08-25] MEDS: Nystatin Cream 100,000 u/gm Cream 15 gm TP SCH (16:54)
--- NOTE | 2017-08-26 04:35 | Progress Notes ---
DATE: 08/25/2017 SUBJECTIVE: The patient is currently in the hospital, noted to be agitated at times, becomes unruly, early childhood assistant awakenings, mumbling to self, pacing back and forth. She is calm at this time, but she is highly impulsive. Trying to hit staff, responding to internal stimuli. The patient has required emergency medications over the past few days, becomes aggressive and angry when redirected. Mood suddenly changes. Physically aggressive with staff at times, trying to hurt other peers at other times, bizarre and odd behaviors. Medications were noted. Eating with prompting. ASSESSMENT: The patient remains symptomatic, ongoing symptoms indicative of instability. PLAN: We will continue to monitor and adjust and titrate medications. JOB# [id number]
--- NOTE | 2017-08-26 07:37 | Progress Notes ---
DATE: 08/26/2017 SUBJECTIVE: The patient slept for about 6 hours, trying to get out of bed, still unruly, at times combative. Staff is noting better sleep. She has been more redirectable over the past 24 hours, but remains confused, mood swings. She will present as nice and then suddenly become hostile, very labile, difficult to predict her behaviors. ASSESSMENT: The patient is confused, highly impulsive, unpredictable. PLAN: We will continue to monitor. I will adjust her medications to try to control her mood swings. The patient may benefit from dosings with Depakote. JOB# [id number]
[2017-08-26] MEDS: Carbidopa/Levodopa 10/100 mg Tab PO SCH ×2 (09:05→18:40)
[2017-08-26] MEDS: Aspirin 81mg Chewable Tab PO SCH (09:06)
[2017-08-26] MEDS: Atorvastatin Calcium 10 MG TAB PO SCH (09:06)
[2017-08-26] MEDS: Multivitamin Tab PO SCH (09:06)
[2017-08-26] MEDS: Nystatin Cream 100,000 u/gm Cream 15 gm TP SCH (09:22)
[2017-08-27] MEDS: Multivitamin Tab PO SCH (08:24)
[2017-08-27] MEDS: Atorvastatin Calcium 10 MG TAB PO SCH (08:25)
[2017-08-27] MEDS: Aspirin 81mg Chewable Tab PO SCH (08:25)
[2017-08-27] MEDS: Carbidopa/Levodopa 10/100 mg Tab PO SCH ×2 (08:25→17:58)
[2017-08-27] MEDS: Nystatin Cream 100,000 u/gm Cream 15 gm TP SCH (08:35)
--- NOTE | 2017-08-27 08:38 | Progress Notes ---
DATE: 08/27/2017 SUBJECTIVE: The patient seen, chart reviewed, discussed with staff. The patient was seen today, 08/27/2017. The patient slept very well last night 9 hours. She is AO to name only. The patient still wandering, still confused, nurses did speak to call her and note that she is quite confused. She is also quite impulsive, unpredictable, will lash out at staff at a moment's notice, pleasant at times, other times gets aggressive, somewhat violent, still mood swings, hostile. I did readjust medications. ASSESSMENT: The patient remains asymptomatic. She remains impulsive, unpredictable recent dose initiation of Depakote. PLAN: We will continue to monitor, titrate and adjust medications. Medications were noted. JOB# [id number]
--- NOTE | 2017-08-27 10:58 | Psychosocial Evaluation ---
DATE OF SERVICE: 08/21/2017 ____ No HI, no active psychotic symptoms, no signs of ___. ASSESSMENT: The patient remains symptomatic, unruly, agitated, fighting with people at the [facility] ____. JOB# [id number]
[2017-08-28] MEDS: Aspirin 81mg Chewable Tab PO SCH (09:14)
[2017-08-28] MEDS: Atorvastatin Calcium 10 MG TAB PO SCH (09:14)
[2017-08-28] MEDS: Carbidopa/Levodopa 10/100 mg Tab PO SCH ×2 (09:14→16:52)
[2017-08-28] MEDS: Multivitamin Tab PO SCH (09:15)
--- NOTE | 2017-08-29 01:14 | Progress Notes ---
DATE: 08/28/2017 SUBJECTIVE: The patient in the hospital, still impulsive, unpredictable. She unfortunately fell yesterday. No fractures, currently in a Rupal chair, highly impulsive, unpredictable. She states her mood is "okay." She does not know where she is. When I ask her questions, she becomes quite tangential. Asked me to discharge her. Still at times, violent, aggressive, highly unpredictable, sometimes will be nice, will suddenly become aggressive, still trying to kiss male patient, angry, still hypersexual at times. Medications were noted. ASSESSMENT: The patient remains symptomatic, status post fall, highly disoriented, bizarre behaviors as noted given her ongoing symptoms, she is not safe for discharge at this time. [facility]# [id number]
[2017-08-29] MEDS: Atorvastatin Calcium 10 MG TAB PO SCH (08:11)
[2017-08-29] MEDS: Aspirin 81mg Chewable Tab PO SCH (08:11)
[2017-08-29] MEDS: Multivitamin Tab PO SCH (08:11)
[2017-08-29] MEDS: Carbidopa/Levodopa 10/100 mg Tab PO SCH ×2 (08:11→16:12)
[2017-08-29] MEDS: Nystatin Cream 100,000 u/gm Cream 15 gm TP SCH (16:11)
--- NOTE | 2017-08-30 05:21 | Progress Notes ---
DATE: 08/29/2017 SUBJECTIVE: The patient in the hospital, poorly oriented, taking medications, needs assistance with ADLs, but eating on her own and wearing diapers. She is pretty confused, not answering any questions, sleeping, but arousable, still highly impulsive, unpredictable. Sometimes calm, other times lashes out, trying to kiss other residents. Medications were noted. ASSESSMENT: The patient remains symptomatic, highly impulsive, confused, unpredictable. Does have history of aggressive behaviors on the unit. PLAN: We will continue to monitor. Given her ongoing symptoms, she is currently not safe for discharge at this time. JOB# [id number]
[2017-08-30] MEDS: Aspirin 81mg Chewable Tab PO SCH (08:26)
[2017-08-30] MEDS: Atorvastatin Calcium 10 MG TAB PO SCH (08:26)
[2017-08-30] MEDS: Multivitamin Tab PO SCH (08:30)
[2017-08-30] MEDS: Carbidopa/Levodopa 10/100 mg Tab PO SCH ×2 (08:30→16:05)
[2017-08-30] MEDS: Nystatin Cream 100,000 u/gm Cream 15 gm TP SCH (08:32)
--- NOTE | 2017-08-30 22:29 | Progress Notes ---
DATE: 08/30/2017 SUBJECTIVE: The patient remains forgetful, confused, not quite sure why she is here. History of outbursts, aggressive behavior, sexually inappropriate behaviors. She did sleep well last night, AO to name only. She does not really know where she is or what is going on, tells me to come back later when she is done eating, in a Rupal chair, highly impulsive, unpredictable behavior. She escalates very quickly. Medications were noted including doses and frequencies. ASSESSMENT: The patient remains symptomatic, impulsive, unpredictable, unruly behaviors at times. PLAN: We will continue to monitor. I will check a Depakote level and adjust the dose appropriately. JOB# [id number]
[2017-08-31] MEDS: Carbidopa/Levodopa 10/100 mg Tab PO SCH ×2 (08:42→16:16)
[2017-08-31] MEDS: Multivitamin Tab PO SCH (08:42)
[2017-08-31] MEDS: Atorvastatin Calcium 10 MG TAB PO SCH (08:42)
[2017-08-31] MEDS: Aspirin 81mg Chewable Tab PO SCH (08:43)
[2017-08-31] MEDS: Nystatin Cream 100,000 u/gm Cream 15 gm TP SCH (08:53)
--- NOTE | 2017-08-31 16:33 | Progress Notes ---
DATE: 08/31/2017 SUBJECTIVE: The patient in the hospital, slept fairly well approximately 6-7 hours, still forgetful, confused, at times agitated, making nonsensical statements, yelling, screaming at times, still gets upset, irritable. I am pending a Depakote level. She seems to be calming down with Depakote, but her behaviors are ongoing, eating with prompting, still in a Rupal chair, restless, unruly, impulsive. ASSESSMENT: The patient remains unruly, still gets agitated, not safe for a lower level of care. PLAN: We will continue to monitor. Given her ongoing symptoms, she is currently not safe for discharge at this time. [facility]# [id number]
[2017-09-01] MEDS: Aspirin 81mg Chewable Tab PO SCH (09:59)
[2017-09-01] MEDS: Multivitamin Tab PO SCH (09:59)
[2017-09-01] MEDS: Nystatin Cream 100,000 u/gm Cream 15 gm TP SCH (10:02)
[2017-09-01] MEDS: Atorvastatin Calcium 10 MG TAB PO SCH (10:02)
[2017-09-01] MEDS: Carbidopa/Levodopa 10/100 mg Tab PO SCH ×2 (10:03→16:44)
[2017-09-02] MEDS: Nystatin Cream 100,000 u/gm Cream 15 gm TP SCH (09:00)
[2017-09-02] MEDS: Multivitamin Tab PO SCH (09:20)
[2017-09-02] MEDS: Carbidopa/Levodopa 10/100 mg Tab PO SCH ×2 (09:20→16:40)
[2017-09-02] MEDS: Atorvastatin Calcium 10 MG TAB PO SCH (09:20)
[2017-09-02] MEDS: Aspirin 81mg Chewable Tab PO SCH (09:21)
[2017-09-03] MEDS: Carbidopa/Levodopa 10/100 mg Tab PO SCH ×2 (09:05→17:58)
[2017-09-03] MEDS: Multivitamin Tab PO SCH (09:06)
[2017-09-03] MEDS: Aspirin 81mg Chewable Tab PO SCH (09:07)
[2017-09-03] MEDS: Atorvastatin Calcium 10 MG TAB PO SCH (09:07)
[2017-09-03] MEDS: Nystatin Cream 100,000 u/gm Cream 15 gm TP SCH (09:13)
--- NOTE | 2017-09-03 20:39 | Progress Notes ---
DATE: 09/03/2017 PATIENT'S ID: A 67-year-old female. SUBJECTIVE: The patient seen and examined. The patient is lying in the bed. No new event. Discussed with nursing staff about the consents. PHYSICAL EXAMINATION:. VITAL SIGNS: Temperature 98, pulse is 64, respiratory rate 18, blood pressure 136/80. HEENT: No facial asymmetry. NECK: Supple, no JVD, lymphadenopathy, or thyromegaly. HEART: Regular. CHEST AND LUNGS: Equal in expansion, no expiratory wheezing. ABDOMEN: Soft, no guarding or rigidity. Bowel sounds are present. No palpable masses. EXTREMITIES: No edema. NEUROLOGIC: Alert, awake, follows commands. CLINICAL IMPRESSION: 1. Psychotic disorder exacerbation. 2. Dementia. 3. Parkinson's. 4. Degenerative joint disease. 5. Asthma. PLAN: 1. Psychotic evaluation and management deferred to psychiatrist. 2. Continue current medicine as prescribed. 3. Fall precautions. 4. General nursing care. 5. We will continue to follow this patient during the stay in the hospital. JOB# [id number]
--- NOTE | 2017-09-03 23:22 | Progress Notes ---
DATE: 09/03/2017 The patient in the hospital, remains forgetful, confused, currently in a Rupal chair. Staff noting she remains confused, sometimes still affectionate toward roommates, aggressive, difficult to redirect, impulsive, unpredictable, no agitation as of late, she has been calm, cooperative, following directions, but is markedly confused. Medications were noted. ASSESSMENT: The patient remains symptomatic, at times unruly, ongoing safety concerns. Labs were noted. Depakote level of 41. We will titrate Depakote level today. JOB# [id number]
[2017-09-04] MEDS: Carbidopa/Levodopa 10/100 mg Tab PO SCH ×2 (08:49→16:50)
[2017-09-04] MEDS: Multivitamin Tab PO SCH (08:49)
[2017-09-04] MEDS: Atorvastatin Calcium 10 MG TAB PO SCH (08:50)
[2017-09-04] MEDS: Aspirin 81mg Chewable Tab PO SCH (08:50)
[2017-09-04] MEDS: Nystatin Cream 100,000 u/gm Cream 15 gm TP SCH (09:42)
--- NOTE | 2017-09-04 18:49 | Progress Notes ---
DATE: 09/04/2017 SUBJECTIVE: The patient in the hospital remains quite forgetful, impulsive, and sometimes affectionate toward other residents. She has been calmer, still on Rupal chair, poorly oriented, minimally oriented, and confused; however, she is cooperative. No agitation, likely approaching her baseline. ASSESSMENT: The patient seems to be calmer, more cooperative, and more redirectable. I did increase her Depakote given low levels. It seems to be making an improvement. Medications were noted. We will monitor and follow up. JOB# [id number]
[2017-09-05] MEDS: Aspirin 81mg Chewable Tab PO SCH (09:38)
[2017-09-05] MEDS: Multivitamin Tab PO SCH (09:38)
[2017-09-05] MEDS: Atorvastatin Calcium 10 MG TAB PO SCH (09:38)
[2017-09-05] MEDS: Nystatin Cream 100,000 u/gm Cream 15 gm TP SCH (09:39)
[2017-09-05] MEDS: Carbidopa/Levodopa 10/100 mg Tab PO SCH ×2 (09:39→16:30)
--- NOTE | 2017-09-05 20:52 | Progress Notes ---
DATE: 09/05/2017 DATE OF SERVICE: 09/05/2017 SUBJECTIVE: The patient slept about 8 hours. She has been calm, more cooperative, smiling, singing during assessment. At times does become more forgetful, impulsive, unpredictable, at times trying to hug or kiss other residents. She is sometimes affectionate toward her roommates, but inappropriately. The patient is sleeping well, eating on her own, currently in a Rupal chair. ASSESSMENT: The patient remains unpredictable. Difficult to gauge her symptoms given that sometimes she is very calm, other times she acts out. She does seem to be approaching her baseline and tolerant of Depakote. I did get a Depakote level and I will recheck the level based on recent dose increase of medications. Medications were reviewed. JOB# [id number]
[2017-09-06] MEDS: Carbidopa/Levodopa 10/100 mg Tab PO SCH (08:55)
[2017-09-06] MEDS: Atorvastatin Calcium 10 MG TAB PO SCH (08:55)
[2017-09-06] MEDS: Multivitamin Tab PO SCH (08:55)
[2017-09-06] MEDS: Aspirin 81mg Chewable Tab PO SCH (08:55)
--- NOTE | 2017-09-06 16:03 | Discharge Summary ---
DATE OF DISCHARGE: 09/06/2017 HISTORY OF PRESENT ILLNESS: A 67-year-old female coming into the hospital unruly, agitated, and inappropriate behaviors, coming from [facility]. Disoriented, going around other patients' rooms, looking for her belongings, but non-exist, childlike behaviors, trying to hug other patients. The patient has been to the [facility] before. SOCIAL HISTORY: The [facility] is living at [facility]. Vitals reviewed. MEDICATIONS: Noted. MENTAL STATUS EXAMINATION: Please see full psych eval for details. PROVISIONAL DIAGNOSIS: Dementia, dementia with behaviors; mood, unspecified; anxiety, unspecified; and psychosis, unspecified. PAST MEDICAL HISTORY: Please see full H and P. HOSPITAL COURSE: After initial assessment, the patient was started on medications. Medications were adjusted and titrated for example, Xanax p.r.n., Depakote, Aricept, Namenda. Over the course of the hospitalization, she did improve, albeit slowly. Her mood improved, her affect improved. She was better oriented, more engaged, AO to specifically name, more socially appropriate. No longer trying to hug others. Mostly in a Rupal chair, better impulse control. No longer trying to get up, for example by 09/06/2017, she was devoid of any symptoms indicative of dangerousness and was stepped down to her [facility]. CONDITION UPON DISCHARGE: Improved, allowing ADLs. Fair eye contact. Awake, alert, AO x1. Mood "okay." Affect constricted. Thought processes were confused. No SI, no HI, no psychosis. Insight and judgment still diminished. Better impulse control. PROVISIONAL DIAGNOSES: Dementia, dementia with behaviors; psychosis, unspecified; and anxiety, unspecified. MEDICAL: Please see full H and P. PROGNOSIS: The patient follows up with outpatient mental health services and remains compliant with treatment. Prognosis will improve, otherwise guarded. [facility]# [id number]
--- NOTE | 2017-09-06 18:55 | Progress Notes ---
DATE: 09/06/2017 DATE OF EVALUATION: 09/06/2017 IDENTIFICATION: This is a 67-year-old female. SUBJECTIVE: The patient seen and examined. The patient lying in the bed. The patient denies any chest pain, shortness of breath, palpitation, dizziness, nausea, or vomiting. PHYSICAL EXAMINATION: On today's exam, VITAL SIGNS: Temperature 98, pulse is 74, respiratory rate 18, blood pressure 136/76. HEENT: No facial asymmetry. Poor dentition noted. NECK: Supple, no JVD, no lymphadenopathy or thyromegaly. HEART: Regular. CHEST: Lungs equal in expansion, no expiratory wheezing. ABDOMEN: Soft. No guarding, rigidity. Bowel sounds are present. No palpable mass. EXTREMITIES: No edema or cyanosis. NEUROLOGIC: Alert, awake, follows commands. Some degree of spasticity noted. CLINICAL IMPRESSION: 1. Psychotic disorder exacerbation. 2. Dementia. 3. Parkinson's disease. 4. Degenerative joint disease. 5. History of asthma. 6. Hypertension. 7. Hyperlipidemia. PLAN: 1. Statin. 2. Sinemet. 3. Norvasc. 4. Aspirin for CVA prophylaxis. 5. Psych medication. 6. Psych followup. 7. Symptoms management. 8. Medication management. 9. General nursing care. 10. Follow lab. 11. Care plan reviewed and discussed with staff. JOB# [id number]
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
== END 2017-09-06 15:15 | DRG 885 ==
LOC: ER 23:30 → GERO 08-21 00:34
PROVIDERS: ADMIT Psychiatry & Neurology Psychiatry; ATTEND Psychiatry & Neurology Psychiatry
DX: F23 Brief psychotic disorder (principal); F02.81 Dementia in other diseases classified elsewhere, unspecified severity, with behavioral disturbance; Z93.1 Gastrostomy status; G20 Parkinson's disease; R13.10 Dysphagia, unspecified; M19.90 Unspecified osteoarthritis, unspecified site; M81.0 Age-related osteoporosis without current pathological fracture; I25.10 Atherosclerotic heart disease of native coronary artery without angina pectoris; E78.5 Hyperlipidemia, unspecified; G30.9 Alzheimer's disease, unspecified; J45.909 Unspecified asthma, uncomplicated; I49.9 Cardiac arrhythmia, unspecified; F41.9 Anxiety disorder, unspecified; F39 Unspecified mood [affective] disorder; Z86.73 Personal history of transient ischemic attack (TIA), and cerebral infarction without residual deficits; Z95.0 Presence of cardiac pacemaker; Z91.81 History of falling
CPT/HCPCS: 36415-UA; 80053-TC; 80164-TC; 84484-TC; 85025-TC; 85610-TC; 85730-TC; 93005; 94760; J1200; J1630; Z7610

== ENCOUNTER 2017-08-27 12:37 | Emergency (ER) | payer MEDICARE, MEDICAID ==
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
[2017-08-27] MEDS ORDERED: cefTRIAXone 1 GM in Sodium Chloride 0.9% 50 ML IV ONE (12:57)
[2017-08-27 13:11] LABS: % BASOPHILS 0.5 % (0.0-2.0); % EOSINOPHILS 3.2 % (0.0-5.0); % LYMPHOCYTES 38.9 % (20.0-50.0); % MONOCYTES 8.4 % (2.0-10.0); EOSINOPHILE ABSOLUTE 0.2 Th/cmm (0.1-0.4); HEMATOCRIT 32.8 % (41.0-60); HEMOGLOBIN 11.1 gm/dL (12-16); LYMPHOCYTE ABSOLUTE 2.7 Th/cmm (1.5-3.0); MEAN CELL VOLUME 93.5 fl (81-100); MEAN CORPUSCULAR HEMOGLOBIN 31.5 pg (27.0-31.0); MEAN CORPUSCULAR HGB CONC 33.7 pg (28.0-36.0); MEAN PLATELET VOLUME 7.3 fl; MONOCYTE ABSOLUTE 0.6 Th/cmm (0.3-1.0); NEUTROPHILE ABSOLUTE 3.4 Th/cmm (1.8-8.0); PLATELET COUNT 245 Th/cmm (150-400); RED BLOOD COUNT 3.51 Mil/cmm (3.80-5.20); RED CELL DISTRIBUTION WIDTH 12.9 % (11.5-20.0); WHITE BLOOD COUNT 6.9 Th/cmm (4.8-10.8)
[2017-08-27 13:25] LABS: INR 0.93 (0.5-1.4); PROTHROMBIN TIME (TEST) 9.7 SECONDS (9.5-11.5)
[2017-08-27 13:29] LABS: ALB/GLOB RATIO 1.1 (1.0-1.8); ALBUMIN 3.5 gm/dL (3.7-5.3); ALKALINE PHOSPHATASE 135 U/L (34-104); ANION GAP 10.6 (7.0-16.0); BILIRUBIN,TOTAL 0.4 mg/dL (0.3-1.0); BUN - UREA NITROGEN 21 mg/dL (7-25); CHLORIDE 102 mEq/L (98-107); CHOLESTEROL 146 mg/dL (<200); CREATININE KINASE 163 U/L (30-223); GFR AFRICAN-AMERICAN > 60.0 ml/min (>90); GFR NON AFRICAN-AMERICAN 58.6 ml/min; GLUCOSE 82 mg/dL (70-105); HDL -HIGH DENSITY LIPOPROTEIN 69 mg/dL (23-92); POTASSIUM SERUM 3.6 mEq/L (3.5-5.1); SGOT 34 U/L (13-39); SGPT/ALT 12 U/L (7-52); SODIUM SERUM 136 mEq/L (136-145); TOTAL PROTEIN,SERUM 6.6 gm/dL (6.0-8.3); TRIGLYCERIDES 85 mg/dL (<150)
--- NOTE | 2017-08-27 14:14 | Diagnostic Imaging Report ---
CHEST X-RAY: AP view INDICATION: pain COMPARISON: None FINDINGS: Left chest wall pacemaker is stable. Increased interstitial lung markings are noted with low lung volumes. No focal consolidation or effusions. Left basal subsegmental atelectasis versus scarring is noted. Heart size is normal. Atherosclerosis is noted. No evidence of a pneumothorax. Degenerative changes of the spine are noted. IMPRESSION: Increased interstitial lung markings suggestive of chronic lung changes. Low lung volumes with left basal subsegmental atelectasis versus scarring. Pacemaker Atherosclerosis.
--- NOTE | 2017-08-27 14:45 | Diagnostic Imaging Report ---
Head CT without intravenous contrast Indication: Trauma Comparison: Head CT 02/25/2017 Technique: Axial images were obtained from the vertex to the skull base without IV contrast. Coronal reconstructions were made. Total DLP: 642, CTDI34 FINDINGS: Images of the brain obtained without contrast demonstrate no evidence of an acute hemorrhage. Atrophy is noted. Mild white matter disease is noted. The ventricles and basal cisterns are patent. No mass effect or midline shift. There is mild soft tissue swelling of the left frontal bone. No skull fracture identified. IMPRESSION: No evidence of acute intracranial hemorrhage. Atrophy. Mild supratentorial white matter disease which is nonspecific and may be due to chronic microvessel ischemia. Mild soft tissue swelling of the left frontal skull.
--- NOTE | 2017-08-27 14:54 | Diagnostic Imaging Report ---
CT facial bones without IV contrast History: Trauma Comparison: CT facial bones on 03/07/2018 Technique: Axial images of the facial bones were obtained without IV contrast. Reconstructions were made. Total DLP 743, CTD I 49 Findings: The bilateral orbital floors are preserved. The globes and intraconal compartments are intact. There is mucosal thickening of the paranasal sinuses. Mucous retention cyst versus polyp of the left maxillary sinus is noted. There is mild rightward deviation of the nasal septum. There are mild to moderate degenerative changes of bilateral TMJ joints. Dental disease is noted. No significant focal soft tissue swelling. IMPRESSION: No evidence of an acute fracture. Mucous retention cyst versus follow up of left maxillary sinus. Diffuse loss of the indentation.
--- NOTE | 2017-08-27 14:58 | Diagnostic Imaging Report ---
CT cervical spine without IV contrast HISTORY: Trauma COMPARISON: Cervical spine CT on 03/07/2017 Technique: Axial images were obtained from the skull base to the upper thoracic spine without IV contrast. Multiplanar reconstructions were made. Total DLP: 406, CTDI21.8 FINDINGS: Images of the cervical spine obtained without contrast demonstrate advanced multilevel degenerative changes greatest in the facet joints. No evidence of an acute fracture. Multilevel marginal osteophytic spurring is also noted. No subluxation. There is straightening of the cervical lordosis. Mildly heterogeneous thyroid gland is noted. Lung apices are clear. No prevertebral soft tissue IMPRESSION: No evidence of an acute fracture or subluxation. Straightening of the cervical lordosis which may be due to positioning versus muscle spasm. Multilevel advanced degenerative changes. Heterogeneous thyroid gland. If indicated ultrasound would further clarify.
== END 2017-08-27 14:57 | disposition short-term general hospital (02) ==
LOC: ER 12:37
DX: S01.112A Laceration without foreign body of left eyelid and periocular area, initial encounter (principal); S09.90XA Unspecified injury of head, initial encounter; R55 Syncope and collapse; I10 Essential (primary) hypertension; I25.10 Atherosclerotic heart disease of native coronary artery without angina pectoris; E78.5 Hyperlipidemia, unspecified; F32.9 Major depressive disorder, single episode, unspecified; Z95.0 Presence of cardiac pacemaker; W19.XXXA Unspecified fall, initial encounter; Y93.89 Activity, other specified; Y92.89 Other specified places as the place of occurrence of the external cause; Y99.8 Other external cause status
CPT/HCPCS: 99285; 96365; 12013; 94760; 93005; 71045; 70450; 70486; 72125; 84484; 83880; 36415; 85025; 85610; 82550; 80053; 80061; 90715; J0696

== ENCOUNTER 2018-01-31 15:25 | Inpatient (IN) | payer MEDICARE, MEDICAID ==
--- NOTE | 2018-01-31 15:43 | ED Physician Chart ---
ED Chief Complaint/HPI - Patient Information Date Seen:: 01/31/18 Time Seen:: 15:30 Chief Complaint:: increasing agitation and combative behavior History of Present Illness:: At her extended care facility patient has been exhibiting increased agitation and combativeness with the staff. Allergies:: Allergies Allergy/AdvReac Type Severity Reaction Status Date / Time No Known Allergies Allergy Verified 08/20/17 23:54 Historian:: Patient Review:: Transfer documents Reviewed ED Review of Systems - Review of Systems General/Constitutional: No fever, No chills, No weight loss, No weakness, No diaphoresis, No edema, No loss of appetite Skin: No skin lesions, No rash, No bruising Head: No headache, No light-headedness Eyes: No loss of vision, No pain, No diplopia ENT: No earache, No nasal drainage, No sore throat, No tinnitus Neck: No neck pain, No swelling, No thyromegaly, No stiffness, No mass noted Cardio Vascular: No chest pain, No palpitations, No PND, No orthopnea, No edema Pulmonary: No SOB, No cough, No sputum, No wheezing GI: No nausea, No vomiting, No diarrhea, No pain, No melena, No hematochezia, No constipation, No hematemesis G/U: No dysuria, No frequency, No hematuria Musculoskeletal: No bone or joint pain, No back pain, No muscle pain Endocrine: No polyuria, No polydipsia Psychiatric: Prior psych history, Depression Hematopoietic: No bruising, No lymphadenopathy Allergic/Immuno: No urticaria, No angioedema Neurological: No syncope, No focal symptoms, No weakness, No paresthesia, No headache, No seizure, No dizziness, No confusion, No vertigo ED Past Medical History - Past Medical History Past Medical History: HTN, Dyslipidemia, Seizures, Arthritis, Dementia, Other ( hyperlipidemia; Parkinson's disease; major depression; ) Family History: Other (although) Social History: Care Facility Surgical History: other Psychiatricy History: Depression, Dementia Medication: Reviewed Family Medical History - Family Member Mother History Unknown: Yes Ethnicity: Non- Living Status: ED Physical Exam - Physical Examination General/Constitutional: Awake, Well-developed, well-nourished, Alert, Non-toxic appearing Other Gen/Cons comments:: Patient is confused; she does not know the correct year Head: Atraumatic Eyes: Lids, conjuctiva normal, PERRL Other Skin comments:: Chronic skin changes ENMT: External ears, nose nl, Nasal exam nl Other ENMT comments:: Edentulous Neck: No nuchal rigidity Respiratory: Nl effort/Exclusion, Clear to Auscultation, No Wheeze/Rhonchi/Rales Cardio Vascular: RRR, No murmur, gallop, rubs GI: No tenderness/rebounding/guarding : No CVA tenderness Extremities: No edema Neuro/Psych: No focal deficits ED Labs/Radiology/EKG Results - Lab Results Results: Abnormal Lab Results 01/31/18 01/31/18 01/31/18 15:45 15:45 15:45 WBC 5.6 RBC 3.84 Hgb 12.0 Hct 36.5 L MCV 94.9 MCH 31.2 H MCHC Differential 32.9 RDW 12.4 Plt Count 234 MPV 7.3 Neutrophils % 44.8 Lymphocytes % 36.0 Monocytes % 12.7 H Eosinophils % 5.8 H Basophils % 0.7 Sodium 139 Potassium 4.2 Chloride 102 Carbon Dioxide 29.0 Anion Gap 12.2 BUN 22 Creatinine 0.9 Est GFR ( Amer) > 60.0 Est GFR (Non-Af Amer) > 60.0 BUN/Creatinine Ratio 24.4 Glucose 108 H Calcium 9.2 Total Bilirubin 0.3 AST 50 H ALT 36 Alkaline Phosphatase 172 H Total Protein 7.4 Albumin 3.7 Globulin 3.7 Albumin/Globulin Ratio 1.0 Triglycerides 117 Cholesterol 170 LDL Cholesterol Direct 63 L HDL Cholesterol 82 Urine Source Urine Color Urine Clarity Urine pH Ur Specific [place] Urine Protein Urine Glucose (UA) Urine Ketones Urine Blood Urine Nitrate Urine Bilirubin Urine Urobilinogen Ur Leukocyte Esterase Urine RBC Urine WBC Ur Epithelial Cells Urine Bacteria Salicylates < 25.0 L Acetaminophen < 10.0 L Valproic Acid 34.2 L Ethyl Alcohol < 10 01/31/18 16:13 WBC RBC Hgb Hct MCV MCH MCHC Differential RDW Plt Count MPV Neutrophils % Lymphocytes % Monocytes % Eosinophils % Basophils % Sodium Potassium Chloride Carbon Dioxide Anion Gap BUN Creatinine Est GFR ( Amer) Est GFR (Non-Af Amer) BUN/Creatinine Ratio Glucose Calcium Total Bilirubin AST ALT Alkaline Phosphatase Total Protein Albumin Globulin Albumin/Globulin Ratio Triglycerides Cholesterol LDL Cholesterol Direct HDL Cholesterol Urine Source CLEAN C Urine Color YELLOW Urine Clarity CLEAR Urine pH 6.5 Ur Specific [place] 1.020 Urine Protein NEGATIVE Urine Glucose (UA) NEGATIVE Urine Ketones NEGATIVE Urine Blood NEGATIVE Urine Nitrate NEGATIVE Urine Bilirubin NEGATIVE Urine Urobilinogen 0.2 Ur Leukocyte Esterase NEGATIVE Urine RBC NONE SEEN Urine WBC 2-5 Ur Epithelial Cells FEW Urine Bacteria OCCASIONAL Salicylates Acetaminophen Valproic Acid Ethyl Alcohol - EKG Interpretations Rate & Rhythm: normal sinus rhythm with a rate of 75 [place]: normal Comments:: Inverted T waves in leads V1 and V2 ED Septic Shock - . Is Septic Shock (SBP<90, OR Lactate>4 mmol\L) present?: No ED Reassessment (Disposition) - Reassessment Reassessment:: Patient became restless in the emergency department trying to get off the gurney and will be given Ativan 2 mg intramuscularly Reassessment Condition:: Unchanged - Diagnosis Diagnosis:: Dementia with agitation; Parkinson's disease - Patient Disposition Admitted to:: [facility] Admitting Medical Physician:: Karma Perez Admitting Psych Physician:: Mich Calvillo Condition at Disposition:: Stable, Unchanged
[2018-01-31 15:56] LABS: % BASOPHILS 0.7 % (0.0-2.0); % EOSINOPHILS 5.8 % (0.0-5.0); % MONOCYTES 12.7 % (2.0-10.0); % NEUTROPHILS 44.8 % (40.0-80.0); EOSINOPHILE ABSOLUTE 0.3 Th/cmm (0.1-0.4); HEMATOCRIT 36.5 % (41.0-60); MEAN CELL VOLUME 94.9 fl (81-100); MEAN CORPUSCULAR HEMOGLOBIN 31.2 pg (27.0-31.0); MEAN CORPUSCULAR HGB CONC 32.9 pg (28.0-36.0); MEAN PLATELET VOLUME 7.3 fl; MONOCYTE ABSOLUTE 0.7 Th/cmm (0.3-1.0); NEUTROPHILE ABSOLUTE 2.6 Th/cmm (1.8-8.0); PLATELET COUNT 234 Th/cmm (150-400); RED BLOOD COUNT 3.84 Mil/cmm (3.80-5.20); RED CELL DISTRIBUTION WIDTH 12.4 % (11.5-20.0); WHITE BLOOD COUNT 5.6 Th/cmm (4.8-10.8)
[2018-01-31 16:13] LABS: ACETAMINOPHEN < 10.0 ug/mL (10.0-30.0); ALBUMIN 3.7 gm/dL (3.7-5.3); ALKALINE PHOSPHATASE 172 U/L (34-104); ANION GAP 12.2 (7.0-16.0); BILIRUBIN,TOTAL 0.3 mg/dL (0.3-1.0); BUN - UREA NITROGEN 22 mg/dL (7-25); CALCIUM SERUM 9.2 mg/dL (8.6-10.3); CHLORIDE 102 mEq/L (98-107); CHOLESTEROL 170 mg/dL (<200); CREATININE - SERUM 0.9 mg/dL (0.6-1.2); GFR AFRICAN-AMERICAN > 60.0 ml/min (>90); GFR NON AFRICAN-AMERICAN > 60.0 ml/min; GLUCOSE 108 mg/dL (70-105); HDL -HIGH DENSITY LIPOPROTEIN 82 mg/dL (23-92); POTASSIUM SERUM 4.2 mEq/L (3.5-5.1); SALICYLATES (ASPIRIN) < 25.0 mg/L (30.0-100.0); SGOT 50 U/L (13-39); SGPT/ALT 36 U/L (7-52); SODIUM SERUM 139 mEq/L (136-145); TOTAL PROTEIN,SERUM 7.4 gm/dL (6.0-8.3); TRIGLYCERIDES 117 mg/dL (<150)
[2018-01-31 16:15] LABS: URINE SOURCE CLEAN C
[2018-01-31 16:19] LABS: URINE BILIRUBIN NEGATIVE (NEGATIVE); URINE BLOOD NEGATIVE (NEGATIVE); URINE GLUCOSE (UA) NEGATIVE (NEGATIVE); URINE KETONE NEGATIVE (NEGATIVE); URINE LEUKOCYTE ESTERASE NEGATIVE (NEGATIVE); URINE NITRATE NEGATIVE (NEGATIVE); URINE PH 6.5 (4.6 - 8.0); URINE PROTEIN NEGATIVE (NEGATIVE); URINE UROBILINOGEN 0.2 E.U./dL (0.2 - 1.0)
[2018-01-31 16:25] LABS: URINE CLARITY CLEAR (CLEAR); URINE COLOR YELLOW; URINE MICROSCOPIC INDICATED? YES
[2018-01-31 16:26] LABS: URINE EPITHELIAL CELLS FEW /lpf (FEW); URINE RBC NONE SEEN /hpf (0-5)
[2018-01-31 16:27] LABS: URINE BACTERIA OCCASIONAL /hpf (NONE SEEN)
[2018-01-31 16:46] LABS: AMPHETAMINE URINE NEGATIVE (NEGATIVE); BARBITURATES URINE NEGATIVE (NEGATIVE); BENZODIAZEPINES QUAL URINE NEGATIVE (NEGATIVE); CANNABINOID THC NEGATIVE (NEGATIVE); COCAINE METABOLITE QUAL URINE NEGATIVE (NEGATIVE); METHADONE URINE NEGATIVE (NEGATIVE); METHAMPHETAMINES QUAL URINE NEGATIVE (NEGATIVE); OPIATES (MORPHINE) QUAL. URINE NEGATIVE (NEGATIVE); PHENCYCLIDINE (PCP) URINE NEGATIVE (NEGATIVE); TRICYCLICS (TCA) QUAL. URINE NEGATIVE (NEGATIVE)
[2018-01-31 18:13] VITALS: BP 146/53
[2018-01-31] MEDS ORDERED: Magnesium Hydroxide (MOM) 30 mL UDC PO PRN ×2 (18:14→18:59)
[2018-01-31] MEDS ORDERED: Maalox 30 mL Cup PO PRN (18:14)
[2018-01-31] MEDS ORDERED: Acetaminophen 500 MG TAB PO PRN (18:59)
[2018-01-31] MEDS: Atorvastatin Calcium 10 MG TAB PO SCH (21:28)
[2018-02-01] MEDS ORDERED: Multivitamin Tab PO SCH (09:00)
[2018-02-01] MEDS: Carbidopa/Levodopa 10/100 mg Tab PO SCH ×2 (10:28→18:19)
[2018-02-01] MEDS: Multivitamin w/ Minerals Tab PO SCH (10:30)
[2018-02-01] MEDS: Aspirin 81mg Chewable Tab PO SCH (10:30)
[2018-02-01] MEDS: Econazole Nitrate 1% Cream 15 gm Tube TP SCH ×2 (13:00→18:19)
[2018-02-01] MEDS: Atorvastatin Calcium 10 MG TAB PO SCH (21:45)
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
--- NOTE | 2018-02-02 05:17 | History & Physical ---
ADMIT DATE: 02/01/2018 CHIEF COMPLAINT: Increased agitation and combative behavior. HISTORY OF PRESENT ILLNESS: The patient is a 67-year-old female with a past medical history of hypertension, dyslipidemia, seizure disorder, arthritis, dementia, hyperlipidemia, Parkinson disease, major depression, brought in from nursing facility for agitation and combative behavior with the staff. On initial evaluation, the patient's vitals were stable. PAST MEDICAL HISTORY: Includes dab, hypertension, dyslipidemia, seizure disorder, arthritis, dementia, Parkinson disease. PAST SURGICAL HISTORY: Major depression. FAMILY HISTORY: Noncontributory. SOCIAL HISTORY: The patient lives in a nursing facility. No history of smoking, alcohol or drug use. ALLERGIES: NKDA. MEDICATIONS: As per medication reconciliation. REVIEW OF SYSTEMS: GENERAL: The patient has no fever, no chills, no jaundice. No generalized weakness. HEENT: No diplopia, no photophobia, no sore throat. RESPIRATORY: No cough, no shortness of breath. CARDIOVASCULAR: No chest pain or palpitation. GASTROINTESTINAL: No nausea, no vomiting, no diarrhea, no constipation. GENITOURINARY: No dysuria, no hematuria. NEUROLOGIC: No headache, no dizziness, no focal weakness. PSYCHIATRIC: The patient had agitation. Blood pressure currently calm. PHYSICAL EXAMINATION: VITAL SIGNS: Shows temperature is 98 degrees Fahrenheit, pulse 98, respirations 19, blood pressure 129/73. GENERAL: The patient is comfortable lying in the bed, not in acute distress. HEENT: Head is normocephalic, atraumatic. Oral cavity moist, pink tongue. NECK: Supple, no JVD, no bruit. Trachea midline. CHEST: Bilateral breath sounds. No crackles or wheezing. HEART: S1, S2 within normal limits. Regular rhythm. No murmur, no gallop. ABDOMEN: Soft, nontender, nondistended. Bowel sounds present. EXTREMITIES: No cyanosis, no clubbing, no edema. NEUROLOGICAL: Alert and awake, but the patient is slow to respond. LABORATORY DATA: Current lab shows WBC count is 5600, hemoglobin 12, hematocrit 36.5, platelets are 234,000, neutrophil is 44.8%. Sodium 139, potassium 4.2, chloride 102, bicarbonate is 29, BUN is 22, creatinine 0.9, glucose 108. Urinalysis negative nitrite or less stable, within normal limit. IMPRESSION: 1. Agitation, increased. 2. Hypertension, increased. 3. Seizure disorder. 4. Dementia. 5. Parkinson's disease. PLAN: Continue home medication. Further care. A psychiatric consultation. JOB# [id number]
[2018-02-02] MEDS: Carbidopa/Levodopa 10/100 mg Tab PO SCH ×2 (09:08→18:04)
[2018-02-02] MEDS: Multivitamin w/ Minerals Tab PO SCH (09:08)
[2018-02-02] MEDS: Aspirin 81mg Chewable Tab PO SCH (09:08)
[2018-02-02] MEDS: Vitamin E 1,000 IU Sgl PO SCH (09:08)
[2018-02-02] MEDS: Econazole Nitrate 1% Cream 15 gm Tube TP SCH ×2 (09:09→18:05)
--- NOTE | 2018-02-02 15:01 | Infectious Disease Prog Note ---
Infectious Disease Subjective - Review of Systems Service Date: 02/02/18 Events since last encounter: None Subjective: Doing well, calm. Infectious Disease Objective - Results Result Diagrams: 01/31/18 15:45 01/31/18 15:45 Recent Labs: Laboratory Last Values WBC 5.6 Th/cmm (4.8-10.8) 01/31/18 15:45 RBC 3.84 Mil/cmm (3.80-5.20) 01/31/18 15:45 Hgb 12.0 gm/dL (12-16) 01/31/18 15:45 Hct 36.5 % (41.0-60) L 01/31/18 15:45 MCV 94.9 fl (81-100) 01/31/18 15:45 MCH 31.2 pg (27.0-31.0) H 01/31/18 15:45 MCHC Differential 32.9 pg (28.0-36.0) 01/31/18 15:45 RDW 12.4 % (11.5-20.0) 01/31/18 15:45 Plt Count 234 Th/cmm (150-400) 01/31/18 15:45 MPV 7.3 fl 01/31/18 15:45 Neutrophils % 44.8 % (40.0-80.0) 01/31/18 15:45 Lymphocytes % 36.0 % (20.0-50.0) 01/31/18 15:45 Monocytes % 12.7 % (2.0-10.0) H 01/31/18 15:45 Eosinophils % 5.8 % (0.0-5.0) H 01/31/18 15:45 Basophils % 0.7 % (0.0-2.0) 01/31/18 15:45 Sodium 139 mEq/L (136-145) 01/31/18 15:45 Potassium 4.2 mEq/L (3.5-5.1) 01/31/18 15:45 Chloride 102 mEq/L (98-107) 01/31/18 15:45 Carbon Dioxide 29.0 mEq/L (21.0-31.0) 01/31/18 15:45 Anion Gap 12.2 (7.0-16.0) 01/31/18 15:45 BUN 22 mg/dL (7-25) 01/31/18 15:45 Creatinine 0.9 mg/dL (0.6-1.2) 01/31/18 15:45 Est GFR ( Amer) > 60.0 ml/min (>90) 01/31/18 15:45 Est GFR (Non-Af Amer) > 60.0 ml/min 01/31/18 15:45 BUN/Creatinine Ratio 24.4 01/31/18 15:45 Glucose 108 mg/dL (70-105) H 01/31/18 15:45 Calcium 9.2 mg/dL (8.6-10.3) 01/31/18 15:45 Total Bilirubin 0.3 mg/dL (0.3-1.0) 01/31/18 15:45 AST 50 U/L (13-39) H 01/31/18 15:45 ALT 36 U/L (7-52) 01/31/18 15:45 Alkaline Phosphatase 172 U/L (34-104) H 01/31/18 15:45 Total Protein 7.4 gm/dL (6.0-8.3) 01/31/18 15:45 Albumin 3.7 gm/dL (3.7-5.3) 01/31/18 15:45 Globulin 3.7 gm/dL 01/31/18 15:45 Albumin/Globulin Ratio 1.0 (1.0-1.8) 01/31/18 15:45 Triglycerides 117 mg/dL (<150) 01/31/18 15:45 Cholesterol 170 mg/dL (<200) 01/31/18 15:45 LDL Cholesterol Direct 63 mg/dL (75-193) L 01/31/18 15:45 HDL Cholesterol 82 mg/dL (23-92) 01/31/18 15:45 TSH 0.56 uIU/ml (0.34-5.60) 01/31/18 15:45 Urine Source CLEAN C 01/31/18 16:13 Urine Color YELLOW 01/31/18 16:13 Urine Clarity CLEAR (CLEAR) 01/31/18 16:13 Urine pH 6.5 (4.6 - 8.0) 01/31/18 16:13 Ur Specific [place] 1.020 (1.005-1.030) 01/31/18 16:13 Urine Protein NEGATIVE mg/dL (NEGATIVE) 01/31/18 16:13 Urine Glucose (UA) NEGATIVE mg/dL (NEGATIVE) 01/31/18 16:13 Urine Ketones NEGATIVE mg/dL (NEGATIVE) 01/31/18 16:13 Urine Blood NEGATIVE (NEGATIVE) 01/31/18 16:13 Urine Nitrate NEGATIVE (NEGATIVE) 01/31/18 16:13 Urine Bilirubin NEGATIVE (NEGATIVE) 01/31/18 16:13 Urine Urobilinogen 0.2 E.U./dL (0.2 - 1.0) 01/31/18 16:13 Ur Leukocyte Esterase NEGATIVE (NEGATIVE) 01/31/18 16:13 Urine RBC NONE SEEN /hpf (0-5) 01/31/18 16:13 Urine WBC 2-5 /hpf (0-5) 01/31/18 16:13 Ur Epithelial Cells FEW /lpf (FEW) 01/31/18 16:13 Urine Bacteria OCCASIONAL /hpf (NONE SEEN) 01/31/18 16:13 Salicylates < 25.0 mg/L (30.0-100.0) L 01/31/18 15:45 Urine Opiates Screen NEGATIVE (NEGATIVE) 01/31/18 16:15 Urine Methadone Screen NEGATIVE (NEGATIVE) 01/31/18 16:15 Acetaminophen < 10.0 ug/mL (10.0-30.0) L 01/31/18 15:45 Ur Barbiturates Screen NEGATIVE (NEGATIVE) 01/31/18 16:15 Valproic Acid 34.2 ug/mL (50.0-100.0) L 01/31/18 15:45 Ur Tricyclics Screen NEGATIVE (NEGATIVE) 01/31/18 16:15 Ur Phencyclidine Scrn NEGATIVE (NEGATIVE) 01/31/18 16:15 Amphetamines Screen NEGATIVE (NEGATIVE) 01/31/18 16:15 U Methamphetamines Scrn NEGATIVE (NEGATIVE) 01/31/18 16:15 U Benzodiazepines Scrn NEGATIVE (NEGATIVE) 01/31/18 16:15 U Cocaine Metab Screen NEGATIVE (NEGATIVE) 01/31/18 16:15 U Cannabinoids Screen NEGATIVE (NEGATIVE) 01/31/18 16:15 Ethyl Alcohol < 10 mg/dL (0-10) 01/31/18 15:45 RPR NONREACTIVE (NONREACTIVE) 01/31/18 15:45 - Physical Exam Vitals and I&O: Vital Signs Temp 97.5 F 02/02/18 06:12 Pulse 79 02/02/18 09:06 Resp 19 02/02/18 06:12 BP 126/71 02/02/18 09:06 Pulse Ox 96 02/02/18 06:12 Intake & Output 02/01/18 02/02/18 02/02/18 18:59 06:59 18:59 Intake Total 1300 240 Balance 1300 240 Weight (lbs) 48.534 kg Intake: Oral 1300 240 Other: # Voids 3 3 # Bowel Movements 0 0 Weight Source Bedscale Active Medications: Current Medications Acetaminophen (Tylenol) 650 mg PO Q4HR PRN PRN Reason: Mild Pain 1-3/ Temp above 100 Stop: 04/01/18 18:13 Acetaminophen (Tylenol Extra Strength) 1,000 mg PO Q4HR PRN PRN Reason: MODERATE PAIN 4-7 Stop: 04/01/18 18:58 Al Hydrox/Mg Hydrox/Simethicone (Maalox) 30 ml PO Q4HR PRN PRN Reason: GI DISTRESS Stop: 04/01/18 18:13 Amlodipine Besylate (Norvasc) 2.5 mg PO DAILY [facility] Stop: 04/02/18 08:59 Last Admin: 02/02/18 09:06 Dose: 2.5 mg Ascorbic Acid (Vitamin C) 500 mg PO BID [facility] Stop: 04/02/18 08:59 Last Admin: 02/02/18 09:08 Dose: 500 mg Aspirin (Aspirin Chewable) 81 mg PO DAILY [facility] Stop: 04/02/18 08:59 Last Admin: 02/02/18 09:08 Dose: 81 mg Atorvastatin Calcium (Lipitor) 10 mg PO HS [facility]; Protocol Stop: 04/01/18 20:59 Last Admin: 02/01/18 21:45 Dose: 10 mg Carbidopa/Levodopa (Sinemet 10 Mg-100 Mg) 1 tab PO BID [facility] Stop: 04/02/18 08:59 Last Admin: 02/02/18 09:08 Dose: 1 tab Cholecalciferol (Vitamin D3) 1,000 iu PO DAILY [facility] Stop: 04/02/18 08:59 Last Admin: 02/02/18 09:08 Dose: 1,000 iu Docusate Sodium (Colace) 100 mg PO DAILY [facility] Stop: 04/02/18 08:59 Last Admin: 02/02/18 09:08 Dose: 100 mg Donepezil HCl (Aricept) 5 mg PO HS [facility] Stop: 04/01/18 20:59 Last Admin: 02/01/18 21:45 Dose: 5 mg Econazole Nitrate (Spectazole 1% Cream) 1 appl TP BID [facility] Stop: 04/02/18 11:59 Last Admin: 02/02/18 09:09 Dose: 1 appl Loratadine (Claritin) 10 mg PO DAILY PRN PRN Reason: Allergy Symptoms Stop: 04/01/18 18:58 Lorazepam (Ativan) 0.5 mg PO Q4HR PRN; Protocol PRN Reason: Agitation Stop: 03/02/18 18:13 Last Admin: 02/02/18 02:37 Dose: 0.5 mg Magnesium Hydroxide (Milk Of Magnesia) 30 ml PO HS PRN PRN Reason: Constipation Memantine (Namenda) 5 mg PO DAILY [facility] Stop: 04/02/18 08:59 Last Admin: 02/02/18 09:08 Dose: 5 mg Vitamin E (Vitamin E) 1,000 iu PO QOD [facility] Stop: 04/03/18 08:59 Last Admin: 02/02/18 09:08 Dose: 1,000 iu Zolpidem Tartrate (Ambien) 5 mg PO HS PRN PRN Reason: Insomnia Stop: 04/01/18 21:43 Last Admin: 01/31/18 22:08 Dose: 5 mg General: no acute distress, well developed, well nourished HEENT: atraumatic, normocephalic, PERRLA, EOMI Neck: supple, no thyromegaly, no lymphadenopathy Cardiovascular: S1S2, regular Lungs: clear to auscultation bilaterally, clear to percussion Abdomen: soft, no tender, no distended, no mass Extremities: no cyanosis, no clubbing, no edema Neurological: awake, alert, oriented Skin: intact - Procedures Procedures: Procedures Procedure Code Date FLUOROSCOPY OF LEFT HEART USING LOW OSMOLAR CONTRAST [id number] 02/20/17 INSERT PACE. DUAL LAKHWINDER IN CHEST SUBCU/FASCIA, OPEN [id number] 02/20/17 INSERTION OF PACEMAKER LEAD INTO R VENTRICLE, PERC APPROACH [id number] 02/20/17 INSERTION OF PACEMAKER LEAD INTO RIGHT ATRIUM, PERC APPROACH [id number] 02/20/17 INSRT HEART PM ATRIAL & VENT [id number] 02/20/17 Infectious Disease Assmt/Plan - Problem List Patient Problems: All Active Problems CONFUSION WITH AGITATION/COMBATIVENESS (Acute) - Assessment Assessment: 1. Agitation, better controlled. 2. Hypertension, increased. 3. Seizure disorder. 4. Dementia. 5. Parkinson's disease. - Plan Plan: CPM.
--- NOTE | 2018-02-02 18:30 | Progress Notes ---
DATE: 02/02/2018 SUBJECTIVE: The patient coming from a alf, agitation and combative behaviors, refusing to speak with me, somewhat lethargic on exam. Mood "okay." States that she is "in bed." Does not know why she is here, very forgetful, disoriented, well known to this clinician and noted to be occasionally scratching herself, responding to internal stimuli and talking to self and sometimes gets aggressive with nursing staff during her changing. ASSESSMENT: The patient unruly, still highly impulsive, unpredictable, difficult to control behaviors. PLAN: We will continue to monitor. Continue Namenda, consider dose changes of medications. JOB# [id number]
[2018-02-02] MEDS: Atorvastatin Calcium 10 MG TAB PO SCH (22:00)
[2018-02-03] MEDS: Aspirin 81mg Chewable Tab PO SCH (09:11)
[2018-02-03] MEDS: Econazole Nitrate 1% Cream 15 gm Tube TP SCH ×2 (09:11→17:25)
[2018-02-03] MEDS: Multivitamin w/ Minerals Tab PO SCH (09:11)
[2018-02-03] MEDS: Carbidopa/Levodopa 10/100 mg Tab PO SCH ×2 (09:11→17:25)
[2018-02-03] MEDS: Atorvastatin Calcium 10 MG TAB PO SCH (21:11)
--- NOTE | 2018-02-03 22:37 | Progress Notes ---
DATE: 02/03/2018 SUBJECTIVE: The patient coming from a fdc, had been combative, aggressive. On [id number], the patient is confused, disoriented, in a Rupal chair, mumbling to self. Still unruly at times, nonsensical, tries to get up, requiring a higher level of prompting, redirection, mostly oriented to name, does not know where she is or what is going on. Medications were noted. ASSESSMENT: The patient remains symptomatic, still unruly, tries to get up, yelling, lashes out at staff. PLAN: We will continue to monitor. Continue Namenda, also Aricept dosing. Consider Depakote. JOB# [id number]
--- NOTE | 2018-02-04 02:28 | Progress Notes ---
DATE: 02/03/2018 SUBJECTIVE: The patient lying in the bed, confused, not in acute distress. No fever. No chills, no chest pain, no cough, no shortness of breath. OBJECTIVE: CURRENT VITAL SIGNS: Shows temperature 97.8 degrees Fahrenheit, pulse of 100, respirations 20, blood pressure 120/74. GENERAL: The patient is comfortable lying in the bed, not in acute distress. HEENT: Head is normocephalic, atraumatic. Oral cavity moist, pink tongue. NECK: Supple, no JVD, no carotid bruit. Trachea midline. CHEST: Bilateral breath sounds. No crackles or wheezing. HEART: S1, S2 within normal limits. Regular rhythm. No murmur or gallop. ABDOMEN: Soft, nontender, nondistended. Bowel sounds present. LABORATORY DATA: WBC count 5600. Creatinine 0.9. IMPRESSION: 1. Agitation, better controlled. 2. Hypertension, better controlled. 3. Seizure disorder. 4. Dementia. 5. Parkinson disease. RECOMMENDATION: Continue the same treatment. JOB# [id number]
[2018-02-04] MEDS: Multivitamin w/ Minerals Tab PO SCH (09:49)
[2018-02-04] MEDS: Vitamin E 1,000 IU Sgl PO SCH (09:49)
[2018-02-04] MEDS: Carbidopa/Levodopa 10/100 mg Tab PO SCH ×2 (09:49→18:01)
[2018-02-04] MEDS: Aspirin 81mg Chewable Tab PO SCH (09:49)
[2018-02-04] MEDS: Econazole Nitrate 1% Cream 15 gm Tube TP SCH ×2 (10:03→18:01)
--- NOTE | 2018-02-04 18:33 | Progress Notes ---
DATE: 02/04/2018 SUBJECTIVE: The patient remains confused, disoriented, still needing to be in a Rupal chair, trying to get up, poor orientation, very confused, impoverished thought processes, difficulty following unit rules, directions, difficulty following orders, putting herself at risk. Medications were reviewed include dosages and frequencies. ASSESSMENT: The patient remains symptomatic, still trying to get out. Ongoing safety concerns. PLAN: We will continue to monitor. We will consider dose titration of medications. Medications were reviewed. Continue inpatient management and monitoring. JOB# [id number]
[2018-02-04] MEDS: Atorvastatin Calcium 10 MG TAB PO SCH (20:50)
[2018-02-04] MEDS: Miconazole Nitrate 2% Antifungal Wound Cream 4 oz. Tube TP SCH (22:04)
[2018-02-05] MEDS: Miconazole Nitrate 2% Antifungal Wound Cream 4 oz. Tube TP SCH ×2 (09:03→16:21)
[2018-02-05] MEDS: Carbidopa/Levodopa 10/100 mg Tab PO SCH ×2 (09:04→16:21)
[2018-02-05] MEDS: Econazole Nitrate 1% Cream 15 gm Tube TP SCH ×2 (09:04→16:21)
[2018-02-05] MEDS: Multivitamin w/ Minerals Tab PO SCH (09:04)
[2018-02-05] MEDS: Aspirin 81mg Chewable Tab PO SCH (09:04)
[2018-02-05] MEDS: Atorvastatin Calcium 10 MG TAB PO SCH (20:53)
--- NOTE | 2018-02-06 00:23 | Progress Notes ---
DATE: 02/05/2018 SUBJECTIVE: The patient still unruly, sometimes yelling, trying to get out of bed, trying to get out of Rpual chair, very confused, disoriented, needing a higher level of prompting, redirection, refusing some medications. Remains disoriented, highly impulsive, unpredictable. ASSESSMENT: The patient is still symptomatic, impulsive, unpredictable, very confused. PLAN: We will continue to monitor. The patient seems to be approaching her baseline. Mainly confused and disoriented. We will monitor. JOB# [id number]
--- NOTE | 2018-02-06 04:24 | Progress Notes ---
DATE: 02/05/2018 SUBJECTIVE: The patient lying in bed, in no acute distress, no fever, no chills. OBJECTIVE: VITAL SIGNS: Current vital signs shows temperature is 97.8, pulse 81, respirations 20, and blood pressure 132/70. GENERAL: The patient is comfortable lying in the bed, in no acute distress. HEENT: Head is normocephalic, atraumatic. Oral cavity moist, pink tongue. Eyes: No pallor, no icterus. PERRLA, EOMI. NECK: Supple, no JVD or carotid bruit. Trachea in midline. CHEST: Bilateral vesicular breath sounds. No crackles or wheezing. HEART: S1, S2 within normal limits. Regular rhythm. ABDOMEN: Soft, nontender, nondistended. Bowel sounds present. EXTREMITIES: No cyanosis, no clubbing, no edema. LABORATORY DATA: Lab rothman, WBC count 5600. Urinalysis negative nitrite, negative leukoesterase. RPR nonreactive. ASSESSMENT: 1. Agitation, better controlled. 2. Hypertension, better controlled. 3. Seizure disorder. 4. Dementia. 5. Parkinson disease. RECOMMENDATION: Continue same treatment. JOB# [id number]
[2018-02-06] MEDS: Econazole Nitrate 1% Cream 15 gm Tube TP SCH ×2 (09:18→16:56)
[2018-02-06] MEDS: Carbidopa/Levodopa 10/100 mg Tab PO SCH ×2 (09:18→16:56)
[2018-02-06] MEDS: Aspirin 81mg Chewable Tab PO SCH (09:18)
[2018-02-06] MEDS: Miconazole Nitrate 2% Antifungal Wound Cream 4 oz. Tube TP SCH ×2 (09:18→16:56)
[2018-02-06] MEDS: Vitamin E 1,000 IU Sgl PO SCH (09:19)
[2018-02-06] MEDS: Multivitamin w/ Minerals Tab PO SCH (09:19)
--- NOTE | 2018-02-06 15:59 | Infectious Disease Prog Note ---
Infectious Disease Subjective - Review of Systems Service Date: 02/06/18 Subjective: Doing well, calm. Infectious Disease Objective - Results Result Diagrams: 01/31/18 15:45 01/31/18 15:45 Recent Labs: Laboratory Last Values WBC 5.6 Th/cmm (4.8-10.8) 01/31/18 15:45 RBC 3.84 Mil/cmm (3.80-5.20) 01/31/18 15:45 Hgb 12.0 gm/dL (12-16) 01/31/18 15:45 Hct 36.5 % (41.0-60) L 01/31/18 15:45 MCV 94.9 fl (81-100) 01/31/18 15:45 MCH 31.2 pg (27.0-31.0) H 01/31/18 15:45 MCHC Differential 32.9 pg (28.0-36.0) 01/31/18 15:45 RDW 12.4 % (11.5-20.0) 01/31/18 15:45 Plt Count 234 Th/cmm (150-400) 01/31/18 15:45 MPV 7.3 fl 01/31/18 15:45 Neutrophils % 44.8 % (40.0-80.0) 01/31/18 15:45 Lymphocytes % 36.0 % (20.0-50.0) 01/31/18 15:45 Monocytes % 12.7 % (2.0-10.0) H 01/31/18 15:45 Eosinophils % 5.8 % (0.0-5.0) H 01/31/18 15:45 Basophils % 0.7 % (0.0-2.0) 01/31/18 15:45 Sodium 139 mEq/L (136-145) 01/31/18 15:45 Potassium 4.2 mEq/L (3.5-5.1) 01/31/18 15:45 Chloride 102 mEq/L (98-107) 01/31/18 15:45 Carbon Dioxide 29.0 mEq/L (21.0-31.0) 01/31/18 15:45 Anion Gap 12.2 (7.0-16.0) 01/31/18 15:45 BUN 22 mg/dL (7-25) 01/31/18 15:45 Creatinine 0.9 mg/dL (0.6-1.2) 01/31/18 15:45 Est GFR ( Amer) > 60.0 ml/min (>90) 01/31/18 15:45 Est GFR (Non-Af Amer) > 60.0 ml/min 01/31/18 15:45 BUN/Creatinine Ratio 24.4 01/31/18 15:45 Glucose 108 mg/dL (70-105) H 01/31/18 15:45 Calcium 9.2 mg/dL (8.6-10.3) 01/31/18 15:45 Total Bilirubin 0.3 mg/dL (0.3-1.0) 01/31/18 15:45 AST 50 U/L (13-39) H 01/31/18 15:45 ALT 36 U/L (7-52) 01/31/18 15:45 Alkaline Phosphatase 172 U/L (34-104) H 01/31/18 15:45 Total Protein 7.4 gm/dL (6.0-8.3) 01/31/18 15:45 Albumin 3.7 gm/dL (3.7-5.3) 01/31/18 15:45 Globulin 3.7 gm/dL 01/31/18 15:45 Albumin/Globulin Ratio 1.0 (1.0-1.8) 01/31/18 15:45 Triglycerides 117 mg/dL (<150) 01/31/18 15:45 Cholesterol 170 mg/dL (<200) 01/31/18 15:45 LDL Cholesterol Direct 63 mg/dL (75-193) L 01/31/18 15:45 HDL Cholesterol 82 mg/dL (23-92) 01/31/18 15:45 TSH 0.56 uIU/ml (0.34-5.60) 01/31/18 15:45 Urine Source CLEAN C 01/31/18 16:13 Urine Color YELLOW 01/31/18 16:13 Urine Clarity CLEAR (CLEAR) 01/31/18 16:13 Urine pH 6.5 (4.6 - 8.0) 01/31/18 16:13 Ur Specific [place] 1.020 (1.005-1.030) 01/31/18 16:13 Urine Protein NEGATIVE mg/dL (NEGATIVE) 01/31/18 16:13 Urine Glucose (UA) NEGATIVE mg/dL (NEGATIVE) 01/31/18 16:13 Urine Ketones NEGATIVE mg/dL (NEGATIVE) 01/31/18 16:13 Urine Blood NEGATIVE (NEGATIVE) 01/31/18 16:13 Urine Nitrate NEGATIVE (NEGATIVE) 01/31/18 16:13 Urine Bilirubin NEGATIVE (NEGATIVE) 01/31/18 16:13 Urine Urobilinogen 0.2 E.U./dL (0.2 - 1.0) 01/31/18 16:13 Ur Leukocyte Esterase NEGATIVE (NEGATIVE) 01/31/18 16:13 Urine RBC NONE SEEN /hpf (0-5) 01/31/18 16:13 Urine WBC 2-5 /hpf (0-5) 01/31/18 16:13 Ur Epithelial Cells FEW /lpf (FEW) 01/31/18 16:13 Urine Bacteria OCCASIONAL /hpf (NONE SEEN) 01/31/18 16:13 Salicylates < 25.0 mg/L (30.0-100.0) L 01/31/18 15:45 Urine Opiates Screen NEGATIVE (NEGATIVE) 01/31/18 16:15 Urine Methadone Screen NEGATIVE (NEGATIVE) 01/31/18 16:15 Acetaminophen < 10.0 ug/mL (10.0-30.0) L 01/31/18 15:45 Ur Barbiturates Screen NEGATIVE (NEGATIVE) 01/31/18 16:15 Valproic Acid 34.2 ug/mL (50.0-100.0) L 01/31/18 15:45 Ur Tricyclics Screen NEGATIVE (NEGATIVE) 01/31/18 16:15 Ur Phencyclidine Scrn NEGATIVE (NEGATIVE) 01/31/18 16:15 Amphetamines Screen NEGATIVE (NEGATIVE) 01/31/18 16:15 U Methamphetamines Scrn NEGATIVE (NEGATIVE) 01/31/18 16:15 U Benzodiazepines Scrn NEGATIVE (NEGATIVE) 01/31/18 16:15 U Cocaine Metab Screen NEGATIVE (NEGATIVE) 01/31/18 16:15 U Cannabinoids Screen NEGATIVE (NEGATIVE) 01/31/18 16:15 Ethyl Alcohol < 10 mg/dL (0-10) 01/31/18 15:45 RPR NONREACTIVE (NONREACTIVE) 01/31/18 15:45 - Physical Exam Vitals and I&O: Vital Signs Temp 97.5 F 02/06/18 14:00 Pulse 71 02/06/18 14:00 Resp 18 02/06/18 14:00 BP 120/61 02/06/18 14:00 Pulse Ox 97 02/06/18 14:00 Intake & Output 02/05/18 02/06/18 02/06/18 18:59 06:59 18:59 Intake Total 950 240 Balance 950 240 Weight (lbs) 48.534 kg Intake: Oral 950 240 Other: # Voids 4 3 # Bowel Movements 1 0 Weight Source Bedscale Active Medications: Current Medications Acetaminophen (Tylenol) 650 mg PO Q4HR PRN PRN Reason: Mild Pain 1-3/ Temp above 100 Stop: 04/01/18 18:13 Acetaminophen (Tylenol Extra Strength) 1,000 mg PO Q4HR PRN PRN Reason: MODERATE PAIN 4-7 Stop: 04/01/18 18:58 Al Hydrox/Mg Hydrox/Simethicone (Maalox) 30 ml PO Q4HR PRN PRN Reason: GI DISTRESS Stop: 04/01/18 18:13 Amlodipine Besylate (Norvasc) 2.5 mg PO DAILY [facility] Stop: 04/02/18 08:59 Last Admin: 02/06/18 09:18 Dose: 2.5 mg Ascorbic Acid (Vitamin C) 500 mg PO BID [facility] Stop: 04/02/18 08:59 Last Admin: 02/06/18 09:18 Dose: 500 mg Aspirin (Aspirin Chewable) 81 mg PO DAILY [facility] Stop: 04/02/18 08:59 Last Admin: 02/06/18 09:18 Dose: 81 mg Atorvastatin Calcium (Lipitor) 10 mg PO [facility]; Protocol Stop: 04/01/18 20:59 Last Admin: 02/05/18 20:53 Dose: 10 mg Carbidopa/Levodopa (Sinemet 10 Mg-100 Mg) 1 tab PO BID [facility] Stop: 04/02/18 08:59 Last Admin: 02/06/18 09:18 Dose: 1 tab Cholecalciferol (Vitamin D3) 1,000 iu PO DAILY [facility] Stop: 04/02/18 08:59 Last Admin: 02/06/18 09:18 Dose: 1,000 iu Docusate Sodium (Colace) 100 mg PO DAILY [facility] Stop: 04/02/18 08:59 Last Admin: 02/06/18 09:18 Dose: 100 mg Donepezil HCl (Aricept) 5 mg PO HS [facility] Stop: 04/01/18 20:59 Last Admin: 02/05/18 20:53 Dose: 5 mg Econazole Nitrate (Spectazole 1% Cream) 1 appl TP BID [facility] Stop: 04/02/18 11:59 Last Admin: 02/06/18 09:18 Dose: 1 appl Loratadine (Claritin) 10 mg PO DAILY PRN PRN Reason: Allergy Symptoms Stop: 04/01/18 18:58 Lorazepam (Ativan) 0.5 mg PO Q4HR PRN; Protocol PRN Reason: Agitation Stop: 03/02/18 18:13 Last Admin: 02/06/18 02:28 Dose: 0.5 mg Magnesium Hydroxide (Milk Of Magnesia) 30 ml PO HS PRN PRN Reason: Constipation Memantine (Namenda) 5 mg PO DAILY [facility] Stop: 04/02/18 08:59 Last Admin: 02/06/18 09:19 Dose: 5 mg Miconazole Nitrate (Antifungal Wound Cream) 1 appl TP BID [facility] Stop: 04/05/18 17:59 Last Admin: 02/06/18 09:18 Dose: Not Given Vitamin E (Vitamin E) 1,000 iu PO QOD [facility] Stop: 04/03/18 08:59 Last Admin: 02/06/18 09:19 Dose: 1,000 iu Zolpidem Tartrate (Ambien) 5 mg PO HS PRN PRN Reason: Insomnia Stop: 04/01/18 21:43 Last Admin: 02/05/18 20:53 Dose: 5 mg General: no acute distress, well developed, well nourished HEENT: atraumatic, normocephalic, PERRLA Neck: supple, no thyromegaly, no lymphadenopathy Cardiovascular: S1S2, regular Lungs: clear to auscultation bilaterally, clear to percussion Abdomen: soft, no tender, no distended Extremities: no cyanosis, no clubbing, no edema Neurological: awake, alert, oriented Skin: intact - Procedures Procedures: Procedures Procedure Code Date FLUOROSCOPY OF LEFT HEART USING LOW OSMOLAR CONTRAST [id number] 02/20/17 INSERT PACE. DUAL LAKHWINDER IN CHEST SUBCU/FASCIA, OPEN [id number] 02/20/17 INSERTION OF PACEMAKER LEAD INTO R VENTRICLE, PERC APPROACH [id number] 02/20/17 INSERTION OF PACEMAKER LEAD INTO RIGHT ATRIUM, PERC APPROACH [id number] 02/20/17 INSRT HEART PM ATRIAL & VENT [id number] 02/20/17 Infectious Disease Assmt/Plan - Problem List Patient Problems: All Active Problems CONFUSION WITH AGITATION/COMBATIVENESS (Acute) - Assessment Assessment: 1. Agitation, better controlled. 2. Hypertension, increased. 3. Seizure disorder. 4. Dementia. 5. Parkinson's disease. - Plan Plan: CPM. Nutritional Asmnt/Malnutr-PDOC - Dietary Evaluation Malnutrition Findings (Please click <Entered> for more info): Nutritional Asmnt/Malnutrition Start: 02/04/18 14: 20 Text: Status: Complete Freq: Protocol: Document 02/04/18 14:20 [email or web address] (Rec: 02/04/18 14:26 [email or web address]) Nutritional Asmnt/Malnutrition Patient General Information Nutritional Screening Moderate Risk Diagnosis psychosis Pertinent Medical Hx/Surgical Hx HTn, dyslipidemia, seizures, arthritis, dementia, parkinson 's, major depression Subjective Information Pt seen sitting in kj-chair in dining room. Per [facility], pt consumed 75% of lunch today. Per EMR, PO intake 50-75%. Current Diet Order/ Nutrition Support mech soft ground ANGEL Pertinent Medications vit C, lipitor, vit D3, colace , vit E Pertinent Labs 01/31 glucose 108 Nutritional Hx/Data Height 1.47 m Height (Calculated Centimeters) 147.3 Current Weight (lbs) 48.534 kg Weight (Calculated Kilograms) 48.5 Weight (Calculated Grams) 91110.4 [place] Body Weight 96 Body Mass Index (BMI) 22.4 Weight Status Approriate GI Symptoms GI Symptoms None Last BM none noted Difficult in: None Skin Integrity/Comment: rash, lai score 16 Current %PO Good (75-100%) Estimated Nutritional Goals BEE in Kcals: Using Current wt Calories/Kcals/Kg 25-30 Kcals Calculated 2891-2489 Protein: Using Current wt Protein g/k Protein Calculated 48 Fluid: ml 1200-1440ml (1ml/kcal) Nutritional Problem No current Nutrition Prob Problem N/A Malnutrition Alert Is there a minimum of two criteria No selected? Query Text:Check all the applicable criteria. A minimum of two criteria are recommended for diagnosis of either severe or non-severe malnutrition. Malnutrition Related to Morbid Obesity Malnutrition related to morbid obesity No Intervention/Recommendation Comments 1. Continue with [facility] soft ground diet as ordered. 2. Monitor PO intake, wt, labs and skin integrity 3. F/U as low risk in 7 days, 02/11, PO check 02/06 Expected Outcomes/Goals Expected Outcomes/Goals 1. PO intake to meet at least 75% of nutritional needs. 2. Wt stability, skin to remain intact, labs to approach WNL.
[2018-02-06] MEDS: Atorvastatin Calcium 10 MG TAB PO SCH (21:05)
--- NOTE | 2018-02-07 06:46 | Progress Notes ---
DATE: SUBJECTIVE: The patient seen, chart reviewed, discussed with staff. The patient is currently in the hospital, remains symptomatic, still unruly, highly disoriented and disorganized and nonsensical, mumbling to elf, highly impulsive, unpredictable, concerns that she may lash out at staff, fair sleep, poor appetite. ASSESSMENT: The patient remains symptomatic, still unruly, impulsive likely approaching her baseline. PLAN: We will continue to monitor, mild improvement noted. JOB# [id number]
[2018-02-07] MEDS: Econazole Nitrate 1% Cream 15 gm Tube TP SCH ×3 (09:00→17:26)
[2018-02-07] MEDS: Carbidopa/Levodopa 10/100 mg Tab PO SCH ×3 (09:32→17:21)
[2018-02-07] MEDS: Multivitamin w/ Minerals Tab PO SCH ×2 (09:32→14:58)
[2018-02-07] MEDS: Aspirin 81mg Chewable Tab PO SCH ×2 (09:34→14:59)
--- NOTE | 2018-02-07 14:35 | Infectious Disease Prog Note ---
Infectious Disease Subjective - Review of Systems Service Date: 02/07/18 Subjective: Doing well, calm. Infectious Disease Objective - Results Result Diagrams: 01/31/18 15:45 01/31/18 15:45 Recent Labs: Laboratory Last Values WBC 5.6 Th/cmm (4.8-10.8) 01/31/18 15:45 RBC 3.84 Mil/cmm (3.80-5.20) 01/31/18 15:45 Hgb 12.0 gm/dL (12-16) 01/31/18 15:45 Hct 36.5 % (41.0-60) L 01/31/18 15:45 MCV 94.9 fl (81-100) 01/31/18 15:45 MCH 31.2 pg (27.0-31.0) H 01/31/18 15:45 MCHC Differential 32.9 pg (28.0-36.0) 01/31/18 15:45 RDW 12.4 % (11.5-20.0) 01/31/18 15:45 Plt Count 234 Th/cmm (150-400) 01/31/18 15:45 MPV 7.3 fl 01/31/18 15:45 Neutrophils % 44.8 % (40.0-80.0) 01/31/18 15:45 Lymphocytes % 36.0 % (20.0-50.0) 01/31/18 15:45 Monocytes % 12.7 % (2.0-10.0) H 01/31/18 15:45 Eosinophils % 5.8 % (0.0-5.0) H 01/31/18 15:45 Basophils % 0.7 % (0.0-2.0) 01/31/18 15:45 Sodium 139 mEq/L (136-145) 01/31/18 15:45 Potassium 4.2 mEq/L (3.5-5.1) 01/31/18 15:45 Chloride 102 mEq/L (98-107) 01/31/18 15:45 Carbon Dioxide 29.0 mEq/L (21.0-31.0) 01/31/18 15:45 Anion Gap 12.2 (7.0-16.0) 01/31/18 15:45 BUN 22 mg/dL (7-25) 01/31/18 15:45 Creatinine 0.9 mg/dL (0.6-1.2) 01/31/18 15:45 Est GFR ( Amer) > 60.0 ml/min (>90) 01/31/18 15:45 Est GFR (Non-Af Amer) > 60.0 ml/min 01/31/18 15:45 BUN/Creatinine Ratio 24.4 01/31/18 15:45 Glucose 108 mg/dL (70-105) H 01/31/18 15:45 Calcium 9.2 mg/dL (8.6-10.3) 01/31/18 15:45 Total Bilirubin 0.3 mg/dL (0.3-1.0) 01/31/18 15:45 AST 50 U/L (13-39) H 01/31/18 15:45 ALT 36 U/L (7-52) 01/31/18 15:45 Alkaline Phosphatase 172 U/L (34-104) H 01/31/18 15:45 Total Protein 7.4 gm/dL (6.0-8.3) 01/31/18 15:45 Albumin 3.7 gm/dL (3.7-5.3) 01/31/18 15:45 Globulin 3.7 gm/dL 01/31/18 15:45 Albumin/Globulin Ratio 1.0 (1.0-1.8) 01/31/18 15:45 Triglycerides 117 mg/dL (<150) 01/31/18 15:45 Cholesterol 170 mg/dL (<200) 01/31/18 15:45 LDL Cholesterol Direct 63 mg/dL (75-193) L 01/31/18 15:45 HDL Cholesterol 82 mg/dL (23-92) 01/31/18 15:45 TSH 0.56 uIU/ml (0.34-5.60) 01/31/18 15:45 Urine Source CLEAN C 01/31/18 16:13 Urine Color YELLOW 01/31/18 16:13 Urine Clarity CLEAR (CLEAR) 01/31/18 16:13 Urine pH 6.5 (4.6 - 8.0) 01/31/18 16:13 Ur Specific [place] 1.020 (1.005-1.030) 01/31/18 16:13 Urine Protein NEGATIVE mg/dL (NEGATIVE) 01/31/18 16:13 Urine Glucose (UA) NEGATIVE mg/dL (NEGATIVE) 01/31/18 16:13 Urine Ketones NEGATIVE mg/dL (NEGATIVE) 01/31/18 16:13 Urine Blood NEGATIVE (NEGATIVE) 01/31/18 16:13 Urine Nitrate NEGATIVE (NEGATIVE) 01/31/18 16:13 Urine Bilirubin NEGATIVE (NEGATIVE) 01/31/18 16:13 Urine Urobilinogen 0.2 E.U./dL (0.2 - 1.0) 01/31/18 16:13 Ur Leukocyte Esterase NEGATIVE (NEGATIVE) 01/31/18 16:13 Urine RBC NONE SEEN /hpf (0-5) 01/31/18 16:13 Urine WBC 2-5 /hpf (0-5) 01/31/18 16:13 Ur Epithelial Cells FEW /lpf (FEW) 01/31/18 16:13 Urine Bacteria OCCASIONAL /hpf (NONE SEEN) 01/31/18 16:13 Salicylates < 25.0 mg/L (30.0-100.0) L 01/31/18 15:45 Urine Opiates Screen NEGATIVE (NEGATIVE) 01/31/18 16:15 Urine Methadone Screen NEGATIVE (NEGATIVE) 01/31/18 16:15 Acetaminophen < 10.0 ug/mL (10.0-30.0) L 01/31/18 15:45 Ur Barbiturates Screen NEGATIVE (NEGATIVE) 01/31/18 16:15 Valproic Acid 34.2 ug/mL (50.0-100.0) L 01/31/18 15:45 Ur Tricyclics Screen NEGATIVE (NEGATIVE) 01/31/18 16:15 Ur Phencyclidine Scrn NEGATIVE (NEGATIVE) 01/31/18 16:15 Amphetamines Screen NEGATIVE (NEGATIVE) 01/31/18 16:15 U Methamphetamines Scrn NEGATIVE (NEGATIVE) 01/31/18 16:15 U Benzodiazepines Scrn NEGATIVE (NEGATIVE) 01/31/18 16:15 U Cocaine Metab Screen NEGATIVE (NEGATIVE) 01/31/18 16:15 U Cannabinoids Screen NEGATIVE (NEGATIVE) 01/31/18 16:15 Ethyl Alcohol < 10 mg/dL (0-10) 01/31/18 15:45 RPR NONREACTIVE (NONREACTIVE) 01/31/18 15:45 - Physical Exam Vitals and I&O: Vital Signs Temp 97.6 F 02/07/18 07:02 Pulse 79 02/07/18 09:33 Resp 18 02/07/18 07:02 BP 146/65 02/07/18 09:33 Pulse Ox 98 02/07/18 07:02 Intake & Output 02/06/18 02/07/18 02/07/18 18:59 06:59 18:59 Intake Total 1000 120 Balance 1000 120 Intake: Oral 1000 120 Other: # Voids 3 3 # Bowel Movements 1 Active Medications: Current Medications Acetaminophen (Tylenol) 650 mg PO Q4HR PRN PRN Reason: Mild Pain 1-3/ Temp above 100 Stop: 04/01/18 18:13 Acetaminophen (Tylenol Extra Strength) 1,000 mg PO Q4HR PRN PRN Reason: MODERATE PAIN 4-7 Stop: 04/01/18 18:58 Al Hydrox/Mg Hydrox/Simethicone (Maalox) 30 ml PO Q4HR PRN PRN Reason: GI DISTRESS Stop: 04/01/18 18:13 Amlodipine Besylate (Norvasc) 2.5 mg PO DAILY [facility] Stop: 04/02/18 08:59 Last Admin: 02/07/18 09:33 Dose: 2.5 mg Ascorbic Acid (Vitamin C) 500 mg PO BID [facility] Stop: 04/02/18 08:59 Last Admin: 02/07/18 09:32 Dose: 500 mg Aspirin (Aspirin Chewable) 81 mg PO DAILY [facility] Stop: 04/02/18 08:59 Last Admin: 02/07/18 09:34 Dose: 81 mg Atorvastatin Calcium (Lipitor) 10 mg PO HS [facility]; Protocol Stop: 04/01/18 20:59 Last Admin: 02/06/18 21:05 Dose: 10 mg Carbidopa/Levodopa (Sinemet 10 Mg-100 Mg) 1 tab PO BID [facility] Stop: 04/02/18 08:59 Last Admin: 02/07/18 09:32 Dose: 1 tab Cholecalciferol (Vitamin D3) 1,000 iu PO DAILY [facility] Stop: 04/02/18 08:59 Last Admin: 02/07/18 09:34 Dose: 1,000 iu Docusate Sodium (Colace) 100 mg PO DAILY [facility] Stop: 04/02/18 08:59 Last Admin: 02/07/18 09:32 Dose: 100 mg Donepezil HCl (Aricept) 5 mg PO HS [facility] Stop: 04/01/18 20:59 Last Admin: 02/06/18 21:05 Dose: 5 mg Econazole Nitrate (Spectazole 1% Cream) 1 appl TP BID [facility] Stop: 04/02/18 11:59 Last Admin: 02/06/18 16:56 Dose: 1 appl Loratadine (Claritin) 10 mg PO DAILY PRN PRN Reason: Allergy Symptoms Stop: 04/01/18 18:58 Lorazepam (Ativan) 0.5 mg PO Q4HR PRN; Protocol PRN Reason: Agitation Stop: 03/02/18 18:13 Last Admin: 02/06/18 02:28 Dose: 0.5 mg Magnesium Hydroxide (Milk Of Magnesia) 30 ml PO HS PRN PRN Reason: Constipation Memantine (Namenda) 5 mg PO DAILY [facility] Stop: 04/02/18 08:59 Last Admin: 02/07/18 09:32 Dose: 5 mg Miconazole Nitrate (Antifungal Wound Cream) 1 appl TP BID [facility] Stop: 04/05/18 17:59 Last Admin: 02/06/18 16:56 Dose: 1 appl Vitamin E (Vitamin E) 1,000 iu PO QOD [facility] Stop: 04/03/18 08:59 Last Admin: 02/06/18 09:19 Dose: 1,000 iu Zolpidem Tartrate (Ambien) 5 mg PO HS PRN PRN Reason: Insomnia Stop: 04/01/18 21:43 Last Admin: 02/05/18 20:53 Dose: 5 mg General: no acute distress, well developed, well nourished HEENT: atraumatic, normocephalic, PERRLA, EOMI Neck: supple, no thyromegaly Cardiovascular: S1S2, regular Lungs: clear to auscultation bilaterally, clear to percussion Abdomen: soft, no tender, no mass, no rebound Extremities: no cyanosis, no clubbing, no edema Neurological: awake, alert, oriented Skin: intact - Procedures Procedures: Procedures Procedure Code Date FLUOROSCOPY OF LEFT HEART USING LOW OSMOLAR CONTRAST [id number] 02/20/17 INSERT PACE. DUAL LAKHWINDER IN CHEST SUBCU/FASCIA, OPEN [id number] 02/20/17 INSERTION OF PACEMAKER LEAD INTO R VENTRICLE, PERC APPROACH [id number] 02/20/17 INSERTION OF PACEMAKER LEAD INTO RIGHT ATRIUM, PERC APPROACH [id number] 02/20/17 INSRT HEART PM ATRIAL & VENT [id number] 02/20/17 Infectious Disease Assmt/Plan - Problem List Patient Problems: All Active Problems CONFUSION WITH AGITATION/COMBATIVENESS (Acute) - Assessment Assessment: 1. Agitation, better controlled. 2. Hypertension, increased. 3. Seizure disorder. 4. Dementia. 5. Parkinson's disease. - Plan Plan: CPM. Nutritional Asmnt/Malnutr-PDOC - Dietary Evaluation Malnutrition Findings (Please click <Entered> for more info): Nutritional Asmnt/Malnutrition Start: 02/04/18 14: 20 Text: Status: Complete Freq: Protocol: Document 02/04/18 14:20 LCHENG (Rec: 02/04/18 14:26 [email or web address]) Nutritional Asmnt/Malnutrition Patient General Information Nutritional Screening Moderate Risk Diagnosis psychosis Pertinent Medical Hx/Surgical Hx HTn, dyslipidemia, seizures, arthritis, dementia, parkinson 's, major depression Subjective Information Pt seen sitting in kj-chair in dining room. Per SECURITY INSTALLER, pt consumed 75% of lunch today. Per EMR, PO intake 50-75%. Current Diet Order/ Nutrition Support [facility] soft ground ANGEL Pertinent Medications vit C, lipitor, vit D3, colace , vit E Pertinent Labs 01/31 glucose 108 Nutritional Hx/Data Height 1.47 m Height (Calculated Centimeters) 147.3 Current Weight (lbs) 48.534 kg Weight (Calculated Kilograms) 48.5 Weight (Calculated Grams) 28878.4 [place] Body Weight 96 Body Mass Index (BMI) 22.4 Weight Status Approriate GI Symptoms GI Symptoms None Last BM none noted Difficult in: None Skin Integrity/Comment: rash, lai score 16 Current %PO Good (75-100%) Estimated Nutritional Goals BEE in Kcals: Using Current wt Calories/Kcals/Kg 25-30 Kcals Calculated 5608-7656 Protein: Using Current wt Protein g/k Protein Calculated 48 Fluid: ml 1200-1440ml (1ml/kcal) Nutritional Problem No current Nutrition Prob Problem N/A Malnutrition Alert Is there a minimum of two criteria No selected? Query Text:Check all the applicable criteria. A minimum of two criteria are recommended for diagnosis of either severe or non-severe malnutrition. Malnutrition Related to Morbid Obesity Malnutrition related to morbid obesity No Intervention/Recommendation Comments 1. Continue with [facility] soft ground diet as ordered. 2. Monitor PO intake, wt, labs and skin integrity 3. F/U as low risk in 7 days, 02/11, PO check 02/06 Expected Outcomes/Goals Expected Outcomes/Goals 1. PO intake to meet at least 75% of nutritional needs. 2. Wt stability, skin to remain intact, labs to approach WNL.
[2018-02-07] MEDS: Miconazole Nitrate 2% Antifungal Wound Cream 4 oz. Tube TP SCH ×2 (15:01→17:21)
[2018-02-07] MEDS: Atorvastatin Calcium 10 MG TAB PO SCH (21:37)
--- NOTE | 2018-02-07 23:54 | Progress Notes ---
DATE: 02/07/2018 SUBJECTIVE: The patient seen, chart reviewed, discussed with staff. The patient is still unruly at times, difficult to control, still in a Rupal chair, very confused, disoriented, does not know what is going on or what is around her. Fair sleep, fair appetite, requiring a lot of redirection, prompting. ASSESSMENT: The patient remains symptomatic, still unruly, likely approaching her baseline. PLAN: We will continue to monitor and adjust medications. No overt side effects noted. No sedation. The patient is awake and alert but confused. JOB# [id number]
--- NOTE | 2018-02-08 06:48 | Progress Notes ---
DATE: SUBJECTIVE: The patient seen, chart reviewed, discussed with staff. The patient remains in a Rupal chair, very confused, disoriented, does not know what is going on. Currently, remains unruly, still with ongoing agitation, highly confused, still mumbling to self, fair sleep, fair appetite, requiring a lot of prompting, redirection. ASSESSMENT: The patient remains highly confused, disoriented, not currently safe for a lower level of care. No distress noted, some periods of agitation. PLAN: We will be increasing her dosing of medication today, increase dosing of Namenda. JOB# [id number]
[2018-02-08] MEDS: Aspirin 81mg Chewable Tab PO SCH (10:00)
[2018-02-08] MEDS: Econazole Nitrate 1% Cream 15 gm Tube TP SCH ×2 (10:01→17:37)
[2018-02-08] MEDS: Vitamin E 1,000 IU Sgl PO SCH (10:02)
[2018-02-08] MEDS: Multivitamin w/ Minerals Tab PO SCH (10:02)
[2018-02-08] MEDS: Carbidopa/Levodopa 10/100 mg Tab PO SCH ×2 (10:04→17:37)
[2018-02-08] MEDS: Miconazole Nitrate 2% Antifungal Wound Cream 4 oz. Tube TP SCH ×2 (12:31→17:36)
[2018-02-08] MEDS: Atorvastatin Calcium 10 MG TAB PO SCH (21:22)
[2018-02-09] MEDS: Aspirin 81mg Chewable Tab PO SCH (08:44)
[2018-02-09] MEDS: Miconazole Nitrate 2% Antifungal Wound Cream 4 oz. Tube TP SCH ×2 (08:46→18:27)
[2018-02-09] MEDS: Carbidopa/Levodopa 10/100 mg Tab PO SCH ×2 (08:46→18:30)
[2018-02-09] MEDS: Multivitamin w/ Minerals Tab PO SCH (09:00)
[2018-02-09] MEDS: Atorvastatin Calcium 10 MG TAB PO SCH (20:49)
--- NOTE | 2018-02-10 06:41 | Progress Notes ---
DATE: 02/09/2018 COVERING FOR: Dr. Sepulveda She is a 67-year-old female who was brought in here for increased agitation, combative behavior with the staff, disorganized. Today on [id number] evaluation, the patient in her Rupal chair in her unit, disengaged, confused, not knowing why she is in the hospital. Overnight nursing staff continued to . The patient is still disoriented, does not know what is going on and continues to be easily agitated and talking to herself. On examination, talking to herself, highly confused, disoriented. ASSESSMENT AND PLAN: disorientation, disorganized state, currently not stable for a lower level of care. We will continue with her current medication regimen, which includes atorvastatin, Coreg, benazepril 5 mg a day, Namenda 5 mg p.o. b.i.d. JOB# [id number]
[2018-02-10] MEDS: Vitamin E 1,000 IU Sgl PO SCH (09:27)
[2018-02-10] MEDS: Multivitamin w/ Minerals Tab PO SCH (09:27)
[2018-02-10] MEDS: Carbidopa/Levodopa 10/100 mg Tab PO SCH ×2 (09:28→16:49)
[2018-02-10] MEDS: Aspirin 81mg Chewable Tab PO SCH (09:29)
[2018-02-10] MEDS: Miconazole Nitrate 2% Antifungal Wound Cream 4 oz. Tube TP SCH ×2 (09:56→16:49)
[2018-02-10] MEDS: Atorvastatin Calcium 10 MG TAB PO SCH (21:33)
--- NOTE | 2018-02-10 22:50 | Progress Notes ---
DATE: 02/10/2018 The patient was seen and evaluated. The patient's chart reviewed. COVERING FOR: Dr. Sepulveda. Today on [id number] evaluation, the patient continues to be disengaged and confused in the interview, does not know where she is. No side effects noted by the patient. Slept about 7 hours last night. MENTAL STATUS EXAMINATION: Disoriented, disorganized. ASSESSMENT AND PLAN: Severe dementia, disoriented, needs a lot of redirection for simple ADLs. We will continue currently working very closely with the pillowcase turner for a safe disposition when the patient further stabilizes. JOB# [id number]
[2018-02-11] MEDS: Carbidopa/Levodopa 10/100 mg Tab PO SCH ×2 (09:25→17:08)
[2018-02-11] MEDS: Aspirin 81mg Chewable Tab PO SCH (09:25)
[2018-02-11] MEDS: Multivitamin w/ Minerals Tab PO SCH (09:25)
[2018-02-11] MEDS: Miconazole Nitrate 2% Antifungal Wound Cream 4 oz. Tube TP SCH ×2 (09:26→17:09)
--- NOTE | 2018-02-11 20:51 | Progress Notes ---
DATE: 02/11/[address] Sepulveda. SUBJECTIVE: The patient was seen and evaluated. The patient's chart reviewed. No complications overnight. Today on [id number] evaluation, the patient continues to be disoriented and disengaged in the interview. No side effects reported. Nursing staff also reports no side effects overnight. MENTAL STATUS EXAMINATION: Disoriented and confused. ASSESSMENT AND PLAN: Due to the patient's disorganized state, we will continue with the current medication regimen. She continues to feel ____ neurocognitive impairment. JOB# [id number]
[2018-02-11] MEDS: Atorvastatin Calcium 10 MG TAB PO SCH (20:53)
[2018-02-12] MEDS: Vitamin E 1,000 IU Sgl PO SCH (09:13)
[2018-02-12] MEDS: Carbidopa/Levodopa 10/100 mg Tab PO SCH ×2 (09:13→17:57)
[2018-02-12] MEDS: Multivitamin w/ Minerals Tab PO SCH (09:14)
[2018-02-12] MEDS: Aspirin 81mg Chewable Tab PO SCH (09:15)
[2018-02-12] MEDS: Miconazole Nitrate 2% Antifungal Wound Cream 4 oz. Tube TP SCH ×2 (10:07→17:58)
--- NOTE | 2018-02-12 17:39 | Internal Medicine Prog Note ---
Internal Medicine Objective - Results Result Diagrams: 01/31/18 15:45 01/31/18 15:45 Recent Labs: Laboratory Last Values WBC 5.6 Th/cmm (4.8-10.8) 01/31/18 15:45 RBC 3.84 Mil/cmm (3.80-5.20) 01/31/18 15:45 Hgb 12.0 gm/dL (12-16) 01/31/18 15:45 Hct 36.5 % (41.0-60) L 01/31/18 15:45 MCV 94.9 fl (81-100) 01/31/18 15:45 MCH 31.2 pg (27.0-31.0) H 01/31/18 15:45 MCHC Differential 32.9 pg (28.0-36.0) 01/31/18 15:45 RDW 12.4 % (11.5-20.0) 01/31/18 15:45 Plt Count 234 Th/cmm (150-400) 01/31/18 15:45 MPV 7.3 fl 01/31/18 15:45 Neutrophils % 44.8 % (40.0-80.0) 01/31/18 15:45 Lymphocytes % 36.0 % (20.0-50.0) 01/31/18 15:45 Monocytes % 12.7 % (2.0-10.0) H 01/31/18 15:45 Eosinophils % 5.8 % (0.0-5.0) H 01/31/18 15:45 Basophils % 0.7 % (0.0-2.0) 01/31/18 15:45 Sodium 139 mEq/L (136-145) 01/31/18 15:45 Potassium 4.2 mEq/L (3.5-5.1) 01/31/18 15:45 Chloride 102 mEq/L (98-107) 01/31/18 15:45 Carbon Dioxide 29.0 mEq/L (21.0-31.0) 01/31/18 15:45 Anion Gap 12.2 (7.0-16.0) 01/31/18 15:45 BUN 22 mg/dL (7-25) 01/31/18 15:45 Creatinine 0.9 mg/dL (0.6-1.2) 01/31/18 15:45 Est GFR ( Amer) > 60.0 ml/min (>90) 01/31/18 15:45 Est GFR (Non-Af Amer) > 60.0 ml/min 01/31/18 15:45 BUN/Creatinine Ratio 24.4 01/31/18 15:45 Glucose 108 mg/dL (70-105) H 01/31/18 15:45 Calcium 9.2 mg/dL (8.6-10.3) 01/31/18 15:45 Total Bilirubin 0.3 mg/dL (0.3-1.0) 01/31/18 15:45 AST 50 U/L (13-39) H 01/31/18 15:45 ALT 36 U/L (7-52) 01/31/18 15:45 Alkaline Phosphatase 172 U/L (34-104) H 01/31/18 15:45 Total Protein 7.4 gm/dL (6.0-8.3) 01/31/18 15:45 Albumin 3.7 gm/dL (3.7-5.3) 01/31/18 15:45 Globulin 3.7 gm/dL 01/31/18 15:45 Albumin/Globulin Ratio 1.0 (1.0-1.8) 01/31/18 15:45 Triglycerides 117 mg/dL (<150) 01/31/18 15:45 Cholesterol 170 mg/dL (<200) 01/31/18 15:45 LDL Cholesterol Direct 63 mg/dL (75-193) L 01/31/18 15:45 HDL Cholesterol 82 mg/dL (23-92) 01/31/18 15:45 TSH 0.56 uIU/ml (0.34-5.60) 01/31/18 15:45 Urine Source CLEAN C 01/31/18 16:13 Urine Color YELLOW 01/31/18 16:13 Urine Clarity CLEAR (CLEAR) 01/31/18 16:13 Urine pH 6.5 (4.6 - 8.0) 01/31/18 16:13 Ur Specific [place] 1.020 (1.005-1.030) 01/31/18 16:13 Urine Protein NEGATIVE mg/dL (NEGATIVE) 01/31/18 16:13 Urine Glucose (UA) NEGATIVE mg/dL (NEGATIVE) 01/31/18 16:13 Urine Ketones NEGATIVE mg/dL (NEGATIVE) 01/31/18 16:13 Urine Blood NEGATIVE (NEGATIVE) 01/31/18 16:13 Urine Nitrate NEGATIVE (NEGATIVE) 01/31/18 16:13 Urine Bilirubin NEGATIVE (NEGATIVE) 01/31/18 16:13 Urine Urobilinogen 0.2 E.U./dL (0.2 - 1.0) 01/31/18 16:13 Ur Leukocyte Esterase NEGATIVE (NEGATIVE) 01/31/18 16:13 Urine RBC NONE SEEN /hpf (0-5) 01/31/18 16:13 Urine WBC 2-5 /hpf (0-5) 01/31/18 16:13 Ur Epithelial Cells FEW /lpf (FEW) 01/31/18 16:13 Urine Bacteria OCCASIONAL /hpf (NONE SEEN) 01/31/18 16:13 Salicylates < 25.0 mg/L (30.0-100.0) L 01/31/18 15:45 Urine Opiates Screen NEGATIVE (NEGATIVE) 01/31/18 16:15 Urine Methadone Screen NEGATIVE (NEGATIVE) 01/31/18 16:15 Acetaminophen < 10.0 ug/mL (10.0-30.0) L 01/31/18 15:45 Ur Barbiturates Screen NEGATIVE (NEGATIVE) 01/31/18 16:15 Valproic Acid 34.2 ug/mL (50.0-100.0) L 01/31/18 15:45 Ur Tricyclics Screen NEGATIVE (NEGATIVE) 01/31/18 16:15 Ur Phencyclidine Scrn NEGATIVE (NEGATIVE) 01/31/18 16:15 Amphetamines Screen NEGATIVE (NEGATIVE) 01/31/18 16:15 U Methamphetamines Scrn NEGATIVE (NEGATIVE) 01/31/18 16:15 U Benzodiazepines Scrn NEGATIVE (NEGATIVE) 01/31/18 16:15 U Cocaine Metab Screen NEGATIVE (NEGATIVE) 01/31/18 16:15 U Cannabinoids Screen NEGATIVE (NEGATIVE) 01/31/18 16:15 Ethyl Alcohol < 10 mg/dL (0-10) 01/31/18 15:45 RPR NONREACTIVE (NONREACTIVE) 01/31/18 15:45 - Physical Exam Vitals and I&O: Vital Signs Temp 97.1 F 02/12/18 14:00 Pulse 78 02/12/18 14:00 Resp 18 02/12/18 14:00 BP 114/75 02/12/18 14:00 Pulse Ox 96 02/12/18 14:00 Intake & Output 02/11/18 02/12/18 02/12/18 18:59 06:59 18:59 Intake Total 1200 240 Balance 1200 240 Intake: Oral 1200 240 Other: # Voids 4 2 # Bowel Movements 1 Active Medications: Current Medications Acetaminophen (Tylenol) 650 mg PO Q4HR PRN PRN Reason: Mild Pain 1-3/ Temp above 100 Stop: 04/01/18 18:13 Acetaminophen (Tylenol Extra Strength) 1,000 mg PO Q4HR PRN PRN Reason: MODERATE PAIN 4-7 Stop: 04/01/18 18:58 Al Hydrox/Mg Hydrox/Simethicone (Maalox) 30 ml PO Q4HR PRN PRN Reason: GI DISTRESS Stop: 04/01/18 18:13 Amlodipine Besylate (Norvasc) 2.5 mg PO DAILY [facility] Stop: 04/02/18 08:59 Last Admin: 02/12/18 09:13 Dose: 2.5 mg Ascorbic Acid (Vitamin C) 500 mg PO BID [facility] Stop: 04/02/18 08:59 Last Admin: 02/12/18 09:15 Dose: 500 mg Aspirin (Aspirin Chewable) 81 mg PO DAILY [facility] Stop: 04/02/18 08:59 Last Admin: 02/12/18 09:15 Dose: 81 mg Atorvastatin Calcium (Lipitor) 10 mg PO [facility]; Protocol Stop: 04/01/18 20:59 Last Admin: 02/11/18 20:53 Dose: 10 mg Carbidopa/Levodopa (Sinemet 10 Mg-100 Mg) 1 tab PO BID [facility] Stop: 04/02/18 08:59 Last Admin: 02/12/18 09:13 Dose: 1 tab Cholecalciferol (Vitamin D3) 1,000 iu PO DAILY [facility] Stop: 04/02/18 08:59 Last Admin: 02/12/18 09:15 Dose: 1,000 iu Docusate Sodium (Colace) 100 mg PO DAILY [facility] Stop: 04/02/18 08:59 Last Admin: 02/12/18 09:15 Dose: 100 mg Donepezil HCl (Aricept) 5 mg PO [facility] Stop: 04/01/18 20:59 Last Admin: 02/11/18 20:54 Dose: 5 mg Loratadine (Claritin) 10 mg PO DAILY PRN PRN Reason: Allergy Symptoms Stop: 04/01/18 18:58 Last Admin: 02/08/18 10:11 Dose: 10 mg Lorazepam (Ativan) 0.5 mg PO Q4HR PRN; Protocol PRN Reason: Anxiety Stop: 03/13/18 02:52 Last Admin: 02/11/18 20:53 Dose: 0.5 mg Magnesium Hydroxide (Milk Of Magnesia) 30 ml PO HS PRN PRN Reason: Constipation Memantine (Namenda) 5 mg PO BID [facility] Stop: 04/09/18 08:59 Last Admin: 02/12/18 09:13 Dose: 5 mg Miconazole Nitrate (Antifungal Wound Cream) 1 appl TP BID [facility] Stop: 04/05/18 17:59 Last Admin: 02/12/18 10:07 Dose: 1 appl Vitamin E (Vitamin E) 1,000 iu PO QOD [facility] Stop: 04/03/18 08:59 Last Admin: 02/12/18 09:13 Dose: 1,000 iu Zolpidem Tartrate (Ambien) 5 mg PO HS PRN PRN Reason: Insomnia Stop: 04/12/18 02:52 - Procedures Procedures: Procedures Procedure Code Date FLUOROSCOPY OF LEFT HEART USING LOW OSMOLAR CONTRAST [id number] 02/20/17 INSERT PACE. DUAL LAKHWINDER IN CHEST SUBCU/FASCIA, OPEN [id number] 02/20/17 INSERTION OF PACEMAKER LEAD INTO R VENTRICLE, PERC APPROACH [id number] 02/20/17 INSERTION OF PACEMAKER LEAD INTO RIGHT ATRIUM, PERC APPROACH [id number] 02/20/17 INSRT HEART PM ATRIAL & VENT [id number] 02/20/17 Nutritional Asmnt/Malnutr-PDOC - Dietary Evaluation Malnutrition Findings (Please click <Entered> for more info): Nutritional Asmnt/Malnutrition Start: 02/04/18 14: 20 Text: Status: Complete Freq: Protocol: Document 02/04/18 14:20 LCMADIG (Rec: 02/04/18 14:26 LCMADIG [email or web address]) Nutritional Asmnt/Malnutrition Patient General Information Nutritional Screening Moderate Risk Diagnosis psychosis Pertinent Medical Hx/Surgical Hx HTn, dyslipidemia, seizures, arthritis, dementia, parkinson 's, major depression Subjective Information Pt seen sitting in kj-chair in dining room. Per TELECOM MANAGER, pt consumed 75% of lunch today. Per EMR, PO intake 50-75%. Current Diet Order/ Nutrition Support [facility] soft ground ANGEL Pertinent Medications vit C, lipitor, vit D3, colace , vit E Pertinent Labs 01/31 glucose 108 Nutritional Hx/Data Height 1.47 m Height (Calculated Centimeters) 147.3 Current Weight (lbs) 48.534 kg Weight (Calculated Kilograms) 48.5 Weight (Calculated Grams) 77795.4 [place] Body Weight 96 Body Mass Index (BMI) 22.4 Weight Status Approriate GI Symptoms GI Symptoms None Last BM none noted Difficult in: None Skin Integrity/Comment: rash, lai score 16 Current %PO Good (75-100%) Estimated Nutritional Goals BEE in Kcals: Using Current wt Calories/Kcals/Kg 25-30 Kcals Calculated 1746-6352 Protein: Using Current wt Protein g/k Protein Calculated 48 Fluid: ml 1200-1440ml (1ml/kcal) Nutritional Problem No current Nutrition Prob Problem N/A Malnutrition Alert Is there a minimum of two criteria No selected? Query Text:Check all the applicable criteria. A minimum of two criteria are recommended for diagnosis of either severe or non-severe malnutrition. Malnutrition Related to Morbid Obesity Malnutrition related to morbid obesity No Intervention/Recommendation Comments 1. Continue with [facility] soft ground diet as ordered. 2. Monitor PO intake, wt, labs and skin integrity 3. F/U as low risk in 7 days, 02/11, PO check 02/06 Expected Outcomes/Goals Expected Outcomes/Goals 1. PO intake to meet at least 75% of nutritional needs. 2. Wt stability, skin to remain intact, labs to approach WNL.
[2018-02-12] MEDS: Atorvastatin Calcium 10 MG TAB PO SCH (20:23)
--- NOTE | 2018-02-12 22:51 | Progress Notes ---
DATE: 02/12/2018 Dr. Grant covering for Dr. Sepulveda. SUBJECTIVE: Chart reviewed and the patient interviewed. The patient is still confused. She also has labile affect. The patient also is laughing by herself and she still seems to be confused. She also rambling and have disorganized thoughts. Otherwise, no major behavioral issues or behavior problems and she is cooperative in regard to her treatment. She continued to take care psychotropic medications with no side effects. ASSESSMENT: The patient is still confused and still forgetful. TREATMENT PLAN: Continue Aricept and Namenda same dose. Also, continue working on behavior modification and adjusting psychotropic medications and followup. JOB# [id number]
[2018-02-13] MEDS: Carbidopa/Levodopa 10/100 mg Tab PO SCH ×2 (08:18→16:15)
[2018-02-13] MEDS: Aspirin 81mg Chewable Tab PO SCH (08:19)
[2018-02-13] MEDS: Multivitamin w/ Minerals Tab PO SCH (08:19)
[2018-02-13] MEDS: Miconazole Nitrate 2% Antifungal Wound Cream 4 oz. Tube TP SCH ×2 (08:20→16:15)
--- NOTE | 2018-02-13 14:47 | General Progress Note ---
Subjective - Review of Systems Events since last encounter: pt. is confused, no acute distress Objective - Results Result Diagrams: 01/31/18 15:45 01/31/18 15:45 Recent Labs: Laboratory Last Values WBC 5.6 Th/cmm (4.8-10.8) 01/31/18 15:45 RBC 3.84 Mil/cmm (3.80-5.20) 01/31/18 15:45 Hgb 12.0 gm/dL (12-16) 01/31/18 15:45 Hct 36.5 % (41.0-60) L 01/31/18 15:45 MCV 94.9 fl (81-100) 01/31/18 15:45 MCH 31.2 pg (27.0-31.0) H 01/31/18 15:45 MCHC Differential 32.9 pg (28.0-36.0) 01/31/18 15:45 RDW 12.4 % (11.5-20.0) 01/31/18 15:45 Plt Count 234 Th/cmm (150-400) 01/31/18 15:45 MPV 7.3 fl 01/31/18 15:45 Neutrophils % 44.8 % (40.0-80.0) 01/31/18 15:45 Lymphocytes % 36.0 % (20.0-50.0) 01/31/18 15:45 Monocytes % 12.7 % (2.0-10.0) H 01/31/18 15:45 Eosinophils % 5.8 % (0.0-5.0) H 01/31/18 15:45 Basophils % 0.7 % (0.0-2.0) 01/31/18 15:45 Sodium 139 mEq/L (136-145) 01/31/18 15:45 Potassium 4.2 mEq/L (3.5-5.1) 01/31/18 15:45 Chloride 102 mEq/L (98-107) 01/31/18 15:45 Carbon Dioxide 29.0 mEq/L (21.0-31.0) 01/31/18 15:45 Anion Gap 12.2 (7.0-16.0) 01/31/18 15:45 BUN 22 mg/dL (7-25) 01/31/18 15:45 Creatinine 0.9 mg/dL (0.6-1.2) 01/31/18 15:45 Est GFR ( Amer) > 60.0 ml/min (>90) 01/31/18 15:45 Est GFR (Non-Af Amer) > 60.0 ml/min 01/31/18 15:45 BUN/Creatinine Ratio 24.4 01/31/18 15:45 Glucose 108 mg/dL (70-105) H 01/31/18 15:45 Calcium 9.2 mg/dL (8.6-10.3) 01/31/18 15:45 Total Bilirubin 0.3 mg/dL (0.3-1.0) 01/31/18 15:45 AST 50 U/L (13-39) H 01/31/18 15:45 ALT 36 U/L (7-52) 01/31/18 15:45 Alkaline Phosphatase 172 U/L (34-104) H 01/31/18 15:45 Total Protein 7.4 gm/dL (6.0-8.3) 01/31/18 15:45 Albumin 3.7 gm/dL (3.7-5.3) 01/31/18 15:45 Globulin 3.7 gm/dL 01/31/18 15:45 Albumin/Globulin Ratio 1.0 (1.0-1.8) 01/31/18 15:45 Triglycerides 117 mg/dL (<150) 01/31/18 15:45 Cholesterol 170 mg/dL (<200) 01/31/18 15:45 LDL Cholesterol Direct 63 mg/dL (75-193) L 01/31/18 15:45 HDL Cholesterol 82 mg/dL (23-92) 01/31/18 15:45 TSH 0.56 uIU/ml (0.34-5.60) 01/31/18 15:45 Urine Source CLEAN C 01/31/18 16:13 Urine Color YELLOW 01/31/18 16:13 Urine Clarity CLEAR (CLEAR) 01/31/18 16:13 Urine pH 6.5 (4.6 - 8.0) 01/31/18 16:13 Ur Specific [place] 1.020 (1.005-1.030) 01/31/18 16:13 Urine Protein NEGATIVE mg/dL (NEGATIVE) 01/31/18 16:13 Urine Glucose (UA) NEGATIVE mg/dL (NEGATIVE) 01/31/18 16:13 Urine Ketones NEGATIVE mg/dL (NEGATIVE) 01/31/18 16:13 Urine Blood NEGATIVE (NEGATIVE) 01/31/18 16:13 Urine Nitrate NEGATIVE (NEGATIVE) 01/31/18 16:13 Urine Bilirubin NEGATIVE (NEGATIVE) 01/31/18 16:13 Urine Urobilinogen 0.2 E.U./dL (0.2 - 1.0) 01/31/18 16:13 Ur Leukocyte Esterase NEGATIVE (NEGATIVE) 01/31/18 16:13 Urine RBC NONE SEEN /hpf (0-5) 01/31/18 16:13 Urine WBC 2-5 /hpf (0-5) 01/31/18 16:13 Ur Epithelial Cells FEW /lpf (FEW) 01/31/18 16:13 Urine Bacteria OCCASIONAL /hpf (NONE SEEN) 01/31/18 16:13 Salicylates < 25.0 mg/L (30.0-100.0) L 01/31/18 15:45 Urine Opiates Screen NEGATIVE (NEGATIVE) 01/31/18 16:15 Urine Methadone Screen NEGATIVE (NEGATIVE) 01/31/18 16:15 Acetaminophen < 10.0 ug/mL (10.0-30.0) L 01/31/18 15:45 Ur Barbiturates Screen NEGATIVE (NEGATIVE) 01/31/18 16:15 Valproic Acid 34.2 ug/mL (50.0-100.0) L 01/31/18 15:45 Ur Tricyclics Screen NEGATIVE (NEGATIVE) 01/31/18 16:15 Ur Phencyclidine Scrn NEGATIVE (NEGATIVE) 01/31/18 16:15 Amphetamines Screen NEGATIVE (NEGATIVE) 01/31/18 16:15 U Methamphetamines Scrn NEGATIVE (NEGATIVE) 01/31/18 16:15 U Benzodiazepines Scrn NEGATIVE (NEGATIVE) 01/31/18 16:15 U Cocaine Metab Screen NEGATIVE (NEGATIVE) 01/31/18 16:15 U Cannabinoids Screen NEGATIVE (NEGATIVE) 01/31/18 16:15 Ethyl Alcohol < 10 mg/dL (0-10) 01/31/18 15:45 RPR NONREACTIVE (NONREACTIVE) 01/31/18 15:45 - Physical Exam Vitals and I&O: Vital Signs Temp 97.1 F 02/13/18 14:00 Pulse 81 02/13/18 14:00 Resp 20 02/13/18 14:00 BP 122/72 02/13/18 14:00 Pulse Ox 97 02/13/18 14:00 Intake & Output 02/12/18 02/13/18 02/13/18 18:59 06:59 18:59 Intake Total 800 240 Balance 800 240 Intake: Oral 800 240 Other: # Voids 4 2 # Bowel Movements 1 0 Active Medications: Current Medications Acetaminophen (Tylenol) 650 mg PO Q4HR PRN PRN Reason: Mild Pain 1-3/ Temp above 100 Stop: 04/01/18 18:13 Acetaminophen (Tylenol Extra Strength) 1,000 mg PO Q4HR PRN PRN Reason: MODERATE PAIN 4-7 Stop: 04/01/18 18:58 Al Hydrox/Mg Hydrox/Simethicone (Maalox) 30 ml PO Q4HR PRN PRN Reason: GI DISTRESS Stop: 04/01/18 18:13 Amlodipine Besylate (Norvasc) 2.5 mg PO DAILY [facility] Stop: 04/02/18 08:59 Last Admin: 02/13/18 08:17 Dose: 2.5 mg Ascorbic Acid (Vitamin C) 500 mg PO BID [facility] Stop: 04/02/18 08:59 Last Admin: 02/13/18 08:18 Dose: 500 mg Aspirin (Aspirin Chewable) 81 mg PO DAILY [facility] Stop: 04/02/18 08:59 Last Admin: 02/13/18 08:19 Dose: 81 mg Atorvastatin Calcium (Lipitor) 10 mg PO HS [facility]; Protocol Stop: 04/01/18 20:59 Last Admin: 02/12/18 20:23 Dose: 10 mg Carbidopa/Levodopa (Sinemet 10 Mg-100 Mg) 1 tab PO BID [facility] Stop: 04/02/18 08:59 Last Admin: 02/13/18 08:18 Dose: 1 tab Cholecalciferol (Vitamin D3) 1,000 iu PO DAILY [facility] Stop: 04/02/18 08:59 Last Admin: 02/13/18 08:19 Dose: 1,000 iu Docusate Sodium (Colace) 100 mg PO DAILY [facility] Stop: 04/02/18 08:59 Last Admin: 02/13/18 08:19 Dose: 100 mg Donepezil HCl (Aricept) 5 mg PO HS [facility] Stop: 04/01/18 20:59 Last Admin: 02/12/18 20:23 Dose: 5 mg Loratadine (Claritin) 10 mg PO DAILY PRN PRN Reason: Allergy Symptoms Stop: 04/01/18 18:58 Last Admin: 02/13/18 08:20 Dose: 10 mg Lorazepam (Ativan) 0.5 mg PO Q4HR PRN; Protocol PRN Reason: Anxiety Stop: 03/13/18 02:52 Last Admin: 02/11/18 20:53 Dose: 0.5 mg Magnesium Hydroxide (Milk Of Magnesia) 30 ml PO HS PRN PRN Reason: Constipation Memantine (Namenda) 5 mg PO BID [facility] Stop: 04/09/18 08:59 Last Admin: 02/13/18 08:19 Dose: 5 mg Miconazole Nitrate (Antifungal Wound Cream) 1 appl TP BID [facility] Stop: 04/05/18 17:59 Last Admin: 02/13/18 08:20 Dose: 1 appl Vitamin E (Vitamin E) 1,000 iu PO QOD [facility] Stop: 04/03/18 08:59 Last Admin: 02/12/18 09:13 Dose: 1,000 iu Zolpidem Tartrate (Ambien) 5 mg PO HS PRN PRN Reason: Insomnia Stop: 04/12/18 02:52 General: Alert, No acute distress HEENT: Atraumatic Neck: Supple Cardiovascular: Regular rate Lungs: Clear to auscultation Abdomen: Bowel sounds Extremities: Pulses Psych/Mental Status: Other (confused) - Procedures Procedures: Procedures Procedure Code Date FLUOROSCOPY OF LEFT HEART USING LOW OSMOLAR CONTRAST [id number] 02/20/17 INSERT PACE. DUAL LAKHWINDER IN CHEST SUBCU/FASCIA, OPEN [id number] 02/20/17 INSERTION OF PACEMAKER LEAD INTO R VENTRICLE, PERC APPROACH [id number] 02/20/17 INSERTION OF PACEMAKER LEAD INTO RIGHT ATRIUM, PERC APPROACH [id number] 02/20/17 INSRT HEART PM ATRIAL & VENT [id number] 02/20/17 Assessment/Plan - Problem List Patient Problems: All Active Problems CONFUSION WITH AGITATION/COMBATIVENESS (Acute) - Assessment Assessment: agitation hypertension seizure disorder dementia parkinson's disease - Plan Plan: cpm Nutritional Asmnt/Malnutr-PDOC - Dietary Evaluation Malnutrition Findings (Please click <Entered> for more info): Nutritional Asmnt/Malnutrition Start: 02/04/18 14: 20 Text: Status: Complete Freq: Protocol: Document 02/04/18 14:20 BABS (Rec: 02/04/18 14:26 [email or web address]) Nutritional Asmnt/Malnutrition Patient General Information Nutritional Screening Moderate Risk Diagnosis psychosis Pertinent Medical Hx/Surgical Hx HTn, dyslipidemia, seizures, arthritis, dementia, parkinson 's, major depression Subjective Information Pt seen sitting in kj-chair in dining room. Per ASSISTANT COMMUNITY MANAGER, pt consumed 75% of lunch today. Per EMR, PO intake 50-75%. Current Diet Order/ Nutrition Support mech soft ground ANGEL Pertinent Medications vit C, lipitor, vit D3, colace , vit E Pertinent Labs 01/31 glucose 108 Nutritional Hx/Data Height 1.47 m Height (Calculated Centimeters) 147.3 Current Weight (lbs) 48.534 kg Weight (Calculated Kilograms) 48.5 Weight (Calculated Grams) 74065.4 [place] Body Weight 96 Body Mass Index (BMI) 22.4 Weight Status Approriate GI Symptoms GI Symptoms None Last BM none noted Difficult in: None Skin Integrity/Comment: rash, lai score 16 Current %PO Good (75-100%) Estimated Nutritional Goals BEE in Kcals: Using Current wt Calories/Kcals/Kg 25-30 Kcals Calculated [id number] Protein: Using Current wt Protein g/k Protein Calculated 48 Fluid: ml 1200-1440ml (1ml/kcal) Nutritional Problem No current Nutrition Prob Problem N/A Malnutrition Alert Is there a minimum of two criteria No selected? Query Text:Check all the applicable criteria. A minimum of two criteria are recommended for diagnosis of either severe or non-severe malnutrition. Malnutrition Related to Morbid Obesity Malnutrition related to morbid obesity No Intervention/Recommendation Comments 1. Continue with [facility] soft ground diet as ordered. 2. Monitor PO intake, wt, labs and skin integrity 3. F/U as low risk in 7 days, 02/11, PO check 02/06 Expected Outcomes/Goals Expected Outcomes/Goals 1. PO intake to meet at least 75% of nutritional needs. 2. Wt stability, skin to remain intact, labs to approach WNL.
[2018-02-13] MEDS: Atorvastatin Calcium 10 MG TAB PO SCH (20:29)
--- NOTE | 2018-02-13 22:17 | Progress Notes ---
DATE: 02/13/2018 The patient remains confused, labile at times, rambling, nonsensical, forgetful, likely approaching her baseline, no overt side effects to medications, still in a Rupal chair at times, still trying to get up. Remains impulsive, unpredictable, tolerant to treatment thus far. No EPS for example. ASSESSMENT: The patient approaching her baseline. We will prepare for disposition tomorrow. JOB# [id number]
[2018-02-14] MEDS: Multivitamin w/ Minerals Tab PO SCH (09:07)
[2018-02-14] MEDS: Carbidopa/Levodopa 10/100 mg Tab PO SCH (09:07)
[2018-02-14] MEDS: Aspirin 81mg Chewable Tab PO SCH (09:07)
[2018-02-14] MEDS: Vitamin E 1,000 IU Sgl PO SCH (09:07)
[2018-02-14] MEDS: Miconazole Nitrate 2% Antifungal Wound Cream 4 oz. Tube TP SCH (09:19)
--- NOTE | 2018-02-14 19:22 | Discharge Summary ---
DATE OF DISCHARGE: 02/14/2018 JUSTIFICATION FOR HOSPITALIZATION: Unruly behavior, agitation, could not be controlled by assisted staff. HISTORY OF PRESENT ILLNESS: A 67-year-old female, confused, disoriented, history of dementia. On [id number], the patient is very confused, AO to name only. States that she is in bed. Does not know where she is, does not the year or the month. Noted to be restless, requiring a Rupal chair, trying to get up. PAST PSYCHIATRIC HISTORY: Hospitalizations in the past. SOCIAL HISTORY: Requiring a higher level of residential home care. MEDICATIONS: Noted. PROVISIONAL DIAGNOSES: Dementia; dementia with behavioral disturbances; mood, unspecified; and anxiety, unspecified. MEDICAL: Please see full H and P. HOSPITAL COURSE: After initial assessment, the patient's medications were adjusted and titrated. Over the course of the hospitalization, she did calm down. She was still restless at times, at times needing to be in the Rupal chair; however, toward the latter end of the hospitalization, she was not combative. She was not aggressive. Staff noting robust improvement. Tolerant of treatment. No side effects. CONDITION UPON DISCHARGE: Improved. Fair ADLs, allowing ADLs, good eye contact. Mood "okay." Remains disoriented, confused, no SI, no HI. No suicidal gestures. No combative behaviors. No evidence of psychosis. Improved impulse control. PROVISIONAL DIAGNOSES: Dementia; dementia with behavior disturbance; anxiety, unspecified; and mood, unspecified. PROGNOSIS: The patient follows up with outpatient mental health services, remains compliant to treatment. Prognosis will improve, otherwise guarded. JOB# [id number]
== END 2018-02-14 14:00 | DRG 884 ==
LOC: ER 15:25 → GERO 17:26
PROVIDERS: ADMIT Psychiatry & Neurology Psychiatry; ATTEND Psychiatry & Neurology Psychiatry
DX: F03.91 Unspecified dementia, unspecified severity, with behavioral disturbance (principal); F41.9 Anxiety disorder, unspecified; F39 Unspecified mood [affective] disorder; G20 Parkinson's disease; I10 Essential (primary) hypertension; E78.5 Hyperlipidemia, unspecified; M19.90 Unspecified osteoarthritis, unspecified site; F32.9 Major depressive disorder, single episode, unspecified; G40.909 Epilepsy, unspecified, not intractable, without status epilepticus
CPT/HCPCS: 36415-UA; 80053-TC; 80061-TC; 80164-TC; 80307; 80320-TC; 80329-TC; 81001-TC; 83036-90; 84443-TC; 85025-TC; 86592-TC; 93005; G0410; J2060; Z7610

== ENCOUNTER 2018-06-20 16:52 | Inpatient (IN) | payer MEDICARE, MEDICAID ==
--- NOTE | 2018-06-20 17:04 | ED Physician Chart ---
ED Chief Complaint/HPI - Patient Information Date Seen:: 06/20/18 Time Seen:: 16:55 Chief Complaint:: left elbow trauma History of Present Illness:: Witnessed slip and fall at 12:30 today. Patient is normally oriented 1 only. Only injuries is to the left elbow. X-ray taken showed possible nondisplaced fracture radial head left elbow. Allergies:: Allergies Allergy/AdvReac Type Severity Reaction Status Date / Time No Known Allergies Allergy Verified 08/20/17 23:54 Historian:: EMS Review:: Transfer documents Reviewed ED Review of Systems - Review of Systems General/Constitutional: No fever, No chills, No weight loss, No weakness, No diaphoresis, No edema, No loss of appetite Skin: No skin lesions, No rash, No bruising Head: No headache, No light-headedness Eyes: No loss of vision, No pain, No diplopia ENT: No earache, No nasal drainage, No sore throat, No tinnitus Neck: No neck pain, No swelling, No thyromegaly, No stiffness, No mass noted Cardio Vascular: No chest pain, No palpitations, No PND, No orthopnea, No edema Pulmonary: No SOB, No cough, No sputum, No wheezing GI: No nausea, No vomiting, No diarrhea, No pain, No melena, No hematochezia, No constipation, No hematemesis G/U: No dysuria, No frequency, No hematuria Musculoskeletal: Bone or joint pain, No back pain, No muscle pain Endocrine: No polyuria, No polydipsia Psychiatric: No prior psych history, No depression, No anxiety, No suicidal ideation Hematopoietic: No bruising, No lymphadenopathy Allergic/Immuno: No urticaria, No angioedema Neurological: No syncope, No focal symptoms, No weakness, No paresthesia, No headache, No seizure, No dizziness, No confusion, No vertigo ED Past Medical History - Past Medical History Past Medical History: HTN, Dementia Family History: Other (unavailable) Social History: Care Facility Surgical History: other (pacemaker) Psychiatricy History: Dementia Medication: Reviewed Family Medical History - Family Member Mother History Unknown: Yes Ethnicity: Unknown Living Status: Unknown ED Physical Exam - Physical Examination General/Constitutional: Awake, Well-developed, well-nourished, Alert Other Gen/Cons comments:: Nonverbal Head: Atraumatic Eyes: Lids, conjuctiva normal, PERRL Other Skin comments:: About 5 cm skin tear posterior left. Patient noted to have full range of motion without resistance of the left elbow ENMT: External ears, nose nl Other ENMT comments:: Edentulous Neck: No nuchal rigidity Respiratory: Nl effort/Exclusion, Clear to Auscultation Cardio Vascular: RRR GI: No tenderness/rebounding/guarding : No CVA tenderness Other Extremities comments:: See under skin; upper extremity tremors; flexion deformity fingers left hand ED Labs/Radiology/EKG Results - Lab Results Results: Laboratory Results WBC 6.9 Th/cmm (4.8-10.8) 06/20/18 17:26 RBC 3.95 Mil/cmm (3.80-5.20) 06/20/18 17:26 Hgb 12.1 gm/dL (12-16) 06/20/18 17:26 Hct 37.1 % (41.0-60) L 06/20/18 17:26 MCV 94.0 fl (81-100) 06/20/18 17:26 MCH 30.6 pg (27.0-31.0) 06/20/18 17:26 MCHC Differential 32.6 pg (28.0-36.0) 06/20/18 17:26 RDW 11.9 % (11.5-20.0) 06/20/18 17:26 Plt Count 263 Th/cmm (150-400) 06/20/18 17:26 MPV 7.1 fl 06/20/18 17:26 Neutrophils % 49.6 % (40.0-80.0) 06/20/18 17:26 Lymphocytes % 36.4 % (20.0-50.0) 06/20/18 17:26 Monocytes % 10.5 % (2.0-10.0) H 06/20/18 17:26 Eosinophils % 2.8 % (0.0-5.0) 06/20/18 17:26 Basophils % 0.7 % (0.0-2.0) 06/20/18 17:26 Sodium 137 mEq/L (136-145) 06/20/18 17:26 Potassium 4.2 mEq/L (3.5-5.1) 06/20/18 17:26 Chloride 102 mEq/L (98-107) 06/20/18 17:26 Carbon Dioxide 28.2 mEq/L (21.0-31.0) 06/20/18 17:26 Anion Gap 11.0 (7.0-16.0) 06/20/18 17:26 BUN 22 mg/dL (7-25) 06/20/18 17:26 Creatinine 0.9 mg/dL (0.6-1.2) 06/20/18 17:26 Est GFR ( Amer) > 60.0 ml/min (>90) 06/20/18 17:26 Est GFR (Non-Af Amer) > 60.0 ml/min 06/20/18 17:26 BUN/Creatinine Ratio 24.4 06/20/18 17:26 Glucose 121 mg/dL (70-105) H 06/20/18 17:26 Calcium 9.3 mg/dL (8.6-10.3) 06/20/18 17:26 - Radiology Results Results: to pr X-ray left elbow shows osteopenia and severe arthritis but no fracture - EKG Interpretations Rate & Rhythm: normal sinus rhythm with a rate of 78 [place]: normal ED Septic Shock - . Is Septic Shock (SBP<90, OR Lactate>4 mmol\L) present?: No ED Reassessment (Disposition) - Reassessment Reassessment Condition:: Unchanged - Diagnosis Diagnosis:: Skin tear left elbow; dementia - Patient Disposition Admitted to:: Med/Surg Spoke to:: Karma Perez Admitting Medical Physician:: Karma Perez Condition at Disposition:: Stable, Unchanged
[2018-06-20 17:32] LABS: % BASOPHILS 0.7 % (0.0-2.0); % EOSINOPHILS 2.8 % (0.0-5.0); % LYMPHOCYTES 36.4 % (20.0-50.0); % MONOCYTES 10.5 % (2.0-10.0); % NEUTROPHILS 49.6 % (40.0-80.0); EOSINOPHILE ABSOLUTE 0.2 Th/cmm (0.1-0.4); HEMATOCRIT 37.1 % (41.0-60); HEMOGLOBIN 12.1 gm/dL (12-16); LYMPHOCYTE ABSOLUTE 2.5 Th/cmm (1.5-3.0); MEAN CORPUSCULAR HEMOGLOBIN 30.6 pg (27.0-31.0); MEAN CORPUSCULAR HGB CONC 32.6 pg (28.0-36.0); MEAN PLATELET VOLUME 7.1 fl; MONOCYTE ABSOLUTE 0.7 Th/cmm (0.3-1.0); NEUTROPHILE ABSOLUTE 3.5 Th/cmm (1.8-8.0); PLATELET COUNT 263 Th/cmm (150-400); RED BLOOD COUNT 3.95 Mil/cmm (3.80-5.20); RED CELL DISTRIBUTION WIDTH 11.9 % (11.5-20.0); WHITE BLOOD COUNT 6.9 Th/cmm (4.8-10.8)
[2018-06-20] MEDS ORDERED: Triple Antibiotic 0.94 gm Pkt TP ONE (17:40)
[2018-06-20 17:47] LABS: BUN - UREA NITROGEN 22 mg/dL (7-25); CALCIUM SERUM 9.3 mg/dL (8.6-10.3); CARBON DIOXIDE 28.2 mEq/L (21.0-31.0); CHLORIDE 102 mEq/L (98-107); CREATININE - SERUM 0.9 mg/dL (0.6-1.2); GFR AFRICAN-AMERICAN > 60.0 ml/min (>90); GFR NON AFRICAN-AMERICAN > 60.0 ml/min; GLUCOSE 121 mg/dL (70-105); POTASSIUM SERUM 4.2 mEq/L (3.5-5.1); SODIUM SERUM 137 mEq/L (136-145)
[2018-06-20] MEDS ORDERED: Triple Antibiotic 0.94 gm Pkt TP STA (17:47)
[2018-06-20] MEDS ORDERED: Morphine Sulfate 2 mg/mL 1mL Syr IV PRN ×2 (21:09)
[2018-06-20 22:57] VITALS: BP 148/80
[2018-06-21 05:48] LABS: % BASOPHILS 0.5 % (0.0-2.0); % EOSINOPHILS 3.7 % (0.0-5.0); % LYMPHOCYTES 40.5 % (20.0-50.0); % MONOCYTES 8.8 % (2.0-10.0); % NEUTROPHILS 46.5 % (40.0-80.0); EOSINOPHILE ABSOLUTE 0.2 Th/cmm (0.1-0.4); HEMATOCRIT 38.1 % (41.0-60); HEMOGLOBIN 12.6 gm/dL (12-16); LYMPHOCYTE ABSOLUTE 2.4 Th/cmm (1.5-3.0); MEAN CELL VOLUME 92.4 fl (81-100); MEAN CORPUSCULAR HEMOGLOBIN 30.6 pg (27.0-31.0); MEAN CORPUSCULAR HGB CONC 33.1 pg (28.0-36.0); MEAN PLATELET VOLUME 6.9 fl; MONOCYTE ABSOLUTE 0.5 Th/cmm (0.3-1.0); NEUTROPHILE ABSOLUTE 2.8 Th/cmm (1.8-8.0); PLATELET COUNT 257 Th/cmm (150-400); RED BLOOD COUNT 4.12 Mil/cmm (3.80-5.20); RED CELL DISTRIBUTION WIDTH 12.4 % (11.5-20.0); WHITE BLOOD COUNT 5.9 Th/cmm (4.8-10.8)
[2018-06-21 06:11] LABS: BUN - UREA NITROGEN 18 mg/dL (7-25); CALCIUM SERUM 8.9 mg/dL (8.6-10.3); CHLORIDE 105 mEq/L (98-107); CREATININE - SERUM 0.9 mg/dL (0.6-1.2); GFR AFRICAN-AMERICAN > 60.0 ml/min (>90); GFR NON AFRICAN-AMERICAN > 60.0 ml/min; GLUCOSE 127 mg/dL (70-105); SODIUM SERUM 139 mEq/L (136-145)
--- NOTE | 2018-06-21 08:47 | Diagnostic Imaging Report ---
Left elbow (2 views) HISTORY: Pain, trauma Degenerative and chronic changes noted about the elbow. Generalized joint space narrowing. Irregularity noted about the radial head and olecranon process. No definite acute bony abnormalities. No definite fractures. No radiographic evidence of a joint effusion. IMPRESSION: 1. Degenerative and chronic changes as noted above 2. No definite acute abnormalities In the presence of recent trauma and persistent symptoms, a repeat radiograph in 5-7 days may be helpful for detection of a subtle or occult fracture.
--- NOTE | 2018-06-21 12:13 | History and Physical ---
History of Present Illness - HPI Chief Complaint: 67 y/o female patient was brought into ER due to Fall with Injury of left elbow. HPI: 67 y/o female patient was admitted in [facility] due to Slip and Fall with Injury of left elbow. Patient has history of Htn and Dementia. Patient had an ER assessment done and a complete workup was done. Patient had an X-ray peformed which showed Degenerative and chronic changes noted about the elbow and Generalized space narrowing. Patient was diagnosed with Possible nondisplaced fracture radial head left elbow. Patient will have an Ortho consult and I will follow, treat and monitor patient. Patient will continue current treatment plan as ordered. 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 REACTIVATOR OPERATOR: Report: Dementia GI: Report: No Pertinent Hx Psych: Report: Other (Dementia.) Musculoskeletal: Report: Swelling, Other (Elbow pain.) Rheumatologic: Report: No pertinent Hx Infectious Disease: Report: No Pertinent Hx Renal/: Report: No Pertinent Hx Endocrine: Report: No Pertinent Hx Dermatology: Report: No Pertinent Hx - Past Surgical History Past Surgical History: Other (Pacemaker.) Family Medical History - Family Member Mother History Unknown: Yes Ethnicity: Unknown Living Status: Unknown Hx Family Cancer: No Hx Family Coronary Artery Disease: No Hx Family Congestive Heart Failure: No Hx Family Hypertension: No Hx Family Stroke: No Hx Family Diabetes: No Hx Family Seizures: No Hx Family Dementia: No Hx Family AIDS: No Hx Family HIV: No Other Medical History: Patient unable to give information due to condition. Social History Smoke: No Alcohol: None Drugs: None Lives: Group Home Domestic Violence: Negative Health Maintenance Health Maintenance: Other (see orders.) - Medications Home Medications: Home Medication Medication Instructions Recorded Type Acetaminophen [Tylenol Extra 1,000 mg PO Q4HR PRN tab 02/14/18 Rx Strength] Acetaminophen [Tylenol] 650 mg PO Q4HR PRN tab 02/14/18 Rx Ascorbic Acid [Vitamin C] 500 mg PO BID tab 02/14/18 Rx Aspirin [Aspirin Chewable] 81 mg PO DAILY ctb 02/14/18 Rx Atorvastatin Calcium [Lipitor] 10 mg PO HS tab 02/14/18 Rx Carbidopa/Levodopa 10/100mg 1 tab PO BID tab 02/14/18 Rx [Sinemet 10 mg-100 mg*] Cholecalciferol (Vit D3) [Vitamin 1,000 iu PO DAILY tab 02/14/18 Rx D3] Docusate Sodium [Colace] 100 mg PO DAILY cap 02/14/18 Rx Loratadine [Claritin] 10 mg PO DAILY PRN tab 02/14/18 Rx Magnesium Hydroxide [Milk of 30 ml PO HS PRN udc 02/14/18 Rx Magnesia] Memantine [Namenda] 5 mg PO BID tab 02/14/18 Rx Multivitamin w/ Minerals 1 tab PO DAILY tab 02/14/18 Rx [Theragran M] amLODIPine Besylate [Norvasc] 2.5 mg PO DAILY tab 02/14/18 Rx Donepezil Hcl [Aricept] 10 mg PO HS 06/20/18 History Other Medications: please see medication reconciliation sheet. - Allergies Allergies/Adverse Reactions: Allergies Allergy/AdvReac Type Severity Reaction Status Date / Time No Known Allergies Allergy Verified 08/20/17 23:54 Review of Systems - Review of Systems Review of Systems: 67 y/ female patient c/o elbow pain due to recent fall resulting in injury. Constitutional: Report: No Significant Eyes: Report: No Significant ENT: Report: No Significant Respiratory: Report: No Significant Cardiovascular: Report: No Significant Gastrointestinal: Report: No Significant Genitourinary: Report: No Significant Musculoskeletal: Report: Other (left elbw pain.) Skin: Report: Other ( 5 cm skin tear. ) Neurological: Report: Confusion, Other Physical Exam - Physical Exam HEENT: Report: Ears Nose Throat within normal limits Neck: Report: Within normal limits Cardiovascular Systems: Report: +s1/s2 noted, Regular, Rate and Rhythm Respiratory: Report: Breath Sounds are within normal limits Abdomen: Report: Non-tender to palpation Back: Report: Inspection of back is within normal limits. Extremities: Report: Non-tender to palpation. Skin: Report: Other (5 cm skin tear of left elbow.) Neuro/Psych: Report: Disoriented to name time or place - Lab Results All Lab Results last 24 hours: Laboratory Results - last 24 hr 06/20/18 06/20/18 06/20/18 05:40 17:26 17:26 WBC 6.9 RBC 3.95 Hgb 12.1 Hct 37.1 L MCV 94.0 MCH 30.6 MCHC Differential 32.6 RDW 11.9 Plt Count 263 MPV 7.1 Neutrophils % 49.6 Lymphocytes % 36.4 Monocytes % 10.5 H Eosinophils % 2.8 Basophils % 0.7 Sodium 139 137 Potassium 4.0 4.2 Chloride 105 102 Carbon Dioxide 28.0 28.2 Anion Gap 10.0 11.0 BUN 18 22 Creatinine 0.9 0.9 Est GFR ( Amer) > 60.0 > 60.0 Est GFR (Non-Af Amer) > 60.0 > 60.0 BUN/Creatinine Ratio 20.0 24.4 Glucose 127 H 121 H Calcium 8.9 9.3 06/21/18 05:40 WBC 5.9 RBC 4.12 Hgb 12.6 Hct 38.1 L MCV 92.4 MCH 30.6 MCHC Differential 33.1 RDW 12.4 Plt Count 257 MPV 6.9 Neutrophils % 46.5 Lymphocytes % 40.5 Monocytes % 8.8 Eosinophils % 3.7 Basophils % 0.5 Sodium Potassium Chloride Carbon Dioxide Anion Gap BUN Creatinine Est GFR ( Amer) Est GFR (Non-Af Amer) BUN/Creatinine Ratio Glucose Calcium - Assessment Assessment: History of Htn. Histor of Dementia. Current Active Problems Problem Status Onset S/P FALL WITH LEFT ELBOW LACERATION Acute S/P FALL WITH LEFT ELBOW LACERATION Acute - Plan Plan: Continuation of care Ortho consult Continue present meds as directed Fall precaution Pain management Physical therapy Occupational therapy Monitor Vitas, low sodium Diet Continue present care management.
[2018-06-21] MEDS ORDERED: Acetaminophen 500 MG TAB PO PRN (12:49)
[2018-06-21] MEDS ORDERED: VTE Chemical Prophylaxis Screen/Admission MC PRN (16:10)
--- NOTE | 2018-06-21 19:49 | Consultation ---
DATE OF CONSULTATION: 06/21/2018 I have been asked to see this patient at [facility]. HISTORY OF PRESENT ILLNESS: This patient gives the history that she fell down and they were suspecting that she had a fracture of the left elbow, but I find that he had only skin broken on the back of the tibia and on the back of the elbow the left side, but I do not find any evidence of any fracture. She has got osteoarthritis of the elbow. She has got sclerotic bone at the joint and also she has the osteophytes on the head of the radius as well as she has got the same thing on the olecranon, but she is able to move, flex and extend the elbow and also she is able to supinate and pronate the forearm, but apart from this injury, she otherwise has got many contractures of the hand on the left side and other many medical problems. She has got Alzheimer's, cannot communicate with her and she has got parkinsonism. I was told that there are many medical problems due to which she has been staying in one of the nursing homes from where she was brought, but now after seeing the elbow, I have suggested that they should do the dressing and then give Sukumar wrap apart from this, she does not need anything more. If there is any problem, they can always call my office and I have seen the x-rays as I dictated that she has got osteoarthritis, sclerotic bone osteophytes. I think my plan in this patient is that she can go back to the half-way and if there is any problem, then they will call me. DIAGNOSIS: Advanced osteoarthritis of the left elbow. PLAN: In this patient is to do conservative treatment with the arm sling and dressing and if there is any problem, they can call me and she is already taking many medicines. I do not think it requires any more medications for this patient. JOB# [id number]
[2018-06-21] MEDS: Heparin Sod 5,000Units/ML 5,000 UNITS/ML VIAL SUBQ SCH (22:10)
[2018-06-22] MEDS: Heparin Sod 5,000Units/ML 5,000 UNITS/ML VIAL SUBQ SCH (08:22)
[2018-06-22] MEDS ORDERED: Aspirin 81mg Chewable Tab PO SCH (09:00)
--- NOTE | 2018-07-07 22:34 | Discharge Summary ---
DATE OF DISCHARGE: 06/22/2018 The patient was admitted on 06/20/2018 and discharged on 06/22/2018 to [place] and the patient was admitted because of the injury to the left elbow and also some question whether she had a fracture of the head of the radius. The patient was seen by orthopedic doctor and he felt that the patient had no fracture and the patient was sent back to [place] in stable condition. FINAL DIAGNOSES: No fracture, radial head, history of psychosis, history of left elbow injury, history of left elbow pain, history of arthritis. JOB# [id number]
== END 2018-06-22 14:15 | DRG 605 ==
LOC: ER 16:52 → MSI 19:00
PROVIDERS: ADMIT Internal Medicine; ATTEND Internal Medicine
DX: S51.012A Laceration without foreign body of left elbow, initial encounter (principal); M19.022 Primary osteoarthritis, left elbow; I10 Essential (primary) hypertension; G30.9 Alzheimer's disease, unspecified; F02.80 Dementia in other diseases classified elsewhere, unspecified severity, without behavioral disturbance, psychotic disturbance, mood disturbance, and anxiety; G20 Parkinson's disease; W01.0XXA Fall on same level from slipping, tripping and stumbling without subsequent striking against object, initial encounter; Y93.89 Activity, other specified; Y92.89 Other specified places as the place of occurrence of the external cause; Y99.8 Other external cause status; Z95.0 Presence of cardiac pacemaker
CPT/HCPCS: 36415-UA; 73070-TC-LT; 80048-TC; 85025-TC; 93005; A4217; J1644

== ENCOUNTER 2018-08-26 19:33 | Inpatient (IN) | payer MEDICARE, MEDICAID ==
--- NOTE | 2018-08-26 20:02 | ED Physician Chart ---
ED Chief Complaint/HPI - Patient Information Date Seen:: 08/26/18 Time Seen:: 19:57 Chief Complaint:: psychosis History of Present Illness:: this is a 68 yo female who was sent from a snf for evaluation and treatment for her psychotic behavior. she is chronically ill Allergies:: Allergies Allergy/AdvReac Type Severity Reaction Status Date / Time No Known Allergies Allergy Verified 08/20/17 23:54 Vitals:: Vital Signs - 8 hr 08/26/18 19:36 Temp 98.1 F HR 80 RR 18 BP 141/77 O2 Sat % 96 Historian:: Medical Records Review:: Nurse's Note Reviewed, Old Chart Reviewed, Transfer documents Reviewed ED Review of Systems - Review of Systems General/Constitutional: No fever, No chills, No weight loss, No weakness, No diaphoresis, No edema, No loss of appetite, Other (this patient is unable to give an accurate review of systems.) Skin: No skin lesions, No rash, No bruising Head: No headache, No light-headedness Eyes: No loss of vision, No pain, No diplopia ENT: No earache, No nasal drainage, No sore throat, No tinnitus Neck: No neck pain, No swelling, No thyromegaly, No stiffness, No mass noted Cardio Vascular: No chest pain, No palpitations, No PND, No orthopnea, No edema Pulmonary: No SOB, No cough, No sputum, No wheezing GI: No nausea, No vomiting, No diarrhea, No pain, No melena, No hematochezia, No constipation, No hematemesis G/U: No dysuria, No frequency, No hematuria Musculoskeletal: No bone or joint pain, No back pain, No muscle pain Endocrine: No polyuria, No polydipsia Psychiatric: No prior psych history, No depression, No anxiety, No suicidal ideation Hematopoietic: No bruising, No lymphadenopathy Allergic/Immuno: No urticaria, No angioedema Neurological: No syncope, No focal symptoms, No weakness, No paresthesia, No headache, No seizure, No dizziness, No confusion, No vertigo ED Past Medical History - Past Medical History Obtainable: Yes Past Medical History: HTN, CAD, Dyslipidemia, Arthritis, Dementia, Other ( parkinsons disease) Family History: None Social History: Non Smoker, No Alcohol, No Drug Use, Care Facility Family Medical History - Family Member Mother History Unknown: Yes Ethnicity: Unknown Living Status: Unknown Hx Family Cancer: No Hx Family Coronary Artery Disease: No Hx Family Congestive Heart Failure: No Hx Family Hypertension: No Hx Family Stroke: No Hx Family Diabetes: No Hx Family Seizures: No Hx Family Dementia: No Hx Family AIDS: No Hx Family HIV: No ED Physical Exam - Physical Examination General/Constitutional: Awake, Well-developed, well-nourished, Alert, No distress, GCS 15, Non-toxic appearing, Ambulatory Other Gen/Cons comments:: cooperative on and off with a slight tremor Head: Atraumatic Eyes: Lids, conjuctiva normal, PERRL, EOMI Skin: Nl inspection, No skin lesions, No ecchymosis, Well hydrated, No lymphadenopathy Other Skin comments:: right lower leg and foot uticaria that is puritic. ENMT: External ears, nose nl, Nasal exam nl, Lips, teeth, gums nl Neck: Nontender, Full ROM w/o pain, No JVD, No nuchal rigidity, No bruit, No mass, No stridor Respiratory: Nl effort/Exclusion, Clear to Auscultation, No Wheeze/Rhonchi/Rales Cardio Vascular: RRR, No murmur, gallop, rubs, NL S1 S2 GI: No tenderness/rebounding/guarding, No organomegaly, No hernia, Normal BS's, Nondistended, No mass/bruits, No McBurney tenderness : No CVA tenderness Extremities: No tenderness or effusion, Full ROM, normal strength in all extremities, No edema, Normal digits & nails Other Extremities comments:: deformed hands and feet from severe arthritis Neuro/Psych: Alert/oriented, DTR's symmetric, Normal sensory exam, Normal motor strength, Judgement/insight normal, Mood normal, Normal gait, No focal deficits Misc: Normal back, No paraspinal tenderness ED Labs/Radiology/EKG Results - EKG Interpretations EKG Time:: 19:51 Rate & Rhythm: rate=83, sinus with occassional atrial flutter [place]: right ED Assessment - Assessment General Assessment: psychosis urinary tract infection ED Septic Shock - . Is Septic Shock (SBP<90, OR Lactate>4 mmol\L) present?: No - <6hrs of presentation: Vital Signs: Vital Signs - 8 hr 07/08/19 19:36 Temp 98.1 F HR 80 RR 18 BP 141/77 O2 Sat % 96 ED Reassessment (Disposition) - Reassessment Reassessment Condition:: Unchanged - Diagnosis Diagnosis:: psychosis - Patient Disposition Discharge/Transfer:: Acute Care w/in this hosp Admitting Medical Physician:: Prabhu Perez Admitting Psych Physician:: Andrea Grant Condition at Disposition:: Unchanged
[2018-08-26 20:10] LABS: % BASOPHILS 0.7 % (0.0-2.0); % EOSINOPHILS 4.6 % (0.0-5.0); % LYMPHOCYTES 40.2 % (20.0-50.0); % NEUTROPHILS 44.5 % (40.0-80.0); EOSINOPHILE ABSOLUTE 0.3 Th/cmm (0.1-0.4); HEMATOCRIT 38.7 % (41.0-60); HEMOGLOBIN 12.8 gm/dL (12-16); LYMPHOCYTE ABSOLUTE 2.6 Th/cmm (1.5-3.0); MEAN CORPUSCULAR HEMOGLOBIN 31.1 pg (27.0-31.0); MEAN CORPUSCULAR HGB CONC 33.1 pg (28.0-36.0); MONOCYTE ABSOLUTE 0.7 Th/cmm (0.3-1.0); NEUTROPHILE ABSOLUTE 2.9 Th/cmm (1.8-8.0); PLATELET COUNT 279 Th/cmm (150-400); RED BLOOD COUNT 4.11 Mil/cmm (3.80-5.20); RED CELL DISTRIBUTION WIDTH 12.1 % (11.5-20.0); WHITE BLOOD COUNT 6.5 Th/cmm (4.8-10.8)
[2018-08-26 20:21] LABS: URINE SOURCE CLEAN C
[2018-08-26 20:22] LABS: INR 0.94 (0.5-1.4)
[2018-08-26 20:23] LABS: URINE BILIRUBIN NEGATIVE (NEGATIVE); URINE BLOOD NEGATIVE (NEGATIVE); URINE GLUCOSE (UA) NEGATIVE (NEGATIVE); URINE KETONE NEGATIVE (NEGATIVE); URINE LEUKOCYTE ESTERASE MODERATE (NEGATIVE); URINE NITRATE NEGATIVE (NEGATIVE); URINE PROTEIN NEGATIVE (NEGATIVE); URINE UROBILINOGEN 0.2 E.U./dL (0.2 - 1.0)
[2018-08-26 20:24] LABS: URINE CLARITY CLEAR (CLEAR); URINE COLOR YELLOW; URINE MICROSCOPIC INDICATED? YES
[2018-08-26 20:25] LABS: ALB/GLOB RATIO 1.2 (1.0-1.8); ALBUMIN 3.9 gm/dL (3.7-5.3); BILIRUBIN,TOTAL 0.3 mg/dL (0.3-1.0); CALCIUM SERUM 9.4 mg/dL (8.6-10.3); CARBON DIOXIDE 26.7 mEq/L (21.0-31.0); CREATININE - SERUM 1.2 mg/dL (0.6-1.2); GFR AFRICAN-AMERICAN 57.3 ml/min (>90); GFR NON AFRICAN-AMERICAN 47.3 ml/min; POTASSIUM SERUM 3.7 mEq/L (3.5-5.1); TOTAL PROTEIN,SERUM 7.3 gm/dL (6.0-8.3)
[2018-08-26 20:27] LABS: URINE BACTERIA 1+ /hpf (NONE SEEN); URINE EPITHELIAL CELLS MODERATE /lpf (FEW); URINE RBC 0-2 /hpf (0-5)
[2018-08-26 23:37] VITALS: BP 146/73
[2018-08-27] MEDS ORDERED: Acetaminophen 500 MG TAB PO PRN (03:49)
[2018-08-27] MEDS ORDERED: Magnesium Hydroxide (MOM) 30 mL UDC PO PRN (03:49)
--- NOTE | 2018-08-27 09:01 | Diagnostic Imaging Report ---
CHEST X-RAY: AP view INDICATION: Chest pain COMPARISON: 08/27/2017 FINDINGS: Left chest wall pacemaker is stable low lung volumes are seen with increased left basal lung markings no focal consolidation or effusions. Mild cardiomegaly is noted with atherosclerosis. Degenerative changes of the spine are noted. IMPRESSION: Increased left basal lung markings likely due to patient's low lung volumes and atelectatic changes. No focal consolidation or evidence of CHF Stable pacemaker. Mild cardiomegaly with atherosclerosis.
[2018-08-27] MEDS: Carbidopa/Levodopa 10/100 mg Tab PO SCH ×2 (09:11→17:33)
[2018-08-27] MEDS: Aspirin 81mg Chewable Tab PO SCH (09:11)
[2018-08-27] MEDS: Multivitamin w/ Minerals Tab PO SCH (09:12)
--- NOTE | 2018-08-27 12:17 | History & Physical ---
ADMIT DATE: 08/26/2018 IDENTIFYING INFORMATION: The patient is a 68-year-old female. CHIEF COMPLAINT: No answer. HISTORY OF PRESENT ILLNESS: This is referred from a nursing facility because of agitated behavior. The patient came from [place]. The patient unable to carry on a conversation, though she is able to eat, she did herself, ate breakfast this morning; however, unable to be interviewed, mumbling to herself, confused, appears to be responding to internal stimuli, laughing to herself at times making nonsensical statements. PAST PSYCHIATRIC HISTORY: She was hospitalized, seen here before back in 01/2018. MEDICAL HISTORY: Parkinson's disease and hypertension. FAMILY AND SOCIAL HISTORY: The patient lives in a nursing facility. Unable to give information. MENTAL STATUS EXAMINATION: The patient is appropriately dressed, not very well groomed. She looked disheveled. She was alert. However, she was internally preoccupied. Unable to make safe plan for self-care or participate in meaningful conversation. Unable to tell me any information regarding sleep and appetite. Long or short term memory is poor. Unable to tell me her age, why she is here, where she is, how long she has been here. She is not sure how ____ sleep and appetite. Her insight and judgment is impaired. IMPRESSION: Dementia with behavior disturbances; psychosis, not otherwise specified, depression, not otherwise specified. MEDICAL DIAGNOSES: Deferred to the medical doctor. PLAN: The patient will be restarted on her medication. We will do group therapy, milieu therapy. ESTIMATED LENGTH OF STAY: 3-7 days. DISCHARGE CRITERIA: Decrease in agitation, psychosis after discharge outpatient treatment. [facility]# [id number]
--- NOTE | 2018-08-27 13:36 | History and Physical ---
History of Present Illness - HPI Chief Complaint: 68 y/o female patient was brought into ER for evaluation and treatment for Psychosis. HPI: 68 y/o female patient was admitted to [facility] for evaluation and treatment for Psychosis. Patient has history of Hypertension, CAD, Dyslipidemia, Arthritis, Dementia and Parkinson's disease. Patient had an ER assessment and a complete workup was done. Patient was diagnosed with Psychosis. Patient will have a Psych consult and I will follow, treat and monitor patient. Patient will continue current treatment plan as ordered. Vital Signs: Last Vital Signs Temp 98.0 F 08/27/18 04:31 Pulse 81 08/27/18 04:31 Resp 20 08/27/18 04:31 BP 129/78 08/27/18 04:31 Pulse Ox 93 08/27/18 04:31 Past Medical History Cardiovascular: Report: HTN Pulmonary: Report: No Pertinent Hx [employer]: Report: Dementia, Other (Parkinson's Disease.) GI: Report: No Pertinent Hx Psych: Report: Depression, Psychosis (Parkinson's disease.), Other Musculoskeletal: Report: No Pertinent Hx Rheumatologic: Report: No pertinent Hx Infectious Disease: Report: No Pertinent Hx Renal/: Report: No Pertinent Hx Endocrine: Report: No Pertinent Hx Dermatology: Report: No Pertinent Hx - Past Surgical History Past Surgical History: No pertinent Hx Family Medical History - Family Member Mother History Unknown: Yes Ethnicity: Unknown Living Status: Unknown Hx Family Cancer: No Hx Family Coronary Artery Disease: No Hx Family Congestive Heart Failure: No Hx Family Hypertension: No Hx Family Stroke: No Hx Family Diabetes: No Hx Family Seizures: No Hx Family Dementia: No Hx Family AIDS: No Hx Family HIV: No Social History Smoke: No Alcohol: None Drugs: None Lives: Jail Domestic Violence: Negative Health Maintenance Health Maintenance: Other (see chart.) - Medications Home Medications: Home Medication Medication Instructions Recorded Type Acetaminophen [Tylenol Extra 1,000 mg PO Q4HR PRN tab 02/14/18 Rx Strength] Acetaminophen [Tylenol] 650 mg PO Q4HR PRN tab 02/14/18 Rx Ascorbic Acid [Vitamin C] 500 mg PO BID tab 02/14/18 Rx Aspirin [Aspirin Chewable] 81 mg PO DAILY ctb 02/14/18 Rx Atorvastatin Calcium [Lipitor] 10 mg PO HS tab 02/14/18 Rx Carbidopa/Levodopa 10/100mg 1 tab PO BID tab 02/14/18 Rx [Sinemet 10 mg-100 mg*] Cholecalciferol (Vit D3) [Vitamin 1,000 iu PO DAILY tab 02/14/18 Rx D3] Docusate Sodium [Colace] 100 mg PO DAILY cap 02/14/18 Rx Loratadine [Claritin] 10 mg PO DAILY PRN tab 02/14/18 Rx Magnesium Hydroxide [Milk of 30 ml PO HS PRN udc 02/14/18 Rx Magnesia] Memantine [Namenda] 5 mg PO BID tab 02/14/18 Rx Multivitamin w/ Minerals 1 tab PO DAILY tab 02/14/18 Rx [Theragran M] amLODIPine Besylate [Norvasc] 2.5 mg PO DAILY tab 02/14/18 Rx Donepezil Hcl [Aricept] 10 mg PO HS 06/20/18 History Other Medications: Please see medication reconciliation sheet. - Allergies Allergies/Adverse Reactions: Allergies Allergy/AdvReac Type Severity Reaction Status Date / Time No Known Allergies Allergy Verified 08/20/17 23:54 Review of Systems - Review of Systems Review of Systems: Patient was admitted due to Psychosis. Constitutional: Report: No Significant Eyes: Report: No Significant ENT: Report: No Significant Respiratory: Report: No Significant Cardiovascular: Report: No Significant Gastrointestinal: Report: No Significant Genitourinary: Report: No Significant Musculoskeletal: Report: No Significant Skin: Report: No Significant Neurological: Report: Other (Psychosis.) Physical Exam - Physical Exam HEENT: Report: Ears Nose Throat within normal limits Neck: Report: Within normal limits Cardiovascular Systems: Report: +s1/s2 noted Respiratory: Report: Breath Sounds are within normal limits Abdomen: Report: Non-tender to palpation Back: Report: Inspection of back is within normal limits. Extremities: Report: Non-tender to palpation. Skin: Report: Color of skin is within normal limits Neuro/Psych: Report: Disoriented to name time or place - Lab Results All Lab Results last 24 hours: Laboratory Results - last 24 hr 08/26/18 08/26/18 08/26/18 20:00 20:00 20:00 WBC 6.5 RBC 4.11 Hgb 12.8 Hct 38.7 L MCV 94.0 MCH 31.1 H MCHC Differential 33.1 RDW 12.1 Plt Count 279 MPV 7.2 Neutrophils % 44.5 Lymphocytes % 40.2 Monocytes % 10.0 Eosinophils % 4.6 Basophils % 0.7 PT 9.8 INR 0.94 PTT (Actin FS) 24.1 L Sodium 133 L Potassium 3.7 Chloride 98 Carbon Dioxide 26.7 Anion Gap 12.0 BUN 20 Creatinine 1.2 Est GFR ( Amer) 57.3 Est GFR (Non-Af Amer) 47.3 BUN/Creatinine Ratio 16.7 Glucose 147 H Calcium 9.4 Total Bilirubin 0.3 AST 56 H ALT 56 H Alkaline Phosphatase 165 H Troponin I Total Protein 7.3 Albumin 3.9 Globulin 3.4 Albumin/Globulin Ratio 1.2 Triglycerides 109 Cholesterol 165 LDL Cholesterol Direct 64 L HDL Cholesterol 82 TSH Urine Source Urine Color Urine Clarity Urine pH Ur Specific [place] Urine Protein Urine Glucose (UA) Urine Ketones Urine Blood Urine Nitrate Urine Bilirubin Urine Urobilinogen Ur Leukocyte Esterase Urine RBC Urine WBC Ur Epithelial Cells Urine Bacteria 08/26/18 08/26/18 08/26/18 20:00 20:00 20:14 WBC RBC Hgb Hct MCV MCH MCHC Differential RDW Plt Count MPV Neutrophils % Lymphocytes % Monocytes % Eosinophils % Basophils % PT INR PTT (Actin FS) Sodium Potassium Chloride Carbon Dioxide Anion Gap BUN Creatinine Est GFR ( Amer) Est GFR (Non-Af Amer) BUN/Creatinine Ratio Glucose Calcium Total Bilirubin AST ALT Alkaline Phosphatase Troponin I 0.01 Total Protein Albumin Globulin Albumin/Globulin Ratio Triglycerides Cholesterol LDL Cholesterol Direct HDL Cholesterol TSH 0.61 Urine Source CLEAN C Urine Color YELLOW Urine Clarity CLEAR Urine pH 6.0 Ur Specific [place] <= 1.005 Urine Protein NEGATIVE Urine Glucose (UA) NEGATIVE Urine Ketones NEGATIVE Urine Blood NEGATIVE Urine Nitrate NEGATIVE Urine Bilirubin NEGATIVE Urine Urobilinogen 0.2 Ur Leukocyte Esterase MODERATE H Urine RBC 0-2 Urine WBC 6-10 H Ur Epithelial Cells MODERATE Urine Bacteria 1+ H - Assessment Assessment: Dementia with behavioral disturbances. Psychosis. Depression. Parkinson's disease. Hypertension. - Plan Plan: Continuation of care. Monitor Labs. Continue present meds as directed. Monitor vitals, Continue BP meds as directed. Monitor Diet/Nutritional support. Psych management per Psych. Fall precaution, frequent nursing rounds, and as needed restraints to prevent fall. Safety precaution. Supportive care. Continue collaborating with consulting specialists, case management and nursing team. Will Monitor patient and continue current treatment plan as ordered.
[2018-08-27] MEDS: Atorvastatin Calcium 10 MG TAB PO SCH (21:39)
[2018-08-28 07:08] LABS: A1C 6.6 % (4.8-5.6)
[2018-08-28] MEDS: Aspirin 81mg Chewable Tab PO SCH (09:01)
[2018-08-28] MEDS: Carbidopa/Levodopa 10/100 mg Tab PO SCH ×2 (09:01→15:59)
[2018-08-28] MEDS: Multivitamin w/ Minerals Tab PO SCH (09:02)
--- NOTE | 2018-08-28 12:35 | Internal Medicine Prog Note ---
Internal Medicine Subjective - Subjective Service Date: 08/28/18 Patient seen and examined:: chart reviewed Patient is:: awake, verbal, agitated, confused Patient Complaints of:: other (Psychosis.) Per staff patient has:: no adverse event, no episodes of fall Internal Medicine Objective - Results Result Diagrams: 08/26/18 20:00 08/26/18 20:00 Recent Labs: Laboratory Last Values WBC 6.5 Th/cmm (4.8-10.8) 08/26/18 20:00 RBC 4.11 Mil/cmm (3.80-5.20) 08/26/18 20:00 Hgb 12.8 gm/dL (12-16) 08/26/18 20:00 Hct 38.7 % (41.0-60) L 08/26/18 20:00 MCV 94.0 fl (81-100) 08/26/18 20:00 MCH 31.1 pg (27.0-31.0) H 08/26/18 20:00 MCHC Differential 33.1 pg (28.0-36.0) 08/26/18 20:00 RDW 12.1 % (11.5-20.0) 08/26/18 20:00 Plt Count 279 Th/cmm (150-400) 08/26/18 20:00 MPV 7.2 fl 08/26/18 20:00 Neutrophils % 44.5 % (40.0-80.0) 08/26/18 20:00 Lymphocytes % 40.2 % (20.0-50.0) 08/26/18 20:00 Monocytes % 10.0 % (2.0-10.0) 08/26/18 20:00 Eosinophils % 4.6 % (0.0-5.0) 08/26/18 20:00 Basophils % 0.7 % (0.0-2.0) 08/26/18 20:00 PT 9.8 SECONDS (9.5-11.5) 08/26/18 20:00 INR 0.94 (0.5-1.4) 08/26/18 20:00 PTT (Actin FS) 24.1 SECONDS (26.0-38.0) L 08/26/18 20:00 Sodium 133 mEq/L (136-145) L 08/26/18 20:00 Potassium 3.7 mEq/L (3.5-5.1) 08/26/18 20:00 Chloride 98 mEq/L (98-107) 08/26/18 20:00 Carbon Dioxide 26.7 mEq/L (21.0-31.0) 08/26/18 20:00 Anion Gap 12.0 (7.0-16.0) 08/26/18 20:00 BUN 20 mg/dL (7-25) 08/26/18 20:00 Creatinine 1.2 mg/dL (0.6-1.2) 08/26/18 20:00 Est GFR ( Amer) 57.3 ml/min (>90) 08/26/18 20:00 Est GFR (Non-Af Amer) 47.3 ml/min 08/26/18 20:00 BUN/Creatinine Ratio 16.7 08/26/18 20:00 Glucose 147 mg/dL (70-105) H 08/26/18 20:00 Calcium 9.4 mg/dL (8.6-10.3) 08/26/18 20:00 Total Bilirubin 0.3 mg/dL (0.3-1.0) 08/26/18 20:00 AST 56 U/L (13-39) H 08/26/18 20:00 ALT 56 U/L (7-52) H 08/26/18 20:00 Alkaline Phosphatase 165 U/L (34-104) H 08/26/18 20:00 Troponin I 0.01 ng/mL (0.01-0.05) 08/26/18 20:00 Total Protein 7.3 gm/dL (6.0-8.3) 08/26/18 20:00 Albumin 3.9 gm/dL (3.7-5.3) 08/26/18 20:00 Globulin 3.4 gm/dL 08/26/18 20:00 Albumin/Globulin Ratio 1.2 (1.0-1.8) 08/26/18 20:00 Triglycerides 109 mg/dL (<150) 08/26/18 20:00 Cholesterol 165 mg/dL (<200) 08/26/18 20:00 LDL Cholesterol Direct 64 mg/dL (75-193) L 08/26/18 20:00 HDL Cholesterol 82 mg/dL (23-92) 08/26/18 20:00 TSH 0.61 uIU/ml (0.34-5.60) 08/26/18 20:00 Urine Source CLEAN C 08/26/18 20:14 Urine Color YELLOW 08/26/18 20:14 Urine Clarity CLEAR (CLEAR) 08/26/18 20:14 Urine pH 6.0 (4.6 - 8.0) 08/26/18 20:14 Ur Specific [place] <= 1.005 (1.005-1.030) 08/26/18 20:14 Urine Protein NEGATIVE mg/dL (NEGATIVE) 08/26/18 20:14 Urine Glucose (UA) NEGATIVE mg/dL (NEGATIVE) 08/26/18 20:14 Urine Ketones NEGATIVE mg/dL (NEGATIVE) 08/26/18 20:14 Urine Blood NEGATIVE (NEGATIVE) 08/26/18 20:14 Urine Nitrate NEGATIVE (NEGATIVE) 08/26/18 20:14 Urine Bilirubin NEGATIVE (NEGATIVE) 08/26/18 20:14 Urine Urobilinogen 0.2 E.U./dL (0.2 - 1.0) 08/26/18 20:14 Ur Leukocyte Esterase MODERATE (NEGATIVE) H 08/26/18 20:14 Urine RBC 0-2 /hpf (0-5) 08/26/18 20:14 Urine WBC 6-10 /hpf (0-5) H 08/26/18 20:14 Ur Epithelial Cells MODERATE /lpf (FEW) 08/26/18 20:14 Urine Bacteria 1+ /hpf (NONE SEEN) H 08/26/18 20:14 - Physical Exam Vitals and I&O: Vital Signs Temp 98 F 08/28/18 04:52 Pulse 100 08/28/18 09:06 Resp 15 08/28/18 08:00 BP 126/73 08/28/18 09:06 Pulse Ox 98 08/28/18 04:52 Intake & Output 08/27/18 08/28/18 08/28/18 18:59 06:59 18:59 Intake Total 900 720 Balance 900 720 Intake: Oral 900 720 Other: # Voids 3 2 # Bowel Movements 1 Active Medications: Current Medications Acetaminophen (Tylenol) 650 mg PO Q4HR PRN PRN Reason: Mild Pain 1-3/ Temp above 100 Stop: 10/26/18 03:48 Acetaminophen (Tylenol Extra Strength) 1,000 mg PO Q4HR PRN PRN Reason: MODERATE PAIN 4-7 Stop: 10/26/18 03:48 Amlodipine Besylate (Norvasc) 2.5 mg PO DAILY [facility] Stop: 10/26/18 08:59 Last Admin: 08/28/18 09:06 Dose: 2.5 mg Ascorbic Acid (Vitamin C) 500 mg PO BID [facility] Stop: 10/26/18 08:59 Last Admin: 08/28/18 09:01 Dose: 500 mg Aspirin (Aspirin Chewable) 81 mg PO DAILY [facility] Stop: 10/26/18 08:59 Last Admin: 08/28/18 09:01 Dose: 81 mg Atorvastatin Calcium (Lipitor) 10 mg PO HS [facility]; Protocol Stop: 10/26/18 20:59 Last Admin: 08/27/18 21:39 Dose: Not Given Carbidopa/Levodopa (Sinemet 10 Mg-100 Mg) 1 tab PO BID [facility] Stop: 10/26/18 08:59 Last Admin: 08/28/18 09:01 Dose: Not Given Cholecalciferol (Vitamin D3) 1,000 iu PO DAILY [facility] Stop: 10/26/18 08:59 Last Admin: 08/28/18 09:01 Dose: 1,000 iu Docusate Sodium (Colace) 100 mg PO DAILY [facility] Stop: 10/26/18 08:59 Last Admin: 08/28/18 09:01 Dose: Not Given Donepezil HCl (Aricept) 10 mg PO HS [facility] Stop: 10/26/18 20:59 Last Admin: 08/27/18 21:39 Dose: Not Given Loratadine (Claritin) 10 mg PO DAILY PRN PRN Reason: Allergy Symptoms Stop: 10/26/18 03:48 Lorazepam (Ativan) 0.5 mg PO Q4HR PRN; Protocol PRN Reason: Anxiety Stop: 09/25/18 21:19 Magnesium Hydroxide (Milk Of Magnesia) 30 ml PO HS PRN PRN Reason: Constipation Stop: 10/26/18 03:48 Memantine (Namenda) 5 mg PO BID [facility] Stop: 10/26/18 08:59 Last Admin: 08/28/18 09:02 Dose: 5 mg Zolpidem Tartrate (Ambien) 5 mg PO HS PRN PRN Reason: Insomnia Stop: 10/25/18 23:36 Physical Exam: 68 y/o female patient is very agitated. General: demented HEENT: NC/AT, PERRLA Neck: Supple, No JVD Lungs: CTAB Cardiovascular: RRR, Normal S1 Abdomen: soft, non-tender Extremities: clear Neurological: no change - Procedures Procedures: Procedures Procedure Code Date FLUOROSCOPY OF LEFT HEART USING LOW OSMOLAR CONTRAST [id number] 02/20/17 INSERT PACE. DUAL LAKHWINDER IN CHEST SUBCU/FASCIA, OPEN [id number] 02/20/17 INSERTION OF PACEMAKER LEAD INTO R VENTRICLE, PERC APPROACH [id number] 02/20/17 INSERTION OF PACEMAKER LEAD INTO RIGHT ATRIUM, PERC APPROACH [id number] 02/20/17 INSRT HEART PM ATRIAL & VENT [id number] 02/20/17 Internal Medicine Assmt/Plan - Assessment Assessment: Dementia with behavioral disturbances. Psychosis. Depression. Parkinson's disease. Hypertension. - Plan Plan: Continuation of care. Monitor Labs. Continue present meds as directed. Monitor vitals, Continue BP meds as directed. Monitor Diet/Nutritional support. Psych management per Psych. Fall precaution, frequent nursing rounds, and as needed restraints to prevent fall. Safety precaution. Supportive care. Continue collaborating with consulting specialists, case management and nursing team. Will Monitor patient and continue present care management. Nutritional Asmnt/Malnutr-PDOC - Dietary Evaluation Malnutrition Findings (Please click <Entered> for more info): see orders.
[2018-08-28] MEDS: Atorvastatin Calcium 10 MG TAB PO SCH (20:37)
--- NOTE | 2018-08-29 00:03 | Progress Notes ---
DATE: SUBJECTIVE: Chart was reviewed and the patient interviewed. Also discussed the patient's condition with the staff and reviewed records and labs. The patient is still anxious. The patient also is still having mood swings and she is still suspicious. The patient also still needs to be monitored. Otherwise, the patient denies any side effects of medications. PLAN: We will continue monitoring her behavior and adjusting psychotropic medications and work on behavioral modification. [facility]# [id number]
[2018-08-29] MEDS: Aspirin 81mg Chewable Tab PO SCH (08:39)
[2018-08-29] MEDS: Carbidopa/Levodopa 10/100 mg Tab PO SCH ×2 (08:39→16:06)
[2018-08-29] MEDS: Multivitamin w/ Minerals Tab PO SCH (08:39)
--- NOTE | 2018-08-29 13:04 | Internal Medicine Prog Note ---
Internal Medicine Subjective - Subjective Service Date: 08/29/18 Patient is:: awake, verbal, agitated, confused Patient Complaints of:: other (Psychosis.) Per staff patient has:: no adverse event, no episodes of fall Internal Medicine Objective - Results Result Diagrams: 08/26/18 20:00 08/26/18 20:00 Recent Labs: Laboratory Last Values WBC 6.5 Th/cmm (4.8-10.8) 08/26/18 20:00 RBC 4.11 Mil/cmm (3.80-5.20) 08/26/18 20:00 Hgb 12.8 gm/dL (12-16) 08/26/18 20:00 Hct 38.7 % (41.0-60) L 08/26/18 20:00 MCV 94.0 fl (81-100) 08/26/18 20:00 MCH 31.1 pg (27.0-31.0) H 08/26/18 20:00 MCHC Differential 33.1 pg (28.0-36.0) 08/26/18 20:00 RDW 12.1 % (11.5-20.0) 08/26/18 20:00 Plt Count 279 Th/cmm (150-400) 08/26/18 20:00 MPV 7.2 fl 08/26/18 20:00 Neutrophils % 44.5 % (40.0-80.0) 08/26/18 20:00 Lymphocytes % 40.2 % (20.0-50.0) 08/26/18 20:00 Monocytes % 10.0 % (2.0-10.0) 08/26/18 20:00 Eosinophils % 4.6 % (0.0-5.0) 08/26/18 20:00 Basophils % 0.7 % (0.0-2.0) 08/26/18 20:00 PT 9.8 SECONDS (9.5-11.5) 08/26/18 20:00 INR 0.94 (0.5-1.4) 08/26/18 20:00 PTT (Actin FS) 24.1 SECONDS (26.0-38.0) L 08/26/18 20:00 Sodium 133 mEq/L (136-145) L 08/26/18 20:00 Potassium 3.7 mEq/L (3.5-5.1) 08/26/18 20:00 Chloride 98 mEq/L (98-107) 08/26/18 20:00 Carbon Dioxide 26.7 mEq/L (21.0-31.0) 08/26/18 20:00 Anion Gap 12.0 (7.0-16.0) 08/26/18 20:00 BUN 20 mg/dL (7-25) 08/26/18 20:00 Creatinine 1.2 mg/dL (0.6-1.2) 08/26/18 20:00 Est GFR ( Amer) 57.3 ml/min (>90) 08/26/18 20:00 Est GFR (Non-Af Amer) 47.3 ml/min 08/26/18 20:00 BUN/Creatinine Ratio 16.7 08/26/18 20:00 Glucose 147 mg/dL (70-105) H 08/26/18 20:00 Calcium 9.4 mg/dL (8.6-10.3) 08/26/18 20:00 Total Bilirubin 0.3 mg/dL (0.3-1.0) 08/26/18 20:00 AST 56 U/L (13-39) H 08/26/18 20:00 ALT 56 U/L (7-52) H 08/26/18 20:00 Alkaline Phosphatase 165 U/L (34-104) H 08/26/18 20:00 Troponin I 0.01 ng/mL (0.01-0.05) 08/26/18 20:00 Total Protein 7.3 gm/dL (6.0-8.3) 08/26/18 20:00 Albumin 3.9 gm/dL (3.7-5.3) 08/26/18 20:00 Globulin 3.4 gm/dL 08/26/18 20:00 Albumin/Globulin Ratio 1.2 (1.0-1.8) 08/26/18 20:00 Triglycerides 109 mg/dL (<150) 08/26/18 20:00 Cholesterol 165 mg/dL (<200) 08/26/18 20:00 LDL Cholesterol Direct 64 mg/dL (75-193) L 08/26/18 20:00 HDL Cholesterol 82 mg/dL (23-92) 08/26/18 20:00 TSH 0.61 uIU/ml (0.34-5.60) 08/26/18 20:00 Urine Source CLEAN C 08/26/18 20:14 Urine Color YELLOW 08/26/18 20:14 Urine Clarity CLEAR (CLEAR) 08/26/18 20:14 Urine pH 6.0 (4.6 - 8.0) 08/26/18 20:14 Ur Specific [place] <= 1.005 (1.005-1.030) 08/26/18 20:14 Urine Protein NEGATIVE mg/dL (NEGATIVE) 08/26/18 20:14 Urine Glucose (UA) NEGATIVE mg/dL (NEGATIVE) 08/26/18 20:14 Urine Ketones NEGATIVE mg/dL (NEGATIVE) 08/26/18 20:14 Urine Blood NEGATIVE (NEGATIVE) 08/26/18 20:14 Urine Nitrate NEGATIVE (NEGATIVE) 08/26/18 20:14 Urine Bilirubin NEGATIVE (NEGATIVE) 08/26/18 20:14 Urine Urobilinogen 0.2 E.U./dL (0.2 - 1.0) 08/26/18 20:14 Ur Leukocyte Esterase MODERATE (NEGATIVE) H 08/26/18 20:14 Urine RBC 0-2 /hpf (0-5) 08/26/18 20:14 Urine WBC 6-10 /hpf (0-5) H 08/26/18 20:14 Ur Epithelial Cells MODERATE /lpf (FEW) 08/26/18 20:14 Urine Bacteria 1+ /hpf (NONE SEEN) H 08/26/18 20:14 - Physical Exam Vitals and I&O: Vital Signs Temp 97.1 F 08/29/18 06:51 Pulse 89 08/29/18 08:33 Resp 15 08/29/18 08:00 BP 109/59 08/29/18 08:33 Pulse Ox 98 08/29/18 06:51 Intake & Output 08/28/18 08/29/18 08/29/18 18:59 06:59 18:59 Intake Total 800 360 Balance 800 360 Intake: Oral 800 360 Other: # Voids 3 3 # Bowel Movements 2 1 Active Medications: Current Medications Acetaminophen (Tylenol) 650 mg PO Q4HR PRN PRN Reason: Mild Pain 1-3/ Temp above 100 Stop: 10/26/18 03:48 Acetaminophen (Tylenol Extra Strength) 1,000 mg PO Q4HR PRN PRN Reason: MODERATE PAIN 4-7 Stop: 10/26/18 03:48 Amlodipine Besylate (Norvasc) 2.5 mg PO DAILY [facility] Stop: 10/26/18 08:59 Last Admin: 08/29/18 08:33 Dose: Not Given Ascorbic Acid (Vitamin C) 500 mg PO BID [facility] Stop: 10/26/18 08:59 Last Admin: 08/29/18 08:39 Dose: 500 mg Aspirin (Aspirin Chewable) 81 mg PO DAILY [facility] Stop: 10/26/18 08:59 Last Admin: 08/29/18 08:39 Dose: 81 mg Atorvastatin Calcium (Lipitor) 10 mg PO HS [facility]; Protocol Stop: 10/26/18 20:59 Last Admin: 08/28/18 20:37 Dose: Not Given Carbidopa/Levodopa (Sinemet 10 Mg-100 Mg) 1 tab PO BID [facility] Stop: 10/26/18 08:59 Last Admin: 08/29/18 08:39 Dose: 1 tab Cholecalciferol (Vitamin D3) 1,000 iu PO DAILY [facility] Stop: 10/26/18 08:59 Last Admin: 08/29/18 08:38 Dose: 1,000 iu Docusate Sodium (Colace) 100 mg PO DAILY [facility] Stop: 10/26/18 08:59 Last Admin: 08/29/18 08:39 Dose: 100 mg Donepezil HCl (Aricept) 10 mg PO HS [facility] Stop: 10/26/18 20:59 Last Admin: 08/28/18 20:37 Dose: Not Given Loratadine (Claritin) 10 mg PO DAILY PRN PRN Reason: Allergy Symptoms Stop: 10/26/18 03:48 Lorazepam (Ativan) 0.5 mg PO Q4HR PRN; Protocol PRN Reason: Anxiety Stop: 09/25/18 21:19 Magnesium Hydroxide (Milk Of Magnesia) 30 ml PO HS PRN PRN Reason: Constipation Stop: 10/26/18 03:48 Memantine (Namenda) 5 mg PO BID [facility] Stop: 10/26/18 08:59 Last Admin: 08/29/18 08:39 Dose: 5 mg Zolpidem Tartrate (Ambien) 5 mg PO HS PRN PRN Reason: Insomnia Stop: 10/25/18 23:36 General: demented HEENT: NC/AT, PERRLA Neck: Supple, No JVD Lungs: CTAB Cardiovascular: RRR, Normal S1 Abdomen: soft, non-tender Extremities: clear Neurological: no change - Procedures Procedures: Procedures Procedure Code Date FLUOROSCOPY OF LEFT HEART USING LOW OSMOLAR CONTRAST [id number] 02/20/17 INSERT PACE. DUAL LAKHWINDER IN CHEST SUBCU/FASCIA, OPEN [id number] 02/20/17 INSERTION OF PACEMAKER LEAD INTO R VENTRICLE, PERC APPROACH [id number] 02/20/17 INSERTION OF PACEMAKER LEAD INTO RIGHT ATRIUM, PERC APPROACH [id number] 02/20/17 INSRT HEART PM ATRIAL & VENT [id number] 02/20/17 Internal Medicine Assmt/Plan - Assessment Assessment: Dementia with behavioral disturbances. Psychosis. Depression. Parkinson's disease. Hypertension. - Plan Plan: Continuation of care. Monitor Labs. Continue present meds as directed. Monitor vitals, Continue BP meds as directed. Monitor Diet/Nutritional support. Psych management per Psych. Fall precaution, frequent nursing rounds, and as needed restraints to prevent fall. Safety precaution. Supportive care. Continue collaborating with consulting specialists, case management and nursing team. Will Monitor patient and continue present care management.
--- NOTE | 2018-08-29 20:42 | Progress Notes ---
DATE: 08/29/2018 SUBJECTIVE: Chart was reviewed and the patient interviewed. Also discussed the patient's condition with the staff and reviewed records and labs. The patient is still pacing up and down the unit and she is still restless. The patient also still has episodes of agitation, but seems to be less than before. She is also interacting slightly more and during interview, the patient smiled appropriately. Personal hygiene improved. Otherwise, the patient is compliant with taking her medications with no side effects. ASSESSMENT: The patient is still agitated, but less than before. TREATMENT PLAN: Continue to monitor behavior and condition closely. Also, continue adjusting psychotropic medications and work on behavioral modification. JOB# [id number]
[2018-08-29] MEDS: Atorvastatin Calcium 10 MG TAB PO SCH (21:16)
[2018-08-30] MEDS: Multivitamin w/ Minerals Tab PO SCH (08:45)
[2018-08-30] MEDS: Aspirin 81mg Chewable Tab PO SCH (08:45)
[2018-08-30] MEDS: Carbidopa/Levodopa 10/100 mg Tab PO SCH ×2 (08:45→16:55)
--- NOTE | 2018-08-30 17:20 | Internal Medicine Prog Note ---
Internal Medicine Subjective - Subjective Service Date: 08/30/18 Patient is:: awake, verbal, agitated, confused Patient Complaints of:: other (Psychosis.) Per staff patient has:: no adverse event, no episodes of fall Internal Medicine Objective - Results Result Diagrams: 08/26/18 20:00 08/26/18 20:00 Recent Labs: Laboratory Last Values WBC 6.5 Th/cmm (4.8-10.8) 08/26/18 20:00 RBC 4.11 Mil/cmm (3.80-5.20) 08/26/18 20:00 Hgb 12.8 gm/dL (12-16) 08/26/18 20:00 Hct 38.7 % (41.0-60) L 08/26/18 20:00 MCV 94.0 fl (81-100) 08/26/18 20:00 MCH 31.1 pg (27.0-31.0) H 08/26/18 20:00 MCHC Differential 33.1 pg (28.0-36.0) 08/26/18 20:00 RDW 12.1 % (11.5-20.0) 08/26/18 20:00 Plt Count 279 Th/cmm (150-400) 08/26/18 20:00 MPV 7.2 fl 08/26/18 20:00 Neutrophils % 44.5 % (40.0-80.0) 08/26/18 20:00 Lymphocytes % 40.2 % (20.0-50.0) 08/26/18 20:00 Monocytes % 10.0 % (2.0-10.0) 08/26/18 20:00 Eosinophils % 4.6 % (0.0-5.0) 08/26/18 20:00 Basophils % 0.7 % (0.0-2.0) 08/26/18 20:00 PT 9.8 SECONDS (9.5-11.5) 08/26/18 20:00 INR 0.94 (0.5-1.4) 08/26/18 20:00 PTT (Actin FS) 24.1 SECONDS (26.0-38.0) L 08/26/18 20:00 Sodium 133 mEq/L (136-145) L 08/26/18 20:00 Potassium 3.7 mEq/L (3.5-5.1) 08/26/18 20:00 Chloride 98 mEq/L (98-107) 08/26/18 20:00 Carbon Dioxide 26.7 mEq/L (21.0-31.0) 08/26/18 20:00 Anion Gap 12.0 (7.0-16.0) 08/26/18 20:00 BUN 20 mg/dL (7-25) 08/26/18 20:00 Creatinine 1.2 mg/dL (0.6-1.2) 08/26/18 20:00 Est GFR ( Amer) 57.3 ml/min (>90) 08/26/18 20:00 Est GFR (Non-Af Amer) 47.3 ml/min 08/26/18 20:00 BUN/Creatinine Ratio 16.7 08/26/18 20:00 Glucose 147 mg/dL (70-105) H 08/26/18 20:00 Calcium 9.4 mg/dL (8.6-10.3) 08/26/18 20:00 Total Bilirubin 0.3 mg/dL (0.3-1.0) 08/26/18 20:00 AST 56 U/L (13-39) H 08/26/18 20:00 ALT 56 U/L (7-52) H 08/26/18 20:00 Alkaline Phosphatase 165 U/L (34-104) H 08/26/18 20:00 Troponin I 0.01 ng/mL (0.01-0.05) 08/26/18 20:00 Total Protein 7.3 gm/dL (6.0-8.3) 08/26/18 20:00 Albumin 3.9 gm/dL (3.7-5.3) 08/26/18 20:00 Globulin 3.4 gm/dL 08/26/18 20:00 Albumin/Globulin Ratio 1.2 (1.0-1.8) 08/26/18 20:00 Triglycerides 109 mg/dL (<150) 08/26/18 20:00 Cholesterol 165 mg/dL (<200) 08/26/18 20:00 LDL Cholesterol Direct 64 mg/dL (75-193) L 08/26/18 20:00 HDL Cholesterol 82 mg/dL (23-92) 08/26/18 20:00 TSH 0.61 uIU/ml (0.34-5.60) 08/26/18 20:00 Urine Source CLEAN C 08/26/18 20:14 Urine Color YELLOW 08/26/18 20:14 Urine Clarity CLEAR (CLEAR) 08/26/18 20:14 Urine pH 6.0 (4.6 - 8.0) 08/26/18 20:14 Ur Specific [place] <= 1.005 (1.005-1.030) 08/26/18 20:14 Urine Protein NEGATIVE mg/dL (NEGATIVE) 08/26/18 20:14 Urine Glucose (UA) NEGATIVE mg/dL (NEGATIVE) 08/26/18 20:14 Urine Ketones NEGATIVE mg/dL (NEGATIVE) 08/26/18 20:14 Urine Blood NEGATIVE (NEGATIVE) 08/26/18 20:14 Urine Nitrate NEGATIVE (NEGATIVE) 08/26/18 20:14 Urine Bilirubin NEGATIVE (NEGATIVE) 08/26/18 20:14 Urine Urobilinogen 0.2 E.U./dL (0.2 - 1.0) 08/26/18 20:14 Ur Leukocyte Esterase MODERATE (NEGATIVE) H 08/26/18 20:14 Urine RBC 0-2 /hpf (0-5) 08/26/18 20:14 Urine WBC 6-10 /hpf (0-5) H 08/26/18 20:14 Ur Epithelial Cells MODERATE /lpf (FEW) 08/26/18 20:14 Urine Bacteria 1+ /hpf (NONE SEEN) H 08/26/18 20:14 - Physical Exam Vitals and I&O: Vital Signs Temp 97.6 F 08/30/18 14:00 Pulse 72 08/30/18 16:56 Resp 20 08/30/18 14:00 BP 116/74 08/30/18 16:56 Pulse Ox 96 08/30/18 14:00 Intake & Output 08/29/18 08/30/18 08/30/18 18:59 06:59 18:59 Intake Total 360 Balance 360 Intake: Oral 360 Other: # Voids 3 # Bowel Movements 1 Active Medications: Current Medications Acetaminophen (Tylenol) 650 mg PO Q4HR PRN PRN Reason: Mild Pain 1-3/ Temp above 100 Stop: 10/26/18 03:48 Acetaminophen (Tylenol Extra Strength) 1,000 mg PO Q4HR PRN PRN Reason: MODERATE PAIN 4-7 Stop: 10/26/18 03:48 Amlodipine Besylate (Norvasc) 2.5 mg PO DAILY [facility] Stop: 10/26/18 08:59 Last Admin: 08/30/18 16:56 Dose: Not Given Ascorbic Acid (Vitamin C) 500 mg PO BID [facility] Stop: 10/26/18 08:59 Last Admin: 08/30/18 16:55 Dose: 500 mg Aspirin (Aspirin Chewable) 81 mg PO DAILY [facility] Stop: 10/26/18 08:59 Last Admin: 08/30/18 08:45 Dose: 81 mg Atorvastatin Calcium (Lipitor) 10 mg PO HS [facility]; Protocol Stop: 10/26/18 20:59 Last Admin: 08/29/18 21:16 Dose: 10 mg Carbidopa/Levodopa (Sinemet 10 Mg-100 Mg) 1 tab PO BID [facility] Stop: 10/26/18 08:59 Last Admin: 08/30/18 16:55 Dose: 1 tab Cholecalciferol (Vitamin D3) 1,000 iu PO DAILY [facility] Stop: 10/26/18 08:59 Last Admin: 08/30/18 08:45 Dose: 1,000 iu Docusate Sodium (Colace) 100 mg PO DAILY [facility] Stop: 10/26/18 08:59 Last Admin: 08/30/18 08:45 Dose: 100 mg Donepezil HCl (Aricept) 10 mg PO HS [facility] Stop: 10/26/18 20:59 Last Admin: 08/29/18 21:16 Dose: 10 mg Loratadine (Claritin) 10 mg PO DAILY PRN PRN Reason: Allergy Symptoms Stop: 10/26/18 03:48 Lorazepam (Ativan) 0.5 mg PO Q4HR PRN; Protocol PRN Reason: Anxiety Stop: 09/25/18 21:19 Magnesium Hydroxide (Milk Of Magnesia) 30 ml PO HS PRN PRN Reason: Constipation Stop: 10/26/18 03:48 Memantine (Namenda) 5 mg PO BID [facility] Stop: 10/26/18 08:59 Last Admin: 08/30/18 16:55 Dose: 5 mg Zolpidem Tartrate (Ambien) 5 mg PO HS PRN PRN Reason: Insomnia Stop: 10/25/18 23:36 Last Admin: 08/29/18 21:16 Dose: 5 mg General: demented HEENT: NC/AT, PERRLA Neck: Supple, No JVD Lungs: CTAB Cardiovascular: RRR, Normal S1 Abdomen: soft, non-tender Extremities: clear Neurological: no change - Procedures Procedures: Procedures Procedure Code Date FLUOROSCOPY OF LEFT HEART USING LOW OSMOLAR CONTRAST [id number] 02/20/17 INSERT PACE. DUAL LAKHWINDER IN CHEST SUBCU/FASCIA, OPEN [id number] 02/20/17 INSERTION OF PACEMAKER LEAD INTO R VENTRICLE, PERC APPROACH [id number] 02/20/17 INSERTION OF PACEMAKER LEAD INTO RIGHT ATRIUM, PERC APPROACH [id number] 02/20/17 INSRT HEART PM ATRIAL & VENT [id number] 02/20/17 Internal Medicine Assmt/Plan - Assessment Assessment: Dementia with behavioral disturbances. Psychosis. Depression. Parkinson's disease. Hypertension. - Plan Plan: Continuation of care. Monitor Labs. Continue present meds as directed. Monitor vitals, Continue BP meds as directed. Monitor Diet/Nutritional support. Psych management per Psych. Fall precaution, frequent nursing rounds, and as needed restraints to prevent fall. Safety precaution. Supportive care. Continue collaborating with consulting specialists, case management and nursing team. Will Monitor patient and continue present care management. Nutritional Asmnt/Malnutr-PDOC - Dietary Evaluation Malnutrition Findings (Please click <Entered> for more info): Nutritional Asmnt/Malnutrition Start: 08/29/18 13: 47 Text: Status: Complete Freq: Protocol: Document 08/29/18 13:47 MOLLY (Rec: 08/29/18 13:50 [email or web address]) Nutritional Asmnt/Malnutrition Patient General Information Nutritional Screening Moderate Risk Diagnosis PSYCHOSIS NOS Pertinent Medical Hx/Surgical Hx PARKINSONS DISEASE, HTN Subjective Information PT IS A 68 YEAR OLD FEMALE FROM [facility] ADMITTED ON 08/26 D/T AGITATED BEHAVIOR. PER H & P, PTS JUDGEMENT AND INSIGHT ARE IMPAIRED. HT: 410 WT: 110 LB (50 KG) BMI: 23.0 (NORMAL) GI: SOFT, FLAT, NON-TENDER BM: 08/29 X 1 I/O: 1160/NOT NOTED SKIN: WNL, DRYNESS CHUNG: 20 DIET ORDER: SOFT, ANGEL ESTIMATED ENERGY NEEDS: ( GERIATRIC, CBW) 1250-1500KCALS (25-30 KCALS/KG ) 50-60 G PRO (1.0-1.2 G/KG) 2151-9516 ML (25-30 ML/KG) PT PO INTAKE: ESTIMATED 75% MEALS PER MEAL/NUTRITION ACTIVITY RECORD. DIETARY IS CURRENTLY PROVIDING AN ESTIMATED 2200 KCALS AND 103 GM PRO TO MEET 100+% KCAL AND 100+% PRO NEEDS. Current Diet Order/ Nutrition Support SOFT, ANGEL Pertinent Medications VIT C, LIPITOR, VIT D3, COLACE , MOM (PRN) Pertinent Labs 08/26: HGB/HCT: 12.8/38.7, NA 133, GLUCOSE 147, AST 56, ALT 56, ALK PHOS 165 Nutritional Hx/Data Height 4 ft 10 in Height (Calculated Centimeters) 147.3 Current Weight (lbs) 110 lb Weight (Calculated Kilograms) 49.9 Weight (Calculated Grams) 89338.2 [place] Body Weight 96 LB (43.64 KG) % [place] Body Weight 115 Body Mass Index (BMI) 22.9 Weight Status Approriate GI Symptoms GI Symptoms None Skin Integrity/Comment: WNL, DRYNESS CHUNG: 20 Current %PO Good (75-100%) Estimated Nutritional Goals BEE in Kcals: Using Current wt Calories/Kcals/Kg 25-30 Kcals Calculated 4849-3133 Protein: Using Current wt Protein g/k.0-1.2 Protein Calculated 50-60 Fluid: ml 7593-9518 ML (25-30 ML/KG) Nutritional Problem 1. Problem Problem ALTERED NUTRITION RELATED LABS Etiology R/T MEDICAL CONDITION Signs/Symptoms: AEB GLUCOSE 147, NA 133 Malnutrition Related to Morbid Obesity Malnutrition related to morbid obesity No Intervention/Recommendation Comments CONTINUE WITH SOFT, ANGEL DIET ORDERED. Expected Outcomes/Goals Expected Outcomes/Goals 1. PO INTAKE TO CONTINUE TO MEET > 75% OF NUTRITIONAL NEEDS. 2. MONITOR PO INTAKE, WT, NUTRITION RELATED LABS AND SKIN INTEGRITY. 3. NUTRITION RELATED LABS TO TREND WNL IN 7 DAYS. 4. F/U LOW RISK IN 7 DAYS, 09/05
[2018-08-30] MEDS: Atorvastatin Calcium 10 MG TAB PO SCH (20:47)
[2018-08-31] MEDS: Multivitamin w/ Minerals Tab PO SCH (09:03)
[2018-08-31] MEDS: Carbidopa/Levodopa 10/100 mg Tab PO SCH ×2 (09:03→15:59)
[2018-08-31] MEDS: Aspirin 81mg Chewable Tab PO SCH (09:03)
--- NOTE | 2018-08-31 11:45 | Progress Notes ---
DATE: 08/31/2018 SUBJECTIVE: The patient was seen in her room. The patient is asleep, but easily arousable. The patient appears to be guarded, suspicious, easily gets frustrated and agitated. Otherwise, the patient appears to be in no acute distress. OBJECTIVE: VITAL SIGNS: Temperature 97.8, heart rate of 86, blood pressure 108/61, respiration 20, 96% on room air. HEENT: Head is atraumatic and normocephalic. Eyes: Bilateral conjunctivae are clear. Bilateral pupils are equally round and reactive. NECK: Supple. No JVD. CARDIOVASCULAR: S1 and S2, without murmur. PULMONARY: Clear to auscultation. GASTROINTESTINAL: Soft and nontender without guarding. Positive bowel sounds. MUSCULOSKELETAL: No clubbing. No cyanosis noted. ASSESSMENT: 1. Dementia. 2. Hypertension. 3. Hyperlipidemia. 4. Parkinson's disease. PLAN: We will continue to keep the patient to inpatient Psychiatric unit and follow up with a psychiatrist to monitor the patient's condition and behavior. Treatment plans were discussed with the patient's nurse. Treatment plans were discussed with Dr. Perez. JOB# [id number]
--- NOTE | 2018-08-31 12:41 | Progress Notes ---
DATE: 08/30/2018 SUBJECTIVE: Chart reviewed and the patient interviewed. Also discussed the patient's condition with the staff, and reviewed records and labs. The patient is still delusional and forgetful. The patient also is still agitated. The patient also thinks that her mother is waiting for her on the unit to take her home. She also still needs lots of redirections. Otherwise, the patient is compliant with taking her medications with no side effects of medications. ASSESSMENT: The patient is still confused and is still agitated. PLAN: Continue to monitor her behavior and her condition closely. Also, continue adjusting psychotropic medications and work on behavioral modification. JOB# [id number]
[2018-08-31] MEDS: Atorvastatin Calcium 10 MG TAB PO SCH (20:36)
--- NOTE | 2018-08-31 23:46 | Progress Notes ---
DATE: 08/31/2018 SUBJECTIVE: Chart was reviewed and the patient interviewed. Also discussed the patient's condition with the staff and reviewed records and labs. The patient is still wandering in the hallways and she is still easily agitated. The patient also has been entering into other patient's rooms. The patient also is restless and she is in agitated and has been easily anxious and irritable. The patient also has difficulty following staff directions but at the same time, the patient is more compliant with taking her medications. She is still confused and looking for "my mother." Otherwise, the patient is compliant with taking Aricept and Namenda with no side effects. ASSESSMENT: The patient is still confused and needs redirections. TREATMENT PLAN: Continue to monitor behavior and condition closely. Also, continue adjusting psychotropic medications and work on behavioral modification. JOB# [id number]
[2018-09-01] MEDS: Carbidopa/Levodopa 10/100 mg Tab PO SCH ×2 (08:49→17:42)
[2018-09-01] MEDS: Aspirin 81mg Chewable Tab PO SCH (08:51)
[2018-09-01] MEDS: Multivitamin w/ Minerals Tab PO SCH (08:53)
--- NOTE | 2018-09-01 19:54 | Internal Medicine Prog Note ---
Internal Medicine Subjective - Subjective Patient is:: asleep Patient Complaints of:: other (Psychosis.) Per staff patient has:: no adverse event, no episodes of fall Internal Medicine Objective - Results Result Diagrams: 08/26/18 20:00 08/26/18 20:00 Recent Labs: Laboratory Last Values WBC 6.5 Th/cmm (4.8-10.8) 08/26/18 20:00 RBC 4.11 Mil/cmm (3.80-5.20) 08/26/18 20:00 Hgb 12.8 gm/dL (12-16) 08/26/18 20:00 Hct 38.7 % (41.0-60) L 08/26/18 20:00 MCV 94.0 fl (81-100) 08/26/18 20:00 MCH 31.1 pg (27.0-31.0) H 08/26/18 20:00 MCHC Differential 33.1 pg (28.0-36.0) 08/26/18 20:00 RDW 12.1 % (11.5-20.0) 08/26/18 20:00 Plt Count 279 Th/cmm (150-400) 08/26/18 20:00 MPV 7.2 fl 08/26/18 20:00 Neutrophils % 44.5 % (40.0-80.0) 08/26/18 20:00 Lymphocytes % 40.2 % (20.0-50.0) 08/26/18 20:00 Monocytes % 10.0 % (2.0-10.0) 08/26/18 20:00 Eosinophils % 4.6 % (0.0-5.0) 08/26/18 20:00 Basophils % 0.7 % (0.0-2.0) 08/26/18 20:00 PT 9.8 SECONDS (9.5-11.5) 08/26/18 20:00 INR 0.94 (0.5-1.4) 08/26/18 20:00 PTT (Actin FS) 24.1 SECONDS (26.0-38.0) L 08/26/18 20:00 Sodium 133 mEq/L (136-145) L 08/26/18 20:00 Potassium 3.7 mEq/L (3.5-5.1) 08/26/18 20:00 Chloride 98 mEq/L (98-107) 08/26/18 20:00 Carbon Dioxide 26.7 mEq/L (21.0-31.0) 08/26/18 20:00 Anion Gap 12.0 (7.0-16.0) 08/26/18 20:00 BUN 20 mg/dL (7-25) 08/26/18 20:00 Creatinine 1.2 mg/dL (0.6-1.2) 08/26/18 20:00 Est GFR ( Amer) 57.3 ml/min (>90) 08/26/18 20:00 Est GFR (Non-Af Amer) 47.3 ml/min 08/26/18 20:00 BUN/Creatinine Ratio 16.7 08/26/18 20:00 Glucose 147 mg/dL (70-105) H 08/26/18 20:00 Calcium 9.4 mg/dL (8.6-10.3) 08/26/18 20:00 Total Bilirubin 0.3 mg/dL (0.3-1.0) 08/26/18 20:00 AST 56 U/L (13-39) H 08/26/18 20:00 ALT 56 U/L (7-52) H 08/26/18 20:00 Alkaline Phosphatase 165 U/L (34-104) H 08/26/18 20:00 Troponin I 0.01 ng/mL (0.01-0.05) 08/26/18 20:00 Total Protein 7.3 gm/dL (6.0-8.3) 08/26/18 20:00 Albumin 3.9 gm/dL (3.7-5.3) 08/26/18 20:00 Globulin 3.4 gm/dL 08/26/18 20:00 Albumin/Globulin Ratio 1.2 (1.0-1.8) 08/26/18 20:00 Triglycerides 109 mg/dL (<150) 08/26/18 20:00 Cholesterol 165 mg/dL (<200) 08/26/18 20:00 LDL Cholesterol Direct 64 mg/dL (75-193) L 08/26/18 20:00 HDL Cholesterol 82 mg/dL (23-92) 08/26/18 20:00 TSH 0.61 uIU/ml (0.34-5.60) 08/26/18 20:00 Urine Source CLEAN C 08/26/18 20:14 Urine Color YELLOW 08/26/18 20:14 Urine Clarity CLEAR (CLEAR) 08/26/18 20:14 Urine pH 6.0 (4.6 - 8.0) 08/26/18 20:14 Ur Specific [place] <= 1.005 (1.005-1.030) 08/26/18 20:14 Urine Protein NEGATIVE mg/dL (NEGATIVE) 08/26/18 20:14 Urine Glucose (UA) NEGATIVE mg/dL (NEGATIVE) 08/26/18 20:14 Urine Ketones NEGATIVE mg/dL (NEGATIVE) 08/26/18 20:14 Urine Blood NEGATIVE (NEGATIVE) 08/26/18 20:14 Urine Nitrate NEGATIVE (NEGATIVE) 08/26/18 20:14 Urine Bilirubin NEGATIVE (NEGATIVE) 08/26/18 20:14 Urine Urobilinogen 0.2 E.U./dL (0.2 - 1.0) 08/26/18 20:14 Ur Leukocyte Esterase MODERATE (NEGATIVE) H 08/26/18 20:14 Urine RBC 0-2 /hpf (0-5) 08/26/18 20:14 Urine WBC 6-10 /hpf (0-5) H 08/26/18 20:14 Ur Epithelial Cells MODERATE /lpf (FEW) 08/26/18 20:14 Urine Bacteria 1+ /hpf (NONE SEEN) H 08/26/18 20:14 - Physical Exam Vitals and I&O: Vital Signs Temp 97.7 F 09/01/18 14:00 Pulse 89 09/01/18 14:00 Resp 20 09/01/18 14:00 BP 107/61 09/01/18 14:00 Pulse Ox 97 09/01/18 14:00 Intake & Output 09/01/18 09/01/18 09/02/18 06:59 18:59 06:59 Intake Total 480 950 Balance 480 950 Intake: Oral 480 950 Other: # Voids 2 Active Medications: Current Medications Acetaminophen (Tylenol) 650 mg PO Q4HR PRN PRN Reason: Mild Pain 1-3/ Temp above 100 Stop: 10/26/18 03:48 Acetaminophen (Tylenol Extra Strength) 1,000 mg PO Q4HR PRN PRN Reason: MODERATE PAIN 4-7 Stop: 10/26/18 03:48 Amlodipine Besylate (Norvasc) 2.5 mg PO DAILY [facility] Stop: 10/26/18 08:59 Last Admin: 09/01/18 08:52 Dose: 2.5 mg Ascorbic Acid (Vitamin C) 500 mg PO BID [facility] Stop: 10/26/18 08:59 Last Admin: 09/01/18 17:42 Dose: 500 mg Aspirin (Aspirin Chewable) 81 mg PO DAILY [facility] Stop: 10/26/18 08:59 Last Admin: 09/01/18 08:51 Dose: 81 mg Atorvastatin Calcium (Lipitor) 10 mg PO HS [facility]; Protocol Stop: 10/26/18 20:59 Last Admin: 08/31/18 20:36 Dose: 10 mg Carbidopa/Levodopa (Sinemet 10 Mg-100 Mg) 1 tab PO BID [facility] Stop: 10/26/18 08:59 Last Admin: 09/01/18 17:42 Dose: 1 tab Cholecalciferol (Vitamin D3) 1,000 iu PO DAILY [facility] Stop: 10/26/18 08:59 Last Admin: 09/01/18 08:49 Dose: 1,000 iu Docusate Sodium (Colace) 100 mg PO DAILY [facility] Stop: 10/26/18 08:59 Last Admin: 09/01/18 08:51 Dose: 100 mg Donepezil HCl (Aricept) 10 mg PO HS [facility] Stop: 10/26/18 20:59 Last Admin: 08/31/18 20:37 Dose: 10 mg Loratadine (Claritin) 10 mg PO DAILY PRN PRN Reason: Allergy Symptoms Stop: 10/26/18 03:48 Lorazepam (Ativan) 0.5 mg PO Q4HR PRN; Protocol PRN Reason: Anxiety Stop: 09/25/18 21:19 Last Admin: 09/01/18 14:00 Dose: 0.5 mg Magnesium Hydroxide (Milk Of Magnesia) 30 ml PO HS PRN PRN Reason: Constipation Stop: 10/26/18 03:48 Memantine (Namenda) 5 mg PO BID [facility] Stop: 10/26/18 08:59 Last Admin: 09/01/18 17:42 Dose: 5 mg Risperidone (Risperdal) 0.25 mg PO BID [facility]; Protocol Stop: 10/31/18 08:59 Last Admin: 09/01/18 17:42 Dose: 0.25 mg Zolpidem Tartrate (Ambien) 5 mg PO HS PRN PRN Reason: Insomnia Stop: 10/25/18 23:36 Last Admin: 08/31/18 20:38 Dose: 5 mg General: NAD, other (asleep but arousable) HEENT: NC/AT Neck: Supple, No JVD Lungs: other (no acute respiratory distress) Cardiovascular: RRR Abdomen: soft, non-tender Extremities: clear Neurological: no change - Procedures Procedures: Procedures Procedure Code Date FLUOROSCOPY OF LEFT HEART USING LOW OSMOLAR CONTRAST [id number] 02/20/17 INSERT PACE. DUAL LAKHWINDER IN CHEST SUBCU/FASCIA, OPEN [id number] 02/20/17 INSERTION OF PACEMAKER LEAD INTO R VENTRICLE, PERC APPROACH [id number] 02/20/17 INSERTION OF PACEMAKER LEAD INTO RIGHT ATRIUM, PERC APPROACH [id number] 02/20/17 INSRT HEART PM ATRIAL & VENT [id number] 02/20/17 Internal Medicine Assmt/Plan - Assessment Assessment: Dementia Psychosis Depression HTN Hyperlipidemia Parkinson's disease - Plan Plan: Continue current treatment plan. Monitor Labs.Continue current medications Continue to monitor VS Monitor Diet/Nutritional support. Psych management per Psychiatry. Pain Management. PT/OT prn Safety precaution, Fall precaution, frequent nursing round. Supportive care. Continue collaborating with consulting specialists, case management and nursing team. Nutritional Asmnt/Malnutr-PDOC - Dietary Evaluation Malnutrition Findings (Please click <Entered> for more info): Nutritional Asmnt/Malnutrition Start: 08/29/18 13: 47 Text: Status: Complete Freq: Protocol: Document 08/29/18 13:47 MOLLY (Rec: 08/29/18 13:50 MOLLY [email or web address]) Nutritional Asmnt/Malnutrition Patient General Information Nutritional Screening Moderate Risk Diagnosis PSYCHOSIS NOS Pertinent Medical Hx/Surgical Hx PARKINSONS DISEASE, HTN Subjective Information PT IS A 68 YEAR OLD FEMALE FROM [facility] ADMITTED ON 08/26 D/T AGITATED BEHAVIOR. PER H & P, PTS JUDGEMENT AND INSIGHT ARE IMPAIRED. HT: 410 WT: 110 LB (50 KG) BMI: 23.0 (NORMAL) GI: SOFT, FLAT, NON-TENDER BM: 08/29 X 1 I/O: 1160/NOT NOTED SKIN: WNL, DRYNESS CHUNG: 20 DIET ORDER: SOFT, ANGEL ESTIMATED ENERGY NEEDS: ( GERIATRIC, CBW) 1250-1500KCALS (25-30 KCALS/KG ) 50-60 G PRO (1.0-1.2 G/KG) 3081-5155 ML (25-30 ML/KG) PT PO INTAKE: ESTIMATED 75% MEALS PER MEAL/NUTRITION ACTIVITY RECORD. DIETARY IS CURRENTLY PROVIDING AN ESTIMATED 2200 KCALS AND 103 GM PRO TO MEET 100+% KCAL AND 100+% PRO NEEDS. Current Diet Order/ Nutrition Support SOFT, ANGEL Pertinent Medications VIT C, LIPITOR, VIT D3, COLACE , MOM (PRN) Pertinent Labs 08/26: HGB/HCT: 12.8/38.7, NA 133, GLUCOSE 147, AST 56, ALT 56, ALK PHOS 165 Nutritional Hx/Data Height 4 ft 10 in Height (Calculated Centimeters) 147.3 Current Weight (lbs) 110 lb Weight (Calculated Kilograms) 49.9 Weight (Calculated Grams) 75606.2 [place] Body Weight 96 LB (43.64 KG) % [place] Body Weight 115 Body Mass Index (BMI) 22.9 Weight Status Approriate GI Symptoms GI Symptoms None Skin Integrity/Comment: WNL, DRYNESS CHUNG: 20 Current %PO Good (75-100%) Estimated Nutritional Goals BEE in Kcals: Using Current wt Calories/Kcals/Kg 25-30 Kcals Calculated 1377-4456 Protein: Using Current wt Protein g/k.0-1.2 Protein Calculated 50-60 Fluid: ml 7581-4176 ML (25-30 ML/KG) Nutritional Problem 1. Problem Problem ALTERED NUTRITION RELATED LABS Etiology R/T MEDICAL CONDITION Signs/Symptoms: AEB GLUCOSE 147, NA 133 Malnutrition Related to Morbid Obesity Malnutrition related to morbid obesity No Intervention/Recommendation Comments CONTINUE WITH SOFT, ANGEL DIET ORDERED. Expected Outcomes/Goals Expected Outcomes/Goals 1. PO INTAKE TO CONTINUE TO MEET > 75% OF NUTRITIONAL NEEDS. 2. MONITOR PO INTAKE, WT, NUTRITION RELATED LABS AND SKIN INTEGRITY. 3. NUTRITION RELATED LABS TO TREND WNL IN 7 DAYS. 4. F/U LOW RISK IN 7 DAYS, 09/05
--- NOTE | 2018-09-01 21:00 | Progress Notes ---
DATE: SUBJECTIVE: Chart was reviewed and the patient interviewed. Also discussed the patient's condition with the staff and reviewed records and labs. The patient is still wandering into other patient's rooms in a confused state. The patient is also restless and she still needs lots of redirections with difficulty following any directions. She also is still going from one room to another looking for "my mother." She also is still easily agitated. Otherwise, the patient is compliant with taking her medications with no side effects of medications. ASSESSMENT: The patient is still psychotic and agitated. TREATMENT PLAN: We will add Risperdal in a dose of 0.25 mg twice a day. Also, continue to work on her agitation and irritability and confusion. [facility]# [id number]
[2018-09-01] MEDS: Atorvastatin Calcium 10 MG TAB PO SCH (21:06)
[2018-09-02] MEDS: Aspirin 81mg Chewable Tab PO SCH (09:18)
[2018-09-02] MEDS: Carbidopa/Levodopa 10/100 mg Tab PO SCH ×2 (09:20→16:22)
[2018-09-02] MEDS: Multivitamin w/ Minerals Tab PO SCH (09:27)
--- NOTE | 2018-09-02 10:48 | Internal Medicine Prog Note ---
Internal Medicine Subjective - Subjective Service Date: 09/02/18 Patient seen and examined:: with staff Patient is:: awake, verbal, agitated Patient Complaints of:: other (Psychosis.) Per staff patient has:: no adverse event, no episodes of fall Internal Medicine Objective - Results Result Diagrams: 08/26/18 20:00 08/26/18 20:00 Recent Labs: Laboratory Last Values WBC 6.5 Th/cmm (4.8-10.8) 08/26/18 20:00 RBC 4.11 Mil/cmm (3.80-5.20) 08/26/18 20:00 Hgb 12.8 gm/dL (12-16) 08/26/18 20:00 Hct 38.7 % (41.0-60) L 08/26/18 20:00 MCV 94.0 fl (81-100) 08/26/18 20:00 MCH 31.1 pg (27.0-31.0) H 08/26/18 20:00 MCHC Differential 33.1 pg (28.0-36.0) 08/26/18 20:00 RDW 12.1 % (11.5-20.0) 08/26/18 20:00 Plt Count 279 Th/cmm (150-400) 08/26/18 20:00 MPV 7.2 fl 08/26/18 20:00 Neutrophils % 44.5 % (40.0-80.0) 08/26/18 20:00 Lymphocytes % 40.2 % (20.0-50.0) 08/26/18 20:00 Monocytes % 10.0 % (2.0-10.0) 08/26/18 20:00 Eosinophils % 4.6 % (0.0-5.0) 08/26/18 20:00 Basophils % 0.7 % (0.0-2.0) 08/26/18 20:00 PT 9.8 SECONDS (9.5-11.5) 08/26/18 20:00 INR 0.94 (0.5-1.4) 08/26/18 20:00 PTT (Actin FS) 24.1 SECONDS (26.0-38.0) L 08/26/18 20:00 Sodium 133 mEq/L (136-145) L 08/26/18 20:00 Potassium 3.7 mEq/L (3.5-5.1) 08/26/18 20:00 Chloride 98 mEq/L (98-107) 08/26/18 20:00 Carbon Dioxide 26.7 mEq/L (21.0-31.0) 08/26/18 20:00 Anion Gap 12.0 (7.0-16.0) 08/26/18 20:00 BUN 20 mg/dL (7-25) 08/26/18 20:00 Creatinine 1.2 mg/dL (0.6-1.2) 08/26/18 20:00 Est GFR ( Amer) 57.3 ml/min (>90) 08/26/18 20:00 Est GFR (Non-Af Amer) 47.3 ml/min 08/26/18 20:00 BUN/Creatinine Ratio 16.7 08/26/18 20:00 Glucose 147 mg/dL (70-105) H 08/26/18 20:00 Calcium 9.4 mg/dL (8.6-10.3) 08/26/18 20:00 Total Bilirubin 0.3 mg/dL (0.3-1.0) 08/26/18 20:00 AST 56 U/L (13-39) H 08/26/18 20:00 ALT 56 U/L (7-52) H 08/26/18 20:00 Alkaline Phosphatase 165 U/L (34-104) H 08/26/18 20:00 Troponin I 0.01 ng/mL (0.01-0.05) 08/26/18 20:00 Total Protein 7.3 gm/dL (6.0-8.3) 08/26/18 20:00 Albumin 3.9 gm/dL (3.7-5.3) 08/26/18 20:00 Globulin 3.4 gm/dL 08/26/18 20:00 Albumin/Globulin Ratio 1.2 (1.0-1.8) 08/26/18 20:00 Triglycerides 109 mg/dL (<150) 08/26/18 20:00 Cholesterol 165 mg/dL (<200) 08/26/18 20:00 LDL Cholesterol Direct 64 mg/dL (75-193) L 08/26/18 20:00 HDL Cholesterol 82 mg/dL (23-92) 08/26/18 20:00 TSH 0.61 uIU/ml (0.34-5.60) 08/26/18 20:00 Urine Source CLEAN C 08/26/18 20:14 Urine Color YELLOW 08/26/18 20:14 Urine Clarity CLEAR (CLEAR) 08/26/18 20:14 Urine pH 6.0 (4.6 - 8.0) 08/26/18 20:14 Ur Specific [place] <= 1.005 (1.005-1.030) 08/26/18 20:14 Urine Protein NEGATIVE mg/dL (NEGATIVE) 08/26/18 20:14 Urine Glucose (UA) NEGATIVE mg/dL (NEGATIVE) 08/26/18 20:14 Urine Ketones NEGATIVE mg/dL (NEGATIVE) 08/26/18 20:14 Urine Blood NEGATIVE (NEGATIVE) 08/26/18 20:14 Urine Nitrate NEGATIVE (NEGATIVE) 08/26/18 20:14 Urine Bilirubin NEGATIVE (NEGATIVE) 08/26/18 20:14 Urine Urobilinogen 0.2 E.U./dL (0.2 - 1.0) 08/26/18 20:14 Ur Leukocyte Esterase MODERATE (NEGATIVE) H 08/26/18 20:14 Urine RBC 0-2 /hpf (0-5) 08/26/18 20:14 Urine WBC 6-10 /hpf (0-5) H 08/26/18 20:14 Ur Epithelial Cells MODERATE /lpf (FEW) 08/26/18 20:14 Urine Bacteria 1+ /hpf (NONE SEEN) H 08/26/18 20:14 - Physical Exam Vitals and I&O: Vital Signs Temp 97.9 F 09/02/18 04:58 Pulse 79 09/02/18 09:17 Resp 18 09/02/18 04:58 BP 123/79 09/02/18 09:17 Pulse Ox 98 09/02/18 04:58 Intake & Output 09/01/18 09/02/18 09/02/18 18:59 06:59 18:59 Intake Total 950 240 Balance 950 240 Intake: Oral 950 240 Other: # Voids 2 Active Medications: Current Medications Acetaminophen (Tylenol) 650 mg PO Q4HR PRN PRN Reason: Mild Pain 1-3/ Temp above 100 Stop: 10/26/18 03:48 Acetaminophen (Tylenol Extra Strength) 1,000 mg PO Q4HR PRN PRN Reason: MODERATE PAIN 4-7 Stop: 10/26/18 03:48 Amlodipine Besylate (Norvasc) 2.5 mg PO DAILY [facility] Stop: 10/26/18 08:59 Last Admin: 09/02/18 09:17 Dose: 2.5 mg Ascorbic Acid (Vitamin C) 500 mg PO BID [facility] Stop: 10/26/18 08:59 Last Admin: 09/02/18 09:18 Dose: 500 mg Aspirin (Aspirin Chewable) 81 mg PO DAILY [facility] Stop: 10/26/18 08:59 Last Admin: 09/02/18 09:18 Dose: 81 mg Atorvastatin Calcium (Lipitor) 10 mg PO HS [facility]; Protocol Stop: 10/26/18 20:59 Last Admin: 09/01/18 21:06 Dose: 10 mg Carbidopa/Levodopa (Sinemet 10 Mg-100 Mg) 1 tab PO BID [facility] Stop: 10/26/18 08:59 Last Admin: 09/02/18 09:20 Dose: 1 tab Cholecalciferol (Vitamin D3) 1,000 iu PO DAILY [facility] Stop: 10/26/18 08:59 Last Admin: 09/02/18 09:20 Dose: 1,000 iu Docusate Sodium (Colace) 100 mg PO DAILY [facility] Stop: 10/26/18 08:59 Last Admin: 09/02/18 09:20 Dose: 100 mg Donepezil HCl (Aricept) 10 mg PO HS [facility] Stop: 10/26/18 20:59 Last Admin: 09/01/18 21:06 Dose: 10 mg Loratadine (Claritin) 10 mg PO DAILY PRN PRN Reason: Allergy Symptoms Stop: 10/26/18 03:48 Last Admin: 09/02/18 09:19 Dose: 10 mg Lorazepam (Ativan) 0.5 mg PO Q4HR PRN; Protocol PRN Reason: Anxiety Stop: 09/25/18 21:19 Last Admin: 09/01/18 23:15 Dose: 0.5 mg Magnesium Hydroxide (Milk Of Magnesia) 30 ml PO HS PRN PRN Reason: Constipation Stop: 10/26/18 03:48 Memantine (Namenda) 5 mg PO BID [facility] Stop: 10/26/18 08:59 Last Admin: 09/02/18 09:20 Dose: 5 mg Risperidone (Risperdal) 0.25 mg PO BID [facility]; Protocol Stop: 10/31/18 08:59 Last Admin: 09/02/18 09:20 Dose: 0.25 mg Zolpidem Tartrate (Ambien) 5 mg PO HS PRN PRN Reason: Insomnia Stop: 10/25/18 23:36 Last Admin: 09/01/18 21:07 Dose: 5 mg Physical Exam: 68 y/o female patient is very agitated. General: NAD, other (asleep but arousable) HEENT: NC/AT Neck: Supple, No JVD Lungs: other (no acute respiratory distress) Cardiovascular: RRR Abdomen: soft, non-tender Extremities: clear Neurological: no change - Procedures Procedures: Procedures Procedure Code Date FLUOROSCOPY OF LEFT HEART USING LOW OSMOLAR CONTRAST [id number] 02/20/17 INSERT PACE. DUAL LAKHWINDER IN CHEST SUBCU/FASCIA, OPEN [id number] 02/20/17 INSERTION OF PACEMAKER LEAD INTO R VENTRICLE, PERC APPROACH [id number] 02/20/17 INSERTION OF PACEMAKER LEAD INTO RIGHT ATRIUM, PERC APPROACH [id number] 02/20/17 INSRT HEART PM ATRIAL & VENT [id number] 02/20/17 Internal Medicine Assmt/Plan - Assessment Assessment: Dementia with behavioral disturbances. Psychosis. Depression. Parkinson's disease. Hypertension. - Plan Plan: Continuation of care. Monitor Labs. Continue present meds as directed. Monitor vitals, Continue BP meds as directed. Monitor Diet/Nutritional support. Psych management per Psych. Fall precaution, frequent nursing rounds, and as needed restraints to prevent fall. Safety precaution. Supportive care. Continue collaborating with consulting specialists, case management and nursing team. Will Monitor patient and continue present care management. Nutritional Asmnt/Malnutr-PDOC - Dietary Evaluation Malnutrition Findings (Please click <Entered> for more info): Nutritional Asmnt/Malnutrition Start: 08/29/18 13: 47 Text: Status: Complete Freq: Protocol: Document 08/29/18 13:47 MOLLY (Rec: 08/29/18 13:50 MOLLY [email or web address]) Nutritional Asmnt/Malnutrition Patient General Information Nutritional Screening Moderate Risk Diagnosis PSYCHOSIS NOS Pertinent Medical Hx/Surgical Hx PARKINSONS DISEASE, HTN Subjective Information PT IS A 68 YEAR OLD FEMALE FROM [facility] ADMITTED ON 08/26 D/T AGITATED BEHAVIOR. PER H & P, PTS JUDGEMENT AND INSIGHT ARE IMPAIRED. HT: 410 WT: 110 LB (50 KG) BMI: 23.0 (NORMAL) GI: SOFT, FLAT, NON-TENDER BM: 08/29 X 1 I/O: 1160/NOT NOTED SKIN: WNL, DRYNESS CHUNG: 20 DIET ORDER: SOFT, ANGEL ESTIMATED ENERGY NEEDS: ( GERIATRIC, CBW) 1250-1500KCALS (25-30 KCALS/KG ) 50-60 G PRO (1.0-1.2 G/KG) 6664-3945 ML (25-30 ML/KG) PT PO INTAKE: ESTIMATED 75% MEALS PER MEAL/NUTRITION ACTIVITY RECORD. DIETARY IS CURRENTLY PROVIDING AN ESTIMATED 2200 KCALS AND 103 GM PRO TO MEET 100+% KCAL AND 100+% PRO NEEDS. Current Diet Order/ Nutrition Support SOFT, ANGEL Pertinent Medications VIT C, LIPITOR, VIT D3, COLACE , MOM (PRN) Pertinent Labs 08/26: HGB/HCT: 12.8/38.7, NA 133, GLUCOSE 147, AST 56, ALT 56, ALK PHOS 165 Nutritional Hx/Data Height 1.47 m Height (Calculated Centimeters) 147.3 Current Weight (lbs) 49.895 kg Weight (Calculated Kilograms) 49.9 Weight (Calculated Grams) 67933.2 [place] Body Weight 96 LB (43.64 KG) % [place] Body Weight 115 Body Mass Index (BMI) 22.9 Weight Status Approriate GI Symptoms GI Symptoms None Skin Integrity/Comment: WNL, DRYNESS CHUNG: 20 Current %PO Good (75-100%) Estimated Nutritional Goals BEE in Kcals: Using Current wt Calories/Kcals/Kg 25-30 Kcals Calculated 4539-3898 Protein: Using Current wt Protein g/k.0-1.2 Protein Calculated 50-60 Fluid: ml 8818-9280 ML (25-30 ML/KG) Nutritional Problem 1. Problem Problem ALTERED NUTRITION RELATED LABS Etiology R/T MEDICAL CONDITION Signs/Symptoms: AEB GLUCOSE 147, NA 133 Malnutrition Related to Morbid Obesity Malnutrition related to morbid obesity No Intervention/Recommendation Comments CONTINUE WITH SOFT, ANGEL DIET ORDERED. Expected Outcomes/Goals Expected Outcomes/Goals 1. PO INTAKE TO CONTINUE TO MEET > 75% OF NUTRITIONAL NEEDS. 2. MONITOR PO INTAKE, WT, NUTRITION RELATED LABS AND SKIN INTEGRITY. 3. NUTRITION RELATED LABS TO TREND WNL IN 7 DAYS. 4. F/U LOW RISK IN 7 DAYS, 09/05
--- NOTE | 2018-09-04 03:31 | Discharge Summary ---
DATE OF DISCHARGE: 09/02/2018 PATIENT'S AGE: 68 SEX: Female. PHYSICIAN: Andrea Grant M.D., M.P.H., FINAL DIAGNOSIS: PRIMARY DIAGNOSIS: Unspecified psychosis. SECONDARY DIAGNOSIS: Dementia, moderate to severe, with behavior disturbances and psychosis. REASON FOR HOSPITALIZATION: The patient was admitted to the hospital from [facility] because of agitation and increased behavioral problems and unable to follow directions. HOSPITAL COURSE: The patient continued to be agitated and in irritable mood. The patient also was restless and she was not able to follow any directions. The patient also was suspicious. The patient was started on Aricept. She was given Aricept 50 mg at bedtime and also she was given Risperdal at a dose of 0.25 mg twice a day and Namenda 5 mg twice a day. Gradually, the patient's affect was brighter. The patient was not as agitated. She interacted more with peers and with others. The patient also was able to follow directions easily. The patient was discharged from the hospital. PHYSICAL EXAMINATION: The patient basically has no major medical problems. Blood workup was also basically within normal. AFTER DISCHARGE PLANS: The patient discharged from the hospital back to [place] with plans to follow up there. EXPECTED OUTCOME AFTER DISCHARGE: Fair if the patient continues with her outpatient treatment and follow up with discharge plans. [facility]# [id number]
== END 2018-09-02 16:30 | DRG 885 ==
LOC: ER 19:33 → GERO2 20:45
PROVIDERS: ADMIT Psychiatry & Neurology Psychiatry; ATTEND Psychiatry & Neurology Psychiatry
DX: F29 Unspecified psychosis not due to a substance or known physiological condition (principal); N39.0 Urinary tract infection, site not specified; F02.81 Dementia in other diseases classified elsewhere, unspecified severity, with behavioral disturbance; I10 Essential (primary) hypertension; I25.10 Atherosclerotic heart disease of native coronary artery without angina pectoris; E78.5 Hyperlipidemia, unspecified; M19.90 Unspecified osteoarthritis, unspecified site; G20 Parkinson's disease; F32.9 Major depressive disorder, single episode, unspecified; Z79.82 Long term (current) use of aspirin
CPT/HCPCS: 36415-UA; 71045-TC; 80053-TC; 80061-TC; 81001-TC; 83036-90; 84443-TC; 84484-TC; 85025-TC; 85610-TC; 85730-TC; 93005; G0410; J0696; Z7610